=== PATIENT | female | born 1940 | race Hispanic/Latino ===

== ENCOUNTER 2017-10-25 12:46 | Inpatient (IN) | payer OTHER ==
--- NOTE | 2017-10-25 13:47 | RAD REPORT ---
EXAM DESCRIPTION: RAD - Chest Single View - 10/25/2017 1:39 pm CLINICAL HISTORY: Fall, chest pain. COMPARISON: 01/19/2015 FINDINGS: Portable technique limits examination quality. The lungs are grossly clear. The heart is normal in size. No displaced fractures. IMPRESSION: No acute intrathoracic process suspected.
--- NOTE | 2017-10-25 13:52 | RAD REPORT ---
EXAM DESCRIPTION: CT - Head Brain Wo Cont - 10/25/2017 1:42 pm CLINICAL HISTORY: Fall, head injury. COMPARISON: 01/19/2015 TECHNIQUE: All CT scans are performed using dose optimization technique as appropriate and may inclu de automated exposure control or mA/KV adjustment according to patient size. FINDINGS: No intracranial hemorrhage, hydrocephalus or extra-axial fluid collection.Moderate general ized brain atrophy is present with moderate periventricular and deep white matter chronic microvascul ar ischemic changes.No areas of brain edema or evidence of midline shift. The paranasal sinuses and mastoids are clear. The calvarium is intact. IMPRESSION: No acute intracranial abnormality.
[2017-10-25 13:55] LABS: Absolute Lymphocytes (CBC) 0.7 K/uL (0.7-4.9); Absolute Monocytes 0.7 K/uL (0.1-1.3); Absolute Neutrophil 4.5 K/uL (1.8-8.0); Basophils % 0.5 % (0-1.3); Eosinophils % 2.4 % (0-4.4); Hematocrit 33.4 % (36.0-45.0); Lymphocytes % 11.7 % (15.3-44.8); MCH 30.8 pg (27.0-35.0); MCV 88.9 fL (80-100); MPV 7.4 fL (7.6-11.3); Monocytes % 11.1 % (3.3-12.3); RBC Red Blood Cell Count 3.76 M/uL (3.86-4.86)
[2017-10-25 13:58] LABS: Protime INR 1.14
[2017-10-25 14:02] LABS: Potassium 3.4 mEq/L (3.6-5.0)
[2017-10-25 14:08] LABS: Albumin 3.2 g/dL (3.2-5.5); Bilirubin Direct 0.2 mg/dL (0-0.2); Bilirubin Total 0.5 mg/dL (0.3-1.2); Magnesium 1.9 mg/dL (1.8-2.5); Protein, Total 6.1 g/dL (6.0-8.3)
[2017-10-25 14:13] LABS: CKMB Creatine Kinase MB 0.6 ng/ml (0.3-4.0)
[2017-10-25] MEDS ORDERED: NA CHLORIDE 0.9% 250 ML ONE ×2 (14:24→18:18)
[2017-10-25] MEDS ORDERED: NA CHLORIDE 0.9% 1,000 ML ONE (14:24)
[2017-10-25 16:32] LABS: Urine Bacteria <20 /HPF (<20); Urine Culture Reflex Order NOT NEEDED; Urine RBC <5 /HPF (NONE SEEN)
[2017-10-25 16:34] LABS: Urine Blood TRACE (NEG); Urine Glucose NEGATIVE (NEG); Urine Protein 1+ (NEG); Urine pH 6.5 (5.0-7.0)
[2017-10-25] MEDS ORDERED: ACETAMINOPHEN 500 MG TAB ONE (17:13)
--- NOTE | 2017-10-25 17:15 | ER ---
Nurse's Notes [facility] Name: Kat Diane Age: 77 yrs Sex: Female : 1940 Arrival Date: 10/25/2017 Time: 13:00 Bed 20 Private MD: Diagnosis: Other slipping, tripping and stumbling and falls;Weakness-General;Orthostatic hypotension Presentation: 10/25 13:13 Presenting complaint: EMS states: called out for generalized weakness, fell while em gardening around 8AM, went to shower and fell and hit head around 11AM, denies taking blood thinners or LOC, generalized weakness for 4 days, bruising noted left upper arm, left wrist, and right shoulder. Transition of care: patient was not received from another setting of care. Onset of symptoms was October 25, 2017. Risk Assessment: Do you want to hurt yourself or someone else? Patient reports no desire to harm self or others. Initial Sepsis Screen: Does the patient meet any 2 criteria? No. Patient's initial sepsis screen is negative. Does the patient have a suspected source of infection? No. Patient's initial sepsis screen is negative. Care prior to arrival: Medication(s) given: zofran 4 mg. 13:13 Method Of Arrival: EMS: [facility] em 13:13 Acuity: UMBERTO 3 iw Historical: - Allergies: 13:30 No Known Allergies; em - Home Meds: 14:00 atorvastatin 20 mg Oral tab 1 tab once daily [Active]; amlodipine 5 mg tab 1 tab once em daily [Active]; benazepril-hydrochlorothiazide 40mg daily Oral tab [Active]; Vitamin D Oral daily [Active]; carvedilol 25 mg Oral tab 1 tab 2 times per day [Active]; aspirin 81 mg Oral chew 1 tab once daily [Active]; calcium daily [Active]; folic acid 1 mg Oral tab 1 tab once daily [Active]; clopidogrel 75 mg oral tab 1 tab once daily [Active]; carbamazepine 100 mg Oral CM12 1 cap 2 times per day [Active]; gabapentin 300 mg oral cap 1 cap 3 times per day [Active]; - PMHx: 13:30 Hyperlipidemia; Hypertension; CVA; em - PSHx: 13:30 left wrist; em - Immunization history:: Adult Immunizations up to date, Flu vaccine is not up to date. - Social history:: Smoking status: Patient/guardian denies using tobacco. - Ebola Screening: : No symptoms or risks identified at this time. Screenin:00 Abuse screen: Denies threats or abuse. Nutritional screening: No deficits noted. em Tuberculosis screening: No symptoms or risk factors identified. Fall Risk Fall in past 12 months (25 points). Secondary diagnosis (15 points) generalized weakness. Gait- Weak (10 pts.). Total Byrnes Fall Scale indicates High Risk Score (45 or more points). Side Rails Up X 2 Placed Close to Nursing Station Frequent Obs/Assessments Occuring Family Present and informed to notify staff if the need to leave the bedside. Assessment: 13:31 General: Appears in no apparent distress. uncomfortable, ill, Behavior is calm, em cooperative. Pain: Denies pain. Neuro: Level of Consciousness is awake, alert, obeys commands, Oriented to person, place, time, situation, [employer] are weak bilaterally Moves all extremities. Speech is normal, Reports weakness since four days ago. 13:31 Cardiovascular: Capillary refill < 3 seconds Patient's skin is warm and dry. Rhythm is em sinus rhythm. Respiratory: Airway is patent Respiratory effort is even, unlabored, Respiratory pattern is regular, symmetrical. GI: Patient currently denies nausea, vomiting. : No signs and/or symptoms were reported regarding the genitourinary system. EENT: No signs and/or symptoms were reported regarding the EENT system. Derm: Skin is intact, Skin is dusky, Bruising that is dark purple, on left bicep and dorsal aspect of left forearm, right shoulder. 13:31 Musculoskeletal: Range of motion: intact in all extremities. em 13:50 Reassessment: Patient appears in no apparent distress at this time. I agree with above iw assessment by Primo Quintero LVN. 14:30 Reassessment: Patient appears in no apparent distress at this time. Patient and/or em family updated on plan of care and expected duration. Pain level reassessed. Patient is alert, oriented x 3, equal unlabored respirations, skin warm/dry/pink. Patient states feeling better. Patient states symptoms have improved. 15:30 Reassessment: Patient appears in no apparent distress at this time. Patient and/or em family updated on plan of care and expected duration. Pain level reassessed. Patient is alert, oriented x 3, equal unlabored respirations, skin warm/dry/pink. 16:27 Reassessment: Patient appears in no apparent distress at this time. Patient and/or em family updated on plan of care and expected duration. Pain level reassessed. Patient is alert, oriented x 3, equal unlabored respirations, skin warm/dry/pink. Patient states feeling better. 17:37 Reassessment: Patient appears in no apparent distress at this time. Patient and/or em family updated on plan of care and expected duration. Pain level reassessed. pt eating dinner, tolerated well. 17:50 Reassessment: pt sat up to eat dinner, BP was 85/50, HR 60, SPO2% 94% RA, pt em asymptomatic, A\T\Ox 3, skin pale, dry and cool, WENDY Orosco notified, new orders received. 18:15 Reassessment: pt lying in bed at 15 degrees, BP 93/47, HR 64, SPO2 98% on 2 L NC. em 18:35 Reassessment: BP 105/47, HR 62, SPO2 98% 2 L NC after 250 mL bolus, WENDY Orosco notified. em 18:50 Reassessment: Patient appears in no apparent distress at this time. BP 93/42, HR 63, em SPO2 % 98 2 L NC, WENDY Orosco notified, no new orders received, will continue to monitor. 19:15 General: Appears in no apparent distress. Behavior is calm, cooperative. Pain: Denies ea pain. Neuro: Level of Consciousness is awake, alert, obeys commands, Oriented to person, place, time, situation, Speech is normal, Reports weakness. Cardiovascular: Capillary refill < 3 seconds Patient's skin is warm and dry. Cardiovascular: Heart tones S1 S2 present. Respiratory: Airway is patent Respiratory effort is even, unlabored, Respiratory pattern is regular, symmetrical. GI: No signs and/or symptoms were reported involving the gastrointestinal system. : No signs and/or symptoms were reported regarding the genitourinary system. EENT: No signs and/or symptoms were reported regarding the EENT system. Derm: Skin is intact, Skin is dry, Skin is pale, Skin temperature is warm Bruising that is dark purple, on left arm and dorsal aspect of left forearm and left bicep. Musculoskeletal: No signs and/or symptoms reported regarding the musculoskeletal system. Circulation, motion, and sensation intact. 19:35 Reassessment: Pt noted to have manual BP 86/50, provider notified, order obtained, ea medication administered pt tolerating well. 20:09 Reassessment: Report called to Diane PUTNAM on second floor. ea 20:23 Reassessment: Patient and/or family updated on plan of care and expected duration. Pain ea level reassessed. Patient is alert, oriented x 3, equal unlabored respirations, skin warm/dry/pink. Pt bp improved, Manual BP at 102/60. Vital Signs: 13:13 BP 136 / 54; Pulse 71; Resp 18; Temp 97.8(O); Pulse Ox 96% on R/A; Pain 0/10; em 14:05 BP 132 / 54; Pulse 70; Resp 17; Pulse Ox 96% ; ag 15:00 BP 134 / 26; Pulse 71; Resp 16; Pulse Ox 98% on R/A; Pain 0/10; em 16:00 BP 112 / 51; Pulse 63; Resp 18; Pulse Ox 98% on R/A; Pain 4/10; em 17:00 BP 130 / 51; Pulse 66; Resp 16; Pulse Ox 95% on R/A; em 17:50 BP 102 / 50; Pulse 67; Resp 16; Pulse Ox 98% on R/A; em 18:15 BP 93 / 47; Pulse 64; Resp 16; Pulse Ox 99% on 2 lpm NC; Pain 0/10; em 18:34 BP 105 / 47; Pulse 63; Resp 20; Pulse Ox 98% on 2 lpm NC; em 19:26 Weight 70.76 kg; ea 19:45 BP 98 / 44; Pulse 66; Resp 18; Pulse Ox 99% on 2 lpm NC; Pain 0/10; ea 20:18 BP 102 / 60; Pulse 67; Resp 18; Pulse Ox 99% on 2 lpm NC; ea NIH Stroke Scale Scores: 13:33 NIHSS Score: 0 cp ED Course: 13:00 Patient arrived in ED. iw 13:02 Kwesi Tapia PA is PHCP. cp 13:02 Kwesi Ledesma MD is Attending Physician. cp 13:13 Primo Quintero LVN is Primary Nurse. em 13:[address] via stretcher. vm2 13:31 Maintain EMS IV. Dressing intact. Good blood return noted. Site clean \T\ dry. Gauge \T\ em site: 20 RAC. IV is patent, is intact, with fluids infusing freely, with good blood return. 13:35 Patient has correct armband on for positive identification. Placed in gown. Bed in low em position. Call light in reach. Side rails up X2. 13:35 Arm band placed on. em 13:39 XRAY Chest (1 view) In Process Unspecified. EDMS 13:40 Triage completed. iw 13:42 CT completed. Patient moved back from CT. cw1 13:43 CT Head Brain wo Cont In Process Unspecified. EDMS 13:51 Basic Metabolic Panel Sent. ag 13:51 BNP Sent. ag 13:51 CBC with Diff Sent. ag 13:51 Ckmb Sent. ag 13:52 CPK Sent. ag 13:52 LFT's Sent. ag 13:52 Magnesium Sent. ag 13:52 PT-INR Sent. ag 13:52 Troponin (emerg Dept Use Only) Sent. ag 13:52 Ptt, Activated Sent. ag 13:52 Initial lab(s) drawn, by al, sent to lab. ag 15:13 Straight cath inserted, using sterile technique, 16 Fr. Specimen obtained. ag 17:14 Yue Carvalho MD is Hospitalizing Provider. cp 18:01 No provider procedures requiring assistance completed. em 20:23 Patient admitted, IV remains in place. ea Administered Medications: 14:35 Drug: NS 0.9% 250 ml Route: IV; Rate: bolus; Site: right antecubital; em 15:50 Follow up: IV Status: Completed infusion; IV Intake: 250ml em 14:35 Drug: NS 0.9% 1000 ml Route: IV; Rate: 75 ml/hr; Site: right antecubital; em 19:00 Follow up: Response: No adverse reaction; IV Status: Completed infusion ea 17:05 Drug: Tylenol 1000 mg Route: PO; em 17:43 Follow up: Response: No adverse reaction em 18:05 Drug: NS 0.9% 250 ml Route: IV; Rate: bolus; Site: right antecubital; em 18:38 Follow up: IV Status: Completed infusion; IV Intake: 250ml em 19:28 Drug: NS 0.9% (20 ml/kg) 20 ml/kg Route: IV; Rate: 1 bolus; Site: right antecubital; ea 20:26 Follow up: Response: No adverse reaction; Marked relief of symptoms; IV Status: ea Completed infusion Intake: 15:50 IV: 250ml; Total: 250ml. em 18:38 IV: 250ml; Total: 500ml. em Output: 15:13 Urine: 600ml (Straight Cath); Total: 600ml. ag Outcome: 17:15 Decision to Hospitalize by Provider. cp 20:10 Admitted to Med/surg accompanied by tech, via stretcher, room 202, with chart, Report ea called to Diane PUTNAM 20:23 Condition: stable ea 20:27 Patient left the ED. ea NIH Stroke Scale - NIH Stroke Score Date: 10/25/2017 Time: 13:33 Total Score = 0 1a. Level of Consciousness (LOC) - 0(Alert) 1b. Level of Consciousness (LOC) (Year \T\ Age) - 0(Both) 1c. LOC Commands (Open \T\ Closes Eyes/Business Rules Analyst) - 0(Both) 2. Best Gaze (Lateral Gaze Paresis) - 0(Normal) 3. Visual Field Loss - 0(No visual loss) 4. Facial Palsy - 0(Normal) 5a. Left Arm: Motor (10-second hold) - 0(No drift) 5b. Right Arm: Motor (10-second hold) - 0(No drift) 6a. Left Leg: Motor (5-second hold - always test supine) - 0(No drift) 6b. Right Leg: Motor (5-second hold - always test supine) - 0(No drift) 7. Limb Ataxia (finger/nose \T\ heel/georges - test with eyes open) - 0(Absent) 8. Sensory Loss (pinprick arms/legs/face) - 0(Normal) 9. Best Language: Aphasia (description/naming/reading) - 0(No aphasia) 10. Dysarthria (speech clarity - read or repeat words) - 0(Normal) 11. Extinction and Inattention (visual/tactile/auditory/spatial/personal) - 0(No abnormality) Initials: cp Signatures: Dispatcher [employer] EDPrimo Franks, TANK FARM GAUGER TANK FARM GAUGER em Talisha Luna, Gladys Franklin RN, Ana ag Page, Corey, PA PA cp McGuire, Victoria vm2 Antunez, Elena, RN RN ea Corrections: (The following items were deleted from the chart) 13:31 General: Appears in no apparent distress. uncomfortable, ill, Behavior is em calm, cooperative, em 13:31 Pain: Denies pain. em em 13:31 Neuro: Level of Consciousness is awake, alert, obeys commands, Oriented em to person, place, time, situation, [employer] are weak bilaterally Moves all extremities. Speech is normal, Reports weakness since four days ago em 18:33 17:50 Reassessment: pt sat up to eat dinner, BP was 85/50, HR 60, SPO2% 94% RA, em WENDY Orosco notified, new orders received em : 18:15 Reassessment: pt lying in bed at 30 degrees, BP 93/47, HR 64, SPO2 98% on em 2 L NC em
--- NOTE | 2017-10-25 17:15 | EDPHYS ---
Physician Documentation [facility] Name: Kat Diane Age: 77 yrs Sex: Female : 1940 Arrival Date: 10/25/2017 Time: 13:00 Bed 20 Private MD: ED Physician Kwesi Ledesma HPI: 10/25 13:30 This 77 yrs old Female presents to ER via EMS with complaints of general cp weakness. 13:30 The patient's problem is reported as weakness, that is generalized. Onset: The cp symptoms/episode began/occurred 4 day(s) ago. Duration: The episode is continuous. 13:30 Context: occurred at home, occurred while the patient was working in garden and while cp taking shower. 13:30 Associated signs and symptoms: Pertinent positives: general weakness, legs giving out, cp Pertinent negatives: abdominal pain, chest pain, headache, vertigo, vomiting. Patient's baseline: Neuro: alert and fully oriented, Motor: no deficits, Ambulation: walks without assistance, Speech: normal, The patient has a previous history of CVA. Historical: - Allergies: 13:30 No Known Allergies; em - Home Meds: 14:00 atorvastatin 20 mg Oral tab 1 tab once daily [Active]; amlodipine 5 mg tab 1 tab once em daily [Active]; benazepril-hydrochlorothiazide 40mg daily Oral tab [Active]; Vitamin D Oral daily [Active]; carvedilol 25 mg Oral tab 1 tab 2 times per day [Active]; aspirin 81 mg Oral chew 1 tab once daily [Active]; calcium daily [Active]; folic acid 1 mg Oral tab 1 tab once daily [Active]; clopidogrel 75 mg oral tab 1 tab once daily [Active]; carbamazepine 100 mg Oral CM12 1 cap 2 times per day [Active]; gabapentin 300 mg oral cap 1 cap 3 times per day [Active]; - PMHx: 13:30 Hyperlipidemia; Hypertension; CVA; em - PSHx: 13:30 left wrist; em - Immunization history:: Adult Immunizations up to date, Flu vaccine is not up to date. - Social history:: Smoking status: Patient/guardian denies using tobacco. - Ebola Screening: : No symptoms or risks identified at this time. ROS: 13:33 Constitutional: Negative for body aches, chills, fever, poor PO intake. cp 13:33 Eyes: Negative for injury, pain, redness, and discharge. cp 13:33 ENT: Negative for drainage from ear(s), ear pain, sore throat, difficulty swallowing, difficulty handling secretions. 13:33 Neck: Negative for pain with movement, pain at rest, stiffness. 13:33 Cardiovascular: Negative for chest pain, edema, palpitations. 13:33 Respiratory: Negative for cough, shortness of breath, wheezing. 13:33 Abdomen/GI: Negative for abdominal pain, nausea, vomiting, and diarrhea, black/tarry stool, rectal bleeding. 13:33 MS/extremity: Negative for decreased range of motion, deformity, pain, paresthesias. 13:33 Skin: Negative for cellulitis, rash. 13:33 Neuro: Positive for general weakness, Negative for altered mental status, dizziness, headache, loss of consciousness, seizure activity, syncope, near syncope. 13:33 All other systems are negative. Exam: 13:40 Constitutional: The patient appears in no acute distress, alert, awake, cp non-diaphoretic, non-toxic, well developed, well nourished. 13:40 Head/Face: Normocephalic, atraumatic. Eyes: Pupils equal round and reactive to light, cp extra-ocular motions intact. Lids and lashes normal. Conjunctiva and sclera are non-icteric and not injected. Cornea within normal limits. Periorbital areas with no swelling, redness, or edema. ENT: Nares patent. No nasal discharge, no septal abnormalities noted. Tympanic membranes are normal and external auditory canals are clear. Oropharynx with no redness, swelling, or masses, exudates, or evidence of obstruction, uvula midline. Mucous membranes moist. Neck: Trachea midline, no thyromegaly or masses palpated, and no cervical lymphadenopathy. Supple, full range of motion without nuchal rigidity, or vertebral point tenderness. No Meningismus. Chest/axilla: Normal chest wall appearance and motion. Nontender with no deformity. No lesions are appreciated. 13:40 Cardiovascular: Rate: normal, Rhythm: regular, Heart sounds: murmur, not appreciated, Edema: is not appreciated, JVD: is not appreciated. 13:40 Respiratory: the patient does not display signs of respiratory distress, Respirations: normal, no use of accessory muscles, no retractions, no splinting, no tachypnea, labored breathing, is not present, Breath sounds: are clear throughout, no decreased breath sounds, no stridor, no wheezing. 13:40 Abdomen/GI: Inspection: abdomen appears normal, Bowel sounds: active, all quadrants, Palpation: abdomen is soft and non-tender, in all quadrants, voluntary guarding, is not appreciated, involuntary guarding, is not appreciated. 13:40 Back: pain, is absent, ROM is normal. 13:40 Skin: cellulitis, is not appreciated, no rash present. 13:40 Neuro: Orientation: to person, place \T\ time. Mentation: lucid, able to follow commands, Motor: moves all fours, general weakness w/o focal deficits, Sensation: no obvious gross deficits, Gait: not tested. 14:10 Radiologist reports: no acute findings cp 16:42 ECG was reviewed by the Attending Physician. cp Vital Signs: 13:13 BP 136 / 54; Pulse 71; Resp 18; Temp 97.8(O); Pulse Ox 96% on R/A; Pain 0/10; em 14:05 BP 132 / 54; Pulse 70; Resp 17; Pulse Ox 96% ; ag 15:00 BP 134 / 26; Pulse 71; Resp 16; Pulse Ox 98% on R/A; Pain 0/10; em 16:00 BP 112 / 51; Pulse 63; Resp 18; Pulse Ox 98% on R/A; Pain 4/10; em 17:00 BP 130 / 51; Pulse 66; Resp 16; Pulse Ox 95% on R/A; em 17:50 BP 102 / 50; Pulse 67; Resp 16; Pulse Ox 98% on R/A; em 18:15 BP 93 / 47; Pulse 64; Resp 16; Pulse Ox 99% on 2 lpm NC; Pain 0/10; em 18:34 BP 105 / 47; Pulse 63; Resp 20; Pulse Ox 98% on 2 lpm NC; em 19:26 Weight 70.76 kg; ea 19:45 BP 98 / 44; Pulse 66; Resp 18; Pulse Ox 99% on 2 lpm NC; Pain 0/10; ea 20:18 BP 102 / 60; Pulse 67; Resp 18; Pulse Ox 99% on 2 lpm NC; ea NIH Stroke Scale Scores: 13:33 NIHSS Score: 0 cp MDM: 13:04 Patient medically screened. 16:40 Data reviewed: vital signs, nurses notes, lab test result(s), EKG, radiologic studies, cp CT scan, plain films. 16:40 Differential diagnosis: CVA, drug effects, cardiac arrythmia, orthostatic hypotension. cp Counseling: I had a detailed discussion with the patient and/or guardian regarding: the historical points, exam findings, and any diagnostic results supporting the discharge/admit diagnosis, lab results, radiology results, the need for further work-up and treatment in the hospital. Response to treatment: the patient's symptoms have mildly improved after treatment. 16:51 Physician consultation: A Maia KNIGHT was called at 16:45, was contacted at 16:45, cp regarding admission, to the telemetry unit. patient's condition. 10/25 13:26 Order name: Basic Metabolic Panel; Complete Time: 14:30 10/25 14:30 Interpretation: Normal except: NA 133; K 3.4; CRE 1.12; GFR 47. 10/25 13:26 Order name: BNP; Complete Time: 14:30 10/25 14:31 Interpretation: Abnormal: BNP 614. 10/25 13:26 Order name: CBC with Diff; Complete Time: 14:06 10/25 14:06 Interpretation: Normal except: RBC 3.76; HGB 11.6; HCT 33.4; MPV 7.4; RYLEE% 74.3; LYM% cp 11.7. 10/25 13:26 Order name: Ckmb; Complete Time: 14:30 10/25 13:26 Order name: CPK; Complete Time: 14:30 10/25 13:26 Order name: LFT's; Complete Time: 14:30 10/25 14:31 Interpretation: Normal except: SGOT 64; Reviewed. 10/25 13:26 Order name: Magnesium; Complete Time: 14:30 10/25 14:31 Interpretation: Within normal limits: MG 1.9. 10/25 13:26 Order name: PT-INR; Complete Time: 14:06 10/25 14:06 Interpretation: PT 13.5; Reviewed. 10/25 13:26 Order name: Ptt, Activated; Complete Time: 14:08 10/25 13:26 Order name: Troponin (emerg Dept Use Only); Complete Time: 14:30 cp / 14:31 Interpretation: Within normal limits: TROPED 0.03. cp / 13:26 Order name: XRAY Chest (1 view); Complete Time: 14:06 cp 10/25 15:31 Order name: Urine Dipstick--Ancillary (enter results); Complete Time: 16:36 bd 10/25 19:56 Interpretation: Normal except: UBLD TRACE; UPROT 1+. cp / 15:41 Order name: Urine Microscopic Only; Complete Time: 16:36 cp 10/25 16:36 Interpretation: Within normal limits. cp / 16:51 Order name: Tegretol Level; Complete Time: 17:43 cp 10/25 13:26 Order name: EKG; Complete Time: 13:26 cp 10/25 13:26 Order name: Cardiac monitoring; Complete Time: 13:51 cp 10/25 13:26 Order name: EKG - Nurse/Tech; Complete Time: 13:51 cp 10/25 13:26 Order name: IV Saline Lock; Complete Time: 13:51 cp 10/25 13:26 Order name: Labs collected and sent; Complete Time: 13:51 cp 10/25 13:26 Order name: O2 Per Protocol; Complete Time: 13:51 cp 10/25 13:26 Order name: O2 Sat Monitoring; Complete Time: 13:51 cp 10/25 13:26 Order name: Urine Dipstick-Ancillary (obtain specimen); Complete Time: 15:13 cp 10/25 13:26 Order name: Orthostatics; Complete Time: 18:40 cp 10/25 13:26 Order name: CT Head Brain wo Cont; Complete Time: 14:06 cp 10/25 14:07 Interpretation: Report reviewed. cp 10/25 14:10 Order name: Cath; Complete Time: 15:13 cp EC:42 Rate is 67 beats/min. Rhythm is regular. OR interval is normal. QRS interval is normal. cp QT interval is normal. No ST changes noted. Interpreted by me. Reviewed by me. Administered Medications: 14:35 Drug: NS 0.9% 250 ml Route: IV; Rate: bolus; Site: right antecubital; em 15:50 Follow up: IV Status: Completed infusion; IV Intake: 250ml em 14:35 Drug: NS 0.9% 1000 ml Route: IV; Rate: 75 ml/hr; Site: right antecubital; em 19:00 Follow up: Response: No adverse reaction; IV Status: Completed infusion ea 17:05 Drug: Tylenol 1000 mg Route: PO; em 17:43 Follow up: Response: No adverse reaction em 18:05 Drug: NS 0.9% 250 ml Route: IV; Rate: bolus; Site: right antecubital; em 18:38 Follow up: IV Status: Completed infusion; IV Intake: 250ml em 19:28 Drug: NS 0.9% (20 ml/kg) 20 ml/kg Route: IV; Rate: 1 bolus; Site: right antecubital; ea 20:26 Follow up: Response: No adverse reaction; Marked relief of symptoms; IV Status: ea Completed infusion Disposition: 10/25/17 17:15 Hospitalization ordered by Yue Carvalho for Observation. Preliminary diagnosis are Other slipping, tripping and stumbling and falls, Weakness - General, Orthostatic hypotension. - Bed requested for Telemetry/MedSurg (observation). - Status is Observation. ea - Condition is Stable. - Problem is new. - Symptoms have improved. UTI on Admission? No NIH Stroke Scale - NIH Stroke Score Date: 10/25/2017 Time: 13:33 Total Score = 0 1a. Level of Consciousness (LOC) - 0(Alert) 1b. Level of Consciousness (LOC) (Year \T\ Age) - 0(Both) 1c. LOC Commands (Open \T\ Closes Eyes/Starch Crab) - 0(Both) 2. Best Gaze (Lateral Gaze Paresis) - 0(Normal) 3. Visual Field Loss - 0(No visual loss) 4. Facial Palsy - 0(Normal) 5a. Left Arm: Motor (10-second hold) - 0(No drift) 5b. Right Arm: Motor (10-second hold) - 0(No drift) 6a. Left Leg: Motor (5-second hold - always test supine) - 0(No drift) 6b. Right Leg: Motor (5-second hold - always test supine) - 0(No drift) 7. Limb Ataxia (finger/nose \T\ heel/georges - test with eyes open) - 0(Absent) 8. Sensory Loss (pinprick arms/legs/face) - 0(Normal) 9. Best Language: Aphasia (description/naming/reading) - 0(No aphasia) 10. Dysarthria (speech clarity - read or repeat words) - 0(Normal) 11. Extinction and Inattention (visual/tactile/auditory/spatial/personal) - 0(No abnormality) Initials: cp Addendum: 10/27/2017 09:04 Co-signature as Attending Physician, Kwesi Ledesma MD I agree with the [facility] assessment and plan of care. Signatures: Dispatcher [employer] EDMS Anaya Vick rg2 Linda Kothari RN RN Kwesi Nick MD MD cha Munoz, Edgar, MANUFACTURERS REPRESENTATIVE MANUFACTURERS REPRESENTATIVE em Kwesi Tapia, PA PA Juliet Wylie RN RN melecio Corrections: (The following items were deleted from the chart) 10/25 18:18 17:15 Hospitalization Ordered by A Maia KNIGHT for Observation. Preliminary cp diagnosis is Other slipping, tripping and stumbling and falls; Weakness - General. Bed requested for Telemetry/MedSurg (observation). Status is Observation. Condition is Stable. Problem is new. Symptoms have improved. UTI on Admission? No. cp 18:50 18:18 10/25/2017 17:15 Hospitalization Ordered by A Maia KNIGHT for Observation. pako Preliminary diagnosis is Other slipping, tripping and stumbling and falls; Weakness - General; Orthostatic hypotension. Bed requested for Telemetry/MedSurg (observation). Status is Observation. Condition is Stable. Problem is new. Symptoms have improved. UTI on Admission? No. cp 19:42 18:50 10/25/2017 17:15 Hospitalization Ordered by A Maia KNIGHT for Observation. rg2 Preliminary diagnosis is Other slipping, tripping and stumbling and falls; Weakness - General; Orthostatic hypotension. Bed requested for Telemetry/MedSurg (observation). Status is Observation. Condition is Stable. Problem is new. Symptoms have improved. UTI on Admission? No. dw 20:27 19:42 10/25/2017 17:15 Hospitalization Ordered by A Maia KNIGHT for Observation. melecio Preliminary diagnosis is Other slipping, tripping and stumbling and falls; Weakness - General; Orthostatic hypotension. Bed requested for Telemetry/MedSurg (observation). Status is Observation. Condition is Stable. Problem is new. Symptoms have improved. UTI on Admission? No. rg2 10/26 15:33 NIHSS Score: 0 cp cp 10/27 19:10/25 16:10 Radiologist reports: no acute findings cp cp
[2017-10-25] MEDS ORDERED: ONDANSETRON 4 MG/2 ML VIAL IV PRN (17:59)
[2017-10-25] MEDS ORDERED: NA CHLORIDE 0.9% 1,000 ML IV SCH (18:00)
[2017-10-25] MEDS ORDERED: ENOXAPARIN 40 MG/0.4 ML SQ ONE (18:58)
[2017-10-25] MEDS ORDERED: NA CHLORIDE 0.9% 2,000 ML ONE (19:31)
[2017-10-25 20:55] VITALS: BMI 31.4
[2017-10-25] MEDS: GABAPENTIN 300 MG CAP PO SCH (21:00)
[2017-10-25] MEDS: CARBAMAZEPINE 200 MG TAB PO SCH (21:00)
[2017-10-25] MEDS: ATORVASTATIN 20 MG TAB PO SCH (21:00)
[2017-10-25] MEDS: CARVEDILOL 25 MG TAB PO SCH (21:00)
[2017-10-26] MEDS: ACETAMINOPHEN 500 MG TAB PO PRN ×2 (00:34→08:42)
[2017-10-26 05:31] LABS: Absolute Lymphocytes (CBC) 0.5 K/uL (0.7-4.9); Absolute Monocytes 0.6 K/uL (0.1-1.3); Absolute Neutrophil 4.8 K/uL (1.8-8.0); Basophils % 0.7 % (0-1.3); Eosinophils % 2.2 % (0-4.4); Hematocrit 29.3 % (36.0-45.0); MCV 89.1 fL (80-100); MPV 7.8 fL (7.6-11.3); Monocytes % 9.1 % (3.3-12.3); RBC Red Blood Cell Count 3.29 M/uL (3.86-4.86)
[2017-10-26 06:18] LABS: Blood Morphology Comment NOT SEEN (NOT SEEN); Platelet Estimate ADEQ
[2017-10-26] MEDS: GABAPENTIN 300 MG CAP PO SCH ×3 (07:15→21:43)
[2017-10-26] MEDS: KCL 20 MEQ/100 mL IVPB 20 MEQ/100 ML BAG IV SCH ×2 (08:00→10:00)
[2017-10-26] MEDS ORDERED: PNEUMOCOCCAL VACCINE 0.5 ML IMVAC ONE (08:00)
[2017-10-26] MEDS ORDERED: NA CHLORIDE 0.9% 1,000 ML IV SCH (08:00)
[2017-10-26] MEDS: BENAZEPRIL 20 MG TAB PO SCH (08:29)
[2017-10-26] MEDS: ASPIRIN EC 81 MG TAB PO SCH (08:29)
[2017-10-26] MEDS: CARVEDILOL 25 MG TAB PO SCH ×2 (08:29→21:43)
[2017-10-26] MEDS: CLOPIDOGREL 75 MG TABLET PO SCH (08:30)
[2017-10-26] MEDS: AMLODIPINE 5 MG TAB PO SCH (08:30)
[2017-10-26] MEDS ORDERED: CEFTRIAXONE 1 GM/NS 50 ML 1 GM/50 ML BAG IV SCH (09:00)
[2017-10-26] MEDS: CEFTRIAXONE/SWI 1gm 1 GM/10 ML SYR IV SCH ×2 (09:00→21:42)
[2017-10-26] MEDS ORDERED: CARBAMAZEPINE 200 MG TAB PO SCH (09:00)
--- NOTE | 2017-10-26 09:10 | EKG ---
Test Date: 2017-10-25 Test Time: 16:35:55 Ditch Tender: SLOANE MEASUREMENT RESULTS: Intervals: Rate: 67 OH: 184 QRSD: 76 QT: 428 QTc: 452 [place]: P: 48 OH: 184 QRS: 12 T: 39 INTERPRETIVE STATEMENTS: Normal sinus rhythm Normal ECG Compared to ECG 01/19/2015 12:32:39 Sinus bradycardia no longer present Electronically Signed On 10-26-17 09:08:35 CDT by Jc Marks
[2017-10-26 09:55] LABS: Urine Appearance CLOUDY; Urine Bilirubin NEGATIVE (NEG); Urine Blood TRACE (NEG); Urine Color YELLOW; Urine Glucose NEGATIVE (NEG); Urine Protein 1+ (NEG)
[2017-10-26 10:59] LABS: Urine Amorphous Sediment 1+ /HPF (NONE SEEN); Urine Bacteria <20 /HPF (<20); Urine Culture Reflex Order NOT NEEDED; Urine Mucus LIGHT /HPF (NONE SEEN); Urine RBC <5 /HPF (NONE SEEN)
--- NOTE | 2017-10-26 13:03 | RAD REPORT ---
EXAM DESCRIPTION: CT - Abdomen Pelvis W Contrast - 10/26/2017 12:51 pm CLINICAL HISTORY: Abdominal pain. Lower abdominal pain COMPARISON: February 2017 TECHNIQUE: Computed axial tomography of the abdomen and pelvis was obtained. 100 cc Isovue-300 is ad ministered intravenously. Oral contrast was given. All CT scans are performed using dose optimization technique as appropriate and may include automated exposure control or mA/KV adjustment according to patient size. FINDINGS: Small bilateral pleural effusions are present with bibasilar atelectasis Several hepatic cysts are present. The largest measures 23 millimeters. Spleen, pancreas, adrenals and adrenal appear unremarkable. . A couple of renal cysts are present. Th e largest measures 16 millimeters. The appendix is not clearly seen. There is no evidence of diverticulitis A trace amount of free fluid is present IMPRESSION: Small bilateral pleural effusions Trace amount of free fluid
[2017-10-26] MEDS ORDERED: FUROSEMIDE 20 MG/ 2ML VIAL IV ONE (15:25)
--- NOTE | 2017-10-26 16:36 | RAD REPORT ---
EXAM DESCRIPTION: Joshuat Single View10/26/2017 4:15 pm CLINICAL HISTORY: sob COMPARISON: 06/27/2017 FINDINGS: Mild bilateral pulmonary opacities are present. Small pleural effusions are seen. The heart is borderline enlarged IMPRESSION: Small bilateral pleural effusions Mild bilateral interstitial opacities may represent interstitial pulmonary edema or pneumonitis
[2017-10-26] MEDS: ALBUTEROL 2.5 MG/3 ML NEB SOL NEB SCH ×2 (16:50→19:45)
--- NOTE | 2017-10-26 16:55 | HP ---
Date of Admission: 10/26/2017 Chief Complaint: Feeling weak and tingling sensation on head. History Of Present Illness: A 77-year-old female patient, who has significant pain in her facial area because of postherpetic neuralgia and she was on gabapentin that we have increased the dose slowly over a period of time and currently she is on 900 mg 3 times a day and that has not helped, so we added Tegretol recently and that seems to be helping, and we are slowly going up on the dose. She was started on 100 mg twice a day and as of last week, dose was increased to 200 mg in the morning and 100 mg in the evening. The patient says that combination of gabapentin and Tegretol has helped to control her pain very well. She still has pain, but the combination is working well for her. She could not tolerate amitriptyline, which was tried before we tried Tegretol. Yesterday, she came into the emergency room as she was feeling weak in last 2-3 days. She has been having increasing weakness and she has fallen down because of this weakness problem and she is also having some tingling sensation in her head. After she was evaluated in the ER, she was admitted to the hospital. The patient had significant orthostatic blood pressure changes in the emergency room. Her supine blood pressure was normal, but standing blood pressure was around 86. Supine blood pressure was in 130 range. She denies any fever, chills, nausea, vomiting. No abdominal pain. No urinary complaints. No cough , cold, congestion. No bleeding. Allergies: NO KNOWN ALLERGIES. Medications: Alendronate 70 mg once a week, amlodipine 5 mg daily, aspirin 81 mg daily, atorvastatin 20 mg daily, benazepril 40 mg daily, Caltrate plus D 1 tablet 2 times a day, carbamazepine 100 mg she takes 2 capsules in morning and 1 capsule in the evening, carvedilol 25 mg 2 times a day, Plavix 75 mg daily, folic acid 1 mg daily, gabapentin 300 mg she takes 3 capsules 3 times a day, Tylenol with Codeine No. 3 one tablet every 6 hours as needed for pain, vitamin D 1000 p.o. 2 times a day. Review of Systems: Constitutional: As mentioned above. METAL ROOM DENTAL TECHNICIAN: As mentioned above. All other systems reviewed and negative. Past Medical History: Significant for hypertension, mixed hyperlipidemia, osteoporosis, postherpetic neuralgia, chronic kidney disease stage 3, vitamin D deficiency, osteoporosis, prior history of stroke. Past Surgical History: Tubal ligation, hernia repair, left wrist fracture, and surgery for varicose veins. Family History: Significant for stroke, hypertension, osteoporosis, gastric cancer. Social History: Negative for smoking and alcohol use. Physical Examination: Vital Signs: This morning, temperature 98.2, pulse 81, respiratory rate 18, blood pressure 122/58, oxygen saturation 96%. Height 5 feet, weight 161 pounds. Her orthostatic vital signs; supine blood pressure 121/58, sitting blood pressure 110/60, standing blood pressure 86/49 this morning. General: Awake, alert, oriented, not in distress. HEENT: Head atraumatic, normocephalic. Conjunctivae nonerythematous. Sclerae white. Mouth, no thrush or edema noted. Ears/Nose, no mass, lesion, discharge noted. Neck: Supple. No JVD, lymph nodes, bruit, thyromegaly noted. Lungs: Bilateral good equal air entry. Clear to auscultation. No rhonchi. No rales. Heart: Normal heart sounds, no murmur or gallop. Abdomen: Soft, bowel sounds normal. No guarding, rigidity, tenderness, mass, hepatosplenomegaly, distention, or bruit noted. Extremities: No leg edema. No calf tenderness. Skin: No rash, ulcer, cellulitis. Lymphatics: No lymph node enlargement in neck, supraclavicular, infraclavicular region. Neuro: No focal neurological deficit. Chest: Unremarkable. External Genitalia: Deferred. Rectal: Deferred. Laboratory Data: Chest x-ray, no acute cardiopulmonary changes. CAT scan of the head, no acute intracranial changes. EKG, no acute ST-T changes noted. Normal sinus rhythm. After I saw the patient, we did CAT scan of abdomen and pelvis with contrast and CAT scan showed small bilateral pleural effusions, trace amount of free fluid. White count yesterday 6, hemoglobin 11.6, platelets 163. This morning; white count 6.1, hemoglobin 10.2, platelets 143, and 21% bands. Yesterday; sodium 133, potassium 3.4, chloride 103, bicarb 25, BUN 17, creatinine 1.12, glucose 107. Liver function tests unremarkable, except SGOT 64. Troponin 0.03. BNP 614. This morning; sodium 138, potassium 3 , chloride 112, bicarb 23, BUN 15, creatinine 0.94, glucose 99. Urinalysis; 1+ esterase, 10-20 WBC, trace blood, Tegretol level 6.8. Impression: 1. Orthostatic hypotension. 2. Recurrent falls as a result of above. 3. Postherpetic neuralgia. 4. Fever. 5. Hypertension. 6. Mixed hyperlipidemia. 7. Osteoporosis. Plan: Admit the patient to hospital for further evaluation and management of this problem. The patient is appropriate for inpatient and is expected to spend 2 midnights in hospital. We will repeat urinalysis and now we will start her on IV antibiotics, follow up on urine culture and blood culture. We will go ahead and apply support stockings to both lower extremities. IV fluid will be given. IV antibiotics will be continued. DVT prophylaxis will be given. We will follow up on culture results. Home medications will be continued per order and we will evaluate her medications for this orthostatic hypotension problem as very likely. I will have to worry about this is due to certain medications. She takes most of her medications are long-standing medications. Only thing new or different is higher dose of gabapentin lately that she is taking and Tegretol, which is fairly new medication. Fall precaution was ordered. We will consult Physical Therapy to help ambulate her. SUGAR/PERLA Voice ID: [id number] MTDD
[2017-10-26] MEDS: ENOXAPARIN 40 MG/0.4 ML SQ SCH (18:05)
[2017-10-26] MEDS: ATORVASTATIN 20 MG TAB PO SCH (21:43)
[2017-10-26] MEDS ORDERED: POTASSIUM 25 MEQ EFFERV TAB PO ONE (23:00)
[2017-10-27] MEDS: ALBUTEROL 2.5 MG/3 ML NEB SOL NEB SCH ×4 (01:31→19:40)
[2017-10-27 05:36] LABS: Potassium 3.8 mEq/L (3.6-5.0)
[2017-10-27] MEDS ORDERED: POTASSIUM 25 MEQ EFFERV TAB PO ONE (06:30)
[2017-10-27 07:39] LABS: Absolute Lymphocytes (CBC) 0.8 K/uL (0.7-4.9); Absolute Monocytes 0.7 K/uL (0.1-1.3); Absolute Neutrophil 5.8 K/uL (1.8-8.0); Basophils % 0.7 % (0-1.3); Eosinophils % 0.9 % (0-4.4); Hematocrit 30.6 % (36.0-45.0); MCH 30.5 pg (27.0-35.0); MCV 89.6 fL (80-100); MPV 8.3 fL (7.6-11.3); Monocytes % 9.8 % (3.3-12.3); RBC Red Blood Cell Count 3.41 M/uL (3.86-4.86)
[2017-10-27] MEDS ORDERED: FUROSEMIDE 20 MG/ 2ML VIAL IV ONE (09:48)
[2017-10-27] MEDS ORDERED: POTASSIUM CL SA 10 MEQ TAB PO ONE (09:48)
[2017-10-27] MEDS: AMLODIPINE 5 MG TAB PO SCH (10:07)
[2017-10-27] MEDS: BENAZEPRIL 20 MG TAB PO SCH (10:07)
[2017-10-27] MEDS: GABAPENTIN 300 MG CAP PO SCH ×3 (10:07→21:58)
[2017-10-27] MEDS: CEFTRIAXONE/SWI 1gm 1 GM/10 ML SYR IV SCH ×2 (10:08→21:59)
[2017-10-27] MEDS: CARVEDILOL 25 MG TAB PO SCH ×2 (10:08→21:58)
[2017-10-27] MEDS: CLOPIDOGREL 75 MG TABLET PO SCH (10:08)
[2017-10-27] MEDS: ASPIRIN EC 81 MG TAB PO SCH (10:08)
[2017-10-27] MEDS: ACETAMINOPHEN 500 MG TAB PO PRN ×2 (10:11→17:12)
--- NOTE | 2017-10-27 12:30 | RAD REPORT ---
EXAM DESCRIPTION: MRI - Stroke Protocol - 10/27/2017 12:01 pm CLINICAL HISTORY: Suspected CVA, weakness, tinnitus COMPARISON: CT head October 25, MR brain January 2015 TECHNIQUE: Sagittal T1- weighted images were obtained along with PD/heavily T2- weighted and T2-FLAI R images. Axial DWI and ADC mapping sequences were also obtained. Coronal heavily T2- weighted images were obtained. MRA head imaging performed with source images and 3D reconstruction images reviewed. MRA neck imaging was performed with source and 3D reconstruction imaging reviewed. Post contrast T1 i maging was performed. A 15 ml GD dosage was utilized. FINDINGS: No intracranial hemorrhage, mass or acute infarction. There is no edema or shift of midlin e structures. No extra-axial fluid collections. Agosto-matter/white matter junction is preserved. Signa l voids are seen as a normal finding in the major intracranial vessels. Atrophy changes are mild. Vinay tricles are normal in size. Cerebral white matter chronic ischemic changes are present not substantia lly different from the overall pattern in 2015. Encephalomalacia changes are present in the left late ral frontal lobe. This was the area of infarction detailed in 2015. Mastoid air cells and paranasal sinuses are clear. No globe or orbit abnormality. MRA Head imaging shows no aneurysm or vascular malformation. Scattered intracranial atherosclerotic c hanges are present but relatively mild for patient age. No focal flow restricting lesion identifiable . Aortic arch is bovine configuration. No origin stenosis in the seen. Left vertebral artery is dominan t. Right vertebral artery origin was not well visualized. There is tortuosity of the common carotid a nd internal carotid artery's. Again, no significant stenosis. No dissection.Vertebrobasilar vasculatu re is quite tortuous but without stenosis. IMPRESSION: No acute infarction changes. No hemorrhage, mass or acute intracranial hemorrhage. Atrophy and chronic ischemic changes are present not substantially different from 2015. There is mild left frontal encephalomalacia present as a sequela from the 2015 CVA. MR angiography imaging shows relatively mild intracranial atherosclerotic disease with no significant major vessel stenosis. There is no dissection.
[2017-10-27] MEDS: ENOXAPARIN 40 MG/0.4 ML SQ SCH (17:11)
--- NOTE | 2017-10-27 18:31 | ECHO ---
HEIGHT: 5 ft 0 in WEIGHT: 161 lb 3.2 oz DATE OF STUDY: 10/27/[address]: Lito Carvalho MD 2-DIMENSIONAL: YES M.MODE: YES DOPPLER: YES COLOR FLOW: YES TDS: PORTABLE: DEFINITY: BUBBLE STUDY: DIAGNOSIS: EVALUATE LEFT VENTRICULAR EJECTION FRACTION CARDIAC HISTORY: CATHERIZATION: NO SURGERY: NO PROSTHETIC VALVE: NO PACEMAKER: NO MEASUREMENTS (cm) DIASTOLIC (NORMALS) SYSTOLIC (NORMALS) IVSd 1.1 (0.6-1.2) LA Diam 4.3 (1.9-4.0) LVEF 67% LVIDd 4.3 (3.5-5.7) LVIDs 2.7 (2.0-3.5) %FS 37% LVPWd 1.1 (0.6-1.2) Ao Diam 3.1 (2.0-3.7) 2 DIMENSIONAL ASSESSMENT: RIGHT ATRIUM: NORMAL LEFT ATRIUM: DILATED RIGHT VENTRICLE: NORMAL LEFT VENTRICLE: NORMAL TRICUSPID VALVE: NORMAL MITRAL VALVE: NORMAL PULMONIC VALVE: NORMAL AORTIC VALVE: NORMAL PERICARDIAL EFFUSION: NONE AORTIC ROOT: NORMAL LEFT VENTRICULAR WALL MOTION: DOPPLER/COLOR FLOW: MILD MITRAL REGURGITATION AND TRICUSPID REGURGITATION. NORMAL RIGHT VENTRICULAR SYSTOLIC PRESSURE. COMMENTS: NORMAL LEFT VENTRICULAR EJECTION FRACTION. DILATED LEFT ATRIUM. MILD MITRAL REGURGITATION AND TRICUSPID REGURGITATION. TECHNOLOGIST: ONUR VILLALTA
[2017-10-27] MEDS: CARBAMAZEPINE 200 MG TAB PO SCH (21:58)
[2017-10-27] MEDS: ATORVASTATIN 20 MG TAB PO SCH (21:58)
--- NOTE | 2017-10-28 00:05 | PN ---
Date of Progress Note: 10/27/2017 Subjective: The patient was seen this morning for followup. She was on oxygen. Her daughter was pr esent with her. Overall, she was feeling much better than last night. She started to have some whee zing and shortness of breath last night. Nurse contacted me, and at that time, IV fluid was disconti nued. Chest x-ray was done, which has shown some volume overload type of changes and the patient was given 20 mg Lasix IV last night. Overall with diuresis, her condition has improved. She is feeling much better this morning. Objective: Vital Signs: Reviewed. HEENT: Unremarkable. Lungs: Bilateral good equal air entry. Not in any respiratory distress. Has bilateral basal rales present. Heart: Sounds normal. Abdomen: Soft. Bowel sounds normal. No guarding, rigidity, tenderness, or distention. Extremities: No leg edema. Labs: CBC and chemistry results reviewed. Sodium 139, potassium 3.8, chloride 110, bicarb 22, BUN 1 3, creatinine 0.92, and glucose 91. Impression: 1.Urinary tract infection. 2.Postherpetic neuralgia. 3.Orthostatic hypotension. 4.Volume overload. 5.Rule out stroke. Plan: The patient has prior history of stroke. It was in [address] scan of the brain was reported negative. We will go ahead and do MRI of the brain per stroke protocol today for further evaluation . We will get an echo with Doppler to evaluate left ventricular ejection fraction, give 20 mg Lasix IV x1 dose, and hopefully she will not need any further IV Lasix. Ambulation was encouraged. We erik l start Tegretol 100 mg at bedtime starting tonight and morning dose of Tegretol, which was 200 mg ev carlo morning, was discontinued. I strongly believe that orthostatic hypotension that the patient has presented with which has resulted in multiple falls prior to this admission is due to likely side eff ect from Tegretol and I did discuss with the patient and her daughter, and we will discontinue Tegret ol over a period of time. I have asked her that she should take 100 mg at bedtime for 1 week and the n to discontinue it completely. Her urine culture has grown mixed gisell. We will continue ceftriaxo ne as she is currently taking, and I will see her tomorrow for followup. Possible discharge to [place] tomorrow. SUGAR/MODL Voice ID: [id number] Report ID: [id number]
[2017-10-28] MEDS: ALBUTEROL 2.5 MG/3 ML NEB SOL NEB SCH ×4 (01:21→19:46)
[2017-10-28 06:37] LABS: Potassium 3.8 mEq/L (3.6-5.0)
[2017-10-28] MEDS: ACETAMINOPHEN 500 MG TAB PO PRN ×3 (08:40→20:20)
[2017-10-28] MEDS: CARVEDILOL 25 MG TAB PO SCH ×2 (08:40→20:19)
[2017-10-28] MEDS: CLOPIDOGREL 75 MG TABLET PO SCH (08:40)
[2017-10-28] MEDS: BENAZEPRIL 20 MG TAB PO SCH (08:40)
[2017-10-28] MEDS: AMLODIPINE 5 MG TAB PO SCH (08:41)
[2017-10-28] MEDS: ASPIRIN EC 81 MG TAB PO SCH (08:41)
[2017-10-28] MEDS: GABAPENTIN 300 MG CAP PO SCH ×3 (08:41→20:18)
[2017-10-28] MEDS: CEFTRIAXONE/SWI 1gm 1 GM/10 ML SYR IV SCH ×2 (08:41→20:22)
[2017-10-28] MEDS ORDERED: POTASSIUM 25 MEQ EFFERV TAB PO ONE (09:00)
[2017-10-28] MEDS ORDERED: Levofloxacin500mg IV 500 MG/100 ML BAG IV SCH (09:00)
--- NOTE | 2017-10-28 10:50 | RAD REPORT ---
EXAM DESCRIPTION: RADParthat Pa And Lat (2 Views)10/28/2017 9:38 am CLINICAL HISTORY: Cough COMPARISON: October 26, 2017 FINDINGS: Bilateral pulmonary opacities have mostly resolved. Small pleural effusions persist. The heart is borderline enlarged IMPRESSION: The bilateral pulmonary opacities appear mostly resolved
[2017-10-28] MEDS: ENOXAPARIN 40 MG/0.4 ML SQ SCH (17:45)
[2017-10-28] MEDS: ATORVASTATIN 20 MG TAB PO SCH (20:21)
[2017-10-28] MEDS: CARBAMAZEPINE 200 MG TAB PO SCH (20:21)
[2017-10-29] MEDS: ALBUTEROL 2.5 MG/3 ML NEB SOL NEB SCH ×4 (00:50→19:30)
--- NOTE | 2017-10-29 01:46 | PN ---
Date of Progress Note: 10/28/2017 Subjective: The patient was seen this morning for followup, lying in bed, not in any distress. Daughter was present with her at bedside. Objective: Vital Signs: Reviewed. HEENT: Unremarkable. Lungs: Good equal air entry. Presence of rales noted in the lower 1/3 to 1/2 of both lung hickman and this is worse today compared to yesterday. Heart: Sounds normal. Abdomen: Soft, bowel sounds normal. No guarding, rigidity, tenderness, distention. Extremities: No leg edema. Laboratory Data: Sodium 140, potassium 3.8, chloride 108, bicarb 24, BUN 14, creatinine 0.82, glucose 80. Impression: 1. Pneumonia. 2. Urinary tract infection. 3. Post herpetic neuralgia. 4. Hypertension. Plan: We will continue current medications. Continue Tegretol 100 mg at bedtime and I have instructed the patient's daughter and patient. After 1 week we should discontinue Tegretol because of orthostatic hypotension problem. Her lung findings are concerning today. Her lung findings are worse today than yesterday. I do not believe that we have to worry about any fluid overload problem like. We had that concern two days ago after two days of IV Lasix. That problem should be resolved but lung findings are worse today compared to yesterday, therefore no concern about pneumonia. We will repeat chest x-ray today. Continue ceftriaxone. Add IV Levaquin as per order, also see her tomorrow for followup. SUGAR/MODL Voice ID: [id number] Report ID: [id number] ARABELLA
[2017-10-29] MEDS: CODEINE 30MG/APAP 300MG TAB PO PRN (07:54)
[2017-10-29] MEDS ORDERED: DIGOXIN 0.25 MG/ML AMP IV SCH (08:00)
[2017-10-29 08:05] LABS: Magnesium 1.8 mg/dL (1.8-2.5)
[2017-10-29 08:32] LABS: Absolute Lymphocytes (CBC) 0.6 K/uL (0.7-4.9); Absolute Monocytes 0.5 K/uL (0.1-1.3); Absolute Neutrophil 4.7 K/uL (1.8-8.0); Basophils % 0.8 % (0-1.3); Eosinophils % 2.1 % (0-4.4); Hematocrit 29.8 % (36.0-45.0); Lymphocytes % 10.9 % (15.3-44.8); MCH 30.9 pg (27.0-35.0); MCV 89.5 fL (80-100); MPV 8.5 fL (7.6-11.3); Monocytes % 8.1 % (3.3-12.3); RBC Red Blood Cell Count 3.32 M/uL (3.86-4.86)
[2017-10-29 08:44] LABS: Thyroid Stimulating Hormone 2.46 uIU/mL (0.34-5.60)
[2017-10-29] MEDS: ASPIRIN EC 81 MG TAB PO SCH (09:00)
[2017-10-29] MEDS: CARVEDILOL 25 MG TAB PO SCH (09:00)
[2017-10-29] MEDS: AMLODIPINE 5 MG TAB PO SCH (09:00)
--- NOTE | 2017-10-29 09:11 | EKG ---
Test Date: 2017-10-29 Test Time: 07:43:16 Vessel Scrapper Helper: ARAMIS MEASUREMENT RESULTS: Intervals: Rate: 140 [place]: QRSD: 72 QT: 304 QTc: 464 [place]: P: [place]: QRS: 29 T: -70 INTERPRETIVE STATEMENTS: Atrial fibrillation with rapid ventricular response Nonspecific ST and T wave abnormality, probably digitalis effect Abnormal ECG Compared to ECG 10/25/2017 16:35:55 ST (T wave) deviation now present Sinus rhythm no longer present Electronically Signed On 10-29-17 09:10:33 CDT by Eduar Humphreys
[2017-10-29] MEDS: GABAPENTIN 300 MG CAP PO SCH ×3 (10:29→23:14)
[2017-10-29] MEDS: BENAZEPRIL 20 MG TAB PO SCH (10:29)
[2017-10-29] MEDS: ENOXAPARIN 80 MG/0.8 ML SQ SCH ×2 (10:30→23:16)
[2017-10-29] MEDS: CEFTRIAXONE/SWI 1gm 1 GM/10 ML SYR IV SCH (10:30)
--- NOTE | 2017-10-29 11:18 | CON ---
History Of Present Illness: Benedicto is a 77-year-old. She is in the hospital because of a near sync opal spell. She had been on very high doses of gabapentin and Tegretol and seemed to be having ortho static hypotension. Outpatient medications when she came in were carvedilol, atorvastatin, benazepri l, amlodipine, multivitamin, cholecalciferol, calcium carbonate, aspirin, folic acid, Tegretol 100 t. i.d., gabapentin 300 t.i.d., and Plavix. She has no history of atrial fibrillation or heart disease. 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 Was placed on several medications that seem to have caused her to be dizzy and near sync opal. She went into AFib this morning. She was not really aware of it. Her heart rate was in the 1 30s briefly. Presently, it is about 90. Some digoxin has been given. Dr. Kc is giving an oral lo ading dose. Presently, her blood pressure is fairly low. She is not on any beta-prachi and he did not want to add a beta-prachi. She is getting amlodipine, aspirin, atorvastatin, benazepril, carbam azepine. She still is on carvedilol, ceftriaxone, codeine, and now digoxin 0.25 IV for 2 doses, Love nox, gabapentin 900 t.i.d., normal saline, Zofran, pneumococcal vaccine, and potassium chloride. Physical Examination: General: The patient is alert, oriented, pleasant. Vital Signs: Her heart rate is about 90. Lungs: Clear. Heart: Unremarkable. Abdomen: Soft. Extremities: Revealed palpable pulses. She uses no tobacco. No illegal drugs. No history of atrial fibrillation in the past. Her temperature right now is 100.2, so she has some process causing temperature elevation. She is in a lot of pain. Most likely, her atrial fib is not the result of an acute pulmonary embolus or an ac aleyda [place]. It is probably something much more benign. I think rather than adding digoxin, I would pref er to control her heart rate using a different beta-prachi. Using digoxin and beta-prachi in peopl e near 80, often results in problems, intolerable side effects; so I am going to argue against using carvedilol, argue against using digoxin. It maybe tomorrow or this evening we could try Betapace. S he will stay on Lovenox and when she goes home, she should consider being on Eliquis or Xarelto inste ad. Thank you very much for your kind referral of Mrs. Diane. I will follow her with you. ANKIT Voice ID: [id number] Report ID: [id number]
[2017-10-29] MEDS: SOTALOL HCL 80 MG TAB PO SCH (18:18)
[2017-10-29] MEDS ORDERED: MAGNESIUM SULFATE 1 gm IVPB 1 GM/100 ML BAG IV ONE (21:00)
[2017-10-29] MEDS ORDERED: AMPICILLIN/SULBACTAM 3GM/VIAL ONE (22:39)
[2017-10-29] MEDS: ATORVASTATIN 20 MG TAB PO SCH (23:14)
[2017-10-29] MEDS: CARBAMAZEPINE 200 MG TAB PO SCH (23:14)
[2017-10-29] MEDS: AMPICILLIN/SULBACT 3 GM in NA CHLORIDE 0.9% 100 ML IVPB SCH (23:16)
[2017-10-30] MEDS ORDERED: NA CHLORIDE 0.9% 250 ML ONE ×2 (00:32→01:38)
--- NOTE | 2017-10-30 00:34 | PN ---
Date of Progress Note: 10/29/2017 Subjective: The patient was seen this morning for followup. No new complaints or problems reported. Her daughter was present with her at bedside. As of last night, she started to have paroxysmal atr ial fibrillation. This morning when I saw her, she was in atrial fibrillation with rapid ventricular rate with heart rate anywhere from 120 to 140. Objective: Vital Signs: Reviewed. HEENT: Unremarkable. Lungs: Clear to auscultation except rales noted in both lower lung hickman, overall better today than yesterday. Not in any respiratory distress. Heart: Sounds normal. Abdomen: Soft. Bowel sounds are normal. No guarding, rigidity, tenderness, or distention. Extremities: No leg edema. Laboratory Data: Sodium 142, potassium 4, chloride 109, bicarb 25, BUN 17, creatinine 0.77, and gluc ose 91. Diagnostic Studies: EKG showing atrial fibrillation with rapid ventricular rate. Impression: 1.Paroxysmal atrial fibrillation. 2.Pneumonia. 3.Hypertension. 4.Postherpetic neuralgia. 5.Urinary tract infection. Plan: Chest x-ray results reviewed. We will go ahead and discontinue ceftriaxone and start the sandee ent on Unasyn. The patient had low-grade fever this morning of 100.3 degrees Fahrenheit. Cardiology consultation was obtained. Echocardiogram from day before yesterday showed normal ejection fraction . School Year Nanny has started her on sotalol and during the course of day today, she did convert to sin us rhythm. We will go ahead and continue Lovenox 1 mg/kg subcu injection every 12 hours, which was s tarted this morning and up until today, the patient was getting prophylactic dose of Lovenox. Contin ue gabapentin for her postherpetic neuralgia. I did explain it to the patient's daughter and the pat ient that on outpatient basis we should consider referral to see a neurologist for her postherpetic n euralgia since she is having ongoing pain, gabapentin she is almost on near maximum dose and not able to tolerate carbamazepine due to orthostatic hypotension type of problem, amitriptyline did not work for her. If neurologist cannot help her, she will have to start seeing Pain Management physician ary chaudhary. All these details were discussed with her. I will see her tomorrow for followup. SUGAR/MODL Voice ID: [id number] Report ID: [id number]
[2017-10-30] MEDS: AMPICILLIN/SULBACT 3 GM in NA CHLORIDE 0.9% 100 ML IVPB SCH ×3 (00:54→18:29)
[2017-10-30] MEDS: ALBUTEROL 2.5 MG/3 ML NEB SOL NEB SCH ×4 (01:10→19:07)
[2017-10-30 06:02] LABS: Magnesium 2.3 mg/dL (1.8-2.5); Potassium 4.3 mEq/L (3.6-5.0)
[2017-10-30] MEDS: SOTALOL HCL 80 MG TAB PO SCH ×2 (06:33→18:26)
[2017-10-30] MEDS: CODEINE 30MG/APAP 300MG TAB PO PRN (06:34)
[2017-10-30] MEDS: BENAZEPRIL 20 MG TAB PO SCH (08:42)
[2017-10-30] MEDS: GABAPENTIN 300 MG CAP PO SCH ×3 (08:42→20:18)
[2017-10-30] MEDS: APIXABAN 5 MG TABLET PO SCH ×2 (08:46→20:18)
--- NOTE | 2017-10-30 11:20 | RAD REPORT ---
EXAM DESCRIPTION: CT - Thorax Wo Con - 10/30/2017 9:06 am CLINICAL HISTORY: sob COMPARISON: October 28, 2017 TECHNIQUE: Computed axial tomography of the chest was obtained. Contrast was not requested. All CT scans are performed using dose optimization technique as appropriate and may include automated exposure control or mA/KV adjustment according to patient size. FINDINGS: The evaluation of mediastinum, angelica and vessels is limited secondary to lack of IV contras t administration. Minimal ground-glass opacities are present within the lungs bilaterally. Mild mediastinal and hilar lymphadenopathy is seen. . Small to moderate right and small left pleural effusions are present. Bibasilar lung opacities probab ly represent atelectasis. Coronary arterial calcifications are noted. IMPRESSION: Small to moderate right and small left pleural effusions with bibasilar lung atelectasis Minimal ground-glass opacities indicative of a minimal alveolitis Mild mediastinal and hilar lymphadenopathy most likely is reactive in nature. Follow up CT chest in 3 months would be helpful to assess stability/resolution
--- NOTE | 2017-10-30 15:08 | PN ---
Seen by Dr. Humphreys for atrial fibrillation. Admitted by Dr. Carvalho on 10/26/2017. Began on Betapace. Normal rhythm today. Dr. Humphreys is suggesting Xarelto or Eliquis as an outpatient. We will sign of f the case. ALLIE/PERLA Voice ID: [id number] Report ID: [id number]
[2017-10-30] MEDS: ATORVASTATIN 20 MG TAB PO SCH (20:18)
[2017-10-30] MEDS: CARBAMAZEPINE 200 MG TAB PO SCH (21:51)
--- NOTE | 2017-10-30 23:17 | PN ---
Date of Progress Note: 10/30/2017 Subjective: The patient was seen this morning for followup. No new complaints or problems reported by her. Her daughter was present with her at bedside. Objective: Vital Signs: Reviewed. HEENT: Examination unremarkable. Lungs: Bilateral good equal entry. Presence of rales noted in both lower lung hickman, unchanged from yesterday. Heart: Sounds normal. Abdomen: Soft. Bowel sounds normal. No guarding, rigidity, tenderness, or distention. Extremities: No leg edema. Laboratory Data: Sodium 138, potassium 4.3, chloride 104, bicarb 26, BUN 18, creatinine 0.83, glucose 94, magnesium 2.3. CAT scan of the chest shows bilateral ground-glass opacity, consistent with alveolitis and pleural effusion. Impression: 1. Pneumonia. 2. Paroxysmal atrial fibrillation. 3. Urinary tract infection. 4. Pleural effusion. 5. Hypertension. 6. Postherpetic neuralgia. 7. Congestive heart failure, acute, diastolic. Plan: We will continue current gabapentin, continue sotalol, continue current antibiotics. Ambulation was encouraged. The patient has not ambulated outside her room, and she was encouraged to ambulate today outside the room. Nursing staff to see if we can wean off oxygen that she is currently on 2 L/min and if she needs home oxygen and if she qualifies, then to arrange for home oxygen. Lovenox was discontinued, and we started her on Eliquis 5 mg 2 times a day. Possible discharge to go home tomorrow depending on her condition. We will continue Unasyn. Upon discharge, we will discharge her on Augmentin. SUGAR/MODL Voice ID: [id number] Report ID: [id number] ARABELLA
[2017-10-31] MEDS: AMPICILLIN/SULBACT 3 GM in NA CHLORIDE 0.9% 100 ML IVPB SCH ×3 (00:44→17:47)
[2017-10-31] MEDS: ALBUTEROL 2.5 MG/3 ML NEB SOL NEB SCH ×4 (01:30→20:40)
[2017-10-31] MEDS: CODEINE 30MG/APAP 300MG TAB PO PRN ×2 (06:12→13:23)
[2017-10-31] MEDS: SOTALOL HCL 80 MG TAB PO SCH ×2 (06:13→17:48)
[2017-10-31] MEDS: BENAZEPRIL 20 MG TAB PO SCH (08:54)
[2017-10-31] MEDS: GABAPENTIN 300 MG CAP PO SCH ×3 (08:55→20:15)
[2017-10-31] MEDS: APIXABAN 5 MG TABLET PO SCH ×2 (08:55→20:15)
[2017-10-31] MEDS: FUROSEMIDE 20 MG/ 2ML VIAL IV SCH (17:48)
--- NOTE | 2017-10-31 19:57 | PN ---
Date of Progress Note: 10/31/2017 Subjective: The patient was seen this morning for followup. She remains on oxygen 2 L/minute per na ya cannula. Her room air oxygen saturation is 88%. She did ambulate yesterday well. No new compla ints problems reported. Denies any pain from her postherpetic neuralgia. Objective: Vital Signs: Reviewed. HEENT: Examination unremarkable. Lungs: Clear to auscultation. No rhonchi or rales, except some bilateral basal rales present, not i n any respiratory distress. Heart: Sounds normal. Abdomen: Soft. Bowel sounds normal. No guarding, rigidity, tenderness, or distention. Extremities: No leg edema. Impression: 1.Pneumonia. 2.Congestive heart failure, acute, diastolic. 3.Urinary tract infection. 4.Postherpetic neuralgia. 5.Paroxysmal atrial fibrillation. 6.Anemia. 7.Hypertension. Plan: We will continue current antibiotics. Continue gabapentin, sotalol, and Eliquis. Our plan wa s originally to discharge her to go home today if we can make arrangements for home oxygen. She does qualify for home oxygen, but as I understand she does not have qualifying diagnosis for home oxygen. So with that in mind, we will keep her in the hospital until we get successfully weaned off from ox ygen use and hopefully that will happen over the weekend and possible discharge by Friday. I will se e her tomorrow for followup. We will start her on some IV Lasix. If she did not have this atrial fi brillation problem, I would probably consider using some steroid also but I will discourage use of steroid medication in view of her paroxysmal atrial fibrillation pr suleimanem. SUGAR/MODL Voice ID: [id number] Report ID: [id number]
[2017-10-31] MEDS: CARBAMAZEPINE 200 MG TAB PO SCH (20:15)
[2017-10-31] MEDS: ATORVASTATIN 20 MG TAB PO SCH (20:15)
[2017-11-01] MEDS: AMPICILLIN/SULBACT 3 GM in NA CHLORIDE 0.9% 100 ML IVPB SCH ×3 (00:07→17:39)
[2017-11-01] MEDS: ALBUTEROL 2.5 MG/3 ML NEB SOL NEB SCH ×4 (01:58→19:30)
[2017-11-01] MEDS: SOTALOL HCL 80 MG TAB PO SCH ×2 (05:13→18:44)
[2017-11-01] MEDS: CODEINE 30MG/APAP 300MG TAB PO PRN (08:28)
[2017-11-01] MEDS: FUROSEMIDE 20 MG/ 2ML VIAL IV SCH ×2 (08:29→17:35)
[2017-11-01] MEDS: GABAPENTIN 300 MG CAP PO SCH ×3 (08:29→20:11)
[2017-11-01] MEDS: APIXABAN 5 MG TABLET PO SCH ×2 (08:29→20:12)
[2017-11-01] MEDS: BENAZEPRIL 20 MG TAB PO SCH (08:29)
[2017-11-01 10:20] LABS: Absolute Lymphocytes (CBC) 0.8 K/uL (0.7-4.9); Absolute Monocytes 0.7 K/uL (0.1-1.3); Absolute Neutrophil 3.7 K/uL (1.8-8.0); Basophils % 0.8 % (0-1.3); Eosinophils % 5.5 % (0-4.4); Hematocrit 29.7 % (36.0-45.0); Lymphocytes % 14.3 % (15.3-44.8); MCV 89.2 fL (80-100); MPV 7.4 fL (7.6-11.3); Monocytes % 12.9 % (3.3-12.3); RBC Red Blood Cell Count 3.33 M/uL (3.86-4.86)
[2017-11-01 10:31] LABS: Potassium 3.5 mEq/L (3.6-5.0)
--- NOTE | 2017-11-01 14:01 | PN ---
Subjective: She still has quite a bit of AFib in spite of being on Betapace. I though we could incr ease the dose. I think her blood pressure would allow it, heart rates would allow it. Her heart rat e is in 100 and 120 and AFib and 64 in the sinus, so we will try at the higher heart rate and we will reduce the dose of benazepril if needed. ROBERTO CARLOS/PERLA Voice ID: [id number] Report ID: [id number]
--- NOTE | 2017-11-01 14:27 | PN ---
Date of Progress Note: 11/01/2017 Subjective: The patient was seen this morning for followup. No new complaints or problems reported by patient. Lying in bed, not in distress. Objective: Vital Signs: Reviewed. HEENT: Unremarkable. Lungs: Bilateral good equal air entry. Very minimum basal rales present, not in respiratory distres s. Heart: Sounds normal. Abdomen: Soft, bowel sounds normal. No guarding, rigidity, tenderness, or distention. Extremities: No leg edema. Laboratory Data: White count 5.5, hemoglobin 10.3, platelets 344. Sodium 138, potassium 3.5, chlori de 101, bicarb 29, BUN 14, creatinine 0.95, glucose 97, magnesium 2. Impression: 1.Paroxysmal atrial fibrillation. 2.Hypokalemia. 3.Hypertension. 4.Pneumonia. 5.Urinary tract infection. 6.Bilateral pleural effusion. 7.Congestive heart failure, acute, diastolic. 8.Post herpetic neuralgia. Plan: We will go ahead and replace electrolytes per protocol. Continue IV Lasix. The patient had g one into atrial fibrillation again during nighttime. Park Maintenance Technician has evaluated her and by the time when I saw her, she was back in sinus rhythm. We will continue her anticoagulant medication, Eliquis . Continue other current medications per order. I will see her tomorrow for followup. I will repeat blood test tomorrow morning, and the chest x-ray tomorrow morning. SUGAR/MODL Voice ID: [id number] Report ID: [id number]
[2017-11-01] MEDS: ACETAMINOPHEN 500 MG TAB PO PRN (20:12)
[2017-11-01] MEDS: CARBAMAZEPINE 200 MG TAB PO SCH (20:12)
[2017-11-01] MEDS: ATORVASTATIN 20 MG TAB PO SCH (20:12)
[2017-11-01] MEDS ORDERED: POTASSIUM 25 MEQ EFFERV TAB PO ONE (21:00)
[2017-11-02] MEDS: AMPICILLIN/SULBACT 3 GM in NA CHLORIDE 0.9% 100 ML IVPB SCH ×3 (00:08→17:00)
[2017-11-02] MEDS: ALBUTEROL 2.5 MG/3 ML NEB SOL NEB SCH ×4 (01:17→21:43)
[2017-11-02 04:47] LABS: Magnesium 1.9 mg/dL (1.8-2.5)
[2017-11-02] MEDS: SOTALOL HCL 80 MG TAB PO SCH ×2 (05:32→18:10)
[2017-11-02] MEDS: CODEINE 30MG/APAP 300MG TAB PO PRN (08:57)
[2017-11-02] MEDS: GABAPENTIN 300 MG CAP PO SCH ×3 (08:57→20:20)
[2017-11-02] MEDS: APIXABAN 5 MG TABLET PO SCH ×2 (08:57→20:20)
[2017-11-02] MEDS: FUROSEMIDE 20 MG/ 2ML VIAL IV SCH ×2 (08:58→17:01)
[2017-11-02] MEDS: BENAZEPRIL 20 MG TAB PO SCH (08:58)
--- NOTE | 2017-11-02 11:14 | RAD REPORT ---
EXAM DESCRIPTION: RAD - Chest Pa And Lat (2 Views) - 11/02/2017 8:37 am CLINICAL HISTORY: CHF Chest pain. COMPARISON: Chest Pa And Lat (2 Views) dated 10/28/2017; Chest Single View dated 10/26/2017; Chest Sin gle View dated 10/25/2017; CHEST SINGLE VIEW dated 01/19/2015; Thorax Wo Con dated 10/30/2017 FINDINGS: Bilateral interstitial lung markings are again noted, slightly progressive. Bilateral pleu ral effusions appear slightly larger, particularly on the left. The heart is moderately enlarged in s ize. No displaced fractures. IMPRESSION: Mild to moderate CHF/volume overload pattern, mildly progressive since comparative study .
--- NOTE | 2017-11-02 11:38 | PN ---
Date of Progress Note: 11/02/2017 Subjective: The patient was seen this morning for followup. No new complaints or problems reported. Lying in bed, not in distress. Objective: Vital Signs: Reviewed. HEENT: Unremarkable. Lungs: Bilateral basal rales. Not in respiratory distress. Heart: Heart sounds normal. Abdomen: Soft. Bowel sounds normal. No guarding, rigidity, tenderness, or distention. Extremities: No leg edema. Laboratory Data: Sodium 140, potassium 4, chloride 101, bicarb 31, BUN 14, creatinine 0.93, glucose 98, magnesium 1.9. Impression: 1.Paroxysmal atrial fibrillation. 2.Postherpetic neuralgia. 3.Anemia. 4.Hypertension. 5.Pneumonia. 6.Urinary tract infection. Plan: We will continue current medications. Chest x-ray was pending this morning. We will follow u p on it, continue to follow with payroll and benefits analyst. When I saw her, she was in sinus rhythm, but after th at, nurse told me that the patient went into atrial fibrillation. Dr. Humphreys from Cardiology has inc reased dose of sotalol to 120 mg 2 times a day. The patient remains on Eliquis. We will continue cu rrent antibiotics, ambulate the patient as she tolerates, and I will see her tomorrow for followup. Her room air oxygen saturation today was 89%. SUGAR/MODL Voice ID: [id number] Report ID: [id number]
--- NOTE | 2017-11-02 11:56 | PN ---
Ms. Diane spent almost all day yesterday in sinus rhythm. She has been in AFib for the last half h our or so. So, I think we want to continue with 120 b.i.d. of Betapace, continue the present anticoa gulation, and tomorrow decide if we want to increase the dose of Betapace, continue it or discard it as a treatment failure, but I think it is likely to be helpful to her. She is asymptomatic with AFib at present even though her heart rate is about 110. ROBERTO CARLOS/PERLA Voice ID: [id number] Report ID: [id number]
[2017-11-02] MEDS: ACETAMINOPHEN 500 MG TAB PO PRN (20:20)
[2017-11-02] MEDS: CARBAMAZEPINE 200 MG TAB PO SCH (20:20)
[2017-11-02] MEDS: ATORVASTATIN 20 MG TAB PO SCH (20:20)
[2017-11-03] MEDS: AMPICILLIN/SULBACT 3 GM in NA CHLORIDE 0.9% 100 ML IVPB SCH ×3 (00:01→17:48)
[2017-11-03] MEDS: ALBUTEROL 2.5 MG/3 ML NEB SOL NEB SCH ×4 (01:27→19:54)
[2017-11-03] MEDS: SOTALOL HCL 80 MG TAB PO SCH ×2 (05:18→17:48)
[2017-11-03 07:43] LABS: Potassium 3.8 mEq/L (3.6-5.0)
[2017-11-03 07:44] LABS: Magnesium 1.8 mg/dL (1.8-2.5)
[2017-11-03 07:50] LABS: Absolute Lymphocytes (CBC) 0.8 K/uL (0.7-4.9); Absolute Monocytes 0.7 K/uL (0.1-1.3); Eosinophils % 4.2 % (0-4.4); Hematocrit 28.5 % (36.0-45.0); Lymphocytes % 13.8 % (15.3-44.8); MCH 31.1 pg (27.0-35.0); MPV 7.3 fL (7.6-11.3); Monocytes % 12.2 % (3.3-12.3); RBC Red Blood Cell Count 3.16 M/uL (3.86-4.86)
[2017-11-03] MEDS: BENAZEPRIL 20 MG TAB PO SCH (09:18)
[2017-11-03] MEDS: APIXABAN 5 MG TABLET PO SCH ×2 (09:19→20:52)
[2017-11-03] MEDS: GABAPENTIN 300 MG CAP PO SCH ×3 (09:19→20:51)
[2017-11-03] MEDS: FUROSEMIDE 20 MG/ 2ML VIAL IV SCH ×2 (09:19→17:48)
[2017-11-03] MEDS: CODEINE 30MG/APAP 300MG TAB PO PRN (09:26)
--- NOTE | 2017-11-03 11:30 | PN ---
Mrs. Diane is in sinus rhythm. She seems to be tolerating Betapace 120 b.i.d. I think she should be discharged taking the same medicine and anticoagulation. Hopefully, Xarelto or Eliquis could be u sed as an outpatient. ANKIT Voice ID: [id number] Report ID: [id number]
[2017-11-03] MEDS: ACETAMINOPHEN 500 MG TAB PO PRN (20:51)
[2017-11-03] MEDS: CARBAMAZEPINE 200 MG TAB PO SCH (20:51)
[2017-11-03] MEDS: ATORVASTATIN 20 MG TAB PO SCH (20:52)
--- NOTE | 2017-11-03 23:08 | PN ---
Date of Progress Note: 11/03/2017 Subjective: The patient was seen this morning for followup. Lying in bed, not in distress. Objective: Vital Signs: Reviewed. HEENT: Examination unremarkable. Lungs: Bilateral good air entry. Presence of rales noted in both lung bases, unchanged from yesterd ay. Heart: Heart sounds normal. Abdomen: Soft. Bowel sounds normal. No guarding, rigidity, tenderness, or distention. Extremities: No leg edema. Laboratory Data: White count 5.8, hemoglobin 9.8, platelets 367. Sodium 141, potassium 3.8, chlorid e 99, bicarb 33, BUN 12, creatinine 0.80, glucose 84, magnesium 1.8. Impression: 1.Pneumonia. 2.Congestive heart failure, acute, diastolic. 3.Paroxysmal atrial fibrillation. 4.Anemia. 5.Postherpetic neuralgia. Plan: The patient continues to have intermittent atrial fibrillation. She is on higher dose of sota lol. We will continue to follow with auto mechanics instructor. Continue IV Lasix and current IV antibiotics. W e will discontinue nebulizer treatment. Ambulation was encouraged. I will see her tomorrow for danny de la cruz. Details and plan of treatment discussed with her. SUGAR/MODL Voice ID: [id number] Report ID: [id number]
[2017-11-04] MEDS: AMPICILLIN/SULBACT 3 GM in NA CHLORIDE 0.9% 100 ML IVPB SCH ×3 (00:23→17:26)
[2017-11-04] MEDS: ALBUTEROL 2.5 MG/3 ML NEB SOL NEB SCH (01:40)
[2017-11-04] MEDS: SOTALOL HCL 80 MG TAB PO SCH ×2 (05:16→17:27)
--- NOTE | 2017-11-04 08:11 | RAD REPORT ---
EXAM DESCRIPTION: RAD - Chest Pa And Lat (2 Views) - 11/04/2017 7:57 am CLINICAL HISTORY: Hypoxia COMPARISON: Chest exam November 02, 2017, CT chest October 30, 2017 TECHNIQUE: PA and lateral views of the chest were obtained. FINDINGS: The lungs are fibrotic as a baseline. Interstitial and alveolar opacification has not sargent ged. Bilateral pleural effusions with lung base atelectasis are noted. Lung base opacification is fav ored to be atelectasis over infiltrate. Heart size is normal range. Trachea is midline. Upper lobe v asculature is prominent but not different from recent imaging. No pneumothorax. No acute bony finding noted. No aortic abnormality. IMPRESSION: CHF/volume overload pattern is present similar to November 02 imaging. No progressive cardi opulmonary finding seen.
[2017-11-04] MEDS: FUROSEMIDE 20 MG/ 2ML VIAL IV SCH ×2 (08:26→17:27)
[2017-11-04] MEDS: BENAZEPRIL 20 MG TAB PO SCH (08:28)
[2017-11-04] MEDS: APIXABAN 5 MG TABLET PO SCH ×2 (08:28→21:48)
[2017-11-04] MEDS: GABAPENTIN 300 MG CAP PO SCH ×3 (08:28→21:48)
--- NOTE | 2017-11-04 08:35 | P.CNS ---
Date of Consult: 11/04/17 Reason for Consult: Abnormal chest x-ray Chief Complaint: Weakening and fall History of Present Illness: Patient is 77 years of age lives at home apparently she fell Friday has been having some shortness of breath low blood pressure no prior history of obstructive airways disease patient has never smoked poor historian no cough phlegm fever chills history of hypertension chest x-ray shows some prominent interstitial changes Allergies No Known Drug Allergies Allergy (Verified 10/25/17 20:42) Unknown Home Medications: Amlodipine Besylate 1 tab PO DAILY 01/19/15 Aspirin [Bee Chewable Aspirin] 1 tab PO DAILY 01/19/15 Atorvastatin Calcium [Lipitor*] 1 tab PO BEDTIME 01/19/15 Benazepril HCl 40 mg PO DAILY 01/19/15 Calcium Carbonate/Vitamin D3 [Calcium 600-Vit D3 200 Tablet] 1 tab PO BID Carvedilol 1 tab PO BID 01/19/15 Cholecalciferol (Vitamin D3) [Vitamin D3] 1 cap PO BID 01/19/15 Multivit-Min/Iron/Folic/Lutein [Centrum Silver Women Tablet] 1 tab PO DAILY 07/31 Folic Acid 1 mg PO DAILY #30 tablet 01/20/15 Clopidogrel Bisulfate [Plavix*] 1 tab PO DAILY 10/25/17 Gabapentin [Neurontin*] 1 tab PO TID 10/25/17 Cefuroxime [Ceftin*] 250 mg PO BID #10 tab 10/28/17 Apixaban [Eliquis] 5 mg PO BID #60 tablet 10/30/17 - Past Medical/Surgical History Diabetic: No -: HTN -: hyperlipidemia -: shingles right side of face -: left wrist sx -: varicose vein surgery bilateral legs -: hernia repair - Family History Mother Medical History: Cancer, Other (see notes) Notes: colon cancer Father Medical History: Stroke - Social History Alcohol use: No CD- Drugs: No Caffeine use: Yes Place of Residence: Home Review of Systems 10-point ROS is otherwise unremarkable General: Weakness Respiratory: Shortness of Breath Physical Examination Temp Pulse Resp BP Pulse Ox 98.8 F 64 20 172/73 H 93 11/04/17 08:00 11/04/17 08:28 11/04/17 08:00 11/04/17 08:28 11/04/17 08:00 General: Alert, Oriented x3 HEENT: Atraumatic Neck: Supple Respiratory: Crackles/rales (Minimal inspiratory crackles) Cardiovascular: No edema, Regular rate/rhythm Gastrointestinal: Normal bowel sounds, Soft and benign Musculoskeletal: No clubbing, No swelling Integumentary: No rashes, No breakdown - Problems (1) Abnormal chest x-ray Current Visit: Yes Status: Acute Plan: Patient is 77 years of age admitted with a fall weakness interstitial changes on the x-ray BNP is elevated most likely she has diastolic dysfunction CT scan done recently shows bilateral pleural effusion minimal adenopathy agree with Lasix echocardiogram shows normal left ventricular function patient's blood pressure is elevated no clinical evidence of sepsis agree with Lasix daily room air pulse ox
[2017-11-04] MEDS: ACETAMINOPHEN 500 MG TAB PO PRN ×3 (08:41→21:47)
--- NOTE | 2017-11-04 09:28 | EKG ---
Test Date: 2017-11-04 Test Time: 08:58:36 Field Human Resources Manager: HOLDEN MEASUREMENT RESULTS: Intervals: Rate: 122 NH: QRSD: 78 QT: 346 QTc: 493 [place]: P: NH: QRS: 10 T: 248 INTERPRETIVE STATEMENTS: Atrial fibrillation with rapid ventricular response with premature ventricular or aberrantly conducted complexes Marked ST abnormality, possible inferior subendocardial injury Abnormal ECG Compared to ECG 10/29/2017 07:43:16 Ventricular premature complex(es) now present ST (T wave) deviation still present Electronically Signed On 11-04-17 09:27:30 CDT by Jc Marks
[2017-11-04] MEDS: ATORVASTATIN 20 MG TAB PO SCH (21:48)
--- NOTE | 2017-11-04 23:51 | PN ---
DICTATION ENDS HERE SUGAR/MODL Voice ID: [id number] Report ID: [id number]
[2017-11-05 00:03] VITALS: O2SAT 96
--- NOTE | 2017-11-05 00:07 | PN ---
Date of Progress Note: 11/04/2017 Subjective: The patient was seen this morning for followup. Lying in bed, not in any distress. Her daughter was with her at bedside. The patient remains on oxygen between 1 to 2 L/minute. Objective: Vital Signs: Reviewed. HEENT: Examination unremarkable. Lungs: Bilateral rales present in lower half of both lung hickman. This is worse today than last 2 t o 3 days. Heart: Heart sounds normal. Abdomen: Soft. Bowel sounds normal. No guarding, rigidity, tenderness, or distention. Extremities: No leg edema. Impression: 1.Post herpetic neuralgia. 2.Paroxysmal atrial fibrillation. 3.Congestive heart failure, acute, diastolic. 4.Hypertension. 5.Pneumonia. 6.Urinary tract infection. Plan: The patient was in normal sinus rhythm when I saw her this morning. She was on Eliquis and so talol but later on she went back into atrial fibrillation. Nurse has notified book sorter and we wi ll follow up with book sorter regarding his recommendation to see whether he would recommend change in anti-arrhythmic medication or not. The patient continues to require oxygen. Has had chest x-ray and CAT scan of the chest done during this hospitalization. We will request Pulmonary consultation f rom Dr. Montenegro to see or other suggestion he might have for her hypoxia problem. Continue IV Lasix . We will repeat blood work tomorrow morning. I will see her tomorrow for followup. SUGAR/MODL Voice ID: [id number] Report ID: [id number]
[2017-11-05] MEDS: AMPICILLIN/SULBACT 3 GM in NA CHLORIDE 0.9% 100 ML IVPB SCH ×3 (00:58→22:47)
[2017-11-05 04:17] LABS: Absolute Lymphocytes (CBC) 1.2 K/uL (0.7-4.9); Absolute Monocytes 0.7 K/uL (0.1-1.3); Absolute Neutrophil 2.9 K/uL (1.8-8.0); Basophils % 1.2 % (0-1.3); Eosinophils % 2.8 % (0-4.4); Hematocrit 29.3 % (36.0-45.0); Lymphocytes % 23.6 % (15.3-44.8); MCH 30.6 pg (27.0-35.0); MCV 89.9 fL (80-100); Monocytes % 14.1 % (3.3-12.3); RBC Red Blood Cell Count 3.25 M/uL (3.86-4.86)
[2017-11-05 04:44] LABS: Bilirubin Total 0.3 mg/dL (0.2-1.0); Magnesium 1.9 mg/dL (1.8-2.4); Protein, Total 5.8 g/dL (6.4-8.2)
[2017-11-05 04:45] LABS: Potassium 2.9 mmol/L (3.5-5.1)
[2017-11-05] MEDS: SOTALOL HCL 80 MG TAB PO SCH ×2 (05:47→22:44)
[2017-11-05] MEDS: ACETAMINOPHEN 500 MG TAB PO PRN ×2 (05:47→13:28)
[2017-11-05] MEDS: KCL 20 MEQ/100 mL IVPB 20 MEQ/100 ML BAG IV SCH ×3 (05:48→10:00)
--- NOTE | 2017-11-05 06:25 | EKG ---
Test Date: 2017-11-05 Test Time: 05:05:35 Radio Mechanic Apprentice: RT MEASUREMENT RESULTS: Intervals: Rate: 59 HI: 172 QRSD: 82 QT: 514 QTc: 508 [place]: P: 44 HI: 172 QRS: 8 T: -13 INTERPRETIVE STATEMENTS: Sinus bradycardia T wave abnormality, consider anterior ischemia Prolonged QT Abnormal ECG Compared to ECG 11/04/2017 08:58:36 T-wave abnormality now present Possible ischemia now present Prolonged QT interval now present Atrial fibrillation no longer present Ventricular premature complex(es) no longer present ST (T wave) deviation no longer present Electronically Signed On 11-05-17 06:20:17 CDT by Eduar Humphreys
[2017-11-05] MEDS ORDERED: NA CHLORIDE 0.9% 250 ML ONE (07:23)
[2017-11-05] MEDS: GABAPENTIN 300 MG CAP PO SCH ×3 (08:23→20:27)
[2017-11-05] MEDS: APIXABAN 5 MG TABLET PO SCH ×2 (08:23→20:26)
[2017-11-05] MEDS: FUROSEMIDE 20 MG/ 2ML VIAL IV SCH ×2 (08:24→22:44)
[2017-11-05] MEDS: BENAZEPRIL 20 MG TAB PO SCH (09:39)
--- NOTE | 2017-11-05 20:23 | DS ---
Date of Discharge: 11/05/2017 Disposition: Discharged to go to long-term acute care facility. Physical Examination: HEENT: Unremarkable. Lungs: Bilateral good equal air entry, not in respiratory distress. Rales noted in both lung hickman , unchanged from yesterday. Heart: Sounds normal. Abdomen: Soft, bowel sounds normal. No guarding, rigidity, tenderness, or distention. Extremities: No leg edema. Laboratory Data: CBC from today; white count 4.9, hemoglobin 10, platelets 389. Sodium 141, potassi um 2.9, chloride 100, bicarb 37, BUN 9, creatinine 0.70, glucose 89. Liver function tests unremarkab le. TSH done on 10/29/2017 was 2.46. Magnesium level today 1.8. Hospital Course: This is a 77-year-old female patient, who presented to emergency room with multiple falls. After the patient was evaluated in the emergency room, she was admitted to the hospital. We were concerned about orthostatic hypotension that the patient presented with resulting in these mult iple falls and the patient was given IV fluid hydration and her home medications were continued, exce pt we decided that her orthostatic hypotension could have been likely due to side effect from carbama zepine. Her carbamazepine level was within normal range. The patient has significant pain from post herpetic neuralgia and she has been on gabapentin; for that, takes 900 mg 3 times a day and that was still not enough to control her pain; so recently on outpatient basis, we added carbamazepine 100 mg twice a day and then we went up to 200 mg in the morning and 100 mg in the evening dose. After she c joey into the hospital, we started reducing her carbamazepine dose considering this orthostatic hypote nsion and as of yesterday, we discontinued that. Her postherpetic neuralgia pain has remained under fairly good control with current gabapentin and Tylenol type of medication. We were concerned about the possibility of pneumonia, so she was given appropriate antibiotics for that. Her urinalysis was abnormal and she was given antibiotics to cover both possible pneumonia as well as urinary tract infe ction. Blood culture and urine culture remained negative. The patient had problem with paroxysmal a trial fibrillation and she had multiple episodes of this intermittent atrial fibrillation with rapid ventricular rate. Cardiology consultation was obtained from Dr. Humphreys/Dr. Marsk. The patient was started on sotalol and in spite of taking sotalol, she continued to have intermittent atrial fibrill ation, so cash control specialist kept on increasing the dose of sotalol during this hospitalization. Initially , the patient was on Lovenox for DVT prophylaxis, but when she went into atrial fibrillation, we sargent ged the Lovenox to therapeutic dose and subsequently we stopped Lovenox and started her on oral antic oagulant medication, Eliquis 5 mg 2 times a day which she has tolerated very well. Echocardiogram sh owed normal ejection fraction. We did multiple chest x-rays and it has shown some evidence of bilate ral pleural effusion, and with that and clinical findings of rales in her lower lung field, she was d iagnosed as having diastolic acute congestive heart failure and she was given IV Lasix. She required oxygen anywhere from 1-2 L per minute, and Pulmonary consultation was obtained from Dr. Montenegro yes and he did not have any other thing to add on. CAT scan of the chest without contrast had alexys wn no evidence of any consolidation. Physical Therapy was consulted. The patient is ambulating well with therapy. Social Service was consulted and Social Service recommended that patient would qualif y for [facility] facility. So with that, arrangements were made and today she was transfer red to facility via ground ambulance in stable condition. I have informed the patient and her daught er that she should come see me for followup visit within [facility] Potassium was low today and potassium replacement was provided per protocol. Final Diagnoses: 1.Paroxysmal atrial fibrillation. 2.Congestive heart failure, acute, diastolic. 3.Pneumonia. 4.Bilateral pleural effusion. 5.Urinary tract infection. 6.Orthostatic hypotension. 7.Postherpetic neuralgia. 8.Hypertension. 9.Osteoporosis. 10.Anemia. 11.Hypokalemia. SUGAR/MODL Voice ID: [id number] Report ID: [id number]
[2017-11-05] MEDS: ATORVASTATIN 20 MG TAB PO SCH (20:26)
[2017-11-05 21:03] VITALS: TEMP 98
[2017-11-05 22:48] VITALS: BP 168/64
--- NOTE | 2017-11-06 01:40 | PN ---
Date of Progress Note: 11/04/2017 Subjective: Mrs. Diane is under Dr. Carvalho's service, has had intermittent atrial fibrillation, has been in sinus rhythm, on 120 b.i.d. of sotalol. Today, she goes back into atrial fibrillation, rate of 130. I recommend we go up on the sotalol dose to 160 b.i.d. We will see how that works out befor e making any further decision. If that dose of sotalol does not work, we should consider cardioversi on or maybe an EP referral down the road. ALLIE/PERLA Voice ID: [id number] Report ID: [id number]
== END 2017-11-05 23:05 | DRG 193 ==
LOC: ER 12:46 → INTOOBSV 17:56 → OBSVTOIN 17:56 → ERHOLD 17:56 → 2ND 19:33 → OBSVTOIN 10-26 14:27 → 4TH 11-04 16:40
PROVIDERS: ADMIT Internal Medicine; ATTEND Internal Medicine
DX: J18.9 Pneumonia, unspecified organism (principal); I50.31 Acute diastolic (congestive) heart failure; B02.29 Other postherpetic nervous system involvement; N39.0 Urinary tract infection, site not specified; I95.1 Orthostatic hypotension; E78.2 Mixed hyperlipidemia; M81.0 Age-related osteoporosis without current pathological fracture; I12.9 Hypertensive chronic kidney disease with stage 1 through stage 4 chronic kidney disease, or unspecified chronic kidney disease; N18.3 Chronic kidney disease, stage 3 (moderate); I48.0 Paroxysmal atrial fibrillation; D64.9 Anemia, unspecified
CPT/HCPCS: 36415; 51702; 70450; 70544; 70549; 70553; 71045; 71046; 71250; 74177; 80048; 80053; 80076; 80156; 81001; 81003; 81015; 82550; 82553; 82962; 83735; 83880; 84132; 84443; 84484; 85025; 85610; 85730; 87040; 87086; 87088; 93005; 93306; 94640; 96361; 96365; 97163; 99285; A9577; G0378; J0295; J0696; J1160; J1650; J1940; J3475; J7030; Q9967

== ENCOUNTER 2020-06-12 10:54 | Inpatient (IN) | payer OTHER ==
[2020-06-12] MEDS ORDERED: ONDANSETRON 4 MG/2 ML VIAL ONE (11:18)
[2020-06-12] MEDS ORDERED: NA CHLORIDE 0.9% 500 ML ONE (11:18)
--- NOTE | 2020-06-12 11:21 | RAD REPORT ---
EXAM DESCRIPTION: CT - Ct Stroke Brain Wo Cont - 06/12/2020 11:15 am CLINICAL HISTORY: r/o stroke Headache, drowsiness, CVA symptomology COMPARISON: Head Brain Wo Cont dated 10/25/2017; HEAD BRAIN W O CONTRAST dated 01/19/2015 TECHNIQUE: All CT scans are performed using dose optimization technique as appropriate and may inclu de automated exposure control or mA/KV adjustment according to patient size. FINDINGS: No intracranial hemorrhage, hydrocephalus or extra-axial fluid collection.Moderate brain a trophy with moderate periventricular and deep white matter chronic microvascular ischemic changes. Gl iosis is seen in the left superior frontal lobe likely from prior infarction. The paranasal sinuses and mastoids are clear. The calvarium is intact. IMPRESSION: No acute intracranial abnormality. The findings were discussed with Amy in the ER On 06/12/2020 at 11:17 a.m. by telephone.
[2020-06-12 11:22] LABS: Absolute Lymphocytes (CBC) 1.4 K/uL (0.7-4.9); Basophils % 0.8 % (0-1.3); Hematocrit 42.3 % (36.0-45.0); Lymphocytes % 27.3 % (15.3-44.8); MPV 8.2 fL (7.6-11.3); RBC Red Blood Cell Count 4.63 M/uL (3.86-4.86)
[2020-06-12 11:39] LABS: BUN Blood Urea Nitrogen 16 mg/dL (7-18); Bicarbonate 30 mmol/L (21-32); Creatine Phosphokinase 102 U/L (26-192); Glucose Level 114 mg/dL (74-106); Potassium 4.1 mmol/L (3.5-5.1); Sodium Level 142 mmol/L (136-145); Troponin (Emerg Dept Use Only) < 0.02 ng/mL (0.0-0.045)
[2020-06-12 11:42] LABS: Protime INR 1.01
--- NOTE | 2020-06-12 12:16 | RAD REPORT ---
EXAM DESCRIPTION: RAD - Chest Single View - 06/12/2020 11:50 am CLINICAL HISTORY: r/o pneumonia Chest pain. COMPARISON: Chest Pa And Lat (2 Views) dated 11/04/2017; Chest Pa And Lat (2 Views) dated 11/02/2017; Chest Pa And Lat (2 Views) dated 10/28/2017; Chest Single View dated 10/26/2017 FINDINGS: Portable technique limits examination quality. The lungs are grossly clear. The heart is upper limit of normal in size. No displaced fractures.Mildl y tortuous thoracic aorta. IMPRESSION: No acute intrathoracic process suspected.
[2020-06-12] MEDS ORDERED: ASPIRIN 81 MG CHEWABLE TABLET ONE (13:24)
[2020-06-12] MEDS ORDERED: APIXABAN 5 MG TABLET ONE (13:25)
--- NOTE | 2020-06-12 13:25 | ER ---
Nurse's Notes [facility] Name: Kat Diane Age: 80 yrs Sex: Female : 1940 Arrival Date: 06/12/2020 Time: 10:55 Bed 2 Private MD: Diagnosis: Ischemic stroke;Weakness;Slurred speech Presentation: 06/12 10:55 Chief complaint: EMS states: Slurred speech and left arm drift, unknown onset, last jl7 known normal 1200 yesterday. Grandson called 911 at 1015 this morning when he noticed symptoms. 10:55 Coronavirus screen: Client denies travel out of the [place] in the last 14 days. At this jl7 time, the client does not indicate any symptoms associated with coronavirus-19. Ebola Screen: No symptoms or risks identified at this time. Initial Sepsis Screen: Does the patient meet any 2 criteria? No. Patient's initial sepsis screen is negative. Does the patient have a suspected source of infection? No. Patient's initial sepsis screen is negative. Risk Assessment: Do you want to hurt yourself or someone else? Patient reports no desire to harm self or others. Onset of symptoms is unknown. Care prior to arrival: IV initiated. 18 GA, in the right antecubital area. Transition of care: patient was not received from another setting of care. 10:55 Method Of Arrival: EMS: [facility] jl7 10:55 Acuity: UMBERTO 2 jl7 Triage Assessment: 10:55 General: Appears in no apparent distress. uncomfortable, well groomed, well developed, jl7 well nourished, Behavior is calm, cooperative, drowsy. Pain: Denies pain. Neuro: Level of Consciousness is awake, obeys commands, Drowsy. Oriented to person, place, time, situation, Paint Formulator are weak on left Speech is slurred, Facial symmetry appears normal. Cardiovascular: Patient's skin is warm and dry. Respiratory: Airway is patent Respiratory effort is even, unlabored, Respiratory pattern is regular, symmetrical. GI: Pt is actively vomiting bile. Derm: Skin is pink, warm \T\ dry. Historical: - Allergies: 11:21 No Known Allergies; jl7 - Home Meds: 14:17 carvedilol 6.25 mg oral tab 2 times per day [Active]; atorvastatin 20 mg Oral tab 1 tab jl7 once daily [Active]; folic acid 1 mg Oral tab 1 tab once daily [Active]; diltiazem HCl 120 mg Oral cpER 1 cap once daily [Active]; Eliquis 5 mg oral tab 1 tab 2 times per day [Active]; benazepril 40 mg oral tab 1 tab once daily [Active]; duloxetine 30 mg oral cpDR 1 cap once daily [Active]; - PMHx: 11:21 CVA; Hyperlipidemia; Hypertension; jl7 - PSHx: 11:21 left wrist; jl7 - Immunization history:: Adult Immunizations unknown. - Social history:: Smoking status: unknown. - Family history:: not pertinent. - Hospitalizations: : No recent hospitalization is reported. Screenin:00 Abuse screen: Denies threats or abuse. Denies injuries from another. Nutritional jl7 screening: No deficits noted. Tuberculosis screening: No symptoms or risk factors identified. Fall Risk Secondary diagnosis (15 points) CVA, IV access (20 points). Ambulatory Aid- None/Bed Rest/Nurse Assist (0 pts). Gait- Weak (10 pts.). Mental Status- Oriented to own ability (0 pts). Total Byrnes Fall Scale indicates High Risk Score (45 or more points). Fall prevention measures have been instituted. Side Rails Up X 2 Placed Close to Nursing Station Frequent Obs/Assessments Occuring As available patient and family educated on Fall Prevention Program and Strategies. 11:35 The patient has not been NPO before screening. The patient is currently on the jl7 following diet: home The patient is alert, able to follow commands. The patient exhibits slurred or garbled speech. Provider notified of indication for Speech Therapy consult. The patient is not exhibiting difficulty speaking. The patient does not exhibit difficulty understanding words. The patient is able to swallow own secretions with no drooling or need for suction. The patient did not tolerate one teaspoon of water. Drooling, immediate coughing, gurgling, or clearing of the throat was noted. Bedside swallow screening discontinued. Patient kept NPO until cleared by Speech Therapy or Physician. eval stopped The patient failed the bedside swallow screening. The patient will be kept NPO until cleared by Speech Therapy or Physician. Provider notified of bedside swallow screening results: Konrad Cabrera MD. Assessment: 11:00 General: See triage assessment. jl7 11:15 Reassessment: Pt reports symptoms started yesterday at about 1200 with a pulsating type jl7 feeling in head, denies pain with sensation, denies pain now. 13:00 Reassessment: Pt failed swallow screen, unable to take PO meds at this time, ERD gave jl7 VO for Aspirin 300 mg NH and cancel PO meds. 14:00 Reassessment: Patient appears in no apparent distress at this time. No changes from jl7 previously documented assessment. Patient and/or family updated on plan of care and expected duration. Pain level reassessed. Patient is alert, oriented x 3, equal unlabored respirations, skin warm/dry/pink. 15:00 Reassessment: Patient appears in no apparent distress at this time. No changes from jl7 previously documented assessment. Patient and/or family updated on plan of care and expected duration. Pain level reassessed. Patient is alert, oriented x 3, equal unlabored respirations, skin warm/dry/pink. 16:00 Reassessment: Patient appears in no apparent distress at this time. No changes from jl7 previously documented assessment. Patient and/or family updated on plan of care and expected duration. Pain level reassessed. Patient is alert, oriented x 3, equal unlabored respirations, skin warm/dry/pink. 17:00 Reassessment: Patient appears in no apparent distress at this time. No changes from jl7 previously documented assessment. Patient and/or family updated on plan of care and expected duration. Pain level reassessed. Patient is alert, oriented x 3, equal unlabored respirations, skin warm/dry/pink. 19:38 Reassessment: Patient appears in no apparent distress at this time. Patient and/or mg2 family updated on plan of care and expected duration. Pain level reassessed. Patient is alert, oriented x 3, equal unlabored respirations, skin warm/dry/pink. Vital Signs: 10:55 BP 180 / 105; Pulse 130; Resp 17; Pulse Ox 95% ; Pain 0/10; jl7 11:39 BP 172 / 97; Pulse 102; Resp 18; Pulse Ox 99% on R/A; mh5 12:00 BP 158 / 112; Pulse 89; Resp 14; Pulse Ox 100% ; sv 13:00 BP 174 / 89; Pulse 101; Resp 14; Pulse Ox 100% ; sv 14:17 BP 174 / 95; Pulse 87; Resp 17; Temp 98.2(O); Pulse Ox 100% ; jl7 15:05 BP 134 / 95; Pulse 86; Resp 12; Pulse Ox 95% ; sv 19:38 BP 174 / 96; Pulse 90; Resp 18; Pulse Ox 98% on R/A; mg2 NIH Stroke Scale Scores: 11:03 NIHSS Score: 3 rn postpartum Course: 10:55 Patient arrived in ED. ds1 10:57 Konrad Cabrera MD is Attending Physician. rn 11:16 Ana Laura Grajeda, INDY is Primary Nurse. jl7 11:20 Triage completed. jl7 11:21 Arm band placed on right wrist. jl7 11:29 COVID swab sent to lab. Maintain EMS IV. Dressing intact. Site clean \T\ dry. mh5 11:30 Patient has correct armband on for positive identification. Placed in gown. Bed in low mh5 position. Call light in reach. Side rails up X2. Warm blanket given. clinical research monitor on. Pulse ox on. NIBP on. 11:30 EKG done, by ED staff, reviewed by Konrad Cabrera MD. 5 13:20 Straight cath inserted, using sterile technique, 16 Fr. Specimen obtained. Returned jl7 clear yellow urine. Patient tolerated well. 13:23 Zay Cabrera MD is Hospitalizing Provider. rn 17:33 Urine Dipstick--Ancillary (enter results) Sent. sv 17:33 Stroke CXR 1 View Sent. sv 17:33 CT Stroke Brain w/o Contrast Sent. sv 18:40 No provider procedures requiring assistance completed. Patient admitted, IV remains in jl7 place. intact, No redness/swelling at site. 19:15 Primary Nurse role handed off by Ana Laura Grajeda, RN mw2 Administered Medications: 11:00 Drug: NS 0.9% 500 ml Route: IV; Rate: bolus; Site: right antecubital; 7 11:30 Follow up: Response: No adverse reaction; IV Status: Completed infusion; IV Intake: jl7 500ml 11:00 Drug: Zofran (Ondansetron) 4 mg Route: IVP; Site: right antecubital; jl7 11:30 Follow up: Response: No adverse reaction; Nausea is decreased jl7 13:00 Drug: foLIC Acid 1 mg Route: IVPB; Site: right antecubital; 7 13:01 Follow up: Response: No adverse reaction; IV Status: Completed infusion 7 13:30 Drug: Aspirin Suppository 300 mg Route: NH; 7 14:04 Follow up: Response: No adverse reaction jl7 14:03 Not Given (Physician Discretion; NPO): Aspirin 81 mg PO once jl7 14:03 Not Given (Physician Discretion; NPO): Eliquis 5 mg PO once 7 Intake: 11:30 IV: 500ml; Total: 500ml. Outcome: 13:24 Decision to Hospitalize by Provider. rn 18:40 Admitted to ER Hold. Please see [facility] for further documentation. jl7 18:40 Condition: stable 18:40 Discharge instructions given to patient, Instructed on the need for admit, Demonstrated understanding of instructions. 19:53 Patient left the ED. rv NIH Stroke Scale - NIH Stroke Score Date: 06/12/2020 Time: 11:03 Total Score = 3 1a. Level of Consciousness (LOC) - 0(Alert) 1b. Level of Consciousness (LOC) (Year \T\ Age) - 0(Both) 1c. LOC Commands (Open \T\ Closes Eyes/Executive Business Coach) - 0(Both) 2. Best Gaze (Lateral Gaze Paresis) - 0(Normal) 3. Visual Field Loss - 0(No visual loss) 4. Facial Palsy - 0(Normal) 5a. Left Arm: Motor (10-second hold) - 1(Drift) 5b. Right Arm: Motor (10-second hold) - 0(No drift) 6a. Left Leg: Motor (5-second hold - always test supine) - 1(Drift) 6b. Right Leg: Motor (5-second hold - always test supine) - 0(No drift) 7. Limb Ataxia (finger/nose \T\ heel/georges - test with eyes open) - 0(Absent) 8. Sensory Loss (pinprick arms/legs/face) - 0(Normal) 9. Best Language: Aphasia (description/naming/reading) - 0(No aphasia) 10. Dysarthria (speech clarity - read or repeat words) - 1(Mild to Moderate) 11. Extinction and Inattention (visual/tactile/auditory/spatial/personal) - 0(No abnormality) Initials: rn Signatures: Bibiana Lindo RN RN sv Sanford, Demi ds1 Konrad Cabrera MD MD rn Ankit, Berna 5 Ana Laura Grajeda RN RN 7 Torsten Martínez 2 Yonas Oden RN RN mg2 Dustin Bauman, RN RN rv
--- NOTE | 2020-06-12 13:25 | EDPHYS ---
Physician Documentation [facility] Name: Kat Diane Age: 80 yrs Sex: Female : 1940 Arrival Date: 06/12/2020 Time: 10:55 Bed 2 Private MD: ED Physician Konrad Cabrera HPI: 06/12 13:13 This 80 yrs old Female presents to ER via EMS with complaints of S/S of rn Possible Stroke. 11:03 EMS reports last known normal yesterday at noon, comes in with slurred speech and left rn sided weakness. Reported previous CVA but no residual deficits. Denies chest pain/sob/abd pain. + mild nausea. No headache. Takes aspirin and eliquis per EMS. . 13:13 The patient's problem is reported as dysphasia, weakness. Onset: The symptoms/episode rn began/occurred yesterday. Duration: The episode is continuous. The symptoms are alleviated by nothing. The symptoms are aggravated by nothing. Severity of symptoms: At their worst the symptoms were moderate in the emergency department the symptoms are unchanged. The patient has experienced a previous episode. Historical: - Allergies: 11:21 No Known Allergies; jl7 - Home Meds: 14:17 carvedilol 6.25 mg oral tab 2 times per day [Active]; atorvastatin 20 mg Oral tab 1 tab jl7 once daily [Active]; folic acid 1 mg Oral tab 1 tab once daily [Active]; diltiazem HCl 120 mg Oral cpER 1 cap once daily [Active]; Eliquis 5 mg oral tab 1 tab 2 times per day [Active]; benazepril 40 mg oral tab 1 tab once daily [Active]; duloxetine 30 mg oral cpDR 1 cap once daily [Active]; - PMHx: 11:21 CVA; Hyperlipidemia; Hypertension; jl7 - PSHx: 11:21 left wrist; jl7 - Immunization history:: Adult Immunizations unknown. - Social history:: Smoking status: unknown. - Family history:: not pertinent. - Hospitalizations: : No recent hospitalization is reported. ROS: 13:13 Constitutional: Negative for fever, chills, and weight loss, Eyes: Negative for injury, rn pain, redness, and discharge, Cardiovascular: Negative for chest pain, palpitations, and edema, Respiratory: Negative for shortness of breath, cough, wheezing, and pleuritic chest pain, Abdomen/GI: Negative for abdominal pain, nausea, vomiting, diarrhea, and constipation, Back: Negative for injury and pain, MS/Extremity: Negative for injury and deformity, Skin: Negative for injury, rash, and discoloration, Neuro: + weakness of left side of body, + slurred speech Exam: 13:13 Radiologist reports: No acute findings rn 13:13 Constitutional: This is a well developed, well nourished patient who is awake, alert, and in no acute distress. Head/Face: Normocephalic, atraumatic. Eyes: Periorbital areas with no swelling, redness, or edema. ENT: dry MM Cardiovascular: Irregular rhythm, tachycardic Respiratory: No increased work of breathing, no retractions or nasal flaring. Abdomen/GI: Soft, non-tender MS/ Extremity: Pulses equal, no cyanosis. Neuro: Awake and alert, GCS 15, oriented to person, place, and situation. + mild to moderate slurred speech, no facial droop. + left sided weakness with drift. Normal strength on right side. Sensation intact. 13:13 ECG was reviewed by the Attending Physician. Vital Signs: 10:55 BP 180 / 105; Pulse 130; Resp 17; Pulse Ox 95% ; Pain 0/10; jl7 11:39 BP 172 / 97; Pulse 102; Resp 18; Pulse Ox 99% on R/A; mh5 12:00 BP 158 / 112; Pulse 89; Resp 14; Pulse Ox 100% ; sv 13:00 BP 174 / 89; Pulse 101; Resp 14; Pulse Ox 100% ; sv 14:17 BP 174 / 95; Pulse 87; Resp 17; Temp 98.2(O); Pulse Ox 100% ; jl7 15:05 BP 134 / 95; Pulse 86; Resp 12; Pulse Ox 95% ; sv 19:38 BP 174 / 96; Pulse 90; Resp 18; Pulse Ox 98% on R/A; mg2 NIH Stroke Scale Scores: 11:03 NIHSS Score: 3 rn MDM: 10:57 Patient medically screened. rn 11:05 ED course: Not TPA candidate due to last known normal yesterday at noon, outside of rn window.. 13:13 Differential diagnosis: CVA, TIA, metabolic disorder. Data reviewed: vital signs, rn nurses notes, lab test result(s), EKG, radiologic studies, CT scan, and as a result, I will admit patient. Counseling: I had a detailed discussion with the patient and/or guardian regarding: the historical points, exam findings, and any diagnostic results supporting the discharge/admit diagnosis, lab results, radiology results, the need for further work-up and treatment in the hospital. Response to treatment: There is no appreciated change of the patient's symptoms at this time, and as a result, I will admit patient. Admission orders: after a detailed discussion of the patient's condition and case, the admit orders are written by me. ED course: Failed swallow screen, given aspirin rectally, and folic acid, will admit to Dr. Cabrera with neuro consult.. 06/12 10:58 Order name: Urine Microscopic Only rn 06/12 11:14 Order name: Glucose, Ancillary Testing; Complete Time: 11:20 [facility] 06/12 11:28 Order name: CBC with Automated Diff; Complete Time: 12:45 [facility] 06/12 11:39 Order name: Basic Metabolic Panel; Complete Time: 12:45 [facility] 06/12 11:39 Order name: Creatine Phosphokinase; Complete Time: 12:45 [facility] 06/12 11:39 Order name: Troponin (Emerg Dept Use Only); Complete Time: 12:45 [facility] 06/12 11:53 Order name: Protime (+INR); Complete Time: 12:45 [facility] 06/12 10:58 Order name: CT Stroke Brain w/o Contrast rn 06/12 10:58 Order name: Stroke CXR 1 View rn 06/12 11:23 Order name: CT; Complete Time: 12:45 [facility] 06/12 11:53 Order name: PTT, Activated Partial Thromb; Complete Time: 12:45 [facility] 06/12 12:16 Order name: RAD; Complete Time: 12:45 [facility] 06/12 12:42 Order name: SARS-COV-2 RT PCR; Complete Time: 12:45 [facility] 06/12 13:56 Order name: Urine Dipstick--Ancillary (enter results) 06/12 13:57 Order name: Urine Dipstick-Ancillary [facility] 06/12 17:21 Order name: MRI [facility] 06/12 18:22 Order name: US [facility] 06/12 18:24 Order name: MRI [facility] 06/12 18:33 Order name: MRI [facility] 06/12 10:58 Order name: Accucheck; Complete Time: : rn 06/12 10:58 Order name: Cardiac monitoring; Complete Time: rn 06/12 10:58 Order name: EKG - Nurse/Tech; Complete Time: : rn 06/12 10:58 Order name: IV Saline Lock; Complete Time: 06/12 10:58 Order name: Labs collected and sent; Complete Time: 06/12 10:58 Order name: NPO; Complete Time: :06/12 10:58 Order name: O2 Per Protocol; Complete Time: rn 06/12 10:58 Order name: O2 Sat Monitoring; Complete Time: 06/12 10:58 Order name: Stroke Swallow Screen; Complete Time: 17: rn 06/12 10:58 Order name: Urine Dipstick-Ancillary (obtain specimen); Complete Time: 06/12 13:15 Order name: EKG Electrocardiogram; Complete Time: : EDME 06/12 14:05 Order name: CONS Physician Consult; Complete Time: 17: EDMS EC:13 Rate is 108 beats/min. Rhythm is irregularly irregular. QRS Clio is Normal. QRS rn interval is normal. QT interval is normal. No Q waves. T waves are Normal. No ST changes noted. Clinical impression: Atrial Fibrillation. Interpreted by me. Reviewed by me. Administered Medications: 11:00 Drug: NS 0.9% 500 ml Route: IV; Rate: bolus; Site: right antecubital; jl7 11:30 Follow up: Response: No adverse reaction; IV Status: Completed infusion; IV Intake: jl7 500ml 11:00 Drug: Zofran (Ondansetron) 4 mg Route: IVP; Site: right antecubital; jl7 11:30 Follow up: Response: No adverse reaction; Nausea is decreased jl7 13:00 Drug: foLIC Acid 1 mg Route: IVPB; Site: right antecubital; jl7 13:01 Follow up: Response: No adverse reaction; IV Status: Completed infusion jl7 13:30 Drug: Aspirin Suppository 300 mg Route: MT; jl7 14:04 Follow up: Response: No adverse reaction jl 14:03 Not Given (Physician Discretion; NPO): Aspirin 81 mg PO once jl7 14:03 Not Given (Physician Discretion; NPO): Eliquis 5 mg PO once Disposition: 06/12/20 13:24 Hospitalization ordered by Zay Cabrera for Inpatient Admission. Preliminary diagnosis are Ischemic stroke, Weakness, Slurred speech. - Bed requested for Telemetry/MedSurg (Inpatient). - Status is Inpatient Admission. rv - Condition is Stable. - Problem is new. - Symptoms are unchanged. NIH Stroke Scale - NIH Stroke Score Date: 06/12/2020 Time: 11:03 Total Score = 3 1a. Level of Consciousness (LOC) - 0(Alert) 1b. Level of Consciousness (LOC) (Year \T\ Age) - 0(Both) 1c. LOC Commands (Open \T\ Closes Eyes/Parquetry Floor Layer) - 0(Both) 2. Best Gaze (Lateral Gaze Paresis) - 0(Normal) 3. Visual Field Loss - 0(No visual loss) 4. Facial Palsy - 0(Normal) 5a. Left Arm: Motor (10-second hold) - 1(Drift) 5b. Right Arm: Motor (10-second hold) - 0(No drift) 6a. Left Leg: Motor (5-second hold - always test supine) - 1(Drift) 6b. Right Leg: Motor (5-second hold - always test supine) - 0(No drift) 7. Limb Ataxia (finger/nose \T\ heel/georges - test with eyes open) - 0(Absent) 8. Sensory Loss (pinprick arms/legs/face) - 0(Normal) 9. Best Language: Aphasia (description/naming/reading) - 0(No aphasia) 10. Dysarthria (speech clarity - read or repeat words) - 1(Mild to Moderate) 11. Extinction and Inattention (visual/tactile/auditory/spatial/personal) - 0(No abnormality) Initials: rn Signatures: Dispatcher [employer] EDMS Maria Antonia Howe Roman, MD MD rn Leal, Jahala, RN RN jl7 Dustin Bauman RN RN rv Corrections: (The following items were deleted from the chart) 13:49 12:08 CBC+H.LAB.BRZ ordered. EDMS EDMS 13:49 12:08 PROTIME (+INR)+COAG.LAB.BRZ ordered. EDME EDMS 13:49 12:08 PTT, ACTIVATED+COAG.LAB.BRZ ordered. EDME EDME 13:50 12:08 CREATINE PHOSPHOKINASE+C.LAB.BRZ ordered. EDME EDMS 13:50 12:08 TROPONIN (EMERG DEPT USE ONLY)+C.LAB.BRZ ordered. EDME EDME 13:50 12:08 BASIC METABOLIC PANEL+C.LAB.BRZ ordered. EDME EDME 13:50 12:08 CORONAVIRUS+MR.LAB.BRZ ordered. EDME EDME 15:54 13:24 Hospitalization Ordered by Zay Cabrera MD for Inpatient Admission. bd Preliminary diagnosis is Ischemic stroke; Weakness; Slurred speech. Bed requested for Telemetry/MedSurg (Inpatient). Status is Inpatient Admission. Condition is Stable. Problem is new. Symptoms are unchanged. rn 19:08 15:54 06/12/2020 13:24 Hospitalization Ordered by Zay Cabrera MD for bd Inpatient Admission. Preliminary diagnosis is Ischemic stroke; Weakness; Slurred speech. Bed requested for [facility] ER HOLD. Status is Inpatient Admission. Condition is Stable. Problem is new. Symptoms are unchanged. bd 19:53 19:08 06/12/2020 13:24 Hospitalization Ordered by Zay Cabrera MD for Inpatient Admission. Preliminary diagnosis is Ischemic stroke; Weakness; Slurred speech. Bed requested for Telemetry/MedSurg (Inpatient). Status is Inpatient Admission. Condition is Stable. Problem is new. Symptoms are unchanged. bd
[2020-06-12] MEDS ORDERED: FOLIC ACID 5 MG/ML VIAL ONE (13:26)
[2020-06-12] MEDS ORDERED: ASPIRIN 600 MG/SUPP PR ONE (13:29)
--- NOTE | 2020-06-12 14:20 | P.HP ---
Certification for Inpatient Patient admitted to: Inpatient With expected LOS: >2 Midnights Practitioner: I am a practitioner with admitting privileges, knowledge of patient current condition, hospital course, and medical plan of care. Services: Services provided to patient in accordance with Admission requirements found in Title 42 Section 412.3 of the Code of Federal Regulations Patient History Date of Service: 06/12/20 Reason for admission: CVA History of Present Illness: 80-year-old female, PMH: AFib, HTN, mixed hyperlipidemia, osteoporosis, CKD 3, vitamin-D deficiency, prior CVA who was sent to the ED due to left-sided arm and leg weakness and slurring of speech. Patient was reportedly last known well at noon yesterday. Patient recalls feeling something "Funny" in her head yesterday and did not want to bother her daughter with that. She does so the rest and sleep it off, thinking that would improve today. Unfortunately it persisted and so she told her grandson, who called 911. She denies any recent illness, no recent fevers, cough, abdominal pain, rash, urinary/bowel incontinence, dysuria. States this is between PCPs right known and ran out of her Eliquis 1 week ago, was only taking a baby aspirin. In the ED, patient is noted to be in AFib, HR: 90, BP: 158/110, RR: 14, SpO2: 100% on room air. NIH stroke scale was 3 on presentation, with left-sided drift. CT brain without any acute intracranial abnormality. Moderate brain atrophy, moderate periventricular and deep white matter chronic microvascular ischemic changes. Gliosis is seen in the left superior frontal lobe likely from prior infarction. At the time of my exam, patient felt that her weakness had improved, though still felt very tired. She was still not speaking like she normally does, and complaining of some right arm tingling, feeling as though her arm "Fell asleep" from shoulder to hand. Allergies No Known Drug Allergies Allergy (Verified 10/25/17 20:42) Unknown Home Medications: Amlodipine Besylate 1 tab PO DAILY 01/19/15 Aspirin [Bee Chewable Aspirin] 1 tab PO DAILY 01/19/15 Atorvastatin Calcium [Lipitor*] 1 tab PO BEDTIME 01/19/15 Benazepril HCl 40 mg PO DAILY 01/19/15 Calcium Carbonate/Vitamin D3 [Calcium 600-Vit D3 200 Tablet] 1 tab PO BID 01/19/15 Carvedilol 1 tab PO BID 01/19/15 Cholecalciferol (Vitamin D3) [Vitamin D3] 1 cap PO BID 01/19/15 Multivit-Min/Iron/Folic/Lutein [Centrum Silver Women Tablet] 1 tab PO DAILY 01/19/15 Folic Acid 1 mg PO DAILY #30 tablet 01/20/15 Clopidogrel Bisulfate [Plavix*] 1 tab PO DAILY 10/25/17 Gabapentin [Neurontin*] 1 tab PO TID 10/25/17 Cefuroxime [Ceftin*] 250 mg PO BID #10 tab 10/28/17 Apixaban [Eliquis] 5 mg PO BID #60 tablet 10/30/17 - Past Medical/Surgical History Diabetic: No -: HTN -: hyperlipidemia -: h/o shingles right side of face -: CKD 3 -: Osteoporosis -: left wrist sx -: varicose vein surgery bilateral legs -: hernia repair - Family History Mother -: Cancer, Other (see notes) Notes: colon cancer Father -: Stroke - Social History Smoking Status: Never smoker Alcohol use: No CD- Drugs: No Caffeine use: Yes Place of Residence: Home Review of Systems 10-point ROS is otherwise unremarkable Physical Examination - Physical Exam General: Oriented x3, Other (Responsive, but sleepy) HEENT: PERRLA, EOMI, Sclerae nonicteric Neck: Supple, JVD not distended Respiratory: Clear to auscultation bilaterally, Normal air movement Cardiovascular: No edema, Irregular heart rate/rhythm (HR: 90s) Gastrointestinal: Soft and benign, Non-distended, No tenderness Musculoskeletal: No tenderness Integumentary: No rashes Neurological: Normal strength at 5/5 x4 extr, Sensation intact (Bilaterally face, arms, legs), Cranial nerves 3-12 intact (exept: Slight asymmetry when smiling with lower R facial weakness), Abnormal speech (Slightly slurred speech) - Studies Laboratory Data (last 24 hrs) 06/12/20 11:00: PT 11.9, INR 1.01, APTT 29.3 06/12/20 11:00: WBC 5.20, Hgb 14.1, Hct 42.3, Plt Count 236 06/12/20 11:00: Sodium 142, Potassium 4.1, BUN 16, Creatinine 1.20, Glucose 114 H 06/12/20 10:58: PT Cancelled, INR Cancelled, APTT Cancelled 06/12/20 10:58: WBC Cancelled, Hgb Cancelled, Hct Cancelled, Plt Count Cancelled 06/12/20 10:58: Sodium Cancelled, Potassium Cancelled, BUN Cancelled, Creatinine Cancelled, Glucose Cancelled Assessment and Plan - Advance Directives Does patient have a Living Will: No Does patient have a Durable POA for Healthcare: No Physician Review Additional Text: Right lower facial weakness, left-sided extremity weakness - concerning for CVA AFib, off anticoagulation for 1 week HTN Mixed hyperlipidemia Osteoporosis CKD 3 -patient seems to have recovered some of her left-sided strength from initial presentation to the timing of my exam. -CT brain negative for acute intracranial process -Will admit patient, MRI/MRA stroke protocol, carotid ultrasound, echocardiogram -was off anticoagulation for 1 week, increasing risk for a cardiac thromboembolism event. -neurology consulted -patient felt bedside swallow screen, will consult speech therapy, will anticoagulate with full-dose Lovenox for now. Restart Eliquis when able to take p.o. -PT/OT -continue statin when taking PO -patient unaware of the medications she takes, will need to obtain confirm home medications, restart as appropriate VTE: Full Lovenox Code: DNR Dispo: anticipate dc in 24-48hrs pending workup, PT/ST eval Time Spent Managing Pts Care (In Minutes): 60
[2020-06-12 15:10] LABS: Urine Blood TRACE (NEG); Urine Glucose NEGATIVE (NEG); Urine Protein NEGATIVE (NEG); Urine Specific Gravity 1.025 (1.005-1.030)
[2020-06-12] MEDS ORDERED: ONDANSETRON 4 MG/2 ML VIAL IV PRN (16:43)
[2020-06-12] MEDS ORDERED: ACETAMINOPHEN 500 MG TAB PO PRN (16:43)
--- NOTE | 2020-06-12 17:19 | RAD REPORT ---
EXAM DESCRIPTION: MRI - MRA Head Wo Cont - 06/12/2020 4:00 pm CLINICAL HISTORY: Stroke-like symptoms, slurred speech, left-sided deficits COMPARISON: CT head same date, MRI head same date TECHNIQUE: Axial and coronal 3D [id number] image acquisition was performed. 3D rotational images were generated with source and reconstruction images reviewed. Horizontal and vertical axis rotation al views generated using MIP protocol. FINDINGS: No aneurysm or vascular malformation. Vertebrobasilar tortuosity is present. Patient has a large right posterior communicating artery supplying the right [employer] distribution. Small left posterio r communicating artery is present. No named branch occlusion, vasculitis or significant stenosis of the central vasculature identifiable . Atherosclerotic changes and luminal narrowing seen in the far peripheral branches of the bilateral middle cerebral artery distributions. Anterior communicating artery is present. IMPRESSION: Moderate atherosclerotic changes in the far peripheral branches of the bilateral middle cerebral artery distributions. No significant atherosclerotic change or luminal narrowing in the central portions of the vasculature . No aneurysm or vascular malformation.
--- NOTE | 2020-06-12 18:21 | RAD REPORT ---
EXAM DESCRIPTION: US - CP - 06/12/2020 6:09 pm CLINICAL HISTORY: ?stroke COMPARISON: MRA Neck W/Wo Cont dated 06/12/2020 TECHNIQUE: Real-time sonographic evaluation of bilateral carotid and vertebral systems was performed . Agosto scale and Doppler interrogation were performed with waveform tracing bilaterally. FINDINGS: Normal high resistance waveforms are noted in both external carotid arteries. The common c arotid arteries and internal carotid arteries show normal low resistance waveforms. Mild calcified plaquing changes are present near the right carotid bulb. No significant degree of lum inal narrowing identified. Left calcified plaquing changes are seen in the common carotid artery and bulb. No significant degree of luminal narrowing identifiable. Peak systolic and end diastolic veloci ty values and the ICA/CCA ratios are in the non-hemodynamically significant range. Antegrade flow seen in both vertebral arteries. Velocity values and ratios were recorded and are retained in the patient's imaging records. IMPRESSION: Bilateral calcified plaquing changes are present. No evidence of a hemodynamically significant stenosis.
--- NOTE | 2020-06-12 18:23 | RAD REPORT ---
EXAM DESCRIPTION: MRI - MRA Neck W/Wo Cont - 06/12/2020 5:34 pm CLINICAL HISTORY: Stroke protocol study, weakness COMPARISON: Carotid ultrasound same date TECHNIQUE: MR angiography of the cervical vasculature performed. Coronal imaging plane acquisition u tilized. A 15 MultiHance contrast volume was utilized. Coronal reformatted images were generated and reviewed. Vertical axis 3D rotational projections obtained using maximum intensity projection protoco l. FINDINGS: Bovine arch configuration is noted with no origins stenoses. Left vertebral artery is the dominant vessel and shows no origin stenosis. Origin of the much smaller right vertebral artery is di fficult to visualize. Proximal common carotid arteries are both quite tortuous. There is no dissectio n or significant narrowing of either common carotid artery. There is mild narrowing at the distal bul b all of the left carotid circulation. No significant luminal narrowing and no dissection changes of either internal carotid artery. IMPRESSION: MRA neck examination shows no significant stenosis and no dissection.
--- NOTE | 2020-06-12 18:32 | RAD REPORT ---
EXAM DESCRIPTION: MRI - Brain W/Wo Cont - 06/12/2020 5:34 pm CLINICAL HISTORY: concern for stroke, leg weakness COMPARISON: <Comparisons> TECHNIQUE: Sagittal and axial T1-weighted images were obtained. Axial PD/heavily T2-weighted and T2- FLAIR images were obtained along with axial DWI/ADC mapping sequences. Coronal heavily T2 weighted s equence obtained. Axial and coronal post-contrast T1-weighted images were also obtained. A 15 ml Mul tihance contrast following utilized. FINDINGS: Diffusion-weighted imaging shows abnormal signal intensity in the left posterior mid brain and olivia extending into the vermis and medial superior left cerebellum. There is corresponding dimin ished signal on ADC mapping. There is corresponding hyperintense T2/IR signal. Subtle hypointense T1 signal is present. Post-contrast view show no associated enhancement abnormality. Intracranial hemorr florencia is not identified. No other areas of acute infarction seen. In the posterior medulla there is focal hypointense T1 signal and hyperintense T2 signal. This shows prominent enhancement on postcontrast imaging. There is no edema or shift of midline structures. No extra-axial fluid collections. Agosto-matter/white matter junction is preserved. Signal voids are seen as a normal finding in the major intracranial v essels. Patient has advanced chronic ischemic change throughout the cerebral white matter basal gangl ia, thalamus and brainstem. Ventricles are in proportion to the atrophy changes. Mastoid air cells and paranasal sinuses are clear. IMPRESSION: Acute nonhemorrhagic infarction involving the superior left cerebellum and left posterio r brainstem. No significant mass effect or edema. Poorly demarcated 10 mm area of enhancement in the posterior medulla. This does not show acute stroke characteristics on diffusion-weighted imaging. A concurrent mass of the brainstem is suspected. Moderate severity atrophy and advanced chronic ischemic change of the cerebral hemispheres.
[2020-06-12] MEDS ORDERED: PNEUMOCOCCAL VACCINE 0.5 ML IMVAC ONE (19:00)
[2020-06-12] MEDS ORDERED: INFLUENZA VACCINE (for 3y+) 0.5 ML DOSE IMVAC ONE (19:00)
[2020-06-12 20:26] VITALS: BMI 30.9
[2020-06-12] MEDS: ATORVASTATIN 20 MG TAB PO SCH (20:53)
[2020-06-12] MEDS: NA CHLORIDE 0.9% 1,000 ML IV SCH (20:54)
[2020-06-12] MEDS ORDERED: ENOXAPARIN 80 MG/0.8 ML SQ SCH (21:00)
[2020-06-12] MEDS ORDERED: NA CHLORIDE 0.9% 250 ML ONE (21:57)
[2020-06-12] MEDS: ENOXAPARIN 80 MG/0.8 ML SQ SCH (22:31)
[2020-06-13 04:16] LABS: Absolute Lymphocytes (CBC) 2.3 K/uL (0.7-4.9); Basophils % 0.6 % (0-1.3); Hematocrit 40.4 % (36.0-45.0); MPV 8.1 fL (7.6-11.3); RBC Red Blood Cell Count 4.38 M/uL (3.86-4.86)
[2020-06-13 05:01] LABS: Albumin 3.1 g/dL (3.4-5.0); Bilirubin Total 0.6 mg/dL (0.2-1.0); Magnesium 2.3 mg/dL (1.8-2.4); Phosphorus 3.4 mg/dL (2.5-4.9); Potassium 4.2 mmol/L (3.5-5.1); Protein, Total 6.5 g/dL (6.4-8.2); T4,Total 9.5 ug/dL (4.8-13.9); Thyroid Stimulating Hormone 0.544 uIU/mL (0.360-3.740)
[2020-06-13] MEDS: NA CHLORIDE 0.9% 1,000 ML IV SCH ×3 (05:17→19:23)
[2020-06-13] MEDS: FOLIC ACID 1 MG TABLET PO SCH (07:56)
[2020-06-13] MEDS: ENOXAPARIN 80 MG/0.8 ML SQ SCH ×2 (08:54→21:09)
--- NOTE | 2020-06-13 14:25 | P.PN ---
Subjective Date of Service: 06/13/20 Chief Complaint: CVA Patient complaining of diplopia. Seen by PT and noted to have unsteady gait. Physical Examination - Vital Signs Temperature: 99.3 F Blood Pressure: 186/86 Pulse: 74 Respirations: 17 Pulse Ox (%): 97 - Physical Exam General: Alert, In no apparent distress, Oriented x3 HEENT: Mucous membr. moist/pink Neck: 2+ carotid pulse no bruit, JVD not distended Respiratory: Clear to auscultation bilaterally, Normal air movement Cardiovascular: No edema, Normal S1 S2, Irregular heart rate/rhythm Gastrointestinal: Normal bowel sounds, Soft and benign, No tenderness Musculoskeletal: No swelling, No tenderness Integumentary: No rashes Neurological: Normal strength at 5/5 x4 extr, Cranial nerves 3-12 intact Assessment And Plan Physician Review Additional Text: Right lower facial weakness, left-sided extremity weakness - concerning for CVA AFib, off anticoagulation for 1 week HTN Mixed hyperlipidemia Osteoporosis CKD 3 -patient with significant diplopia and unsteady gait. 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 -was off anticoagulation for 1 week, increasing risk for a cardiac thromboembolism event. -case discussed with Dr. Matos. -on full-dose Lovenox - Restart Eliquis when able to take p.o. -PT/OT -consult to rehab. She may benefit from inpatient rehab. -continue statin when taking PO VTE: Full Lovenox Code: DNR
--- NOTE | 2020-06-13 16:14 | RAD REPORT ---
EXAM DESCRIPTION: RAD - Barium Swallow Modified - 06/13/2020 3:10 pm CLINICAL HISTORY: CVA AND COUGH FINDINGS: Oropharyngeal phase of swallowing is unremarkable No supraglottic penetration/aspiration seen. No pooling within the valleculae/piriform sinus
[2020-06-13] MEDS: ATORVASTATIN 20 MG TAB PO SCH (21:09)
[2020-06-14] MEDS: NA CHLORIDE 0.9% 1,000 ML IV SCH ×3 (01:24→22:03)
[2020-06-14 04:42] LABS: Magnesium 2.1 mg/dL (1.8-2.4); Phosphorus 2.2 mg/dL (2.5-4.9); Potassium 3.2 mmol/L (3.5-5.1)
[2020-06-14] MEDS ORDERED: POTASSIUM CL SA 10 MEQ TAB PO ONE (09:00)
[2020-06-14] MEDS: ENOXAPARIN 80 MG/0.8 ML SQ SCH (09:04)
[2020-06-14] MEDS: FOLIC ACID 1 MG TABLET PO SCH (09:05)
[2020-06-14] MEDS: HYDRALAZINE HCL 20 MG/ML VIAL IV PRN (09:05)
[2020-06-14] MEDS: POTASS/SODIUM PHOSPHATE 1 PKT POWD.PACK PO SCH (09:05)
--- NOTE | 2020-06-14 09:40 | ECHO ---
HEIGHT: 4 ft 11 in WEIGHT: 153 lb 0 oz DATE OF STUDY: 06/13/[address]: Zay Cabrera MD 2-DIMENSIONAL: YES M.MODE: YES DOPPLER: YES COLOR FLOW: YES TDS: PORTABLE: DEFINITY: BUBBLE STUDY: DIAGNOSIS: STROKE CARDIAC HISTORY: CATHERIZATION: NO SURGERY: NO PROSTHETIC VALVE: NO PACEMAKER: NO MEASUREMENTS (cm) DIASTOLIC (NORMALS) SYSTOLIC (NORMALS) IVSd 0.9 (0.6-1.2) LA Diam 3.7 (1.9-4.0) LVEF 68% LVIDd 3.7 (3.5-5.7) LVIDs 2.3 (2.0-3.5) %FS 37% LVPWd 1.0 (0.6-1.2) Ao Diam 2.7 (2.0-3.7) 2 DIMENSIONAL ASSESSMENT: RIGHT ATRIUM: NORMAL LEFT ATRIUM: NORMAL RIGHT VENTRICLE: NORMAL LEFT VENTRICLE: NORMAL TRICUSPID VALVE: NORMAL MITRAL VALVE: NORMAL PULMONIC VALVE: NORMAL AORTIC VALVE: SCLEROSIS PERICARDIAL EFFUSION: NONE AORTIC ROOT: NORMAL LEFT VENTRICULAR WALL MOTION: NORMAL DOPPLER/COLOR FLOW: NORMAL COMMENTS: AORTIC SCLEROSIS - NO STENOSIS. NORMAL LEFT VENTRICULAR SIZE AND FUNCTION. NO WALL MOTION ABNORMALITY. NO THROMBUS. TECHNOLOGIST: ONUR VILLALTA
[2020-06-14] MEDS: carvediloL 6.25 MG TAB PO SCH (11:47)
--- NOTE | 2020-06-14 12:40 | EKG ---
Test Date: 2020-06-14 Test Time: 08:27:51 Deputy Sheriff K9 Handler: ARAMIS MEASUREMENT RESULTS: Intervals: Rate: 137 [place]: QRSD: 84 QT: 360 QTc: 543 [place]: P: [place]: QRS: 34 T: 227 INTERPRETIVE STATEMENTS: Atrial fibrillation with rapid ventricular response ST & T wave abnormality, consider inferolateral ischemia or digitalis effect Abnormal ECG Compared to ECG 06/12/2020 11:06:13 Myocardial infarct finding no longer present ST (T wave) deviation still present Possible ischemia still present Electronically Signed On 06-14-20 12:39:43 PLASTER FORM MAKER by Jc Marks
--- NOTE | 2020-06-14 14:35 | P.PN ---
Subjective Date of Service: 06/14/20 Chief Complaint: CVA Patient patient states her diplopia is improving. She is tolerating physical therapy Physical Examination - Vital Signs Temperature: 99.2 F Blood Pressure: 197/90 Pulse: 72 Respirations: 20 Pulse Ox (%): 94 - Physical Exam General: Alert, In no apparent distress, Oriented x3 HEENT: PERRLA, Mucous membr. moist/pink, EOMI Neck: Supple Respiratory: Clear to auscultation bilaterally, Normal air movement Cardiovascular: No edema, Normal S1 S2, Irregular heart rate/rhythm Gastrointestinal: Soft and benign, Non-distended Musculoskeletal: No swelling, No tenderness Integumentary: No rashes, No erythema Neurological: Normal speech, Normal strength at 5/5 x4 extr, Other (Unsteady gait) Assessment And Plan Physician Review Additional Text: Right lower facial weakness, left-sided extremity weakness - concerning for CVA AFib with RVR HTN Mixed hyperlipidemia Osteoporosis CKD 3 -patient with significant diplopia and unsteady gait. 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 -was off anticoagulation for 1 week, increasing risk for a cardiac thromboembolism event. -case discussed with Dr. Matos. -patient past dysphagia screen -Eliquis resumed. -resumed Coreg and diltiazem for AFib with RVR. -continue PT/OT -feeding as tolerated. -awaiting placement in inpatient rehab. -continue Lipitor. VTE: Eliquis Code: DNR
[2020-06-14] MEDS: ATORVASTATIN 20 MG TAB PO SCH (20:57)
[2020-06-14] MEDS: APIXABAN 5 MG TABLET PO SCH (20:58)
--- NOTE | 2020-06-14 22:02 | CON ---
Reason For Consultation: Consultation called because of stroke. History Of Present Illness: Ms. Diane is a 80-year-old right-handed patient with multiple medical problems including atrial fibrillation, hypertension, dyslipidemia, osteoporosis, chronic ki dney disease, and low vitamin D, who came to [facility] on the 12 of June with sudden o nset left-sided face, arm, and leg weakness with slurred speech. The patient ran out of Eliquis 5 da ys prior to onset of the episode and was just taking aspirin. The brain imaging, which is a brain MR I identified an acute nonhemorrhagic infarct in the superior left cerebellum and left posterior brain stem. There was a poorly demarcated 10 mm area of enhancement in the posterior medulla, but did not show characteristics of an acute stroke. A concurrent mass in the brainstem was suspected. There wa s also moderate to advanced chronic small vessel ischemic disease in both hemispheres. The patient h ad minimal improvement since hospitalization in the right-sided weakness and incoordination. Medicat ion regimen was adjusted to include the Eliquis. Magnetic resonance angiogram of the brain identifie d moderate arthrosclerotic changes in the bilateral middle cerebral artery distributions. No signifi cant luminal narrowing in the central portions and no aneurysms or vascular malformations identified. Magnetic resonance angiogram of the neck showed no significant stenosis. Carotid artery ultrasound of the neck showed bilateral calcified plaque without evidence of hemodynamically significant stenos is. Cardiogram identified normal left ventricular size and function. No wall motion abnormalities. No thrombus. There was aortic sclerosis but no stenosis. Barium swallow study showed oropharyngeal phase of swallowing was unremarkable. There was no aspiration or penetration in supraglottic area. No pooling in the vallecula or pyriform sinus. The electrocardiogram showed atrial fibrillation wit h rapid ventricular response. Past Medical History: As indicated. Allergies: NO KNOWN DRUG ALLERGIES. Medications: Amlodipine, aspirin, Eliquis 5 mg twice daily, atorvastatin, , calcium carbon ate vitamin D combination, carvedilol, cholecalciferol, multivitamin, folic acid 1 mg daily, gabapent in. Past Surgical History: Left wrist surgery, varicose veins in legs were removed and hernia repair. Family History: Cancer in mother, is colon cancer, stroke in father. Social History: No alcohol, tobacco, or IV drug use. The patient uses caffeinated beverages. Review of Systems: Aside from mentioned above, otherwise negative. Physical Examination: Vital Signs: Blood pressure 132/72, pulse ranged from 70 to 116, temperature 98.3, oxygen saturation 94%. Respiratory rate 16 to 20. Weight 150 pounds. Height 4 feet 11 inches, BMI 30.9. General: Ms. Diane is resting in bed. She is in no acute distress. HEENT: She is normocephalic, atraumatic. Sclerae anicteric. Oropharynx is pink and moist. Neck: Supple. Chest: Clear. Heart: Irregularly irregular. Extremities: No significant clubbing, cyanosis, or edema. Neurological: She is alert and oriented to situation, place, and person. She has a symmetric face w ith good smiling and has in terms of cranial nerves, no obvious focal deficits and she is improving. Her right upper extremity shows there are equal strength with some incoordination noted. There is n o sensory loss in the right versus left upper extremity, lower extremity, also no significant weaknes s or numbness in the right versus left. Some mild incoordination noted in right lower versus upper e xtremity. Reflexes are symmetric and depressed in the upper and lower extremities. She was ambulate d with physical therapy and was able to march in place with minimum assistance and covered 5 feet twi ce with minimal assistance using a rolling walker. She had some mild balance instability. Laboratory Studies: Complete blood count with differential is completely normal both on 25 and . Coagulation panel shows INR 1.01. Chemistries show potassium was low at 3.3, now corrected to 4, cre atinine 1.3, glucose ranged from 78 to 114. Liver function studies were normal. LDL cholesterol is 76, HDL cholesterol 53, TSH is normal. T4 normal. Urinalysis is unremarkable. COVID-19 test is neg ative. Assessment: Ms. Diane is a 80-year-old patient with a brainstem and cerebellar stroke producing so me right-sided weakness and incoordination, which she is recovering well. Her stroke occurred after she ran out of Eliquis 5 mg twice daily. She has comorbid atrial fibrillation which is likely the so urce of her stroke. She has other comorbid conditions including hypertension and dyslipidemia. Plan: 1.Restart Eliquis 5 mg daily. 2.Lipitor 40 mg at bedtime. 3.Continue Coreg, diltiazem. 4.Continue duloxetine for depression. 5.Also continue Apresoline for hypertension. She may benefit from acute inpatient rehabilitation to improve her gait, coordination, strength, range of motion, balance, and give her time to recover fro m her acute stroke. VITOR/PERLA Voice ID: [id number] Report ID: [id number]
[2020-06-15 04:53] LABS: Phosphorus 3.2 mg/dL (2.5-4.9); Potassium 4.6 mmol/L (3.5-5.1)
[2020-06-15] MEDS ORDERED: FOLIC ACID 1 MG TABLET PO SCH (09:00)
[2020-06-15] MEDS ORDERED: HOME MED 1 EA UNK (Calcium Carbonate/Vitamin D3 [Caltrate 600 Plus D3 Tablet] Tablet) PO SCH (09:00)
[2020-06-15] MEDS ORDERED: ENOXAPARIN 80 MG/0.8 ML SQ SCH (09:00)
[2020-06-15] MEDS: DILTIAZEM HCL 120 MG SR CAP PO SCH (09:07)
[2020-06-15] MEDS: FOLIC ACID 1 MG TABLET PO SCH (09:07)
[2020-06-15] MEDS: CALCIUM CARB 500MG/VIT D 200 IU TAB PO SCH (09:08)
[2020-06-15] MEDS: FAMOTIDINE 20 MG TAB PO SCH (09:08)
[2020-06-15] MEDS: APIXABAN 5 MG TABLET PO SCH ×2 (09:08→21:17)
[2020-06-15] MEDS: carvediloL 6.25 MG TAB PO SCH (09:08)
[2020-06-15] MEDS: DULOXETINE 30 MG CAP PO SCH (09:08)
[2020-06-15] MEDS: NA CHLORIDE 0.9% 1,000 ML IV SCH (11:23)
[2020-06-15] MEDS: HYDRALAZINE HCL 20 MG/ML VIAL IV PRN (12:24)
--- NOTE | 2020-06-15 13:07 | P.PN ---
Subjective Date of Service: 06/15/20 Chief Complaint: CVA Patient states she feels much better today. She is able to keep her eyes open. She stated diplopia has resolved She is tolerating physical therapy. Physical Examination - Vital Signs Temperature: 99.4 F Blood Pressure: 185/99 Pulse: 108 Respirations: 20 Pulse Ox (%): 97 - Physical Exam General: Alert, In no apparent distress Neck: Supple, 2+ carotid pulse no bruit Respiratory: Clear to auscultation bilaterally, Normal air movement Cardiovascular: Normal S1 S2, Irregular heart rate/rhythm Gastrointestinal: Soft and benign, Non-distended Musculoskeletal: No swelling Integumentary: No rashes Neurological: Normal strength at 5/5 x4 extr, Cranial nerves 3-12 intact Assessment And Plan Physician Review Additional Text: Right lower facial weakness, left-sided extremity weakness - concerning for CVA AFib with RVR HTN Mixed hyperlipidemia Osteoporosis CKD 3 -diplopia has improved. -she is working easier with physical therapy -CT brain negative for acute intracranial process -MRI of the brain confirms acute CVA in the left cerebellum and left posterior brainstem. -was off anticoagulation for 1 week, increasing risk for a cardiac thromboembolism event. -neurology input appreciated -patient passed dysphagia screen and tolerating diet. -Eliquis resumed. -resumed Coreg and diltiazem for AFib with RVR. -continue PT/OT -feeding as tolerated. -awaiting placement in inpatient rehab. -continue Lipitor. VTE: Eliquis Code: DNR
[2020-06-15] MEDS: ATORVASTATIN 20 MG TAB PO SCH (21:17)
[2020-06-16] MEDS: NA CHLORIDE 0.9% 1,000 ML IV SCH (00:43)
[2020-06-16] MEDS: DILTIAZEM HCL 120 MG SR CAP PO SCH (08:37)
[2020-06-16] MEDS: carvediloL 6.25 MG TAB PO SCH (08:38)
[2020-06-16] MEDS: APIXABAN 5 MG TABLET PO SCH ×2 (08:38→20:36)
[2020-06-16] MEDS: DULOXETINE 30 MG CAP PO SCH (08:38)
[2020-06-16] MEDS: FOLIC ACID 1 MG TABLET PO SCH (08:39)
[2020-06-16] MEDS: CALCIUM CARB 500MG/VIT D 200 IU TAB PO SCH (08:39)
[2020-06-16] MEDS: FAMOTIDINE 20 MG TAB PO SCH (08:39)
[2020-06-16] MEDS: HYDRALAZINE HCL 20 MG/ML VIAL IV PRN (08:40)
--- NOTE | 2020-06-16 17:11 | P.PN ---
Subjective Date of Service: 06/16/20 Chief Complaint: CVA Patient states she feels better today. She denies any diplopia today. She is tolerating and working well with physical therapy. She still has unsteady gait. Physical Examination - Vital Signs Temperature: 97.4 F Blood Pressure: 154/65 Pulse: 76 Respirations: 16 Pulse Ox (%): 97 - Physical Exam General: Alert, In no apparent distress Respiratory: Clear to auscultation bilaterally, Normal air movement Cardiovascular: No edema, Normal S1 S2, Irregular heart rate/rhythm Gastrointestinal: Soft and benign, Non-distended, No tenderness Musculoskeletal: No swelling, No erythema Integumentary: No rashes, No breakdown Neurological: Normal strength at 5/5 x4 extr, Cranial nerves 3-12 intact Assessment And Plan Physician Review Additional Text: Right lower facial weakness, left-sided extremity weakness - concerning for CVA AFib with RVR HTN Mixed hyperlipidemia Osteoporosis CKD 3 -diplopia has improved. -she is working easier with physical therapy -CT brain negative for acute intracranial process -MRI of the brain confirms acute CVA in the left cerebellum and left posterior brainstem. -was off anticoagulation for 1 week. -neurology input appreciated -patient passed dysphagia screen and tolerating diet. -Eliquis resumed. -continue Coreg and diltiazem for AFib with RVR. -continue PT/OT -feeding as tolerated. -awaiting insurance authorization for placement in inpatient rehab. -continue Lipitor. VTE: Eliquis Code: DNR
[2020-06-16] MEDS: ATORVASTATIN 20 MG TAB PO SCH (20:36)
[2020-06-16 23:20] VITALS: O2SAT 95
[2020-06-17 05:44] LABS: Absolute Lymphocytes (CBC) 1.4 K/uL (0.7-4.9); Basophils % 0.8 % (0-1.3); Hematocrit 40.1 % (36.0-45.0); Lymphocytes % 27.5 % (15.3-44.8); MPV 8.6 fL (7.6-11.3); RBC Red Blood Cell Count 4.33 M/uL (3.86-4.86)
[2020-06-17 05:54] LABS: Potassium 4.1 mmol/L (3.5-5.1)
[2020-06-17] MEDS: carvediloL 6.25 MG TAB PO SCH (09:28)
[2020-06-17] MEDS: APIXABAN 5 MG TABLET PO SCH (09:28)
[2020-06-17] MEDS: FOLIC ACID 1 MG TABLET PO SCH (09:28)
[2020-06-17] MEDS: DULOXETINE 30 MG CAP PO SCH (09:29)
[2020-06-17] MEDS: FAMOTIDINE 20 MG TAB PO SCH (09:29)
[2020-06-17] MEDS: DILTIAZEM HCL 120 MG SR CAP PO SCH (09:29)
[2020-06-17] MEDS: CALCIUM CARB 500MG/VIT D 200 IU TAB PO SCH (09:30)
[2020-06-17] MEDS ORDERED: POLYETHYL GLY 3350 17 GM/DOSE PO PRN (11:51)
--- NOTE | 2020-06-17 11:51 | P.PN ---
Subjective Date of Service: 06/17/20 Chief Complaint: CVA Patient states she feels better today. She denies any diplopia. She still reports significant difficulty grasping items with her hands and incoordination. She is complaining of constipation. Physical Examination - Vital Signs Temperature: 98 F Blood Pressure: 148/84 Pulse: 91 Respirations: 18 Pulse Ox (%): 96 - Physical Exam General: Alert, In no apparent distress, Oriented x3 HEENT: PERRLA Respiratory: Clear to auscultation bilaterally, Normal air movement Cardiovascular: No edema, Normal S1 S2, Irregular heart rate/rhythm Gastrointestinal: Soft and benign, Non-distended, No tenderness Musculoskeletal: No swelling Integumentary: No rashes Neurological: Other Assessment And Plan Physician Review Additional Text: Right lower facial weakness, left-sided extremity weakness - concerning for CVA AFib with RVR HTN Mixed hyperlipidemia Osteoporosis CKD 3 -diplopia has improved. -she is working easier with physical therapy -CT brain negative for acute intracranial process -MRI of the brain confirms acute CVA in the left cerebellum and left posterior brainstem. -was off anticoagulation for 1 week. -neurology input appreciated -patient passed dysphagia screen and tolerating diet. -continue Eliquis -continue Coreg and diltiazem for AFib with RVR. -continue PT/OT -feeding as tolerated. -Mag citrate for constipation. Constipation prophylaxis with senna and MiraLax. -awaiting insurance authorization for placement in inpatient rehab. -continue Lipitor. VTE: Eliquis Code: DNR
[2020-06-17 11:54] VITALS: BP 137/84; TEMP 98.5
[2020-06-17] MEDS ORDERED: MAGNESIUM CITRATE 300 ML BOT PO SCH (12:00)
--- NOTE | 2020-06-17 12:18 | P.DS ---
Admission Date: 06/12/20 Discharge Date: 06/17/20 Disposition: TRANSFER TO INPATIENT REHAB Discharge Condition: FAIR Reason for Admission: CVA Consultations: Neurology-Dr. Matos. - Problems (1) Acute CVA (cerebrovascular accident) Current Visit: Yes Status: Acute (2) Chronic anticoagulation Current Visit: Yes Status: Acute (3) Atrial fibrillation with RVR Current Visit: Yes Status: Acute (4) Hyperlipidemia Current Visit: Yes Status: Acute Brief History of Present Illness: 80-year-old woman with a history of chronic atrial fibrillation on Eliquis anticoagulation presented to the emergency department due to sudden left-sided weakness, right facial weakness, difficulty with speech and numbness in the right upper extremity. Patient reporting running out of his Eliquis for 1 week. She was out of the window for t-PA when she presented to the ED per report. CT head showed no acute infarct or hemorrhage. Patient was admitted for further management of acute CVA. Hospital Course: Patient admitted to the medical floor and placed on aspirin, full-dose Lovenox and Lipitor. MRI of the brain done confirmed acute CVA in the superior left cerebellum and left posterior brainstem. MRA of the head and neck was unremarkable. Carotid artery duplex and echocardiogram were all unremarkable. Her speech improved. She passed dysphagia test. She was evaluated by speech therapy and noted to swallow just fine. She was also seen by physical therapy. Patient noted to have incoordination in both hands and unsteady gait. She will benefit from inpatient rehab. Patient was on Eliquis which was resumed. Her atrial fibrillation rate control medications were also resumed. Her heart rate was under control on her usual home medications. She has been accepted to inpatient rehab. Patient deemed clinically stable for discharge. Vital Signs/Physical Exam: Temp Pulse Resp BP Pulse Ox 98.5 F 95 H 16 137/84 96 06/17/20 11:52 06/17/20 11:52 06/17/20 11:52 06/17/20 11:52 06/17/20 11:52 General: Alert, In no apparent distress, Oriented x3 Respiratory: Clear to auscultation bilaterally, Normal air movement Cardiovascular: Normal S1 S2, Irregular heart rate/rhythm Gastrointestinal: Soft and benign, Non-distended, No tenderness Musculoskeletal: No swelling, No tenderness Integumentary: No rashes Neurological: Normal strength at 5/5 x4 extr, Other (Incoordination in both hands.) Laboratory Data at Discharge: WBC 5.00 K/uL (4.3-10.9) D 06/17/20 05:07 Hgb 13.2 g/dL (12.0-15.0) 06/17/20 05:07 Hct 40.1 % (36.0-45.0) 06/17/20 05:07 Plt Count 210 K/uL (152-406) 06/17/20 05:07 PT 11.9 SECONDS (9.5-12.5) 06/12/20 11:00 INR 1.01 06/12/20 11:00 APTT 29.3 SECONDS (24.3-36.9) 06/12/20 11:00 Sodium 143 mmol/L (136-145) 06/17/20 05:07 Potassium 4.1 mmol/L (3.5-5.1) 06/17/20 05:07 BUN 16 mg/dL (7-18) 06/17/20 05:07 Creatinine 1.06 mg/dL (0.55-1.3) 06/17/20 05:07 Glucose 93 mg/dL (74-106) 06/17/20 05:07 Phosphorus 3.2 mg/dL (2.5-4.9) 06/15/20 04:18 Magnesium 2.1 mg/dL (1.8-2.4) 06/14/20 04:15 Total Bilirubin 0.6 mg/dL (0.2-1.0) 06/13/20 03:55 AST 19 U/L (15-37) 06/13/20 03:55 ALT 18 U/L (12-78) 06/13/20 03:55 Alkaline Phosphatase 71 U/L (45-117) 06/13/20 03:55 Triglycerides 89 mg/dL (<150) 06/13/20 03:55 Cholesterol 147 mg/dL (<200) 06/13/20 03:55 HDL Cholesterol 53 mg/dL (40-60) 06/13/20 03:55 Cholesterol/HDL Ratio 2.77 06/13/20 03:55 Home Medications: Carvedilol 6.25 tab PO DAILY 01/19/15 Folic Acid 1 mg PO DAILY #30 tablet 01/20/15 Apixaban [Eliquis] 5 mg PO BID #60 tablet 10/30/17 Diltiazem HCl [Cartia Xt] 120 mg PO DAILY 06/12/20 Duloxetine HCl 30 mg PO DAILY 06/12/20 Famotidine [Pepcid*] 1 tab PO DAILY 06/12/20 Multivit,Ther Iron,Ca,FA & Min [Centrum Tablet*] 1 tab PO DAILY 06/12/20 Atorvastatin Calcium [Lipitor*] 40 mg PO BEDTIME tab 06/17/20 Calcium Carbonate/Vitamin D3 [Oscal 500 + Vit D 200 Iu Tab*] 1 tab PO DAILY tab 06/17/20 Polyethyl Gly 3350 [Glycolax*] 17 gm PO DAILY PRN udbot 06/17/20 Senosides [Senokot*] 17.2 mg PO BID tab 06/17/20 Diet: AHA Activity: Fall precautions Followup: Chaim Livingston MD [Primary Care Provider] - Time spent managing pt's care (in minutes): 40
[2020-06-17] MEDS ORDERED: SENOSIDES 8.6 MG TAB PO SCH (13:00)
== END 2020-06-17 14:04 | DRG 65 ==
LOC: ER 10:54 → ERHOLD 14:10 → 2ND 19:47
PROVIDERS: ADMIT Hospitalist; ATTEND Internal Medicine
DX: I63.9 Cerebral infarction, unspecified (principal); G81.94 Hemiplegia, unspecified affecting left nondominant side; R47.81 Slurred speech; R29.703 NIHSS score 3; I12.9 Hypertensive chronic kidney disease with stage 1 through stage 4 chronic kidney disease, or unspecified chronic kidney disease; N18.30 Chronic kidney disease, stage 3 unspecified; I48.91 Unspecified atrial fibrillation; G31.9 Degenerative disease of nervous system, unspecified; E78.2 Mixed hyperlipidemia; M81.0 Age-related osteoporosis without current pathological fracture; K59.00 Constipation, unspecified; Z66 Do not resuscitate; Z79.01 Long term (current) use of anticoagulants; Z79.899 Other long term (current) drug therapy; Z79.82 Long term (current) use of aspirin; Z79.02 Long term (current) use of antithrombotics/antiplatelets; Z86.73 Personal history of transient ischemic attack (TIA), and cerebral infarction without residual deficits; Z20.822 Contact with and (suspected) exposure to COVID-19
CPT/HCPCS: 36415; 51702; 70450; 70544; 70549; 70553; 71045; 74230; 80048; 80053; 80061; 81003; 82550; 82947; 83735; 84100; 84132; 84436; 84443; 84484; 85025; 85610; 85730; 92610; 92611; 93005; 93306; 93880; 94760; 96374; 96375; 97112; 97116; 97161; 97530; 99285; A9577; J0360; J2405; J7030; J7040; J7050; U0003

== ENCOUNTER 2020-06-16 10:50 | Inpatient (IN) | payer OTHER ==
--- NOTE | 2020-06-16 14:43 | R.PREADM ---
PRE-ADMISSION SCREENING FORM SCREENING DATE AND TIME 06/15/2020 08:38 (SUPERINTENDENT REFUSE DISPOSAL) ANTICIPATED REHAB ADMISSION DATE 06/17/2020 REFERRING FACILITY [facility] REFERRAL DATE AND TIME 06/15/2020 08:38 (SUPERINTENDENT REFUSE DISPOSAL) REFERRAL ROOM# 209 ACUTE ADMIT DATE 06/16/2020 Previous Rehabilitation(s): No. ACUTE MASH FILTER PRESS OPERATOR/DC AUTOMATIC CIGAR WRAPPER TENDER Cate ATTENDING PHYSICIAN REFERRING PHYSICIAN Sravan Wilson REHAB FACILITY [facility] CLINICAL LIAISON Winston Rebollar PHYSICIAN REVIEWER Dr. Rajiv Matos M.D. MR# [id number] NAME SEVERO DIANE ADDRESS [address] [place] [address] PHONE [facility] [id number] DATE OF 1940 AGE 80 SSN# [id number] GENDER female MARITAL STATUS RACE unknown race ADMIT FROM 02 - [facility] PRE-HOSPITAL LIVING SETTING 01 - Home (private home/apt. board/care, assisted living, long-term, transitional living) HOME TYPE AND DETAILS Type of home: single family house # of levels in the residence: 1 # of steps within the residence: 0 # of steps to enter the residence: 0 PRE-HOSPITAL LIVING WITH Family/Relatives FAMILY SUPPORT Yes PRIMARY FAMILY CONTACT NAME MARIBELL CASANOVA PRIMARY FAMILY CONTACT PHONE PRIMARY FAMILY CONTACT RELATIONSHIP DAUGHTER PHONE PRIMARY FAMILY CONTACT ON ADM.? no IS PRIMARY FAMILY CONTACT AUTH. REP.? no 1ST EMERGENCY CONTACT MARIBELL CASANOVA 1ST CONTACT PHONE 1ST CONTACT RELATIONSHIP DAUGHTER PHONE 1ST CONTACT ON ADM. no IS 1ST CONTACT AUTH. REP.? no PHONE 2ND CONTACT ON ADM.? no PATIENT EMPLOYMENT STATUS Retired (for age) PATIENT EMPLOYER No Employer PAYOR INFORMATION: 1ST PAYOR NAME [email or web address] 1ST PAYOR PHONE 1ST PAYOR INJURY/ILLNESS DUE TO ACCIDENT? No ANOTHER GREEN PARTY RESPONSIBLE? No PRIMARY REHAB/ACUTE DIAGNOSIS: CVA ONSET DATE 06/12/2020 REHAB IMPAIRMENT CATEGORY (LAILA): 01 Stroke (STR) MEETS 60% rule AFFECTED EXTREMITIES: LLE, and LUE PRIMARY DIAGNOSIS-RELATED SURGERIES: N/A SUMMARY OF ACUTE HOSPITALIZATION: Pt. is a 80 yo Right-handed female of unknown race. On 06/12/2020 Pt. presented to [facility] with sudden onset of left-side weakness. On 06/12/2020 she was admitted to [facility] with diagnosis CVA. Her impairment category is Stroke 01 - Left Body (Right Brain) (01.1). Pre-morbidly, Pt. was independent/mod-I in Balance, Communication, Social Cognition, and Sphincter Co ntrol; and she had good Self-Care and Safety Awareness. Currently, she has deficits of Locomotion, Transfers Control, Self-Care, Endurance, Social Cognition, and Balance. Pt. is now referred to [facility] for acute in-patient rehabilitation in order to maximize patient's functional independence in activities of daily living, strength, ROM, and mobi lity. Patient has realistic goal of being discharged at assistance level 7-Ind to reside at [facility] with Family/Relatives. Severo Diane is a 80 -year- old female that lives at home with family independently. She lives in a single story home with family help when needed. She has a history of HTN, A Fib, mixed hyperlipidem ia, Osteoporosis, CKD stage 3, Vit D def, and CVA. She was addmitted for right arm weakness, double vision weakness. Doyle MRI shows acute non hemorrhagic infract sup. Left cerebellum and left post. Braininstem. No signif. Mass effect or edema poorly demaracated 10mm. She is amulating better now with rolling walker at [facility]. The patient would most definitely benefit from acute inpatient rehab and has become severely debilitated and unable to live at her prior level of activity at home getting her stronger to be back living at home independently is our goal. It is reasonable and necessary for the patient to come to acute inpatient rehab for approximately 7-10 days in order to return to her prior level of care. She is now being transferred to [facility] Inpatient rehabilitation and is medically stable with relatively stable labs. She is now medically stable but in need of 24 hour nursing, doctor supervision and The patient is reasonably expected to participate in 3 hours of therapy a day/15 hours per week and receive care with intensive interdisciplinary approach. COVID-19 screening performed; spoke with patient via phone. Patient denies new onset of fever, cough, difficulty breathing, sore throat, body aches and non-allergy nasal congestion in the past 24 hours. Patient denies travel outside of [place] in the past 14 days. Patient denies any contact with someone who has a confirmed diagnosis of or is under investigation for COVID-19 in the past 14 days. Patient has been tested negative for COVID- 19. PAST MEDICAL HISTORY HTN HYPERLIPIDEMIA H/O SHINGLES RIGHT SIDE OF FACE CKD 3 OSTEOPOROSIS PAST SURGICAL HISTORY: LEFT WRIST SX VARICOSE VEIN SURGERY BILATERAL LEGS HERNIA REPAIR MEDICATION ALLERGIES: No Known Drug Allergies (NKDA) ENVIRONMENTAL ALLERGIES: - Substance Allergies None Known - Other Allergies None Known CODE STATUS: Full code WEIGHT/HEIGHT/BMI: WEIGHT 153 lbs HEIGHT 4' 11" BMI 30.9 DIET: - Diet Type Regular - Diet - Solid Texture Regular - Diet - Liquid Texture Regular - Tube Feed N/A REVIEW OF SYSTEMS: - Gen Alert and awake Lying in bed No apparent distress Oriented to: person, time, and place - Vital Signs Temperature: 97.9 F SBP/DBP: 137/82 Pulse: 94 Resp: 18 Vital signs stable, afebrile - CVS RRR VITAL SIGNS Temperature: 97.9 F SBP/DBP: 137/82 Pulse: 94 Resp: 18 Vital signs stable, afebrile MEDICATIONS/TREATMENT: Other- See attached MAR (Medication Administration Record). CURRENT SPHINCTER CONTROL: Pre-hospital bladder status: unspecified # of bladder accidents in the last 7 days prior to screenin Pre-hospital bowel status: unspecified # of bowel accidents in the last 7 days prior to screenin Last Bowel Movement Date: 06/15/2020 CURRENT LOCOMOTION STATUS: distance walked 100' with rolling walker DETAILED CURRENT FUNCTIONAL STATUS: - Bladder accident frequency: Ind - No accidents in the past 7 days - Bowel accident frequency: Ind - No accidents in the past 7 days - Walking score based on distance walked: 0(N/A) - Wheelchair score based on distance traveled: 0(N/A) QI SCORES: - Self-Care A. Eating 03-Partial/moderate assistance B. Oral hygiene 02-Substantial/maximal assistance C. Toileting hygiene 03-Partial/moderate assistance E. Shower/bathe self 03-Partial/moderate assistance F. Upper body dressing 03-Partial/moderate assistance G. Lower body dressing 02-Substantial/maximal assistance H. Putting on/taking off footwear 88-Not attempted due to medical condition or safety concerns - Mobility A. Roll left and right 03-Partial/moderate assistance B. Sit to lying 03-Partial/moderate assistance C. Lying to sitting on side of bed 03-Partial/moderate assistance D. Sit to stand 03-Partial/moderate assistance E. Chair/ygn-kw-[id number] transfer 03-Partial/moderate assistance F. Toilet transfer 03-Partial/moderate assistance G. Car transfer 88-Not attempted due to medical condition or safety concerns I. Walk 10 feet 03-Partial/moderate assistance J. Walk 50 feet with two turns 03-Partial/moderate assistance K. Walk 150 feet 88-Not attempted due to medical condition or safety concerns L. Walking 10 feet on uneven surfaces 88-Not attempted due to medical condition or safety concerns M. 1 step (curb) 88-Not attempted due to medical condition or safety concerns N. 4 steps 88-Not attempted due to medical condition or safety concerns O. 12 steps 88-Not attempted due to medical condition or safety concerns P. Picking up object 88-Not attempted due to medical condition or safety concerns R. Wheel 50 feet with two turns 88-Not attempted due to medical condition or safety concerns S. Wheel 150 feet 88-Not attempted due to medical condition or safety concerns - Bladder and Bowel Bladder continence Bowel continence - Endurance Good - Balance Poor - Safety Awareness Good CURRENT / PREVIOUS ASSISTIVE DEVICES: Rolling Walker Shower Chair HISTORY OF FALLS. HAS THE PATIENT HAD TWO OR MORE FALLS IN THE PAST YEAR OR ANY FALL WITH INJURY IN T HE PAST YEAR?: No PRIOR SURGERY. DID THE PATIENT HAVE MAJOR SURGERY DURING THE 100 DAYS PRIOR TO ADMISSION?: No THERAPY NOTES FROM ACUTE CARE: Attached. SPECIAL NEEDS: - Safety Concerns Skin breakdown precautions needed due to skin breakdown risk PATIENT NEEDS ACTIVE AND ONGOING THERAPEUTIC INTERVENTION OF MULTIPLE THERAPY DISCIPLINES, INCLUDING: - Occupational Therapy Cognitive Retraining. Visual Perceptual Training. - Dietary and Nutrition Adequate Nutrition. Nutritional Education. Nutritional Supplements. - Speech Therapy Cognitive Training. Expressive Language Skills. Memory Strategies. Receptive Language Skills. Speech Intelligibility Training. PATIENT NEEDS CLOSE MEDICAL SUPERVISION BY A REHABILITATION PHYSICIAN FOR: Coordination of Treatment Team PATIENT REQUIRES 24X7 REHAB NURSING FOR MEDICAL AND FUNCTIONAL MGT. OF THE FOLLOWING DEFICITS: Disease Management Medication Management Patient/Family Education Providing Safe Environment PATIENT REQUIRES INTENSIVE, COORDINATED INTERDISCIPLINARY APPROACH TO REHAB: Arranging Home Equipment/Services Discharge Planning Family Intervention/Training Basketball Referee/Case Management PATIENT REHAB POTENTIAL: Yves DIANE is able and expected to receive 3 hours of individualized therapy daily on at least 5 of e very 7 days Yves DIANE's prognosis for significant practical improvement within a reasonable period of time appea rs Good Expected level of measurable improvement will be of a practical value to Yves DIANE's functional capa city or adaptations to impairments Has a viable Discharge Plan Medically appropriate; condition is sufficiently stable to participate in intensive rehab program DISCHARGE PLAN: - Estimated Length of Stay (days) 17. - Consensus on plan Discharge plan has been discussed with primary caregiver. Patient/Family is in agreement with the edwin n. Primary caregiver is in agreement with the plan. - Patient/Family Goals Return home independently. - Planned Living Setting Upon Discharge Home, to live with Family/Relatives. Transitional Living. RECOMMENDED CARE LEVEL: IRF RECOMMENDATION DETAILS: Recommended Admission to Comprehensive Rehabilitation Program to Increase Functional [place] SCREENER'S COMPLETENESS CONFIRMATION: - Screening Confirmation The patient data collection on this preadmission screening form is finished PHYSICIANS REVIEW AND ADMISSION DETERMINATION Admit - Based on my review of the Pre-Admission Screening results, in my medical judgment and experie nce, I concur with the findings and recommend admission to [facility], as this patient requires an IRF level of care. SIGNATURE PANEL: Fast Food Restaurant Manager - [electronically] signed by Winston Rebollar on 06/16/2020 at 13:42 (SUPERINTENDENT REFUSE DISPOSAL) Fast Food Restaurant Manager - [electronically] signed by Irineo Holt PT on 06/16/2020 at 14:35 (SUPERINTENDENT REFUSE DISPOSAL) Physician Reviewer - [electronically] signed by Dr. Rajiv Matos M.D. on 06/16/2020 at 14:42 (SUPERINTENDENT REFUSE DISPOSAL )
[2020-06-17] MEDS ORDERED: ACETAMINOPHEN 500 MG TAB PO PRN (14:26)
[2020-06-17] MEDS ORDERED: ONDANSETRON 4 MG (ODT) TAB PO PRN (14:26)
[2020-06-17] MEDS ORDERED: BISACODYL 10 MG RECTAL SUPP PR PRN (14:27)
[2020-06-17] MEDS ORDERED: ENOXAPARIN 40 MG/0.4 ML SQ SCH (15:00)
[2020-06-17] MEDS ORDERED: PNEUMOCOCCAL VACCINE 0.5 ML IMVAC ONE (16:00)
[2020-06-17] MEDS ORDERED: INFLUENZA VACCINE (for 3y+) 0.5 ML DOSE IMVAC ONE (16:00)
--- NOTE | 2020-06-17 18:36 | R.HP ---
HISTORY AND PHYSICAL FACILITY: [facility] ENCOUNTER DATE AND TIME: 06/17/2020 18:31 (WELFARE MANAGER) MR#: [id number] NAME SEVERO BENITES ADDRESS: [address] [place] [address]: [place] [id number] PHONE: DATE OF : 1940 AGE: 80 SSN# [id number] GENDER: Female DEXTERITY Right-handed MARITAL STATUS RACE Unknown race PRE-HOSPITAL LIVING SETTING 01 - Home (private home/apt. board/care, assisted living, intermediate, transitional living) PRE-HOSPITAL LIVING WITH Family/Relatives ENCOUNTER PHYSICIAN: Dr. Rajiv Matos M.D. REFERRING DOCTOR: Sravan Wilson DATE OF ADMISSION: 06/17/2020 14:12 (WELFARE MANAGER) REFERRING FACILITY [facility] HOME TYPE AND DETAILS: Type of home: single family house # of levels in the residence: 1 # of steps within the residence: 0 # of steps to enter the residence: 0 ONSET DATE: 06/12/2020 PRIMARY DIAGNOSIS-RELATED SURGERIES: N/A HISTORY OF PRESENT ILLNESS (HPI): Pt. is a 80 yo Right-handed female of unknown race. On 06/12/2020 Pt. presented to [facility] with sudden onset of left-side weakness. On 06/12/2020 she was admitted to [facility] with diagnosis CVA. Her impairment category is Stroke 01 - Left Body (Right Brain) (01.1). Pre-morbidly, Pt. was independent/mod-I in Balance, Communication, Social Cognition, and Sphincter Co ntrol; and she had good Self-Care and Safety Awareness. Currently, she has deficits of Locomotion, Transfers Control, Self-Care, Endurance, Social Cognition, and Balance. Pt. is now referred to [facility] for acute in-patient rehabilitation in order to maximize patient's functional independence in activities of daily living, strength, ROM, and mobi lity. Patient has realistic goal of being discharged at assistance level 7-Ind to reside at [facility] with Family/Relatives. Severo Benites is a 80 -year- old female that lives at home with family independently. She lives in a single story home with family help when needed. She has a history of HTN, A Fib, mixed hyperlipidem ia, Osteoporosis, CKD stage 3, Vit D def, and CVA. She was addmitted for right arm weakness, double vision weakness. Doyle MRI shows acute non hemorrhagic infract sup. Left cerebellum and left post. Braininstem. No signif. Mass effect or edema poorly demaracated 10mm. She is amulating better now with rolling walker at [facility]. The patient would most definitely benefit from acute inpatient rehab and has become severely debilitated and unable to live at her prior level of activity at home getting her stronger to be back living at home independently is our goal. It is reasonable and necessary for the patient to come to acute inpatient rehab for approximately 7-10 days in order to return to her prior level of care. She is now being transferred to [facility] rehabilitation and is medically stable with relatively stable labs. She is now medically stable but in need of 24 hour nursing, doctor supervision and The patient is reasonably expected to participate in 3 hours of therapy a day/15 hours per week and receive care with intensive interdisciplinary approach. COVID-19 screening performed; spoke with patient via phone. Patient denies new onset of fever, cough, difficulty breathing, sore throat, body aches and non-allergy nasal congestion in the past 24 hours. Patient denies travel outside of [place] in the past 14 days. Patient denies any contact with someone who has a confirmed diagnosis of or is under investigation for COVID-19 in the past 14 days. Patient has been tested negative for COVID- 19. MEDICATION ALLERGIES: No Known Drug Allergies (NKDA) ENVIRONMENTAL ALLERGIES: - Substance Allergies None Known - Other Allergies None Known PAST MEDICAL HISTORY: HTN HYPERLIPIDEMIA H/O SHINGLES RIGHT SIDE OF FACE CKD 3 OSTEOPOROSIS PAST SURGICAL HISTORY: LEFT WRIST SX VARICOSE VEIN SURGERY BILATERAL LEGS HERNIA REPAIR SOCIAL HISTORY: - Home Living Family/Relatives REVIEW OF SYSTEMS: - Gen No Chills No Fatigue No Fever - Eyes No Double Vision No itchiness - ENMT No Difficulty Swallowing - CVS No Chest Discomfort No Chest Pain Fatigue No Weight Gain - Resp No Cough No Shortness of Breath - GI Continent No Abdominal Pain Constipation No Diarrhea - Continent No Kidney Pain No Painful Urination No Urinary Urgency - MSK No Joint Pain No Muscle Cramps Stiffness - Skin No Itching No Rash No Suspicious Lesions - Neuro Coordination Difficulty No Difficulty with Concentration No Memory Loss No Seizures Weakness - Psych No Anxiety No Depression No HIV Exposure No Persistent Infections No Seasonal Allergies - Endo No Cold/Heat Intolerance No Excessive Hunger No Excessive Thirst No Excessive Urination PHYSICAL EXAM - Gen Alert and awake Lying in bed No apparent distress Oriented to: person, time, and place - Skin No skin breakdown. Normacephalic - Eyes No abnormalities - ENMT No abnormalities - Neck No abnormalities - CVS RRR - Chest No abnormalities - Resp Clear to auscultation - Abd Soft - GI nondistended Deferred - No abnormalities - Ext No significant edema - MSK 4+/5 weakness in left upper and lower extremity - Neuro Incoordination, left sided weakness and dysmetria, unsteady gait - Psych No abnormalities VITAL SIGNS Temperature: 98.5 F SBP/DBP: 137/84 Pulse: 95 Resp: 15 NURSING: - Shower allowing shower - Bladder care per protocol - Skin care per protocol PRECAUTIONS: - Weight Bearing Precaution WBAT left LE ACTIVITIES OOB only with supervision QI SCORES: - Self-Care A. Eating 03-Partial/moderate assistance B. Oral hygiene 02-Substantial/maximal assistance C. Toileting hygiene 03-Partial/moderate assistance E. Shower/bathe self 03-Partial/moderate assistance F. Upper body dressing 03-Partial/moderate assistance G. Lower body dressing 02-Substantial/maximal assistance H. Putting on/taking off footwear 88-Not attempted due to medical condition or safety concerns - Mobility A. Roll left and right 03-Partial/moderate assistance B. Sit to lying 03-Partial/moderate assistance C. Lying to sitting on side of bed 03-Partial/moderate assistance D. Sit to stand 03-Partial/moderate assistance E. Chair/whg-by-kjdgg transfer 03-Partial/moderate assistance F. Toilet transfer 03-Partial/moderate assistance G. Car transfer 88-Not attempted due to medical condition or safety concerns I. Walk 10 feet 03-Partial/moderate assistance J. Walk 50 feet with two turns 03-Partial/moderate assistance K. Walk 150 feet 88-Not attempted due to medical condition or safety concerns L. Walking 10 feet on uneven surfaces 88-Not attempted due to medical condition or safety concerns M. 1 step (curb) 88-Not attempted due to medical condition or safety concerns N. 4 steps 88-Not attempted due to medical condition or safety concerns O. 12 steps 88-Not attempted due to medical condition or safety concerns P. Picking up object 88-Not attempted due to medical condition or safety concerns R. Wheel 50 feet with two turns 88-Not attempted due to medical condition or safety concerns S. Wheel 150 feet 88-Not attempted due to medical condition or safety concerns - Bladder and Bowel Bladder continence Bowel continence - Endurance Good - Balance Poor - Safety Awareness Good MEDICATIONS: - Other See attached MAR (Medication Administration Record) ASSESSMENT: Pt. is a 80 yo Right-handed female of unknown race.On 06/12/2020 Pt. presented to [facility] with sudden onset of left-side weakness.On 06/12/2020 she was admitted to [facility] with diagnosis CVA.Her impairment category is Stroke 01 - Left Body (Right Brain) (01.1).Pre-morbi dly, Pt. was independent/mod-I in Balance, Communication, Social Cognition, and Sphincter Control; an d she had good Self-Care and Safety Awareness.Currently, she has deficits of Locomotion, Transfers Co ntrol, Self-Care, Endurance, Social Cognition, and Balance.Pt. is now referred to [facility] for acute in-patient rehabilitation in order to maximize patient's functional independ ence in activities of daily living, strength, ROM, and mobility.- Rehab Goal Patient has realistic goal of being discharged at assistance level 7-Ind to reside at [facility] with Family/Relatives. Severo Benites is a 80 -year- old female that lives at home with family independently. She lives in a single story home with family help when needed. She has a history of HTN, A Fib, mixed hyperlipidem ia, Osteoporosis, CKD stage 3, Vit D def, and CVA. She was addmitted for right arm weakness, double vision weakness. Doyle MRI shows acute non hemorrhagic infract sup. Left cerebellum and left post. Braininstem. No signif. Mass effect or edema poorly demaracated 10mm. She is amulating better now with rolling walker at [facility]. The patient would most definitely benefit from acute inpatient rehab and has become severely debilitated and unable to live at her prior level of activity at home getting her stronger to be back living at home independently is our goal. It is reasonable and necessary for the patient to come to acute inpatient rehab for approximately 7-10 days in order to return to her prior level of care. She is now being transferred to [facility] rehabilitation and is medically stable with relatively stable labs. She is now medically stable but in need of 24 hour nursing, doctor supervision and The patient is reasonably expected to participate in 3 hours of therapy a day/15 hours per week and receive care with intensive interdisciplinary approach. COVID-19 screening performed; spoke with patient via phone. Patient denies new onset of fever, cough, difficulty breathing, sore throat, body aches and non-allergy nasal congestion in the past 24 hours. Patient denies travel outside of [place] in the past 14 days. Patient denies any contact with someone who has a confirmed diagnosis of or is under investigation for COVID-19 in the past 14 days. Patient has been tested negative for COVID- 19.REHAB PLAN: for Dementia, TBI, Stroke, or others - Physical Therapy Inability to transfer - to improve, our physical therapists will perform initial evaluation of pt's s tatus upon admission and devise an individualized program for Bed mobility Need for home safety evaluation - to improve, our physical therapists will perform initial evaluation of pt's status upon admission and devise an individualized program for Home Evaluation New precaution - to improve, our physical therapists will perform initial evaluation of pt's status u celestino admission and devise an individualized program for Patient precaution education Edema - to improve, our physical therapists will perform initial evaluation of pt's status upon admi ssion and devise an individualized program for Elevation Training, and Lymphedema Therapy Poor balance - to improve, our physical therapists will perform initial evaluation of pt's status upo n admission and devise an individualized program for Balance Training Poor endurance - to improve, our physical therapists will perform initial evaluation of pt's status u celestino admission and devise an individualized program for Endurance Training Achieving independence - to improve, our physical therapists will perform initial evaluation of pt's status upon admission and devise an individualized program for Community Reintegration Activities - Occupational Therapy ADL deficits - to improve, our occupation therapists will perform initial evaluation of pt's status u celestino admission and devise an individualized program for Bathing, Bed mobility, Community Reintegration , Cooking, Dressing, Eating, Fine Motor Skills, Grooming, Homemaking, Kitchen Mobility, Laundry, Tara ent Education, Safety Awareness, Splinting - Positioning, Transfers(Toilet, Tub, Shower), and Wheel C hair Management Cognitive deficits - to improve, our occupation therapists will perform initial evaluation of pt's st atus upon admission and devise an individualized program for Cognition - orientation MEDICAL PLAN: - Diet Type Regular - Diet - Liquid Texture Regular - Tube Feed N/A - Bladder care per protocol - Weight Bearing Precaution WBAT LE - Skin care per protocol - Other See attached MAR (Medication Administration Record) - Diet - Solid Texture Regular - Shower shower DISCHARGE PLAN: - Estimated Length of Stay (days) 17. - Consensus on plan Discharge plan has been discussed with primary caregiver. Patient/Family is in agreement with the edwin n. Primary caregiver is in agreement with the plan. - Patient/Family Goals Return home independently. - Planned Living Setting Upon Discharge Home, to live with Family/Relatives. Transitional Living. SIGNATURE PANEL: (WELFARE MANAGER)
--- NOTE | 2020-06-17 18:37 | PAPE ---
POST ADMISSION PHYSICIAN EVALUATION PATIENT: [facility] MR# [id number] REFERRING DOCTOR Sravan Wilson EVALUATION DATE AND TIME 06/17/2020 18:36 (AUDIT MACHINE OPERATOR) NAME SEVERO BENITES DATE OF 1940 AGE 80 PHONE SSN# [id number] GENDER female EVALUATING PHYSICIAN Dr. Rajiv Matos M.D. ADMISSION DIAGNOSIS: CVA ONSET DATE 06/12/2020 POST-ADMISSION FUNCTIONAL/MEDICAL STATUS: - Bladder Same accident frequency: Ind - No accidents in the past 7 days - Bowel Same accident frequency: Ind - No accidents in the past 7 days - Walking Same score based on distance walked: 0(N/A) - Wheelchair Same score based on distance traveled: 0(N/A) STATUS CHANGE EVALUATION: No change in Functional or Medical Status is identified compared with Pre-Admission screening. PATIENT NEEDS CLOSE MEDICAL SUPERVISION BY A REHABILITATION PHYSICIAN FOR: Coordination of Treatment Team PATIENT REQUIRES 24X7 REHAB NURSING FOR MEDICAL AND FUNCTIONAL MGT. OF THE FOLLOWING DEFICITS: Disease Management Medication Management Patient/Family Education Providing Safe Environment PATIENT REQUIRES INTENSIVE, COORDINATED INTERDISCIPLINARY APPROACH TO REHAB: Arranging Home Equipment/Services Discharge Planning Family Intervention/Training Drill Runner Helper/Case Management LIST OF IDENTIFIED AND POTENTIAL PROBLEMS: Alteration in leisure activities Bladder, Incontinence Bowel, Incontinence Infection, Actual or Potential Mobility Impaired Pain, Alteration in Comfort Self Care Deficit Skin Integrity, Actual or Potential Urinary Tract Infection (UTI), Actual or Potential PATIENT COULD BE AT RISK FOR COMPLICATIONS FROM ADVERSE MEDICAL CONDITIONS DUE TO HIS/HER COMORBIDITI ES AND THE RIGORS OF THE INTENSIVE REHABILLITATION PROGRAM. METHODS OR INTERVENTIONS TO AVOID COMPLIC ATIONS INCLUDE: - Bleeding Stroke patients assessed for lethargy or change in status. - Infection Clinical staff to assess and manage the signs and symptoms of infection including fever, redness, war mth, etc. - Urinary Tract Infection - Aspiration Clinical staff will assess and manage coughing, drooling, congestion. - Falls Patient will be evaluated for Fall Precautions and will be placed on Fall Precautions as indicated pe r protocol. - Skin Breakdown Nursing will assess skin daily using assessment tool and will place on Skin Breakdown Precautions as indicated per protocol. - Pain Clinical staff may employ non-medication methods such as massage, distraction, decrease stimulus, etc . as needed. Clinical staff will assess patient's pain level every shift per protocol to assess and e nsure pain management effectiveness. Medications will be given and the pain level re-assessed. PRELIMINARY PLAN OF CARE: - Physical Therapy Patient needs Physical Therapy for a daily minimum of 1.5 hours at least 5 out of 7 days, to improve: Mobility, Strengthening, Transfers, Stretching, ROM, Endurance, Ability to manage stairs, Gait, and Balance. - Speech Therapy Patient needs Speech Therapy for a daily minimum of 0.5 hours at least 5 out of 7 days, to improve: S wallowing, Cognition, Language Skills, and Compensatory Strategies. - Rehabilitation Nursing Patient requires 24x7 Rehabilitation Nursing for: Pain Issues, Identifying and preventing risk factor s, Monitoring and reporting current medical conditions, Assisting with ambulation and transfer, Sofya ting with all ADL-s, Teaching patients about disease process and medications, Family teaching, Provid ing safe environment, Bowel and Bladder Issues, Skin Integrity, and Medication Management. Patient needs Drill Runner Helper and/or Case Management for: Discharge Planning, Arranging Home Equipmen t or Services, and Family Interventions. - Dietary and Nutrition Services Patient needs Dietary and Nutrition Services for: Adequate Nutrition, Nutritional Supplements, and Nu tritional Education. - Occupational Therapy Patient needs Occupational Therapy for a daily minimum of 1.5 hours at least 5 out of 7 days, to impr ove Activities of Daily Living, including: Eating, Grooming, Bathing, Dressing, Toileting, Toilet Tra nsfers, Community Reintegration, Higher functional activities, Adaptive Equipment, Splinting, Househo ld Tasks, and Other activities as determined. QI SCORES: - Self-Care A. Eating 03-Partial/moderate assistance B. Oral hygiene 02-Substantial/maximal assistance C. Toileting hygiene 03-Partial/moderate assistance E. Shower/bathe self 03-Partial/moderate assistance F. Upper body dressing 03-Partial/moderate assistance G. Lower body dressing 02-Substantial/maximal assistance H. Putting on/taking off footwear 88-Not attempted due to medical condition or safety concerns - Mobility A. Roll left and right 03-Partial/moderate assistance B. Sit to lying 03-Partial/moderate assistance C. Lying to sitting on side of bed 03-Partial/moderate assistance D. Sit to stand 03-Partial/moderate assistance E. Chair/pue-ea-sojpf transfer 03-Partial/moderate assistance F. Toilet transfer 03-Partial/moderate assistance G. Car transfer 88-Not attempted due to medical condition or safety concerns I. Walk 10 feet 03-Partial/moderate assistance J. Walk 50 feet with two turns 03-Partial/moderate assistance K. Walk 150 feet 88-Not attempted due to medical condition or safety concerns L. Walking 10 feet on uneven surfaces 88-Not attempted due to medical condition or safety concerns M. 1 step (curb) 88-Not attempted due to medical condition or safety concerns N. 4 steps 88-Not attempted due to medical condition or safety concerns O. 12 steps 88-Not attempted due to medical condition or safety concerns P. Picking up object 88-Not attempted due to medical condition or safety concerns R. Wheel 50 feet with two turns 88-Not attempted due to medical condition or safety concerns S. Wheel 150 feet 88-Not attempted due to medical condition or safety concerns - Bladder and Bowel Bladder continence Bowel continence - Endurance Good - Balance Poor - Safety Awareness Good POTENTIAL FUNCTIONAL GOALS FOR PATIENT TO ACHIEVE BY DISCHARGE: - Safety Precaution Patient will remain free from falls or injury at time of discharge. - Bed Mobility Patient will perform bed mobility at 4-Jose level of assistance. - Transfers Patient will complete transfers from bed to chair at 4-Jose level of assistance. - Mobility Patient will ambulate 150 ft with 4-Jose level of assistance with RW. PATIENT REHAB POTENTIAL Yves BENITES is able and expected to receive 3 hours of individualized therapy daily on at least 5 of e very 7 days Yves BENITES's prognosis for significant practical improvement within a reasonable period of time appea rs Good Expected level of measurable improvement will be of a practical value to Yves BENITES's functional [facility] [place] or adaptations to impairments Has a viable Discharge Plan Medically appropriate; condition is sufficiently stable to participate in intensive rehab program DISCHARGE PLAN: - Estimated Length of Stay (days) 17. - Consensus on plan Discharge plan has been discussed with primary caregiver. Patient/Family is in agreement with the edwin n. Primary caregiver is in agreement with the plan. - Patient/Family Goals Return home independently. - Planned Living Setting Upon Discharge Home, to live with Family/Relatives. Transitional Living. CONCLUSION ON REHABILITATION NECESSITY: I have evaluated patient's pre-admission functional status and, comparing it to the patient's post-ad mission functional status now, I conclude that the pre-admission assessment was accurate. Patient's c ondition on admission supports the medical necessity of admission to IRF. It is safe to proceed with patient's therapy program. SIGNATURE PANEL: (AUDIT MACHINE OPERATOR)
[2020-06-17] MEDS ORDERED: POLYETHYL GLY 3350 17 GM/DOSE PO PRN (18:49)
[2020-06-17] MEDS ORDERED: APIXABAN 5 MG TABLET PO SCH (20:00)
[2020-06-17] MEDS ORDERED: ATORVASTATIN 20 MG TAB PO SCH (21:00)
[2020-06-17] MEDS: ATORVASTATIN 40 MG TAB PO SCH (21:10)
[2020-06-17] MEDS: APIXABAN 5 MG TABLET PO SCH (21:11)
[2020-06-17] MEDS: SENOSIDES 8.6 MG TAB PO SCH (21:12)
[2020-06-18] MEDS ORDERED: carvediloL 6.25 MG TAB PO SCH (06:00)
[2020-06-18 06:11] LABS: Absolute Lymphocytes (CBC) 1.7 K/uL (0.7-4.9); Basophils % 1.1 % (0-1.3); Hematocrit 39.3 % (36.0-45.0); Lymphocytes % 33.7 % (15.3-44.8); RBC Red Blood Cell Count 4.24 M/uL (3.86-4.86)
[2020-06-18 06:37] LABS: Albumin 3.2 g/dL (3.4-5.0); Magnesium 2.7 mg/dL (1.8-2.4); Potassium 3.9 mmol/L (3.5-5.1); Prealbumin 18.5 mg/dL (20-40)
[2020-06-18] MEDS ORDERED: DILTIAZEM HCL 120 MG SR CAP PO SCH (08:00)
[2020-06-18] MEDS ORDERED: ASPIRIN EC 81 MG TAB PO SCH (08:00)
[2020-06-18] MEDS: SENOSIDES 8.6 MG TAB PO SCH (08:00)
[2020-06-18] MEDS ORDERED: FOLIC ACID 1 MG TABLET PO SCH (08:00)
[2020-06-18] MEDS ORDERED: carvediloL 25 MG TAB PO SCH (08:00)
[2020-06-18] MEDS ORDERED: FAMOTIDINE 20 MG TAB PO SCH (08:00)
[2020-06-18] MEDS ORDERED: DULOXETINE 30 MG CAP PO SCH (08:00)
[2020-06-18] MEDS ORDERED: MULTIVITAMIN TAB PO SCH (08:00)
[2020-06-18] MEDS ORDERED: CALCIUM CARB 500MG/VIT D 200 IU TAB PO SCH ×3 (08:00→14:00)
[2020-06-18 08:50] LABS: Urine Appearance CLEAR; Urine Bilirubin NEGATIVE (NEG); Urine Blood NEGATIVE (NEG); Urine Color YELLOW; Urine Glucose NEGATIVE (NEG); Urine Protein NEGATIVE (NEG); Urine Urobilinogen 0.2 mg/dL (0.2-1.0)
[2020-06-18] MEDS: MULTIVITAMIN TAB PO SCH (08:56)
[2020-06-18] MEDS: FAMOTIDINE 20 MG TAB PO SCH (08:56)
[2020-06-18] MEDS: APIXABAN 5 MG TABLET PO SCH ×2 (08:56→20:36)
[2020-06-18] MEDS: FOLIC ACID 1 MG TABLET PO SCH (08:56)
[2020-06-18] MEDS: DILTIAZEM HCL 120 MG SR CAP PO SCH (08:57)
[2020-06-18] MEDS: DULOXETINE 30 MG CAP PO SCH (08:57)
[2020-06-18 08:59] LABS: Urine Bacteria <20 /HPF (<20); Urine RBC <5 /HPF (NONE SEEN)
[2020-06-18] MEDS: ATORVASTATIN 40 MG TAB PO SCH (20:36)
[2020-06-19] MEDS: carvediloL 3.125 MG TAB PO SCH (05:40)
[2020-06-19] MEDS ORDERED: carvediloL 6.25 MG TAB PO SCH (06:00)
[2020-06-19] MEDS: FAMOTIDINE 20 MG TAB PO SCH (08:34)
[2020-06-19] MEDS: APIXABAN 5 MG TABLET PO SCH ×2 (08:34→18:53)
[2020-06-19] MEDS: FOLIC ACID 1 MG TABLET PO SCH (08:34)
[2020-06-19] MEDS: DILTIAZEM HCL 120 MG SR CAP PO SCH (08:35)
[2020-06-19] MEDS: DULOXETINE 30 MG CAP PO SCH (08:35)
[2020-06-19] MEDS: CALCIUM CARB 500MG/VIT D 200 IU TAB PO SCH (08:36)
[2020-06-19] MEDS: MULTIVITAMIN TAB PO SCH (08:36)
--- NOTE | 2020-06-19 17:31 | R.PN ---
PROGRESS NOTES ENCOUNTER DATE AND TIME: 06/19/2020 17:22 (JAMMER HOOKER) NAME SEVERO BENITES DATE OF : 1940 DATE OF ADMISSION: 06/17/2020 14:12 (JAMMER HOOKER) CVACHIEF COMPLAINT: Stroke with residual left sided weakness and incoordination. SUBJECTIVE: Pt denied any Shortness of Breath. Pt denied any depression. CBC with differential is normal. Prealbumin 18.5. UA 1+ esterase, WBC 5-10. Ambulated 950' with contact guard assistance using a rolling walker. VITAL SIGNS Temperature: 97.5 F SBP/DBP: 134-166/68-92 Pulse: 71 Resp: 16 MEDICATION ALLERGIES: No Known Drug Allergies (NKDA) ENVIRONMENTAL ALLERGIES: - Substance Allergies None Known - Other Allergies None Known NURSING: - Shower allowing shower - Bladder care per protocol - Skin care per protocol PRECAUTIONS: - Weight Bearing Precaution WBAT left LE ACTIVITIES OOB only with supervision THERAPIES: - Occupational Therapy Cognitive Retraining. Visual Perceptual Training. - Dietary and Nutrition Adequate Nutrition. Nutritional Education. Nutritional Supplements. - Speech Therapy Cognitive Training. Expressive Language Skills. Memory Strategies. Receptive Language Skills. Speech Intelligibility Training. PHYSICAL EXAM - Gen Alert and awake Lying in bed No apparent distress Oriented to: person, time, and place - Skin No skin breakdown. Normacephalic - Eyes No abnormalities - ENMT No abnormalities - Neck No abnormalities - CVS RRR - Chest No abnormalities - Resp Clear to auscultation - Abd Soft - GI nondistended Deferred - No abnormalities - Ext No significant edema - MSK 4+/5 weakness in left upper and lower extremity - Neuro Incoordination, left sided weakness and dysmetria, unsteady gait - Psych No abnormalities ASSESSMENT: Pt. is a 80 yo Right-handed female of unknown race.On 06/12/2020 Pt. presented to [facility] with sudden onset of left-side weakness.On 06/12/2020 she was admitted to [facility] with diagnosis CVA.Her impairment category is Stroke 01 - Left Body (Right Brain) (01.1).Pre-morbi dly, Pt. was independent/mod-I in Balance, Communication, Social Cognition, and Sphincter Control; an d she had good Self-Care and Safety Awareness.Currently, she has deficits of Locomotion, Transfers Co ntrol, Self-Care, Endurance, Social Cognition, and Balance.Pt. is now referred to [facility] for acute in-patient rehabilitation in order to maximize patient's functional independ ence in activities of daily living, strength, ROM, and mobility.- Rehab Goal Patient has realistic goal of being discharged at assistance level 7-Ind to reside at [facility] with Family/Relatives. MDM/PLAN: - Physical Therapy Inability to transfer - to improve, our physical therapists will perform initial evaluation of pt's status upon admission and devise an individualized program for Bed mobility Need for home safety evaluation - to improve, our physical therapists will perform initial evaluatio n of pt's status upon admission and devise an individualized program for Home Evaluation New precaution - to improve, our physical therapists will perform initial evaluation of pt's status upon admission and devise an individualized program for Patient precaution education Edema - to improve, our physical therapists will perform initial evaluation of pt's status upon admis sandra and devise an individualized program for Elevation Training, and Lymphedema Therapy Poor balance - to improve, our physical therapists will perform initial evaluation of pt's status up on admission and devise an individualized program for Balance Training Poor endurance - to improve, our physical therapists will perform initial evaluation of pt's status upon admission and devise an individualized program for Endurance Training Achieving independence - to improve, our physical therapists will perform initial evaluation of pt's status upon admission and devise an individualized program for Community Reintegration Activities - Occupational Therapy ADL deficits - to improve, our occupation therapists will perform initial evaluation of pt's status upon admission and devise an individualized program for Bathing, Bed mobility, Community Reintegratio n, Cooking, Dressing, Eating, Fine Motor Skills, Grooming, Homemaking, Kitchen Mobility, Laundry, Pat ient Education, Safety Awareness, Splinting - Positioning, Transfers(Toilet, Tub, Shower), and Wheel Chair Management Cognitive deficits - to improve, our occupation therapists will perform initial evaluation of pt's s tatus upon admission and devise an individualized program for Cognition - orientation - Other See attached MAR (Medication Administration Record) - Diet Type Continue Regular - Diet - Liquid Texture Continue Regular - Tube Feed Continue N/A - Bladder care per protocol - Weight Bearing Precaution WBAT left LE - Skin care per protocol - Diet - Solid Texture Continue Regular - Shower allowing shower for Dementia, TBI, Stroke, or others FUNCTIONAL STATUS: UPDATED AT WEEKLY TEAM CONFERENCE - Bladder Same accident frequency: 7-Ind - No accidents in the past 7 days - Bowel Same accident frequency: 7-Ind - No accidents in the past 7 days - Walking Same score based on distance walked: 0(N/A) - Wheelchair Same score based on distance traveled: 0(N/A) FUNCTIONAL STATUS: - Self-Care A. Eating Ind B. Grooming Andrews C. Bathing sup D. Dressing - Upper sup E. Dressing - Lower Ind F. Toileting sup - Sphincter Control G. Bladder control Andrews H. Bowel control Andrews - Transfers Control I. Bed/Chair/Wheelchair sup J. Toilet sup K. Tub/Shower Jose - Locomotion L. Walk/Wheelchair (B) Jose M. Stairs modA - Communication N. Comprehension (B) Andrews O. Expression (B) Andrews - Social Cognition P. Social Interaction Andrews Q. Problem Solving Andrews R. Memory Andrews - Endurance Good - Balance Fair - Safety Awareness Good QI SCORES: - Self-Care A. Eating 03-Partial/moderate assistance B. Oral hygiene 02-Substantial/maximal assistance C. Toileting hygiene 03-Partial/moderate assistance E. Shower/bathe self 03-Partial/moderate assistance F. Upper body dressing 03-Partial/moderate assistance G. Lower body dressing 02-Substantial/maximal assistance H. Putting on/taking off footwear 88-Not attempted due to medical condition or safety concerns - Mobility A. Roll left and right 03-Partial/moderate assistance B. Sit to lying 03-Partial/moderate assistance C. Lying to sitting on side of bed 03-Partial/moderate assistance D. Sit to stand 03-Partial/moderate assistance E. Chair/cqv-xt-cvklo transfer 03-Partial/moderate assistance F. Toilet transfer 03-Partial/moderate assistance G. Car transfer 88-Not attempted due to medical condition or safety concerns I. Walk 10 feet 03-Partial/moderate assistance J. Walk 50 feet with two turns 03-Partial/moderate assistance K. Walk 150 feet 88-Not attempted due to medical condition or safety concerns L. Walking 10 feet on uneven surfaces 88-Not attempted due to medical condition or safety concerns M. 1 step (curb) 88-Not attempted due to medical condition or safety concerns N. 4 steps 88-Not attempted due to medical condition or safety concerns O. 12 steps 88-Not attempted due to medical condition or safety concerns P. Picking up object 88-Not attempted due to medical condition or safety concerns R. Wheel 50 feet with two turns 88-Not attempted due to medical condition or safety concerns S. Wheel 150 feet 88-Not attempted due to medical condition or safety concerns - Bladder and Bowel Bladder continence Bowel continence - Endurance Good - Balance Poor - Safety Awareness Good SIGNATURE PANEL: (JAMMER HOOKER)
[2020-06-19] MEDS: CRANBERRY FRUIT EXTRACT 200 MG CAP PO SCH (18:53)
[2020-06-19] MEDS: ATORVASTATIN 40 MG TAB PO SCH (18:53)
[2020-06-20] MEDS: carvediloL 3.125 MG TAB PO SCH (05:00)
[2020-06-20] MEDS: CRANBERRY FRUIT EXTRACT 200 MG CAP PO SCH ×2 (08:11→18:55)
[2020-06-20] MEDS: FOLIC ACID 1 MG TABLET PO SCH (08:11)
[2020-06-20] MEDS: DILTIAZEM HCL 120 MG SR CAP PO SCH (08:12)
[2020-06-20] MEDS: FAMOTIDINE 20 MG TAB PO SCH (08:12)
[2020-06-20] MEDS: APIXABAN 5 MG TABLET PO SCH ×2 (08:12→18:55)
[2020-06-20] MEDS: CALCIUM CARB 500MG/VIT D 200 IU TAB PO SCH (08:12)
[2020-06-20] MEDS: DULOXETINE 30 MG CAP PO SCH (08:12)
[2020-06-20] MEDS: MULTIVITAMIN TAB PO SCH (08:13)
--- NOTE | 2020-06-20 18:01 | R.PN ---
PROGRESS NOTES ENCOUNTER DATE AND TIME: 06/20/2020 17:57 (RN SHIFT MGR) NAME SEVERO BENITES DATE OF : 1940 DATE OF ADMISSION: 06/17/2020 14:12 (RN SHIFT MGR) CVACHIEF COMPLAINT: Stroke with residual left sided weakness and incoordination. SUBJECTIVE: Pt denied any Shortness of Breath. Pt denied any depression. CBC with differential is normal. Prealbumin 18.5. UA 1+ esterase, WBC 5-10. Ambulated 1010' with contact guard assistance using a rolling walker. VITAL SIGNS Temperature: 98.1 F SBP/DBP: 163/98 Pulse: 98 Resp: 16 MEDICATION ALLERGIES: No Known Drug Allergies (NKDA) ENVIRONMENTAL ALLERGIES: - Substance Allergies None Known - Other Allergies None Known NURSING: - Shower allowing shower - Bladder care per protocol - Skin care per protocol PRECAUTIONS: - Weight Bearing Precaution WBAT left LE ACTIVITIES OOB only with supervision THERAPIES: - Occupational Therapy Cognitive Retraining. Visual Perceptual Training. - Dietary and Nutrition Adequate Nutrition. Nutritional Education. Nutritional Supplements. - Speech Therapy Cognitive Training. Expressive Language Skills. Memory Strategies. Receptive Language Skills. Speech Intelligibility Training. PHYSICAL EXAM - Gen Alert and awake Lying in bed No apparent distress Oriented to: person, time, and place - Skin No skin breakdown. Normacephalic - Eyes No abnormalities - ENMT No abnormalities - Neck No abnormalities - CVS RRR - Chest No abnormalities - Resp Clear to auscultation - Abd Soft - GI nondistended Deferred - No abnormalities - Ext No significant edema - MSK 4+/5 weakness in left upper and lower extremity - Neuro Incoordination, left sided weakness and dysmetria, unsteady gait - Psych No abnormalities ASSESSMENT: Pt. is a 80 yo Right-handed female of unknown race.On 06/12/2020 Pt. presented to [facility] with sudden onset of left-side weakness.On 06/12/2020 she was admitted to [facility] with diagnosis CVA.Her impairment category is Stroke 01 - Left Body (Right Brain) (01.1).Pre-morbi dly, Pt. was independent/mod-I in Balance, Communication, Social Cognition, and Sphincter Control; an d she had good Self-Care and Safety Awareness.Currently, she has deficits of Locomotion, Transfers Co ntrol, Self-Care, Endurance, Social Cognition, and Balance.Pt. is now referred to [facility] for acute in-patient rehabilitation in order to maximize patient's functional independ ence in activities of daily living, strength, ROM, and mobility.- Rehab Goal Patient has realistic goal of being discharged at assistance level 7-Ind to reside at [facility] with Family/Relatives. MDM/PLAN: - Physical Therapy Inability to transfer - to improve, our physical therapists will perform initial evaluation of pt's status upon admission and devise an individualized program for Bed mobility Need for home safety evaluation - to improve, our physical therapists will perform initial evaluatio n of pt's status upon admission and devise an individualized program for Home Evaluation New precaution - to improve, our physical therapists will perform initial evaluation of pt's status upon admission and devise an individualized program for Patient precaution education Edema - to improve, our physical therapists will perform initial evaluation of pt's status upon admi ssion and devise an individualized program for Elevation Training, and Lymphedema Therapy Poor balance - to improve, our physical therapists will perform initial evaluation of pt's status up on admission and devise an individualized program for Balance Training Poor endurance - to improve, our physical therapists will perform initial evaluation of pt's status upon admission and devise an individualized program for Endurance Training Achieving independence - to improve, our physical therapists will perform initial evaluation of pt's status upon admission and devise an individualized program for Community Reintegration Activities - Occupational Therapy ADL deficits - to improve, our occupation therapists will perform initial evaluation of pt's status upon admission and devise an individualized program for Bathing, Bed mobility, Community Reintegratio n, Cooking, Dressing, Eating, Fine Motor Skills, Grooming, Homemaking, Kitchen Mobility, Laundry, Pat ient Education, Safety Awareness, Splinting - Positioning, Transfers(Toilet, Tub, Shower), and Wheel Chair Management Cognitive deficits - to improve, our occupation therapists will perform initial evaluation of pt's s tatus upon admission and devise an individualized program for Cognition - orientation - Other See attached MAR (Medication Administration Record) - Diet Type Continue Regular - Diet - Liquid Texture Continue Regular - Tube Feed Continue N/A - Bladder care per protocol - Weight Bearing Precaution WBAT left LE - Skin care per protocol - Diet - Solid Texture Continue Regular - Shower allowing shower for Dementia, TBI, Stroke, or others FUNCTIONAL STATUS: UPDATED AT WEEKLY TEAM CONFERENCE - Bladder Same accident frequency: 7-Ind - No accidents in the past 7 days - Bowel Same accident frequency: 7-Ind - No accidents in the past 7 days - Walking Same score based on distance walked: 0(N/A) - Wheelchair Same score based on distance traveled: 0(N/A) FUNCTIONAL STATUS: - Self-Care A. Eating Ind B. Grooming Andrews C. Bathing sup D. Dressing - Upper sup E. Dressing - Lower Ind F. Toileting sup - Sphincter Control G. Bladder control Andrews H. Bowel control Andrews - Transfers Control I. Bed/Chair/Wheelchair sup J. Toilet sup K. Tub/Shower Jose - Locomotion L. Walk/Wheelchair (B) Jose M. Stairs modA - Communication N. Comprehension (B) Andrews O. Expression (B) Andrews - Social Cognition P. Social Interaction Andrews Q. Problem Solving Andrews R. Memory Andrews - Endurance Good - Balance Fair - Safety Awareness Good QI SCORES: - Self-Care A. Eating 03-Partial/moderate assistance B. Oral hygiene 02-Substantial/maximal assistance C. Toileting hygiene 03-Partial/moderate assistance E. Shower/bathe self 03-Partial/moderate assistance F. Upper body dressing 03-Partial/moderate assistance G. Lower body dressing 02-Substantial/maximal assistance H. Putting on/taking off footwear 88-Not attempted due to medical condition or safety concerns - Mobility A. Roll left and right 03-Partial/moderate assistance B. Sit to lying 03-Partial/moderate assistance C. Lying to sitting on side of bed 03-Partial/moderate assistance D. Sit to stand 03-Partial/moderate assistance E. Chair/hyv-jh-vucpi transfer 03-Partial/moderate assistance F. Toilet transfer 03-Partial/moderate assistance G. Car transfer 88-Not attempted due to medical condition or safety concerns I. Walk 10 feet 03-Partial/moderate assistance J. Walk 50 feet with two turns 03-Partial/moderate assistance K. Walk 150 feet 88-Not attempted due to medical condition or safety concerns L. Walking 10 feet on uneven surfaces 88-Not attempted due to medical condition or safety concerns M. 1 step (curb) 88-Not attempted due to medical condition or safety concerns N. 4 steps 88-Not attempted due to medical condition or safety concerns O. 12 steps 88-Not attempted due to medical condition or safety concerns P. Picking up object 88-Not attempted due to medical condition or safety concerns R. Wheel 50 feet with two turns 88-Not attempted due to medical condition or safety concerns S. Wheel 150 feet 88-Not attempted due to medical condition or safety concerns - Bladder and Bowel Bladder continence Bowel continence - Endurance Good - Balance Poor - Safety Awareness Good SIGNATURE PANEL: (RN SHIFT MGR)
[2020-06-20] MEDS: ATORVASTATIN 40 MG TAB PO SCH (18:55)
[2020-06-20] MEDS: MELATONIN 3 MG TABLET PO PRN (18:55)
[2020-06-21] MEDS: carvediloL 3.125 MG TAB PO SCH (05:36)
[2020-06-21] MEDS: DILTIAZEM HCL 120 MG SR CAP PO SCH (08:00)
[2020-06-21] MEDS: CRANBERRY FRUIT EXTRACT 200 MG CAP PO SCH ×2 (08:14→19:32)
[2020-06-21] MEDS: FAMOTIDINE 20 MG TAB PO SCH (08:14)
[2020-06-21] MEDS: MULTIVITAMIN TAB PO SCH (08:15)
[2020-06-21] MEDS: APIXABAN 5 MG TABLET PO SCH ×2 (08:15→19:32)
[2020-06-21] MEDS: DULOXETINE 30 MG CAP PO SCH (08:15)
[2020-06-21] MEDS: FOLIC ACID 1 MG TABLET PO SCH (08:15)
[2020-06-21] MEDS: CALCIUM CARB 500MG/VIT D 200 IU TAB PO SCH (11:27)
--- NOTE | 2020-06-21 15:15 | FAST ---
QUALITY INDICATORS FORM SHIFT START DATE/TIME: 06/21/2020 07:00 (LOOM CLEANER) SHIFT END DATE/TIME: 06/21/2020 19:00 (LOOM CLEANER) NAME SEVERO BENITES DATE OF : 1940 DATE OF ADMISSION: 06/17/2020 14:12 (LOOM CLEANER) PHONE: AGE: 80 N# [id number] GENDER: Female ENCOUNTER PHYSICIAN: Dr. Rajiv Matos M.D. ADMISSION DIAGNOSIS: - Stroke 01 - Left Body (Right Brain) (.1) CVA. EATING: EATING - STEP 1: Does the patient complete the activity by him/herself with no assistance (physical, verbal/nonverbal cueing, setup/clean-up)? No. EATING - STEP 2: Does the patient need only setup/clean-up assistance from one helper? Yes. 1. [id number] ADMISSION PERFORMANCE: Setup or clean-up assistance CODE: 05 ORAL HYGIENE: ORAL HYGIENE - STEP 1: Does the patient complete the activity by him/herself with no assistance (physical, verbal/nonverbal cueing, setup/clean-up)? No. ORAL HYGIENE - STEP 2: Does the patient need only setup/clean-up assistance from one helper? Yes. 1. [id number] ADMISSION PERFORMANCE: Setup or clean-up assistance CODE: 05 TOILETING HYGIENE: TOILETING HYGIENE - STEP 1: Does the patient complete the activity by him/herself with no assistance (physical, verbal/nonverbal cueing, setup/clean-up)? No. TOILETING HYGIENE - STEP 2: Does the patient need only setup/clean-up assistance from one helper? Yes. 1. [id number] ADMISSION PERFORMANCE: Setup or clean-up assistance CODE: 05 BATHING: Not assessed/no information CODE: - DRESSING - UPPER BODY: DRESSING - UPPER BODY - STEP 1: Does the patient complete the activity by him/herself with no assistance (physical, verbal/nonverbal cueing, setup/clean-up)? No. DRESSING - UPPER BODY - STEP 2: Does the patient need only setup/clean-up assistance from one helper? Yes. 1. [id number] ADMISSION PERFORMANCE: Setup or clean-up assistance CODE: 05 DRESSING - LOWER BODY: DRESSING - LOWER BODY - STEP 1: Does the patient complete the activity by him/herself with no assistance (physical, verbal/nonverbal cueing, setup/clean-up)? No. DRESSING - LOWER BODY - STEP 2: Does the patient need only setup/clean-up assistance from one helper? No. DRESSING - LOWER BODY - STEP 3: Does the patient need only verbal/nonverbal cueing or touching/steadying/contact guard assistance fro m one helper? Yes. 1. [id number] ADMISSION PERFORMANCE: Supervision or touching assistance CODE: 04 PUTTING ON/TAKING OFF FOOTWEAR: FOOTWEAR - STEP 1: Does the patient complete the activity by him/herself with no assistance (physical, verbal/nonverbal cueing, setup/clean-up)? No. FOOTWEAR - STEP 2: Does the patient need only setup/clean-up assistance from one helper? Yes. 1. [id number] ADMISSION PERFORMANCE: Setup or clean-up assistance CODE: 05 ROLL LEFT AND RIGHT: ROLL LEFT AND RIGHT - STEP 1: Does the patient complete the activity by him/herself with no assistance (physical, verbal/nonverbal cueing, setup/clean-up)? No. ROLL LEFT AND RIGHT - STEP 2: Does the patient need only setup/clean-up assistance from one helper? Yes. 1. [id number] ADMISSION PERFORMANCE: Setup or clean-up assistance CODE: 05 SIT TO LYING: SIT TO LYING - STEP 1: Does the patient complete the activity by him/herself with no assistance (physical, verbal/nonverbal cueing, setup/clean-up)? No. SIT TO LYING - STEP 2: Does the patient need only setup/clean-up assistance from one helper? Yes. 1. [id number] ADMISSION PERFORMANCE: Setup or clean-up assistance CODE: 05 LYING TO SITTING: LYING TO SITTING ON SIDE OF BED - STEP 1: Does the patient complete the activity by him/herself with no assistance (physical, verbal/nonverbal cueing, setup/clean-up)? No. LYING TO SITTING ON SIDE OF BED - STEP 2: Does the patient need only setup/clean-up assistance from one helper? Yes. 1. [id number] ADMISSION PERFORMANCE: Setup or clean-up assistance CODE: 05 SIT TO STAND: SIT TO STAND - STEP 1: Does the patient complete the activity by him/herself with no assistance (physical, verbal/nonverbal cueing, setup/clean-up)? No. SIT TO STAND - STEP 2: Does the patient need only setup/clean-up assistance from one helper? Yes. 1. [id number] ADMISSION PERFORMANCE: Setup or clean-up assistance CODE: 05 TRANSFERS: BED, CHAIR: CHAIR/[id number] TRANSFER - STEP 1: Does the patient complete the activity by him/herself with no assistance (physical, verbal/nonverbal cueing, setup/clean-up)? No. CHAIR/[id number] TRANSFER - STEP 2: Does the patient need only setup/clean-up assistance from one helper? Yes. 1. [id number] ADMISSION PERFORMANCE: Setup or clean-up assistance CODE: 05 TRANSFER TOILET: TOILET TRANSFER - STEP 1: Does the patient complete the activity by him/herself with no assistance (physical, verbal/nonverbal cueing, setup/clean-up)? No. TOILET TRANSFER - STEP 2: Does the patient need only setup/clean-up assistance from one helper? Yes. 1. [id number] ADMISSION PERFORMANCE: Setup or clean-up assistance CODE: 05 TRANSFERS: CAR: Not assessed/no information CODE: - WALK 10 FEET: Not assessed/no information CODE: - 1 STEP (CURB): Not assessed/no information CODE: - PICKING UP OBJECT: Not assessed/no information CODE: - DOES THE PATIENT USE A WHEELCHAIR/SCOOTER? Q1. DOES THE PATIENT USE A WHEELCHAIR/SCOOTER?: Yes CODE: 1 WHEEL 50 FEET WITH TWO TURNS: WHEEL 50 FEET WITH TWO TURNS - STEP 1: Does the patient complete the activity by him/herself with no assistance (physical, verbal/nonverbal cueing, setup/clean-up)? No. WHEEL 50 FEET WITH TWO TURNS - STEP 2: Does the patient need only setup/clean-up assistance from one helper? Yes. 1. [id number] ADMISSION PERFORMANCE: Setup or clean-up assistance CODE: 05 INDICATE THE TYPE OF WHEELCHAIR/SCOOTER USED: CODE: EXPR WHEEL 150 FEET: Not assessed/no information CODE: - INDICATE THE TYPE OF WHEELCHAIR/SCOOTER USED: SS1. INDICATE THE TYPE OF WHEELCHAIR/SCOOTER USED.: Manual CODE: 1 BLADDER AND BOWEL: H350. BLADDER CONTINENCE (3-DAY ASSESSMENT PERIOD): Always continent (no documented incontinence) CODE: 0 H400. BOWEL CONTINENCE (3-DAY ASSESSMENT PERIOD): Always continent CODE: 0 SIGNATURE PANEL: The following modified sections: 1. [id number] Admission Performance, 1. AA6584G Admission Performance, 1. RI3108V Admission Performance, 1. AI4408w Admission Performance, 1. SN1107d Admission Performance, 1. IZ2029m Admission Performance, 1. HB0556H Admission Performance, 1. TT7984G Admission Performance , 1. ND1271B Admission Performance, 1. [id number] Admission Performance, 1. SS9129A Admission Performanc e, 1. [id number] Admission Performance, Q1. Does the patient use a wheelchair/scooter?, 1. [id number] Admis sandra Performance, Code, SS1. Indicate the type of wheelchair/scooter used., H350. Bladder Continence (3-day assessment period), H400. Bowel Continence (3-day assessment period) were [electronically] sig nancy by Nyla Melendez, C.N.A. on FriJun 21 2020 15:15:13 GMT-0600 (Central Standard Time)
--- NOTE | 2020-06-21 16:25 | R.PN ---
PROGRESS NOTES ENCOUNTER DATE AND TIME: 06/21/2020 16:20 (DIRECTOR SKILLS) NAME SEVERO BENITES DATE OF : 1940 DATE OF ADMISSION: 06/17/2020 14:12 (DIRECTOR SKILLS) CVACHIEF COMPLAINT: Stroke with residual left sided weakness and incoordination. SUBJECTIVE: Pt denied any Shortness of Breath. Pt denied any depression. CBC with differential is normal. Prealbumin 18.5. UA 1+ esterase, WBC 5-10. Therapeutic exercises done with supervision. VITAL SIGNS Temperature: 97.8 F SBP/DBP: 134/81 Pulse: 65 Resp: 16 MEDICATION ALLERGIES: No Known Drug Allergies (NKDA) ENVIRONMENTAL ALLERGIES: - Substance Allergies None Known - Other Allergies None Known NURSING: - Shower allowing shower - Bladder care per protocol - Skin care per protocol PRECAUTIONS: - Weight Bearing Precaution WBAT left LE ACTIVITIES OOB only with supervision THERAPIES: - Occupational Therapy Cognitive Retraining. Visual Perceptual Training. - Dietary and Nutrition Adequate Nutrition. Nutritional Education. Nutritional Supplements. - Speech Therapy Cognitive Training. Expressive Language Skills. Memory Strategies. Receptive Language Skills. Speech Intelligibility Training. PHYSICAL EXAM - Gen Alert and awake Lying in bed No apparent distress Oriented to: person, time, and place - Skin No skin breakdown. Normacephalic - Eyes No abnormalities - ENMT No abnormalities - Neck No abnormalities - CVS RRR - Chest No abnormalities - Resp Clear to auscultation - Abd Soft - GI nondistended Deferred - No abnormalities - Ext No significant edema - MSK 4+/5 weakness in left upper and lower extremity - Neuro Incoordination, left sided weakness and dysmetria, unsteady gait - Psych No abnormalities ASSESSMENT: Pt. is a 80 yo Right-handed female of unknown race.On 06/12/2020 Pt. presented to [facility] with sudden onset of left-side weakness.On 06/12/2020 she was admitted to [facility] with diagnosis CVA.Her impairment category is Stroke 01 - Left Body (Right Brain) (01.1).Pre-morbi dly, Pt. was independent/mod-I in Balance, Communication, Social Cognition, and Sphincter Control; an d she had good Self-Care and Safety Awareness.Currently, she has deficits of Locomotion, Transfers Co ntrol, Self-Care, Endurance, Social Cognition, and Balance.Pt. is now referred to [facility] for acute in-patient rehabilitation in order to maximize patient's functional independ ence in activities of daily living, strength, ROM, and mobility.- Rehab Goal Patient has realistic goal of being discharged at assistance level 7-Ind to reside at [facility] with Family/Relatives. MDM/PLAN: - Physical Therapy Inability to transfer - to improve, our physical therapists will perform initial evaluation of pt's status upon admission and devise an individualized program for Bed mobility Need for home safety evaluation - to improve, our physical therapists will perform initial evaluatio n of pt's status upon admission and devise an individualized program for Home Evaluation New precaution - to improve, our physical therapists will perform initial evaluation of pt's status upon admission and devise an individualized program for Patient precaution education Edema - to improve, our physical therapists will perform initial evaluation of pt's status upon admi ssion and devise an individualized program for Elevation Training, and Lymphedema Therapy Poor balance - to improve, our physical therapists will perform initial evaluation of pt's status up on admission and devise an individualized program for Balance Training Poor endurance - to improve, our physical therapists will perform initial evaluation of pt's status upon admission and devise an individualized program for Endurance Training Achieving independence - to improve, our physical therapists will perform initial evaluation of pt's status upon admission and devise an individualized program for Community Reintegration Activities - Occupational Therapy ADL deficits - to improve, our occupation therapists will perform initial evaluation of pt's status upon admission and devise an individualized program for Bathing, Bed mobility, Community Reintegratio n, Cooking, Dressing, Eating, Fine Motor Skills, Grooming, Homemaking, Kitchen Mobility, Laundry, Pat ient Education, Safety Awareness, Splinting - Positioning, Transfers(Toilet, Tub, Shower), and Wheel Chair Management Cognitive deficits - to improve, our occupation therapists will perform initial evaluation of pt's s tatus upon admission and devise an individualized program for Cognition - orientation - Other See attached MAR (Medication Administration Record) - Diet Type Continue Regular - Diet - Liquid Texture Continue Regular - Tube Feed Continue N/A - Bladder care per protocol - Weight Bearing Precaution WBAT left LE - Skin care per protocol - Diet - Solid Texture Continue Regular - Shower allowing shower for Dementia, TBI, Stroke, or others FUNCTIONAL STATUS: UPDATED AT WEEKLY TEAM CONFERENCE - Bladder Same accident frequency: 7-Ind - No accidents in the past 7 days - Bowel Same accident frequency: 7-Ind - No accidents in the past 7 days - Walking Same score based on distance walked: 0(N/A) - Wheelchair Same score based on distance traveled: 0(N/A) FUNCTIONAL STATUS: - Self-Care A. Eating Ind B. Grooming Andrwes C. Bathing sup D. Dressing - Upper sup E. Dressing - Lower Ind F. Toileting sup - Sphincter Control G. Bladder control Andrews H. Bowel control Andrews - Transfers Control I. Bed/Chair/Wheelchair sup J. Toilet sup K. Tub/Shower Jose - Locomotion L. Walk/Wheelchair (B) Jose M. Stairs modA - Communication N. Comprehension (B) Andrews O. Expression (B) Andrews - Social Cognition P. Social Interaction Andrews Q. Problem Solving Andrews R. Memory Andrews - Endurance Good - Balance Fair - Safety Awareness Good QI SCORES: - Self-Care A. Eating 03-Partial/moderate assistance B. Oral hygiene 02-Substantial/maximal assistance C. Toileting hygiene 03-Partial/moderate assistance E. Shower/bathe self 03-Partial/moderate assistance F. Upper body dressing 03-Partial/moderate assistance G. Lower body dressing 02-Substantial/maximal assistance H. Putting on/taking off footwear 88-Not attempted due to medical condition or safety concerns - Mobility A. Roll left and right 03-Partial/moderate assistance B. Sit to lying 03-Partial/moderate assistance C. Lying to sitting on side of bed 03-Partial/moderate assistance D. Sit to stand 03-Partial/moderate assistance E. Chair/[id number] transfer 03-Partial/moderate assistance F. Toilet transfer 03-Partial/moderate assistance G. Car transfer 88-Not attempted due to medical condition or safety concerns I. Walk 10 feet 03-Partial/moderate assistance J. Walk 50 feet with two turns 03-Partial/moderate assistance K. Walk 150 feet 88-Not attempted due to medical condition or safety concerns L. Walking 10 feet on uneven surfaces 88-Not attempted due to medical condition or safety concerns M. 1 step (curb) 88-Not attempted due to medical condition or safety concerns N. 4 steps 88-Not attempted due to medical condition or safety concerns O. 12 steps 88-Not attempted due to medical condition or safety concerns P. Picking up object 88-Not attempted due to medical condition or safety concerns R. Wheel 50 feet with two turns 88-Not attempted due to medical condition or safety concerns S. Wheel 150 feet 88-Not attempted due to medical condition or safety concerns - Bladder and Bowel Bladder continence Bowel continence - Endurance Good - Balance Poor - Safety Awareness Good SIGNATURE PANEL: (DIRECTOR SKILLS)
[2020-06-21] MEDS: ATORVASTATIN 40 MG TAB PO SCH (19:32)
[2020-06-22] MEDS: carvediloL 3.125 MG TAB PO SCH (05:15)
[2020-06-22 06:31] LABS: Absolute Lymphocytes (CBC) 1.7 K/uL (0.7-4.9); Hematocrit 37.6 % (36.0-45.0); Lymphocytes % 35.8 % (15.3-44.8); MPV 7.7 fL (7.6-11.3); RBC Red Blood Cell Count 4.11 M/uL (3.86-4.86)
[2020-06-22 06:47] LABS: Albumin 3.2 g/dL (3.4-5.0); Magnesium 2.4 mg/dL (1.8-2.4); Prealbumin 17.3 mg/dL (20-40)
[2020-06-22] MEDS: DILTIAZEM HCL 120 MG SR CAP PO SCH ×2 (08:00→12:47)
[2020-06-22] MEDS: FAMOTIDINE 20 MG TAB PO SCH (08:28)
[2020-06-22] MEDS: DULOXETINE 30 MG CAP PO SCH (08:29)
[2020-06-22] MEDS: FOLIC ACID 1 MG TABLET PO SCH (08:29)
[2020-06-22] MEDS: APIXABAN 5 MG TABLET PO SCH ×2 (08:29→19:36)
[2020-06-22] MEDS: CRANBERRY FRUIT EXTRACT 200 MG CAP PO SCH ×2 (08:29→19:36)
[2020-06-22] MEDS: MULTIVITAMIN TAB PO SCH (08:30)
[2020-06-22] MEDS: CALCIUM CARB 500MG/VIT D 200 IU TAB PO SCH (12:46)
--- NOTE | 2020-06-22 17:23 | R.PN ---
PROGRESS NOTES ENCOUNTER DATE AND TIME: 06/22/2020 17:19 (GLOBAL CEO) NAME SEVERO BENITES DATE OF : 1940 DATE OF ADMISSION: 06/17/2020 14:12 (GLOBAL CEO) CVACHIEF COMPLAINT: Stroke with residual left sided weakness and incoordination. SUBJECTIVE: Pt denied any Shortness of Breath. Pt denied any depression. CBC with differential is normal. Prealbumin 17.3. UA 1+ esterase, WBC 5-10. Therapeutic exercises done with supervision. Ambulated 500' with contact guard assistance using a rolling walker. Self-propelled a wheelchair 500' with standby assistance. VITAL SIGNS Temperature: 98.8 F SBP/DBP: 139/75 Pulse: 87 Resp: 16 MEDICATION ALLERGIES: No Known Drug Allergies (NKDA) ENVIRONMENTAL ALLERGIES: - Substance Allergies None Known - Other Allergies None Known NURSING: - Shower allowing shower - Bladder care per protocol - Skin care per protocol PRECAUTIONS: - Weight Bearing Precaution WBAT left LE ACTIVITIES OOB only with supervision THERAPIES: - Occupational Therapy Cognitive Retraining. Visual Perceptual Training. - Dietary and Nutrition Adequate Nutrition. Nutritional Education. Nutritional Supplements. - Speech Therapy Cognitive Training. Expressive Language Skills. Memory Strategies. Receptive Language Skills. Speech Intelligibility Training. PHYSICAL EXAM - Gen Alert and awake Lying in bed No apparent distress Oriented to: person, time, and place - Skin No skin breakdown. Normacephalic - Eyes No abnormalities - ENMT No abnormalities - Neck No abnormalities - CVS RRR - Chest No abnormalities - Resp Clear to auscultation - Abd Soft - GI nondistended Deferred - No abnormalities - Ext No significant edema - MSK 4+/5 weakness in left upper and lower extremity - Neuro Incoordination, left sided weakness and dysmetria, unsteady gait - Psych No abnormalities ASSESSMENT: Pt. is a 80 yo Right-handed female of unknown race.On 06/12/2020 Pt. presented to [facility] with sudden onset of left-side weakness.On 06/12/2020 she was admitted to [facility] with diagnosis CVA.Her impairment category is Stroke 01 - Left Body (Right Brain) (01.1).Pre-morbi dly, Pt. was independent/mod-I in Balance, Communication, Social Cognition, and Sphincter Control; an d she had good Self-Care and Safety Awareness.Currently, she has deficits of Locomotion, Transfers Co ntrol, Self-Care, Endurance, Social Cognition, and Balance.Pt. is now referred to [facility] for acute in-patient rehabilitation in order to maximize patient's functional independ ence in activities of daily living, strength, ROM, and mobility.- Rehab Goal Patient has realistic goal of being discharged at assistance level 7-Ind to reside at [facility] with Family/Relatives. MDM/PLAN: - Physical Therapy Inability to transfer - to improve, our physical therapists will perform initial evaluation of pt's status upon admission and devise an individualized program for Bed mobility Need for home safety evaluation - to improve, our physical therapists will perform initial evaluatio n of pt's status upon admission and devise an individualized program for Home Evaluation New precaution - to improve, our physical therapists will perform initial evaluation of pt's status upon admission and devise an individualized program for Patient precaution education Edema - to improve, our physical therapists will perform initial evaluation of pt's status upon admi ssion and devise an individualized program for Elevation Training, and Lymphedema Therapy Poor balance - to improve, our physical therapists will perform initial evaluation of pt's status up on admission and devise an individualized program for Balance Training Poor endurance - to improve, our physical therapists will perform initial evaluation of pt's status upon admission and devise an individualized program for Endurance Training Achieving independence - to improve, our physical therapists will perform initial evaluation of pt's status upon admission and devise an individualized program for Community Reintegration Activities - Occupational Therapy ADL deficits - to improve, our occupation therapists will perform initial evaluation of pt's status upon admission and devise an individualized program for Bathing, Bed mobility, Community Reintegratio n, Cooking, Dressing, Eating, Fine Motor Skills, Grooming, Homemaking, Kitchen Mobility, Laundry, Pat ient Education, Safety Awareness, Splinting - Positioning, Transfers(Toilet, Tub, Shower), and Wheel Chair Management Cognitive deficits - to improve, our occupation therapists will perform initial evaluation of pt's s tatus upon admission and devise an individualized program for Cognition - orientation - Other See attached MAR (Medication Administration Record) - Diet Type Continue Regular - Diet - Liquid Texture Continue Regular - Tube Feed Continue N/A - Bladder care per protocol - Weight Bearing Precaution WBAT left LE - Skin care per protocol - Diet - Solid Texture Continue Regular - Shower allowing shower for Dementia, TBI, Stroke, or others FUNCTIONAL STATUS: UPDATED AT WEEKLY TEAM CONFERENCE - Bladder Same accident frequency: 7-Ind - No accidents in the past 7 days - Bowel Same accident frequency: 7-Ind - No accidents in the past 7 days - Walking Same score based on distance walked: 0(N/A) - Wheelchair Same score based on distance traveled: 0(N/A) FUNCTIONAL STATUS: - Self-Care A. Eating Ind B. Grooming Andrews C. Bathing sup D. Dressing - Upper sup E. Dressing - Lower Ind F. Toileting sup - Sphincter Control G. Bladder control Andrews H. Bowel control Andrews - Transfers Control I. Bed/Chair/Wheelchair sup J. Toilet sup K. Tub/Shower Jose - Locomotion L. Walk/Wheelchair (B) Jose M. Stairs modA - Communication N. Comprehension (B) Andrews O. Expression (B) Andrews - Social Cognition P. Social Interaction Andrews Q. Problem Solving Andrews R. Memory Andrews - Endurance Good - Balance Fair - Safety Awareness Good QI SCORES: - Self-Care A. Eating 03-Partial/moderate assistance B. Oral hygiene 02-Substantial/maximal assistance C. Toileting hygiene 03-Partial/moderate assistance E. Shower/bathe self 03-Partial/moderate assistance F. Upper body dressing 03-Partial/moderate assistance G. Lower body dressing 02-Substantial/maximal assistance H. Putting on/taking off footwear 88-Not attempted due to medical condition or safety concerns - Mobility A. Roll left and right 03-Partial/moderate assistance B. Sit to lying 03-Partial/moderate assistance C. Lying to sitting on side of bed 03-Partial/moderate assistance D. Sit to stand 03-Partial/moderate assistance E. Chair/asz-du-kwecg transfer 03-Partial/moderate assistance F. Toilet transfer 03-Partial/moderate assistance G. Car transfer 88-Not attempted due to medical condition or safety concerns I. Walk 10 feet 03-Partial/moderate assistance J. Walk 50 feet with two turns 03-Partial/moderate assistance K. Walk 150 feet 88-Not attempted due to medical condition or safety concerns L. Walking 10 feet on uneven surfaces 88-Not attempted due to medical condition or safety concerns M. 1 step (curb) 88-Not attempted due to medical condition or safety concerns N. 4 steps 88-Not attempted due to medical condition or safety concerns O. 12 steps 88-Not attempted due to medical condition or safety concerns P. Picking up object 88-Not attempted due to medical condition or safety concerns R. Wheel 50 feet with two turns 88-Not attempted due to medical condition or safety concerns S. Wheel 150 feet 88-Not attempted due to medical condition or safety concerns - Bladder and Bowel Bladder continence Bowel continence - Endurance Good - Balance Poor - Safety Awareness Good SIGNATURE PANEL: (GLOBAL CEO)
[2020-06-22] MEDS: ATORVASTATIN 40 MG TAB PO SCH (19:36)
[2020-06-22] MEDS: DOCUSATE NA/SENNA CONC 1 TAB PO PRN (19:36)
[2020-06-23] MEDS: carvediloL 3.125 MG TAB PO SCH (05:37)
[2020-06-23] MEDS: FAMOTIDINE 20 MG TAB PO SCH (08:49)
[2020-06-23] MEDS: FOLIC ACID 1 MG TABLET PO SCH (08:49)
[2020-06-23] MEDS: DILTIAZEM HCL 120 MG SR CAP PO SCH (08:50)
[2020-06-23] MEDS: CRANBERRY FRUIT EXTRACT 200 MG CAP PO SCH ×2 (08:50→19:51)
[2020-06-23] MEDS: DULOXETINE 30 MG CAP PO SCH (08:50)
[2020-06-23] MEDS: MULTIVITAMIN TAB PO SCH (08:51)
[2020-06-23] MEDS: APIXABAN 5 MG TABLET PO SCH ×2 (08:51→19:52)
[2020-06-23] MEDS: CALCIUM CARB 500MG/VIT D 200 IU TAB PO SCH (08:51)
--- NOTE | 2020-06-23 09:48 | P.RH.PN ---
Estimated Length of Stay: 12 Expected Discharge Date: 06/30/20 Discharge Disposition Plan: Home Family Support: Yes Senior Care Goal: Mobility, Transfers, Self Care Vital Signs: Last Vital Signs Temp 98.3 F 06/23/20 07:18 Pulse 76 06/23/20 08:50 Resp 18 06/23/20 07:18 BP 137/81 06/23/20 08:50 Pulse Ox 95 06/23/20 07:18 Laboratory: Laboratory Last Values WBC 4.80 K/uL (4.3-10.9) 06/22/20 06:17 RBC 4.11 M/uL (3.86-4.86) 06/22/20 06:17 Hgb 12.8 g/dL (12.0-15.0) 06/22/20 06:17 Hct 37.6 % (36.0-45.0) 06/22/20 06:17 MCV 91.4 fL (80-100) 06/22/20 06:17 MCH 31.1 pg (27.0-35.0) 06/22/20 06:17 MCHC 34.0 g/dL (32.0-36.0) 06/22/20 06:17 RDW 13.1 % (12.1-15.2) 06/22/20 06:17 Plt Count 223 K/uL (152-406) 06/22/20 06:17 MPV 7.7 fL (7.6-11.3) 06/22/20 06:17 Neutrophils % 49.1 % (41.7-73.7) 06/22/20 06:17 Lymphocytes % 35.8 % (15.3-44.8) 06/22/20 06:17 Monocytes % 10.8 % (3.3-12.3) 06/22/20 06:17 Eosinophils % 3.3 % (0-4.4) 06/22/20 06:17 Basophils % 1.0 % (0-1.3) 06/22/20 06:17 Absolute Neutrophils 2.4 K/uL (1.8-8.0) 06/22/20 06:17 Absolute Lymphocytes 1.7 K/uL (0.7-4.9) 06/22/20 06:17 Absolute Monocytes 0.5 K/uL (0.1-1.3) 06/22/20 06:17 Absolute Eosinophils 0.2 K/uL (0-0.5) 06/22/20 06:17 Absolute Basophils 0.0 K/uL (0-0.5) 06/22/20 06:17 Sodium 146 mmol/L (136-145) H 06/22/20 06:17 Potassium 4.0 mmol/L (3.5-5.1) 06/22/20 06:17 Chloride 112 mmol/L (98-107) H 06/22/20 06:17 Carbon Dioxide 30 mmol/L (21-32) 06/22/20 06:17 BUN 23 mg/dL (7-18) H 06/22/20 06:17 Creatinine 1.29 mg/dL (0.55-1.3) 06/22/20 06:17 Estimated GFR 40 mL/min (=/>90) L 06/22/20 06:17 Glucose 90 mg/dL (74-106) 06/22/20 06:17 Calcium 9.4 mg/dL (8.5-10.1) 06/22/20 06:17 Magnesium 2.4 mg/dL (1.8-2.4) 06/22/20 06:17 Albumin 3.2 g/dL (3.4-5.0) L 06/22/20 06:17 Prealbumin 17.3 mg/dL (20-40) L 06/22/20 06:17 Urine Color Yellow 06/18/20 08:00 Urine Appearance Clear 06/18/20 08:00 Urine pH 6.0 (5.0-7.0) 06/18/20 08:00 Ur Specific Phenix 1.010 (1.005-1.030) 06/18/20 08:00 Glucose (UA)(Auto) Negative (NEG) 06/18/20 08:00 Urine Ketones Negative (NEG) 06/18/20 08:00 Urine Blood Negative (NEG) 06/18/20 08:00 Urine Nitrite Negative (NEG) 06/18/20 08:00 Urine Bilirubin Negative (NEG) 06/18/20 08:00 Urine Urobilinogen 0.2 mg/dL (0.2-1.0) 06/18/20 08:00 Ur Leukocyte Esterase 1+ (NEG) H 06/18/20 08:00 Urine RBC <5 /HPF (NONE SEEN) 06/18/20 08:00 Urine WBC 5-10 /HPF (<5) H 06/18/20 08:00 Ur Squamous Epith Cells <5 /HPF (NONE SEEN) 06/18/20 08:00 Urine Bacteria <20 /HPF (<20) 06/18/20 08:00 Hyaline Casts 0-5 /LPF (NONE SEEN) 06/18/20 08:00 Urine Culture Reflexed Not needed 06/18/20 08:00 Urine Total Protein Negative (NEG) 06/18/20 08:00 Weight: 155 lb Wound Present: No Closed Surgical Incision Present: No Negative Pressure Wound Therapy Present: No Physician Update: Her labs are reviewed and are stable. She is making good progress with all therapy. Walking 250' with stanby assistance, up and down 10 stairs. She has supervision with ADLs. Summary: Patient's care plan and buttermaker helper goals have been reviewed and revised as necessary. Please see the Rehabilitation Signature page for all necessary signatures.
[2020-06-23] MEDS: ATORVASTATIN 40 MG TAB PO SCH (19:52)
[2020-06-24] MEDS: carvediloL 3.125 MG TAB PO SCH (05:03)
[2020-06-24 05:42] VITALS: BMI 31.4
[2020-06-24] MEDS: CALCIUM CARB 500MG/VIT D 200 IU TAB PO SCH (08:01)
[2020-06-24] MEDS: DILTIAZEM HCL 120 MG SR CAP PO SCH (08:01)
[2020-06-24] MEDS: CRANBERRY FRUIT EXTRACT 200 MG CAP PO SCH ×2 (08:01→19:45)
[2020-06-24] MEDS: APIXABAN 5 MG TABLET PO SCH ×2 (08:01→19:46)
[2020-06-24] MEDS: FOLIC ACID 1 MG TABLET PO SCH (08:01)
[2020-06-24] MEDS: FAMOTIDINE 20 MG TAB PO SCH (08:02)
[2020-06-24] MEDS: MULTIVITAMIN TAB PO SCH (08:02)
[2020-06-24] MEDS: DULOXETINE 30 MG CAP PO SCH (08:02)
[2020-06-24] MEDS: ATORVASTATIN 40 MG TAB PO SCH (19:45)
[2020-06-24] MEDS: MELATONIN 3 MG TABLET PO PRN (19:46)
[2020-06-25] MEDS: carvediloL 3.125 MG TAB PO SCH (05:21)
[2020-06-25] MEDS: FOLIC ACID 1 MG TABLET PO SCH (08:13)
[2020-06-25] MEDS: MULTIVITAMIN TAB PO SCH (08:14)
[2020-06-25] MEDS: DULOXETINE 30 MG CAP PO SCH (08:14)
[2020-06-25] MEDS: FAMOTIDINE 20 MG TAB PO SCH (08:14)
[2020-06-25] MEDS: APIXABAN 5 MG TABLET PO SCH ×2 (08:14→19:21)
[2020-06-25] MEDS: CRANBERRY FRUIT EXTRACT 200 MG CAP PO SCH ×2 (08:14→19:21)
[2020-06-25] MEDS: CALCIUM CARB 500MG/VIT D 200 IU TAB PO SCH (08:15)
[2020-06-25] MEDS: DILTIAZEM HCL 120 MG SR CAP PO SCH (10:04)
[2020-06-25] MEDS: ATORVASTATIN 40 MG TAB PO SCH (19:21)
[2020-06-25] MEDS: DOCUSATE NA/SENNA CONC 1 TAB PO PRN (19:22)
[2020-06-25] MEDS: MELATONIN 3 MG TABLET PO PRN (19:22)
[2020-06-26] MEDS: carvediloL 3.125 MG TAB PO SCH (05:04)
[2020-06-26] MEDS: DILTIAZEM HCL 120 MG SR CAP PO SCH (07:38)
[2020-06-26] MEDS: FOLIC ACID 1 MG TABLET PO SCH (07:38)
[2020-06-26] MEDS: CRANBERRY FRUIT EXTRACT 200 MG CAP PO SCH ×2 (07:38→20:10)
[2020-06-26] MEDS: CALCIUM CARB 500MG/VIT D 200 IU TAB PO SCH (07:38)
[2020-06-26] MEDS: FAMOTIDINE 20 MG TAB PO SCH (07:38)
[2020-06-26] MEDS: MULTIVITAMIN TAB PO SCH (07:39)
[2020-06-26] MEDS: APIXABAN 5 MG TABLET PO SCH ×2 (07:39→20:10)
[2020-06-26] MEDS: DULOXETINE 30 MG CAP PO SCH (07:39)
--- NOTE | 2020-06-26 14:10 | R.PN ---
PROGRESS NOTES ENCOUNTER DATE AND TIME: 06/26/2020 14:06 (ASSISTANT CENTER DIRECTOR) NAME SEVERO BENITES DATE OF : 1940 DATE OF ADMISSION: 06/17/2020 14:12 (ASSISTANT CENTER DIRECTOR) CVACHIEF COMPLAINT: Stroke with residual left sided weakness and incoordination. SUBJECTIVE: Pt denied any Shortness of Breath. Pt denied any depression. CBC with differential is normal. Prealbumin 17.3. UA 1+ esterase, WBC 5-10. Therapeutic exercises done with supervision. Ambulated 750' with standby assistance using a rolling walker. Self-propelled a wheelchair 250' with standby assistance. VITAL SIGNS Temperature: 97.3 F SBP/DBP: 174/82 Pulse: 82 Resp: 16 MEDICATION ALLERGIES: No Known Drug Allergies (NKDA) ENVIRONMENTAL ALLERGIES: - Substance Allergies None Known - Other Allergies None Known NURSING: - Shower allowing shower - Bladder care per protocol - Skin care per protocol PRECAUTIONS: - Weight Bearing Precaution WBAT left LE ACTIVITIES OOB only with supervision THERAPIES: - Occupational Therapy Cognitive Retraining. Visual Perceptual Training. - Dietary and Nutrition Adequate Nutrition. Nutritional Education. Nutritional Supplements. - Speech Therapy Cognitive Training. Expressive Language Skills. Memory Strategies. Receptive Language Skills. Speech Intelligibility Training. PHYSICAL EXAM - Gen Alert and awake Lying in bed No apparent distress Oriented to: person, time, and place - Skin No skin breakdown. Normacephalic - Eyes No abnormalities - ENMT No abnormalities - Neck No abnormalities - CVS RRR - Chest No abnormalities - Resp Clear to auscultation - Abd Soft - GI nondistended Deferred - No abnormalities - Ext No significant edema - MSK 4+/5 weakness in left upper and lower extremity - Neuro Incoordination, left sided weakness and dysmetria, unsteady gait - Psych No abnormalities ASSESSMENT: Pt. is a 80 yo Right-handed female of unknown race.On 06/12/2020 Pt. presented to [facility] with sudden onset of left-side weakness.On 06/12/2020 she was admitted to [facility] with diagnosis CVA.Her impairment category is Stroke 01 - Left Body (Right Brain) (01.1).Pre-morbi dly, Pt. was independent/mod-I in Balance, Communication, Social Cognition, and Sphincter Control; an d she had good Self-Care and Safety Awareness.Currently, she has deficits of Locomotion, Transfers Co ntrol, Self-Care, Endurance, Social Cognition, and Balance.Pt. is now referred to [facility] for acute in-patient rehabilitation in order to maximize patient's functional independ ence in activities of daily living, strength, ROM, and mobility.- Rehab Goal Patient has realistic goal of being discharged at assistance level 7-Ind to reside at [facility] with Family/Relatives. MDM/PLAN: - Physical Therapy Inability to transfer - to improve, our physical therapists will perform initial evaluation of pt's status upon admission and devise an individualized program for Bed mobility Need for home safety evaluation - to improve, our physical therapists will perform initial evaluatio n of pt's status upon admission and devise an individualized program for Home Evaluation New precaution - to improve, our physical therapists will perform initial evaluation of pt's status upon admission and devise an individualized program for Patient precaution education Edema - to improve, our physical therapists will perform initial evaluation of pt's status upon admi ssion and devise an individualized program for Elevation Training, and Lymphedema Therapy Poor balance - to improve, our physical therapists will perform initial evaluation of pt's status up on admission and devise an individualized program for Balance Training Poor endurance - to improve, our physical therapists will perform initial evaluation of pt's status upon admission and devise an individualized program for Endurance Training Achieving independence - to improve, our physical therapists will perform initial evaluation of pt's status upon admission and devise an individualized program for Community Reintegration Activities - Occupational Therapy ADL deficits - to improve, our occupation therapists will perform initial evaluation of pt's status upon admission and devise an individualized program for Bathing, Bed mobility, Community Reintegratio n, Cooking, Dressing, Eating, Fine Motor Skills, Grooming, Homemaking, Kitchen Mobility, Laundry, Pat ient Education, Safety Awareness, Splinting - Positioning, Transfers(Toilet, Tub, Shower), and Wheel Chair Management Cognitive deficits - to improve, our occupation therapists will perform initial evaluation of pt's s tatus upon admission and devise an individualized program for Cognition - orientation - Other See attached MAR (Medication Administration Record) - Diet Type Continue Regular - Diet - Liquid Texture Continue Regular - Tube Feed Continue N/A - Bladder care per protocol - Weight Bearing Precaution WBAT left LE - Skin care per protocol - Diet - Solid Texture Continue Regular - Shower allowing shower for Dementia, TBI, Stroke, or others FUNCTIONAL STATUS: UPDATED AT WEEKLY TEAM CONFERENCE - Bladder Same accident frequency: 7-Ind - No accidents in the past 7 days - Bowel Same accident frequency: 7-Ind - No accidents in the past 7 days - Walking Same score based on distance walked: 0(N/A) - Wheelchair Same score based on distance traveled: 0(N/A) FUNCTIONAL STATUS: - Self-Care A. Eating Ind B. Grooming Andrews C. Bathing sup D. Dressing - Upper sup E. Dressing - Lower Ind F. Toileting sup - Sphincter Control G. Bladder control Andrews H. Bowel control Andrews - Transfers Control I. Bed/Chair/Wheelchair sup J. Toilet sup K. Tub/Shower Jose - Locomotion L. Walk/Wheelchair (B) Jose M. Stairs modA - Communication N. Comprehension (B) Andrews O. Expression (B) Andrews - Social Cognition P. Social Interaction Andrews Q. Problem Solving Andrews R. Memory Andrews - Endurance Good - Balance Fair - Safety Awareness Good QI SCORES: - Self-Care A. Eating 03-Partial/moderate assistance B. Oral hygiene 02-Substantial/maximal assistance C. Toileting hygiene 03-Partial/moderate assistance E. Shower/bathe self 03-Partial/moderate assistance F. Upper body dressing 03-Partial/moderate assistance G. Lower body dressing 02-Substantial/maximal assistance H. Putting on/taking off footwear 88-Not attempted due to medical condition or safety concerns - Mobility A. Roll left and right 03-Partial/moderate assistance B. Sit to lying 03-Partial/moderate assistance C. Lying to sitting on side of bed 03-Partial/moderate assistance D. Sit to stand 03-Partial/moderate assistance E. Chair/[id number] transfer 03-Partial/moderate assistance F. Toilet transfer 03-Partial/moderate assistance G. Car transfer 88-Not attempted due to medical condition or safety concerns I. Walk 10 feet 03-Partial/moderate assistance J. Walk 50 feet with two turns 03-Partial/moderate assistance K. Walk 150 feet 88-Not attempted due to medical condition or safety concerns L. Walking 10 feet on uneven surfaces 88-Not attempted due to medical condition or safety concerns M. 1 step (curb) 88-Not attempted due to medical condition or safety concerns N. 4 steps 88-Not attempted due to medical condition or safety concerns O. 12 steps 88-Not attempted due to medical condition or safety concerns P. Picking up object 88-Not attempted due to medical condition or safety concerns R. Wheel 50 feet with two turns 88-Not attempted due to medical condition or safety concerns S. Wheel 150 feet 88-Not attempted due to medical condition or safety concerns - Bladder and Bowel Bladder continence Bowel continence - Endurance Good - Balance Poor - Safety Awareness Good SIGNATURE PANEL: (ASSISTANT CENTER DIRECTOR)
[2020-06-26] MEDS: POLYETHYL GLY 3350 17 GM/DOSE PO PRN (14:33)
[2020-06-26] MEDS: DOCUSATE NA/SENNA CONC 1 TAB PO PRN (20:10)
[2020-06-26] MEDS: ATORVASTATIN 40 MG TAB PO SCH (20:10)
[2020-06-26] MEDS: MELATONIN 3 MG TABLET PO PRN (20:11)
[2020-06-27] MEDS: carvediloL 3.125 MG TAB PO SCH (05:04)
[2020-06-27] MEDS: POLYETHYL GLY 3350 17 GM/DOSE PO PRN (07:44)
[2020-06-27] MEDS: APIXABAN 5 MG TABLET PO SCH ×2 (07:48→19:00)
[2020-06-27] MEDS: CRANBERRY FRUIT EXTRACT 200 MG CAP PO SCH ×2 (07:48→18:59)
[2020-06-27] MEDS: CALCIUM CARB 500MG/VIT D 200 IU TAB PO SCH (07:49)
[2020-06-27] MEDS: FAMOTIDINE 20 MG TAB PO SCH (07:49)
[2020-06-27] MEDS: DULOXETINE 30 MG CAP PO SCH (07:50)
[2020-06-27] MEDS: DILTIAZEM HCL 120 MG SR CAP PO SCH (07:50)
[2020-06-27] MEDS: FOLIC ACID 1 MG TABLET PO SCH (07:50)
[2020-06-27] MEDS: MULTIVITAMIN TAB PO SCH (07:50)
--- NOTE | 2020-06-27 17:19 | R.PN ---
PROGRESS NOTES ENCOUNTER DATE AND TIME: 06/27/2020 17:15 (GLASSWARE FINISHER) NAME SEVERO BENITES DATE OF : 1940 DATE OF ADMISSION: 06/17/2020 14:12 (GLASSWARE FINISHER) CVACHIEF COMPLAINT: Stroke with residual left sided weakness and incoordination. SUBJECTIVE: Pt denied any Shortness of Breath. Pt denied any depression. CBC with differential is normal. Prealbumin 17.3. UA 1+ esterase, WBC 5-10. Therapeutic exercises done with supervision. Ambulated 1000' with standby assistance using a rolling walker. Self-propelled a wheelchair 250' with standby assistance. Up and down 15 steps with standby assistance. VITAL SIGNS Temperature: 97.8 F SBP/DBP: 145/66 Pulse: 73 Resp: 16 MEDICATION ALLERGIES: No Known Drug Allergies (NKDA) ENVIRONMENTAL ALLERGIES: - Substance Allergies None Known - Other Allergies None Known NURSING: - Shower allowing shower - Bladder care per protocol - Skin care per protocol PRECAUTIONS: - Weight Bearing Precaution WBAT left LE ACTIVITIES OOB only with supervision THERAPIES: - Occupational Therapy Cognitive Retraining. Visual Perceptual Training. - Dietary and Nutrition Adequate Nutrition. Nutritional Education. Nutritional Supplements. - Speech Therapy Cognitive Training. Expressive Language Skills. Memory Strategies. Receptive Language Skills. Speech Intelligibility Training. PHYSICAL EXAM - Gen Alert and awake Lying in bed No apparent distress Oriented to: person, time, and place - Skin No skin breakdown. Normacephalic - Eyes No abnormalities - ENMT No abnormalities - Neck No abnormalities - CVS RRR - Chest No abnormalities - Resp Clear to auscultation - Abd Soft - GI nondistended Deferred - No abnormalities - Ext No significant edema - MSK 4+/5 weakness in left upper and lower extremity - Neuro Incoordination, left sided weakness and dysmetria, unsteady gait - Psych No abnormalities ASSESSMENT: Pt. is a 80 yo Right-handed female of unknown race.On 06/12/2020 Pt. presented to [facility] with sudden onset of left-side weakness.On 06/12/2020 she was admitted to [facility] with diagnosis CVA.Her impairment category is Stroke 01 - Left Body (Right Brain) (01.1).Pre-morbi dly, Pt. was independent/mod-I in Balance, Communication, Social Cognition, and Sphincter Control; an d she had good Self-Care and Safety Awareness.Currently, she has deficits of Locomotion, Transfers Co ntrol, Self-Care, Endurance, Social Cognition, and Balance.Pt. is now referred to [facility] for acute in-patient rehabilitation in order to maximize patient's functional independ ence in activities of daily living, strength, ROM, and mobility.- Rehab Goal Patient has realistic goal of being discharged at assistance level 7-Ind to reside at [facility] with Family/Relatives. MDM/PLAN: - Physical Therapy Inability to transfer - to improve, our physical therapists will perform initial evaluation of pt's status upon admission and devise an individualized program for Bed mobility Need for home safety evaluation - to improve, our physical therapists will perform initial evaluatio n of pt's status upon admission and devise an individualized program for Home Evaluation New precaution - to improve, our physical therapists will perform initial evaluation of pt's status upon admission and devise an individualized program for Patient precaution education Edema - to improve, our physical therapists will perform initial evaluation of pt's status upon admi ssion and devise an individualized program for Elevation Training, and Lymphedema Therapy Poor balance - to improve, our physical therapists will perform initial evaluation of pt's status up on admission and devise an individualized program for Balance Training Poor endurance - to improve, our physical therapists will perform initial evaluation of pt's status upon admission and devise an individualized program for Endurance Training Achieving independence - to improve, our physical therapists will perform initial evaluation of pt's status upon admission and devise an individualized program for Community Reintegration Activities - Occupational Therapy ADL deficits - to improve, our occupation therapists will perform initial evaluation of pt's status upon admission and devise an individualized program for Bathing, Bed mobility, Community Reintegratio n, Cooking, Dressing, Eating, Fine Motor Skills, Grooming, Homemaking, Kitchen Mobility, Laundry, Pat ient Education, Safety Awareness, Splinting - Positioning, Transfers(Toilet, Tub, Shower), and Wheel Chair Management Cognitive deficits - to improve, our occupation therapists will perform initial evaluation of pt's s tatus upon admission and devise an individualized program for Cognition - orientation - Other See attached MAR (Medication Administration Record) - Diet Type Continue Regular - Diet - Liquid Texture Continue Regular - Tube Feed Continue N/A - Bladder care per protocol - Weight Bearing Precaution WBAT left LE - Skin care per protocol - Diet - Solid Texture Continue Regular - Shower allowing shower for Dementia, TBI, Stroke, or others FUNCTIONAL STATUS: UPDATED AT WEEKLY TEAM CONFERENCE - Bladder Same accident frequency: 7-Ind - No accidents in the past 7 days - Bowel Same accident frequency: 7-Ind - No accidents in the past 7 days - Walking Same score based on distance walked: 0(N/A) - Wheelchair Same score based on distance traveled: 0(N/A) FUNCTIONAL STATUS: - Self-Care A. Eating Ind B. Grooming Andrews C. Bathing sup D. Dressing - Upper sup E. Dressing - Lower Ind F. Toileting sup - Sphincter Control G. Bladder control Andrews H. Bowel control Andrews - Transfers Control I. Bed/Chair/Wheelchair sup J. Toilet sup K. Tub/Shower Jose - Locomotion L. Walk/Wheelchair (B) Jose M. Stairs modA - Communication N. Comprehension (B) Andrews O. Expression (B) Andrews - Social Cognition P. Social Interaction Andrews Q. Problem Solving Andrews R. Memory Andrews - Endurance Good - Balance Fair - Safety Awareness Good QI SCORES: - Self-Care A. Eating 03-Partial/moderate assistance B. Oral hygiene 02-Substantial/maximal assistance C. Toileting hygiene 03-Partial/moderate assistance E. Shower/bathe self 03-Partial/moderate assistance F. Upper body dressing 03-Partial/moderate assistance G. Lower body dressing 02-Substantial/maximal assistance H. Putting on/taking off footwear 88-Not attempted due to medical condition or safety concerns - Mobility A. Roll left and right 03-Partial/moderate assistance B. Sit to lying 03-Partial/moderate assistance C. Lying to sitting on side of bed 03-Partial/moderate assistance D. Sit to stand 03-Partial/moderate assistance E. Chair/[id number]-[id number] transfer 03-Partial/moderate assistance F. Toilet transfer 03-Partial/moderate assistance G. Car transfer 88-Not attempted due to medical condition or safety concerns I. Walk 10 feet 03-Partial/moderate assistance J. Walk 50 feet with two turns 03-Partial/moderate assistance K. Walk 150 feet 88-Not attempted due to medical condition or safety concerns L. Walking 10 feet on uneven surfaces 88-Not attempted due to medical condition or safety concerns M. 1 step (curb) 88-Not attempted due to medical condition or safety concerns N. 4 steps 88-Not attempted due to medical condition or safety concerns O. 12 steps 88-Not attempted due to medical condition or safety concerns P. Picking up object 88-Not attempted due to medical condition or safety concerns R. Wheel 50 feet with two turns 88-Not attempted due to medical condition or safety concerns S. Wheel 150 feet 88-Not attempted due to medical condition or safety concerns - Bladder and Bowel Bladder continence Bowel continence - Endurance Good - Balance Poor - Safety Awareness Good SIGNATURE PANEL: (GLASSWARE FINISHER)
[2020-06-27] MEDS: ATORVASTATIN 40 MG TAB PO SCH (19:00)
[2020-06-27] MEDS: MELATONIN 3 MG TABLET PO PRN (19:04)
[2020-06-28] MEDS: carvediloL 3.125 MG TAB PO SCH (05:18)
[2020-06-28] MEDS: CALCIUM CARB 500MG/VIT D 200 IU TAB PO SCH (08:00)
[2020-06-28] MEDS: CRANBERRY FRUIT EXTRACT 200 MG CAP PO SCH ×2 (08:09→19:04)
[2020-06-28] MEDS: FAMOTIDINE 20 MG TAB PO SCH (08:10)
[2020-06-28] MEDS: APIXABAN 5 MG TABLET PO SCH ×2 (08:11→19:05)
[2020-06-28] MEDS: FOLIC ACID 1 MG TABLET PO SCH (08:11)
[2020-06-28] MEDS: DULOXETINE 30 MG CAP PO SCH (08:11)
[2020-06-28] MEDS: MULTIVITAMIN TAB PO SCH (08:12)
[2020-06-28] MEDS: DILTIAZEM HCL 120 MG SR CAP PO SCH (10:57)
[2020-06-28 12:42] LABS: Absolute Lymphocytes (CBC) 1.3 K/uL (0.7-4.9); Hematocrit 40.2 % (36.0-45.0); Lymphocytes % 19.5 % (15.3-44.8); MPV 7.9 fL (7.6-11.3); RBC Red Blood Cell Count 4.34 M/uL (3.86-4.86)
[2020-06-28 13:00] LABS: Potassium 4.2 mmol/L (3.5-5.1)
[2020-06-28 13:23] LABS: Urine Bacteria 20-50 /HPF (<20); Urine RBC LOADED /HPF (NONE SEEN)
[2020-06-28] MEDS ORDERED: NA CHLORIDE 0.9% 1,000 ML IV SCH (14:00)
--- NOTE | 2020-06-28 14:01 | R.PN ---
PROGRESS NOTES ENCOUNTER DATE AND TIME: 06/28/2020 13:47 (DIRECTOR M[employer]IM[employer]) NAME SEVERO BENITES DATE OF : 1940 DATE OF ADMISSION: 06/17/2020 14:12 (DIRECTOR [employer]IM[employer]) CVACHIEF COMPLAINT: Stroke with residual left sided weakness and incoordination. SUBJECTIVE: Pt denied any Shortness of Breath. Pt denied any depression. CBC with differential is normal. Prealbumin 17.3. UA 1+ esterase, WBC 5-10. Therapeutic exercises done with supervision. She has blood in her urine while on Eliquis 5 mg twice daily. Her EKG still shows afib. The Eliquis w as held and heparin 5000 units bid was started. Sine her Fire Safety Manager increased to 1.5 from normal, She will r eceive 1 LOf NS. Her discharge will be held today. VITAL SIGNS Temperature: 98.3 F SBP/DBP: 133/76 Pulse: 87 Resp: 16 MEDICATION ALLERGIES: No Known Drug Allergies (NKDA) ENVIRONMENTAL ALLERGIES: - Substance Allergies None Known - Other Allergies None Known NURSING: - Shower allowing shower - Bladder care per protocol - Skin care per protocol PRECAUTIONS: - Weight Bearing Precaution WBAT left LE ACTIVITIES OOB only with supervision THERAPIES: - Occupational Therapy Cognitive Retraining. Visual Perceptual Training. - Dietary and Nutrition Adequate Nutrition. Nutritional Education. Nutritional Supplements. - Speech Therapy Cognitive Training. Expressive Language Skills. Memory Strategies. Receptive Language Skills. Speech Intelligibility Training. PHYSICAL EXAM - Gen Alert and awake Lying in bed No apparent distress Oriented to: person, time, and place - Skin No skin breakdown. Normacephalic - Eyes No abnormalities - ENMT No abnormalities - Neck No abnormalities - CVS RRR - Chest No abnormalities - Resp Clear to auscultation - Abd Soft - GI nondistended Deferred - No abnormalities - Ext No significant edema - MSK 4+/5 weakness in left upper and lower extremity - Neuro Incoordination, left sided weakness and dysmetria, unsteady gait - Psych No abnormalities ASSESSMENT: Pt. is a 80 yo Right-handed female of unknown race.On 06/12/[address] [facility] with sudden onset of left-side weakness.On 06/12/2020 she [address] to [facility] with diagnosis CVA.Her impairment category is Stroke 01 - Left Body (Right Brain) (01.1).Pre-morbi dly, Pt. was independent/mod-I in Balance, Communication, Social Cognition, and Sphincter Control; an d she had good Self-Care and Safety Awareness.Currently, she has deficits of Locomotion, Transfers Co ntrol, Self-Care, Endurance, Social Cognition, and Balance.Pt. is now referred to [facility] for acute in-patient rehabilitation in order to maximize patient's functional independ ence in activities of daily living, strength, ROM, and mobility.- Rehab Goal Patient has realistic goal of being discharged at assistance level 7-Ind to reside at [facility] with Family/Relatives. MDM/PLAN: - Physical Therapy Inability to transfer - to improve, our physical therapists will perform initial evaluation of pt's status upon admission and devise an individualized program for Bed mobility Need for home safety evaluation - to improve, our physical therapists will perform initial evaluatio n of pt's status upon admission and devise an individualized program for Home Evaluation New precaution - to improve, our physical therapists will perform initial evaluation of pt's status upon admission and devise an individualized program for Patient precaution education Edema - to improve, our physical therapists will perform initial evaluation of pt's status upon admi ssion and devise an individualized program for Elevation Training, and Lymphedema Therapy Poor balance - to improve, our physical therapists will perform initial evaluation of pt's status up on admission and devise an individualized program for Balance Training Poor endurance - to improve, our physical therapists will perform initial evaluation of pt's status upon admission and devise an individualized program for Endurance Training Achieving independence - to improve, our physical therapists will perform initial evaluation of pt's status upon admission and devise an individualized program for Community Reintegration Activities - Occupational Therapy ADL deficits - to improve, our occupation therapists will perform initial evaluation of pt's status upon admission and devise an individualized program for Bathing, Bed mobility, Community Reintegratio n, Cooking, Dressing, Eating, Fine Motor Skills, Grooming, Homemaking, Kitchen Mobility, Laundry, Pat ient Education, Safety Awareness, Splinting - Positioning, Transfers(Toilet, Tub, Shower), and Wheel Chair Management Cognitive deficits - to improve, our occupation therapists will perform initial evaluation of pt's s tatus upon admission and devise an individualized program for Cognition - orientation - Other See attached MAR (Medication Administration Record) - Diet Type Continue Regular - Diet - Liquid Texture Continue Regular - Tube Feed Continue N/A - Bladder care per protocol - Weight Bearing Precaution WBAT left LE - Skin care per protocol - Diet - Solid Texture Continue Regular - Shower allowing shower for Dementia, TBI, Stroke, or others FUNCTIONAL STATUS: UPDATED AT WEEKLY TEAM CONFERENCE - Bladder Same accident frequency: 7-Ind - No accidents in the past 7 days - Bowel Same accident frequency: 7-Ind - No accidents in the past 7 days - Walking Same score based on distance walked: 0(N/A) - Wheelchair Same score based on distance traveled: 0(N/A) FUNCTIONAL STATUS: - Self-Care A. Eating Ind B. Grooming Andrews C. Bathing sup D. Dressing - Upper sup E. Dressing - Lower Ind F. Toileting sup - Sphincter Control G. Bladder control Andrews H. Bowel control Andrews - Transfers Control I. Bed/Chair/Wheelchair sup J. Toilet sup K. Tub/Shower Jose - Locomotion L. Walk/Wheelchair (B) Jose M. Stairs modA - Communication N. Comprehension (B) Andrews O. Expression (B) Andrews - Social Cognition P. Social Interaction Andrews Q. Problem Solving Andrews R. Memory Andrews - Endurance Good - Balance Fair - Safety Awareness Good QI SCORES: - Self-Care A. Eating 03-Partial/moderate assistance B. Oral hygiene 02-Substantial/maximal assistance C. Toileting hygiene 03-Partial/moderate assistance E. Shower/bathe self 03-Partial/moderate assistance F. Upper body dressing 03-Partial/moderate assistance G. Lower body dressing 02-Substantial/maximal assistance H. Putting on/taking off footwear 88-Not attempted due to medical condition or safety concerns - Mobility A. Roll left and right 03-Partial/moderate assistance B. Sit to lying 03-Partial/moderate assistance C. Lying to sitting on side of bed 03-Partial/moderate assistance D. Sit to stand 03-Partial/moderate assistance E. Chair/ulq-kg-drinc transfer 03-Partial/moderate assistance F. Toilet transfer 03-Partial/moderate assistance G. Car transfer 88-Not attempted due to medical condition or safety concerns I. Walk 10 feet 03-Partial/moderate assistance J. Walk 50 feet with two turns 03-Partial/moderate assistance K. Walk 150 feet 88-Not attempted due to medical condition or safety concerns L. Walking 10 feet on uneven surfaces 88-Not attempted due to medical condition or safety concerns M. 1 step (curb) 88-Not attempted due to medical condition or safety concerns N. 4 steps 88-Not attempted due to medical condition or safety concerns O. 12 steps 88-Not attempted due to medical condition or safety concerns P. Picking up object 88-Not attempted due to medical condition or safety concerns R. Wheel 50 feet with two turns 88-Not attempted due to medical condition or safety concerns S. Wheel 150 feet 88-Not attempted due to medical condition or safety concerns - Bladder and Bowel Bladder continence Bowel continence - Endurance Good - Balance Poor - Safety Awareness Good SIGNATURE PANEL: (DIRECTOR [employer])
[2020-06-28] MEDS: ATORVASTATIN 40 MG TAB PO SCH (19:04)
[2020-06-28] MEDS: CIPROFLOXACIN HCL 500 MG TAB PO SCH (19:05)
[2020-06-28] MEDS: MELATONIN 3 MG TABLET PO PRN (19:05)
[2020-06-28] MEDS: DOCUSATE NA/SENNA CONC 1 TAB PO PRN (19:05)
[2020-06-28] MEDS ORDERED: HEPARIN 5000 UNIT/ML 1 ML VIAL SQ SCH (20:00)
[2020-06-29] MEDS: carvediloL 3.125 MG TAB PO SCH (05:16)
[2020-06-29 06:14] LABS: Potassium 4.3 mmol/L (3.5-5.1)
[2020-06-29 07:08] VITALS: BP 159/70; TEMP 97.8
[2020-06-29] MEDS: CALCIUM CARB 500MG/VIT D 200 IU TAB PO SCH (08:00)
[2020-06-29] MEDS: DULOXETINE 30 MG CAP PO SCH (08:08)
[2020-06-29] MEDS: DILTIAZEM HCL 120 MG SR CAP PO SCH (08:08)
[2020-06-29] MEDS: FAMOTIDINE 20 MG TAB PO SCH (08:09)
[2020-06-29] MEDS: FOLIC ACID 1 MG TABLET PO SCH (08:09)
[2020-06-29] MEDS: CIPROFLOXACIN HCL 500 MG TAB PO SCH (08:09)
[2020-06-29] MEDS: CRANBERRY FRUIT EXTRACT 200 MG CAP PO SCH (08:09)
[2020-06-29] MEDS: APIXABAN 5 MG TABLET PO SCH (08:10)
[2020-06-29] MEDS: MULTIVITAMIN TAB PO SCH (08:10)
--- NOTE | 2020-06-29 19:26 | R.PN ---
PROGRESS NOTES ENCOUNTER DATE AND TIME: 06/29/2020 19:18 (MANAGER BUSINESS MANAGEMENT) NAME SEVERO BENITES DATE OF : 1940 DATE OF ADMISSION: 06/17/2020 14:12 (MANAGER BUSINESS MANAGEMENT) CVACHIEF COMPLAINT: Stroke with residual left sided weakness and incoordination. SUBJECTIVE: Pt denied any Shortness of Breath. Pt denied any depression. CBC with differential is normal. Head Packager is now normal at 1.12. Prealbumin 17.3. UA 1+ esterase, WBC 5-10 . She was treated with Cipro 500 mg bid for 5 days from 06/28/20. Ambulated 750' with modified independence using a rolling walker. Her urine cleared today after she received 1 L of NS and Eliquis 5 mg twice daily was held. Her EKG shows afib. Her discharge was reinstated for today. VITAL SIGNS Temperature: 97.8 F SBP/DBP: 159/70 Pulse: 73 Resp: 16 MEDICATION ALLERGIES: No Known Drug Allergies (NKDA) ENVIRONMENTAL ALLERGIES: - Substance Allergies None Known - Other Allergies None Known NURSING: - Shower allowing shower - Bladder care per protocol - Skin care per protocol PRECAUTIONS: - Weight Bearing Precaution WBAT left LE ACTIVITIES OOB only with supervision THERAPIES: - Occupational Therapy Cognitive Retraining. Visual Perceptual Training. - Dietary and Nutrition Adequate Nutrition. Nutritional Education. Nutritional Supplements. - Speech Therapy Cognitive Training. Expressive Language Skills. Memory Strategies. Receptive Language Skills. Speech Intelligibility Training. PHYSICAL EXAM - Gen Alert and awake Lying in bed No apparent distress Oriented to: person, time, and place - Skin No skin breakdown. Normacephalic - Eyes No abnormalities - ENMT No abnormalities - Neck No abnormalities - CVS RRR - Chest No abnormalities - Resp Clear to auscultation - Abd Soft - GI nondistended Deferred - No abnormalities - Ext No significant edema - MSK 4+/5 weakness in left upper and lower extremity - Neuro Incoordination, left sided weakness and dysmetria, unsteady gait - Psych No abnormalities ASSESSMENT: Pt. is a 80 yo Right-handed female of unknown race.On 06/12/2020 Pt. presented to [facility] with sudden onset of left-side weakness.On 06/12/2020 she was admitted to [facility] with diagnosis CVA.Her impairment category is Stroke 01 - Left Body (Right Brain) (01.1).Pre-morbi dly, Pt. was independent/mod-I in Balance, Communication, Social Cognition, and Sphincter Control; an d she had good Self-Care and Safety Awareness.Currently, she has deficits of Locomotion, Transfers Co ntrol, Self-Care, Endurance, Social Cognition, and Balance.Pt. is now referred to [facility] for acute in-patient rehabilitation in order to maximize patient's functional independ ence in activities of daily living, strength, ROM, and mobility.- Rehab Goal Patient has realistic goal of being discharged at assistance level 7-Ind to reside at [facility] with Family/Relatives. MDM/PLAN: - Physical Therapy Inability to transfer - to improve, our physical therapists will perform initial evaluation of pt's status upon admission and devise an individualized program for Bed mobility Need for home safety evaluation - to improve, our physical therapists will perform initial evaluatio n of pt's status upon admission and devise an individualized program for Home Evaluation New precaution - to improve, our physical therapists will perform initial evaluation of pt's status upon admission and devise an individualized program for Patient precaution education Edema - to improve, our physical therapists will perform initial evaluation of pt's status upon admi ssion and devise an individualized program for Elevation Training, and Lymphedema Therapy Poor balance - to improve, our physical therapists will perform initial evaluation of pt's status up on admission and devise an individualized program for Balance Training Poor endurance - to improve, our physical therapists will perform initial evaluation of pt's status upon admission and devise an individualized program for Endurance Training Achieving independence - to improve, our physical therapists will perform initial evaluation of pt's status upon admission and devise an individualized program for Community Reintegration Activities - Occupational Therapy ADL deficits - to improve, our occupation therapists will perform initial evaluation of pt's status upon admission and devise an individualized program for Bathing, Bed mobility, Community Reintegratio n, Cooking, Dressing, Eating, Fine Motor Skills, Grooming, Homemaking, Kitchen Mobility, Laundry, Pat ient Education, Safety Awareness, Splinting - Positioning, Transfers(Toilet, Tub, Shower), and Wheel Chair Management Cognitive deficits - to improve, our occupation therapists will perform initial evaluation of pt's s tatus upon admission and devise an individualized program for Cognition - orientation - Other See attached MAR (Medication Administration Record) - Diet Type Continue Regular - Diet - Liquid Texture Continue Regular - Tube Feed Continue N/A - Bladder care per protocol - Weight Bearing Precaution WBAT left LE - Skin care per protocol - Diet - Solid Texture Continue Regular - Shower allowing shower for Dementia, TBI, Stroke, or others FUNCTIONAL STATUS: UPDATED AT WEEKLY TEAM CONFERENCE - Bladder Same accident frequency: 7-Ind - No accidents in the past 7 days - Bowel Same accident frequency: 7-Ind - No accidents in the past 7 days - Walking Same score based on distance walked: 0(N/A) - Wheelchair Same score based on distance traveled: 0(N/A) FUNCTIONAL STATUS: - Self-Care A. Eating Ind B. Grooming Andrews C. Bathing sup D. Dressing - Upper sup E. Dressing - Lower Ind F. Toileting sup - Sphincter Control G. Bladder control Andrews H. Bowel control Andrews - Transfers Control I. Bed/Chair/Wheelchair sup J. Toilet sup K. Tub/Shower Jose - Locomotion L. Walk/Wheelchair (B) Jose M. Stairs modA - Communication N. Comprehension (B) Andrews O. Expression (B) Andrews - Social Cognition P. Social Interaction Andrews Q. Problem Solving Andrews R. Memory Andrews - Endurance Good - Balance Fair - Safety Awareness Good QI SCORES: - Self-Care A. Eating 03-Partial/moderate assistance B. Oral hygiene 02-Substantial/maximal assistance C. Toileting hygiene 03-Partial/moderate assistance E. Shower/bathe self 03-Partial/moderate assistance F. Upper body dressing 03-Partial/moderate assistance G. Lower body dressing 02-Substantial/maximal assistance H. Putting on/taking off footwear 88-Not attempted due to medical condition or safety concerns - Mobility A. Roll left and right 03-Partial/moderate assistance B. Sit to lying 03-Partial/moderate assistance C. Lying to sitting on side of bed 03-Partial/moderate assistance D. Sit to stand 03-Partial/moderate assistance E. Chair/ata-nb-yfkrl transfer 03-Partial/moderate assistance F. Toilet transfer 03-Partial/moderate assistance G. Car transfer 88-Not attempted due to medical condition or safety concerns I. Walk 10 feet 03-Partial/moderate assistance J. Walk 50 feet with two turns 03-Partial/moderate assistance K. Walk 150 feet 88-Not attempted due to medical condition or safety concerns L. Walking 10 feet on uneven surfaces 88-Not attempted due to medical condition or safety concerns M. 1 step (curb) 88-Not attempted due to medical condition or safety concerns N. 4 steps 88-Not attempted due to medical condition or safety concerns O. 12 steps 88-Not attempted due to medical condition or safety concerns P. Picking up object 88-Not attempted due to medical condition or safety concerns R. Wheel 50 feet with two turns 88-Not attempted due to medical condition or safety concerns S. Wheel 150 feet 88-Not attempted due to medical condition or safety concerns - Bladder and Bowel Bladder continence Bowel continence - Endurance Good - Balance Poor - Safety Awareness Good SIGNATURE PANEL: (MANAGER BUSINESS MANAGEMENT)
--- NOTE | 2020-07-02 08:01 | EKG ---
Test Date: 2020-06-28 Test Time: 12:44:23 Academic Advising Director: ARAMIS MEASUREMENT RESULTS: Intervals: Rate: 88 OK: QRSD: 76 QT: 434 QTc: 525 [place]: P: OK: QRS: 23 T: -33 INTERPRETIVE STATEMENTS: Atrial fibrillation Septal infarct, age undetermined Prolonged QT Abnormal ECG Compared to ECG 06/14/2020 08:27:51 Myocardial infarct finding now present Prolonged QT interval now present ST (T wave) deviation no longer present Possible ischemia no longer present Electronically Signed On 07-02-20 07:54:16 PULMONOLOGIST by Jc Marks
--- NOTE | 2020-07-21 18:17 | R.DS ---
DISCHARGE SUMMARY FACILITY [facility] MR# [id number] NAME SEVERO BENITES ADDRESS [address] [facility] [facility] [place] [address] PHONE DATE OF 1940 AGE 80 SSN# [id number] GENDER Female DEXTERITY Right-handed MARITAL STATUS RACE Unknown race ENCOUNTER PHYSICIAN Dr. Rajiv Matos M.D. REFERRING DOCTOR Sravan Wilson REFERRING FACILITY [facility] DISCHARGE DIAGNOSIS: - Stroke 01 - Left Body (Right Brain) (01.1) CVA. 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 NURSING: - Shower allowing shower - Bladder care per protocol - Skin care per protocol PRECAUTIONS: - Weight Bearing Precaution WBAT left LE ACTIVITIES OOB only with supervision THERAPIES: - Occupational Therapy Cognitive Retraining Visual Perceptual Training - Dietary and Nutrition Adequate Nutrition Nutritional Education Nutritional Supplements - Speech Therapy Cognitive Training Expressive Language Skills Memory Strategies Receptive Language Skills Speech Intelligibility Training HISTORY OF PRESENT ILLNESS: Pt. is a 80 yo Right-handed female of unknown race.On 06/12/2020 Pt. presented to [facility] with sudden onset of left-side weakness.On 06/12/2020 she was admitted to [facility] with diagnosis CVA.Her impairment category is Stroke 01 - Left Body (Right Brain) (.1).Pre-morbi dly, Pt. was independent/mod-I in Balance, Communication, Social Cognition, and Sphincter Control; an d she had good Self-Care and Safety Awareness.Currently, she has deficits of Locomotion, Transfers Co ntrol, Self-Care, Endurance, Social Cognition, and Balance.Pt. is now referred to [facility] for acute in-patient rehabilitation in order to maximize patient's functional independ ence in activities of daily living, strength, ROM, and mobility.- Rehab Goal Patient has realistic goal of being discharged at assistance level 7-Ind to reside at Home with Fami ly/Relatives. Severo Benites is a 80 -year- old female that lives at home with family independently. She lives in a single story home with family help when needed. She has a history of HTN, A Fib, mixed hyperlipidem ia, Osteoporosis, CKD stage 3, Vit D def, and CVA. She was addmitted for right arm weakness, double vision weakness. Doyle MRI shows acute non hemorrhagic infract sup. Left cerebellum and left post. Braininstem. No signif. Mass effect or edema poorly demaracated 10mm. She is amulating better now with rolling walker at [facility]. The patient would most definitely benefit from acute inpatient rehab and has become severely debilitated and unable to live at her prior level of activity at home getting her stronger to be back living at home independently is our goal. It is reasonable and necessary for the patient to come to acute inpatient rehab for approximately 7-10 days in order to return to her prior level of care. She is now being transferred to [facility] Inpatient rehabilitation and is medically stable with relatively stable labs. She is now medically stable but in need of 24 hour nursing, doctor supervision and The patient is reasonably expected to participate in 3 hours of therapy a day/15 hours per week and receive care with intensive interdisciplinary approach. COVID-19 screening performed; spoke with patient via phone. Patient denies new onset of fever, cough, difficulty breathing, sore throat, body aches and non-allergy nasal congestion in the past 24 hours. Patient denies travel outside of [place] in the past 14 days. Patient denies any contact with someone who has a confirmed diagnosis of or is under investigation for COVID-19 in the past 14 days. Patient has been tested negative for COVID- 19.HOSPITAL COURSE: DIET - LIQUID TEXTURE: On 06/15/2020 Pt was upgraded to Regular Diet - Liquid Texture. DIET - SOLID TEXTURE: On 06/15/2020 Pt was upgraded to Regular Diet - Solid Texture. DIET TYPE: On 06/15/2020 Pt was upgraded to Regular Diet Type. TUBE FEED: On 06/15/2020 Pt was changed to N/A Tube Feed. WEIGHT BEARING PRECAUTION: On 06/17/2020 the following precautions were added for the patient: Weight Bearing Precaution - WBAT left LE. On 06/19/2020 the following precautions were added for the patient: Weight Bearing Precaution - WBAT left LE. DISCHARGE PHYSICAL EXAM - Gen Alert and awake Lying in bed No apparent distress Oriented to: person, time, and place - Skin No skin breakdown. Normacephalic - Eyes No abnormalities - ENMT No abnormalities - Neck No abnormalities - CVS RRR - Chest No abnormalities - Resp Clear to auscultation - Abd Soft - GI nondistended Deferred - No abnormalities - Ext No significant edema - MSK 4+/5 weakness in left upper and lower extremity - Neuro Incoordination, left sided weakness and dysmetria, unsteady gait - Psych No abnormalities FUNCTIONAL STATUS: - Self-Care A. Eating 7-Ind B. Grooming 6-Andrews C. Bathing 6-Andrews D. Dressing - Upper 7-Ind E. Dressing - Lower 7-Ind F. Toileting 6-Andrews - Sphincter Control G. Bladder control 6-Andrews H. Bowel control 6-Andrews - Transfers Control I. Bed/Chair/Wheelchair 6-Andrews J. Toilet 6-Andrews K. Tub/Shower 6-Andrews - Locomotion L. Walk/Wheelchair (B) 6-Andrews M. Stairs 6-Andrews - Communication N. Comprehension (B) 6-Andrews O. Expression (B) 6-Andrews - Social Cognition P. Social Interaction 6-Andrews Q. Problem Solving 6-Andrews R. Memory 6-Andrews - Endurance Good - Balance Good - Safety Awareness Good QI SCORES: - Self-Care A. Eating 03-Partial/moderate assistance B. Oral hygiene 02-Substantial/maximal assistance C. Toileting hygiene 03-Partial/moderate assistance E. Shower/bathe self 03-Partial/moderate assistance F. Upper body dressing 03-Partial/moderate assistance G. Lower body dressing 02-Substantial/maximal assistance H. Putting on/taking off footwear 88-Not attempted due to medical condition or safety concerns - Mobility A. Roll left and right 03-Partial/moderate assistance B. Sit to lying 03-Partial/moderate assistance C. Lying to sitting on side of bed 03-Partial/moderate assistance D. Sit to stand 03-Partial/moderate assistance E. Chair/vjk-hb-ohymc transfer 03-Partial/moderate assistance F. Toilet transfer 03-Partial/moderate assistance G. Car transfer 88-Not attempted due to medical condition or safety concerns I. Walk 10 feet 03-Partial/moderate assistance J. Walk 50 feet with two turns 03-Partial/moderate assistance K. Walk 150 feet 88-Not attempted due to medical condition or safety concerns L. Walking 10 feet on uneven surfaces 88-Not attempted due to medical condition or safety concerns M. 1 step (curb) 88-Not attempted due to medical condition or safety concerns N. 4 steps 88-Not attempted due to medical condition or safety concerns O. 12 steps 88-Not attempted due to medical condition or safety concerns P. Picking up object 88-Not attempted due to medical condition or safety concerns R. Wheel 50 feet with two turns 88-Not attempted due to medical condition or safety concerns S. Wheel 150 feet 88-Not attempted due to medical condition or safety concerns - Bladder and Bowel Bladder continence Bowel continence - Endurance Good - Balance Poor - Safety Awareness Good DISCHARGE INSTRUCTIONS: - N/A Eliquis 5 mg bid. DISCHARGE PLAN, FOLLOW UP CARE PROVISIONS: - Estimated Length of Stay (days) 17. - Consensus on plan Discharge plan has been discussed with primary caregiver. Patient/Family is in agreement with the edwin n. Primary caregiver is in agreement with the plan. - Patient/Family Goals Return home independently. - Planned Living Setting Upon Discharge Home, to live with Family/Relatives. Transitional Living. 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
== END 2020-06-29 14:45 | disposition home health service (06) | DRG 57 ==
LOC: 5TH 06-17 14:11
PROVIDERS: ADMIT Psychiatry & Neurology Neurology with Special Qualifications in Child Neurology; ATTEND Psychiatry & Neurology Neurology with Special Qualifications in Child Neurology
DX: I69.354 Hemiplegia and hemiparesis following cerebral infarction affecting left non-dominant side (principal); I12.9 Hypertensive chronic kidney disease with stage 1 through stage 4 chronic kidney disease, or unspecified chronic kidney disease; N18.30 Chronic kidney disease, stage 3 unspecified; E78.5 Hyperlipidemia, unspecified; Z20.822 Contact with and (suspected) exposure to COVID-19
CPT/HCPCS: 36415; 80048; 81001; 81015; 82040; 83735; 84134; 85025; 87077; 87086; 87088; 87186; 92523; 93005; 97110; 97112; 97116; 97161; 97165; 97530; J7030; U0002

== ENCOUNTER 2020-10-04 12:40 | Emergency (ER) | payer OTHER ==
[2020-10-04 13:06] LABS: Absolute Lymphocytes (CBC) 1.7 K/uL (0.7-4.9); Basophils % 0.9 % (0-1.3); Hematocrit 35.7 % (36.0-45.0); Lymphocytes % 30.1 % (15.3-44.8); MPV 8.5 fL (7.6-11.3); RBC Red Blood Cell Count 3.89 M/uL (3.86-4.86)
[2020-10-04 13:19] LABS: BUN Blood Urea Nitrogen 26 mg/dL (7-18); Bicarbonate 26 mmol/L (21-32); Glucose Level 103 mg/dL (74-106); Potassium 3.7 mmol/L (3.5-5.1); Sodium Level 143 mmol/L (136-145); Troponin (Emerg Dept Use Only) < 0.02 ng/mL (0.0-0.045)
--- NOTE | 2020-10-04 13:27 | RAD REPORT ---
EXAM DESCRIPTION: RAD - Pelvis - 10/04/2020 1:20 pm CLINICAL HISTORY: fall, pain COMPARISON: None FINDINGS: AP pelvis and sacrum/coccyx - multiple projections submitted Mild degenerate changes are present in both hips. Symmetric sacroiliac joints are noted. No acute fra cture identified.
--- NOTE | 2020-10-04 13:33 | RAD REPORT ---
EXAM DESCRIPTION: CT - Head Brain Wo Cont - 10/04/2020 1:27 pm CLINICAL HISTORY: fall, on eliquis Fall, head trauma COMPARISON: Ct Stroke Brain Wo Cont dated 06/12/2020; Head Brain Wo Cont dated 10/25/2017; Pelvis dated 10/04/2020; Sacrum And Coccyx dated 10/04/2020 TECHNIQUE: All CT scans are performed using dose optimization technique as appropriate and may inclu de automated exposure control or mA/KV adjustment according to patient size. FINDINGS: No intracranial hemorrhage, hydrocephalus or extra-axial fluid collection.Moderate general ized brain atrophy is present with moderate periventricular and deep white matter chronic microvascul ar ischemic changes.No areas of brain edema or evidence of midline shift. Gliosis is seen the frontal lobe and left cerebellum unchanged. The paranasal sinuses and mastoids are clear. The calvarium is intact. IMPRESSION: No acute intracranial abnormality.
[2020-10-04 16:29] LABS: Urine Blood Trace-intact (Negative); Urine Glucose Negative (Negative); Urine Protein Trace (Negative); Urine Specific Gravity 1.015 (1.005-1.030); Urine pH 6.5 (5.0-7.0)
--- NOTE | 2020-10-04 16:35 | EDPHYS ---
Physician Documentation [facility] Name: Kat Diane Age: 80 yrs Sex: Female : 1940 Arrival Date: 10/04/2020 Time: 12:45 Bed 3 Private MD: ED Physician Konrad Cabrera HPI: 10/04 12:56 This 80 yrs old Female presents to ER via EMS with complaints of fall, rn dizziness. 12:56 Details of fall: The patient fell from an upright position. Onset: The symptoms/episode rn began/occurred just prior to arrival. Associated injuries: The patient sustained sacrum/coccyx. 12:57 Severity of symptoms: At their worst the symptoms were mild, in the emergency rn department the symptoms are unchanged. The patient has not experienced similar symptoms in the past. The patient has not recently seen a physician. Pt reports dizziness and trouble walking since her last stroke, has been using walker and wheelchair, had just finished using bathroom, got up, was holding onto wall, and fell backward. No head injury or LOC. Remembers all events. Reports only pain to tailbone. . Historical: - Allergies: 12:57 No Known Allergies; jd3 - Home Meds: 12:57 aspirin 81 mg Oral chew 1 tab once daily [Active]; atorvastatin 20 mg Oral tab 1 tab jd3 once daily [Active]; benazepril 40 mg Oral tab 1 tab once daily [Active]; carvedilol 6.25 mg Oral tab 2 times per day [Active]; Eliquis 5 mg Oral tab 1 tab 2 times per day [Active]; folic acid 1 mg Oral tab 1 tab once daily [Active]; diltiazem HCl 120 mg Oral cpER 1 cap once daily [Active]; - PMHx: 12:57 CVA; Hypertension; Hyperlipidemia; jd3 - PSHx: 12:57 left wrist; jd3 - Immunization history:: Adult Immunizations up to date. - Social history:: Smoking status: Patient denies any tobacco usage or history of. - Family history:: not pertinent. - Hospitalizations: : No recent hospitalization is reported. ROS: 13:02 Constitutional: Negative for fever, chills, and weight loss, Eyes: Negative for injury, rn pain, redness, and discharge, Neck: Negative for injury, pain, and swelling, Cardiovascular: Negative for chest pain, and edema, Respiratory: Negative for shortness of breath, cough, wheezing, and pleuritic chest pain, Abdomen/GI: Negative for abdominal pain, nausea, vomiting, diarrhea, and constipation, Back: + tailbone pain : Negative for injury, bleeding, discharge, and swelling, MS/Extremity: Negative for injury and deformity, Skin: Negative for injury, rash, and discoloration, Neuro: Negative for headache, weakness, numbness, tingling, and seizure. Exam: 13:02 Constitutional: This is a well developed, well nourished patient who is awake, alert, rn and in no acute distress. Head/Face: Normocephalic, atraumatic. Eyes: Periorbital areas with no swelling, redness, or edema. Neck: No cervical tenderness Cardiovascular: Bradycardic, irregular Respiratory: No increased work of breathing, no retractions or nasal flaring. Abdomen/GI: soft, non-tender Skin: Warm, dry MS/ Extremity: Pulses equal, no cyanosis. Neuro: Awake and alert, GCS 15, oriented to person, place, time, and situation. Cranial nerves II-XII grossly intact. Motor strength 4/5 in all extremities. Sensory grossly intact. Vital Signs: 12:57 BP 113 / 65; Pulse 44; Resp 19 S; Temp 97.9(TE); Pulse Ox 98% on R/A; Weight 67.13 kg jd3 (R); Height 4 ft. 11 in. (149.86 cm) (R); Pain 5/10; 13:46 BP 117 / 54; Pulse 56; Resp 21; Pulse Ox 97% on R/A; tw2 14:32 BP 129 / 62; Pulse 57; Resp 18 S; Pulse Ox 97% on R/A; jd3 15:33 BP 144 / 93; Pulse 53; Resp 17; Pulse Ox 98% on R/A; tw2 17:07 BP 156 / 78; Pulse 78; Resp 16 S; Pulse Ox 99% on R/A; jd3 12:57 Body Mass Index 29.89 (67.13 kg, 149.86 cm) jd3 MDM: 12:47 Patient medically screened. rn 14:46 ED course: HR now in 60s, afib, likely earlier slower rate 2/2 her 2 rate-control rn medications of metoprolol and diltiazem for her afib. Have not done anything or given anything to correct bradycardia and now wnl.. 16:31 Differential diagnosis: closed head injury, fracture, sprain, strain. Data reviewed: rn vital signs, nurses notes, lab test result(s), radiologic studies, CT scan, plain films, and as a result, I will discharge patient. Counseling: I had a detailed discussion with the patient and/or guardian regarding: the historical points, exam findings, and any diagnostic results supporting the discharge/admit diagnosis, lab results, radiology results, the need for outpatient follow up, to return to the emergency department if symptoms worsen or persist or if there are any questions or concerns that arise at home. Response to treatment: the patient's symptoms have markedly improved after treatment, and as a result, I will discharge patient. Special discussion: I discussed with the patient/guardian in detail that at this point there is no indication for admission to the hospital. It is understood, however, that if the symptoms persist or worsen the patient needs to return immediately for re-evaluation. ED course: Pt improved, + UTI, feels ok to go home. Will dc home. . 10/04 12:48 Order name: CBC with Diff rn 10/04 12:48 Order name: Basic Metabolic Panel rn 10/04 12:49 Order name: Troponin (emerg Dept Use Only) rn 10/04 12:49 Order name: Magnesium rn 10/04 13:08 Order name: CBC with Automated Diff; Complete Time: 14:02 EDNM 10/04 13:19 Order name: Basic Metabolic Panel; Complete Time: 14:02 EDNM 10/04 12:48 Order name: XRAY Pelvis rn 10/04 12:48 Order name: XRAY Sacrum And Coccyx rn 10/04 13:19 Order name: Troponin (Emerg Dept Use Only); Complete Time: 14:02 EDNM 10/04 13:19 Order name: Magnesium; Complete Time: 14:02 EDNM 10/04 14:34 Order name: Urine Microscopic Only rn 10/04 14:34 Order name: Urine Culture rn 10/04 16:29 Order name: Urine Dipstick-Ancillary; Complete Time: 16:31 EDNM 10/04 17:08 Order name: Urine Microscopic Only [facility] 10/04 12:48 Order name: EKG; Complete Time: 12:48 rn 10/04 12:48 Order name: EKG - Nurse/Tech; Complete Time: 13:07 rn 10/04 12:48 Order name: IV Start; Complete Time: 13:07 rn 10/04 13:01 Order name: CT Head Brain wo Cont rn 10/04 13:28 Order name: RAD; Complete Time: 14:02 EDMS 10/04 13:33 Order name: CT; Complete Time: 14:02 EDNM 10/04 14:34 Order name: Urine Dipstick-Ancillary (obtain specimen); Complete Time: 16:30 rn Administered Medications: 16:24 Drug: NS 0.9% 500 ml Route: IV; Rate: bolus; Site: left antecubital; tw2 17:32 Follow up: Response: No adverse reaction; IV Status: Completed infusion; IV Intake: tw2 500ml 17:08 Drug: Rocephin (cefTRIAXone) 1 grams Route: IV; Rate: calculated rate; Site: left jd3 antecubital; 17:31 Follow up: Response: No adverse reaction; IV Intake: 10ml tw2 Disposition: 10/04/20 16:34 Discharged to Home. Impression: Contusion of lower back and pelvis, Urinary tract infection, site not specified. - Condition is Stable. - Discharge Instructions: Contusion, Urinary Tract Infection, Adult. - Prescriptions for cefpodoxime 100 mg Oral Tablet - take 2 tablet by ORAL route every 12 hours for 10 days take with food; 40 tablet. - Medication Reconciliation Form, Thank You Letter, Antibiotic Education, Prescription Opioid Use form. - Follow up: Private Physician; When: As needed; Reason: Recheck today's complaints, Re-evaluation by your physician. - Problem is new. - Symptoms have improved. Signatures: Dispatcher [employer] EDMS Konrad Cabrera MD MD rn Wise, Tara, RN RN tw2 Roly Hunter RN RN jd3 Corrections: (The following items were deleted from the chart) 17:44 16:34 10/04/2020 16:34 Discharged to Home. Impression: Contusion of lower back and tw2 pelvis; Urinary tract infection, site not specified. Condition is Stable. Forms are Medication Reconciliation Form, Thank You Letter, Antibiotic Education, Prescription Opioid Use. Follow up: Private Physician; When: As needed; Reason: Recheck today's complaints, Re-evaluation by your physician. Problem is new. Symptoms have improved. rn
--- NOTE | 2020-10-04 16:35 | ER ---
Nurse's Notes [facility] Name: Kat Diane Age: 80 yrs Sex: Female : 1940 Arrival Date: 10/04/2020 Time: 12:45 Bed 3 Private MD: Diagnosis: Contusion of lower back and pelvis;Urinary tract infection, site not specified Presentation: 10/04 12:47 Chief complaint: EMS states: "Pt was moving from the restroom to wash her hands when jd3 she got dizzy and fell landing on her backside. pt denies LOC or hit to head. pt was orthostatic positive with blood pressures of systolics in the 80's. 18 G started to the the left AC and 850 ml NS given.". Coronavirus screen: At this time, the client does not indicate any symptoms associated with coronavirus-19. Ebola Screen: Patient negative for fever greater than or equal to 101.5 degrees Fahrenheit, and additional compatible Ebola Virus Disease symptoms. Initial Sepsis Screen: Does the patient meet any 2 criteria? No. Patient's initial sepsis screen is negative. Does the patient have a suspected source of infection? No. Patient's initial sepsis screen is negative. Risk Assessment: Do you want to hurt yourself or someone else? Patient reports no desire to harm self or others. Onset of symptoms was October 04, 2020. 12:47 Method Of Arrival: EMS: [facility] jd3 12:47 Acuity: UMBERTO 2 jd3 Historical: - Allergies: 12:57 No Known Allergies; jd3 - Home Meds: 12:57 aspirin 81 mg Oral chew 1 tab once daily [Active]; atorvastatin 20 mg Oral tab 1 tab jd3 once daily [Active]; benazepril 40 mg Oral tab 1 tab once daily [Active]; carvedilol 6.25 mg Oral tab 2 times per day [Active]; Eliquis 5 mg Oral tab 1 tab 2 times per day [Active]; folic acid 1 mg Oral tab 1 tab once daily [Active]; diltiazem HCl 120 mg Oral cpER 1 cap once daily [Active]; - PMHx: 12:57 CVA; Hypertension; Hyperlipidemia; jd3 - PSHx: 12:57 left wrist; jd3 - Immunization history:: Adult Immunizations up to date. - Social history:: Smoking status: Patient denies any tobacco usage or history of. - Family history:: not pertinent. - Hospitalizations: : No recent hospitalization is reported. Screenin:57 Abuse screen: Denies threats or abuse. Nutritional screening: No deficits noted. jd3 Tuberculosis screening: No symptoms or risk factors identified. Fall Risk Fall in past 12 months (25 points). IV access (20 points). Ambulatory Aid- None/Bed Rest/Nurse Assist (0 pts). Gait- Weak (10 pts.). Mental Status- Oriented to own ability (0 pts). Total Byrnes Fall Scale indicates High Risk Score (45 or more points). Fall prevention measures have been instituted. Side Rails Up X 2 Placed Close to Nursing Station Frequent Obs/Assessments Occuring Family Present and informed to notify staff if the need to leave the bedside. Assessment: 13:07 General: Appears in no apparent distress. comfortable, Behavior is calm, cooperative, jd3 appropriate for age. Pain: Complains of pain in coccyx Quality of pain is described as aching, tender. Neuro: Level of Consciousness is awake, alert, obeys commands, Oriented to person, place, time, situation. Cardiovascular: Denies chest pain, Capillary refill < 3 seconds Patient's skin is warm and dry. Rhythm is irregular. Respiratory: Airway is patent Respiratory effort is even, unlabored, Respiratory pattern is regular, symmetrical, Denies cough, shortness of breath at rest. GI: No signs and/or symptoms were reported involving the gastrointestinal system. : No signs and/or symptoms were reported regarding the genitourinary system. EENT: No signs and/or symptoms were reported regarding the EENT system. Derm: Skin is intact, Skin is dry, Skin is normal, Skin temperature is warm. Musculoskeletal: Circulation, motion, and sensation intact. Range of motion: intact in all extremities. 13:46 Reassessment: Patient appears in no apparent distress at this time. No changes from tw2 previously documented assessment. Patient and/or family updated on plan of care and expected duration. Pain level reassessed. Patient is alert, oriented x 3, equal unlabored respirations, skin warm/dry/pink. 14:30 Reassessment: Patient appears in no apparent distress at this time. No changes from tw2 previously documented assessment. Patient and/or family updated on plan of care and expected duration. Pain level reassessed. Patient is alert, oriented x 3, equal unlabored respirations, skin warm/dry/pink. 15:34 Reassessment: Patient appears in no apparent distress at this time. No changes from tw2 previously documented assessment. Patient and/or family updated on plan of care and expected duration. Pain level reassessed. Patient is alert, oriented x 3, equal unlabored respirations, skin warm/dry/pink. 16:30 Reassessment: Patient appears in no apparent distress at this time. No changes from tw2 previously documented assessment. Patient and/or family updated on plan of care and expected duration. Pain level reassessed. Patient is alert, oriented x 3, equal unlabored respirations, skin warm/dry/pink. 17:07 Reassessment: Patient appears in no apparent distress at this time. Patient and/or d3 family updated on plan of care and expected duration. Pain level reassessed. Patient is alert, oriented x 3, equal unlabored respirations, skin warm/dry/pink. discharge pending medication infusion Patient states feeling better. Vital Signs: 12:57 BP 113 / 65; Pulse 44; Resp 19 S; Temp 97.9(TE); Pulse Ox 98% on R/A; Weight 67.13 kg jd3 (R); Height 4 ft. 11 in. (149.86 cm) (R); Pain 5/10; 13:46 BP 117 / 54; Pulse 56; Resp 21; Pulse Ox 97% on R/A; tw2 14:32 BP 129 / 62; Pulse 57; Resp 18 S; Pulse Ox 97% on R/A; jd3 15:33 BP 144 / 93; Pulse 53; Resp 17; Pulse Ox 98% on R/A; tw2 17:07 BP 156 / 78; Pulse 78; Resp 16 S; Pulse Ox 99% on R/A; jd3 12:57 Body Mass Index 29.89 (67.13 kg, 149.86 cm) d3 ED Course: 12:45 Patient arrived in ED. rn 12:47 Konrad Cabrera MD is Attending Physician. rn 12:47 Roly Hunter RN is Primary Nurse. jd3 12:54 Triage completed. jd3 12:57 Arm band placed on. jd3 12:57 EKG completed in triage. Results shown to MD. jd3 12:58 Patient has correct armband on for positive identification. Placed in gown. Bed in low jd3 position. Call light in reach. Side rails up X2. Adult w/ patient. zone supervisor firearms on. Pulse ox on. NIBP on. 13:07 Maintain EMS IV. Dressing intact. Good blood return noted. Site clean \\T\\ dry. Gauge \\T\\ wade 3 site: 18 G left AC. 15:48 Straight cath inserted, using sterile technique, 16 Fr. Specimen obtained. Returned mt shahnaz urine. Patient tolerated well. 17:07 No provider procedures requiring assistance completed. jd3 17:43 IV discontinued, intact, bleeding controlled, No redness/swelling at site. Pressure tw2 dressing applied. 10/05 00:53 XRAY Sacrum And Coccyx In Process Unspecified. EDMS Administered Medications: 10/04 16:24 Drug: NS 0.9% 500 ml Route: IV; Rate: bolus; Site: left antecubital; tw2 17:32 Follow up: Response: No adverse reaction; IV Status: Completed infusion; IV Intake: tw2 500ml 17:08 Drug: Rocephin (cefTRIAXone) 1 grams Route: IV; Rate: calculated rate; Site: left jd3 antecubital; 17:31 Follow up: Response: No adverse reaction; IV Intake: 10ml tw2 Intake: 17:31 IV: 10ml; Total: 10ml. tw2 17:32 IV: 500ml; Total: 510ml. tw2 Outcome: 16:34 Discharge ordered by . rn 17:43 Discharged to home via wheelchair, with family. tw2 17:43 Condition: stable 17:43 Discharge instructions given to patient, family, Instructed on discharge instructions, follow up and referral plans. medication usage, Demonstrated understanding of instructions, follow-up care, medications, Prescriptions given X 1. 17:44 Patient left the ED. tw2 Addendum: 10/07/2020 08:05 Addendum: Culture Results: Positive urine culture. No further action required. Bacteria h b sensitive to prescribed antibiotic. Signatures: Dispatcher [employer] EDMS Konrad Cabrera MD MD rn Baxter, Heather, RN RN hb Wise, Tara, RN RN tw2 Caitlyn Sanchez mt, Jonathon, RN RN jd3
[2020-10-04] MEDS ORDERED: NA CHLORIDE 0.9% 500 ML ONE (16:41)
[2020-10-04 17:07] LABS: Urine Bacteria >50 /HPF (<20); Urine RBC <5 /HPF (NONE SEEN)
[2020-10-04] MEDS ORDERED: NA CHLORIDE 0.9% 100 ML ONE (17:15)
[2020-10-04] MEDS ORDERED: CEFTRIAXONE/SWI 1gm 1 GM/10 ML SYR ONE (17:16)
[2020-10-04 17:50] VITALS: TEMP 97.9
[2020-10-04 17:56] VITALS: BP 156/78; O2SAT 99
--- NOTE | 2020-10-05 10:05 | RAD REPORT ---
EXAM DESCRIPTION: RAD - Sacrum And Coccyx - 10/04/2020 1:21 pm CLINICAL HISTORY: Fall, pain COMPARISON: None FINDINGS: AP pelvis and sacrum/coccyx - multiple projections submitted Mild degenerate changes are present in both hips. Symmetric sacroiliac joints are noted. No acute fra cture identified.
== END 2020-10-04 17:44 | disposition home or self-care (01) ==
LOC: ER 12:40
DX: S30.0XXA Contusion of lower back and pelvis, initial encounter (principal); N39.0 Urinary tract infection, site not specified; I10 Essential (primary) hypertension; E78.5 Hyperlipidemia, unspecified; W18.39XA Other fall on same level, initial encounter; Y93.89 Activity, other specified; Z86.73 Personal history of transient ischemic attack (TIA), and cerebral infarction without residual deficits; Z79.01 Long term (current) use of anticoagulants; Z79.82 Long term (current) use of aspirin
CPT/HCPCS: 87088; 85025; 87086; 80048; 36415; 83735; 84484; 70450; 72220; 72170; J0696; J7040; 51702; 81003; 81015; 87077; 87186; 93005; 96361; 96374; 99284

== ENCOUNTER 2022-02-03 14:10 | Observation (INO) | payer OTHER ==
--- NOTE | 2022-02-03 15:46 | RAD REPORT ---
EXAM DESCRIPTION: CT - CTHCSPWOC - 02/03/2022 3:30 pm CLINICAL HISTORY: fall COMPARISON: Head Brain Wo Cont dated 10/04/2020 TECHNIQUE: Axial 5 mm thick images of the head were obtained. Axial 2 mm thick images of the cervic al spine were obtained with sagittal and coronal reconstruction images generated and reviewed. All CT scans are performed using dose optimization technique as appropriate and may include automated exposure control or mA/KV adjustment according to patient size. FINDINGS: No intracranial hemorrhage, mass, edema or acute intracranial finding. No suspicion for ac [place] infarction. No cortical edema or sulcal effacement. Atrophy changes are mild for age. Ventricles are in proportion to volume loss. Prominent chronic ischemic changes seen throughout the cerebral whi te matter and into each basal ganglia. Focal encephalomalacia in the left frontal lobe present from p rior CVA. The intracranial findings are stable from September 2020. Mastoid air cells and paranasal sinuses are clear. No globe or orbit abnormality seen. Cervical body height and alignment are normal. C4-5 disc space narrowing seen. Scattered endplate spu rring changes are present. There is minimal bony foraminal encroachment at C4-5 and C6-7. No fracture or acute bony abnormality. Central canal detail is inherently limited. No paraspinal mass or hematoma. IMPRESSION: Negative CT head examination for acute or significant finding. Negative CT cervical spine examination for acute or significant finding.
--- NOTE | 2022-02-03 15:48 | RAD REPORT ---
EXAM DESCRIPTION: RAD - Chest Single View - 02/03/2022 3:39 pm CLINICAL HISTORY: fall, chest pain COMPARISON: Portable 06/12/2020, two view chest 11/04/2017 TECHNIQUE: AP portable chest image was obtained 02/03/2022 3:39 pm . FINDINGS: Chronic interstitial lung disease is present with no pulmonary contusion, infiltrate or ma ss. No failure or volume overload. Heart and vasculature are normal. No measurable pleural effusion and no pneumothorax. No acute bony abnormality seen. No acute aortic findings suspected. IMPRESSION: No acute cardiopulmonary process.
--- NOTE | 2022-02-03 15:52 | RAD REPORT ---
EXAM DESCRIPTION: RAD - Hand Right 3 View - 02/03/2022 3:39 pm CLINICAL HISTORY: PAIN, fall COMPARISON: No comparisons FINDINGS: Oblique fracture is present through the dorsal side base fourth distal phalanx. Fracture e xtends to the articular surface at the DIP joint. No other fracture changes seen. There is no disloca tion or periosteal reaction noted. IP joint space narrowing seen without erosion or significant spur ring component. Mild to moderate degenerative change at the trapezium first metacarpal articulation. IMPRESSION: Oblique fracture is seen through the dorsal side base of the fourth distal phalanx. No s ignificant distraction or angulation deformity.
[2022-02-03 16:07] LABS: Absolute Lymphocytes (CBC) 1.5 K/uL (0.7-4.9); Hematocrit 47.2 % (36.0-45.0); Lymphocytes % 30.2 % (15.3-44.8); MCV 92.2 fL (80-100); MPV 7.3 fL (7.6-11.3); RBC Red Blood Cell Count 5.12 M/uL (3.86-4.86)
[2022-02-03 16:24] LABS: Troponin High Sensitivity 24.9 pg/mL (<58.9)
--- NOTE | 2022-02-03 16:38 | ER ---
Nurse's Notes [facility] Name: Kat Diane Age: 81 yrs Sex: Female : 1940 Arrival Date: 02/03/2022 Time: 14:12 Bed 6 Private MD: Diagnosis: Syncope;contusion;finger fracture Presentation: 02/03 14:03 Chief complaint: EMS states: PT became dizzy and fell face first while walking with tp1 walker at home. Daughter witnessed incident. daughter reported to EMS PT did not lose consciousness. denies pain, bruise to right cheek. BP 155/74, HR 84, O2 100%, FBS 126. HX Afib. 14:03 Ebola Screen: Patient negative for fever greater than or equal to 101.5 degrees tp1 Fahrenheit, and additional compatible Ebola Virus Disease symptoms Patient denies exposure to infectious person. Patient denies travel to an Ebola-affected area in the 21 days before illness onset. Initial Sepsis Screen: Does the patient meet any 2 criteria? No. Patient's initial sepsis screen is negative. Does the patient have a suspected source of infection? No. Patient's initial sepsis screen is negative. Risk Assessment: Do you want to hurt yourself or someone else? Patient reports no desire to harm self or others. Onset of symptoms was February 03, 2022. Care prior to arrival: Glucose check: 126. 14:03 Method Of Arrival: EMS: [facility] tp1 14:03 Acuity: UMBERTO 2 tp1 14:03 Coronavirus screen: Vaccine status: Patient reports receiving the 2nd dose of the covid tp1 vaccine. 22:36 Care prior to arrival: ll3 Triage Assessment: 14:03 General: Appears in no apparent distress. comfortable, Behavior is calm, cooperative. tp1 Pain: Complains of pain in dorsal aspect of middle phalanx of right ring finger Pain does not radiate. Pain currently is 2 out of 10 on a pain scale. Pain began 1 hour ago. EENT: Nares are clear. Neuro: Level of Consciousness is awake, alert, obeys commands, Oriented to person, place, time, situation, Reports dizziness, Denies blurred vision headache. Cardiovascular: Denies chest pain, Capillary refill < 3 seconds in bilateral fingers Patient's skin is warm and dry. Respiratory: Airway is patent Respiratory effort is even, unlabored. GI: Abdomen is round non-distended, Abd is soft and non tender X 4 quads. : No signs and/or symptoms were reported regarding the genitourinary system. Derm: Skin is pink, warm \T\ dry. Bruising that is dark purple, on dorsal aspect of middle phalanx of right ring finger, chin, and right cheek. Musculoskeletal: Circulation, motion, and sensation intact. Historical: - Allergies: 14:21 No Known Allergies; tp1 - Home Meds: 14:21 amlodipine 5 mg tab 1 tab once daily [Active]; folic acid 1 mg Oral tab 1 tab once tp1 daily [Active]; atorvastatin 20 mg Oral tab 1 tab once daily [Active]; 14:26 folic acid 1 mg Oral tab [Active]; Xarelto 20 mg oral tab [Active]; amlodipine 5 mg tab vg1 [Active]; carvedilol 12.5 mg oral tab [Active]; Centrum Silver oral [Active]; Caltrate 600 plus D oral [Active]; Vitamin D3 oral [Active]; - PMHx: 14:21 CVA; Hyperlipidemia; Hypertension; Atrial fibrillation; tp1 - Immunization history:: Client reports receiving the 2nd dose of the Covid vaccine. - Social history:: Smoking status: Patient denies any tobacco usage or history of. - Immunization history: Last tetanus immunization: unknown. Screenin:05 Abuse screen: Denies threats or abuse. Tuberculosis screening: No symptoms or risk vg1 factors identified. 14:21 Nutritional screening: No deficits noted. Fall Risk Fall in past 12 months (25 points). tp1 No secondary diagnosis (0 pts). IV access (20 points). Ambulatory Aid- Crutches/Cane/Walker (15 pts). Gait- Normal/Bed Rest/Wheelchair (0 pts) Mental Status- Oriented to own ability (0 pts). Total Byrnes Fall Scale indicates High Risk Score (45 or more points). Fall prevention measures have been instituted. Side Rails Up X 2 Placed Close to Nursing Station Family Present and informed to notify staff if the need to leave the bedside As available patient and family educated on Fall Prevention Program and Strategies. Primary Survey: 14:05 NO uncontrolled hemorrhage observed. A: The client is awake and alert. The airway is vg1 patent. The client is alert. Breathing/Chest: Spontaneous respiratory effort, equal unlabored respirations, breath sounds clear bilaterally, regular pattern, symmetrical chest rise and fall. Respiratory effort: spontaneous, Breath sounds: clear. Circulation: No external hemorrhage present. Regular and strong central pulse, skin warm/dry/normal color. Skin color: pink, Skin temperature: warm. Disability Client is alert. Exposure/Environment: All clothing and personal items were removed. Forensic evidence collection is not deemed to be indicated at this time. Items placed in patient belonging bag. There is no evidence of uncontrolled external bleeding. Pt appears to have bruising to Right side of face and an abrasion to chin. 22:35 Reassessment Breathing: Spontaneous respiratory effort, equal unlabored respirations, ll3 breath sounds clear bilaterally, regular pattern with symmetrical chest rise and fall. Secondary Survey: 14:05 HEENT: Face Other appears to have bruising to right side of face and an abrasion to vg1 chin. Gastrointestinal: Abdomen is soft, flat. : No signs and/or symptoms were reported regarding the genitourinary system. Musculoskeletal: Reports pain in right ring finger. Assessment: 14:03 General: see triage notes . tp1 15:00 Reassessment: Patient appears in no apparent distress at this time. No changes from tp1 previously documented assessment. Patient is alert, oriented x 3, equal unlabored respirations, skin warm/dry/pink. Patient denies pain at this time. 15:33 Reassessment: Xray at bedside. tp1 16:00 Reassessment: Patient appears in no apparent distress at this time. No changes from tp1 previously documented assessment. Patient is alert, oriented x 3, equal unlabored respirations, skin warm/dry/pink. resting in bed talking with daughter Patient denies pain at this time. 17:00 Reassessment: Patient appears in no apparent distress at this time. No changes from tp1 previously documented assessment. Patient is alert, oriented x 3, equal unlabored respirations, skin warm/dry/pink. Patient denies pain at this time. 18:00 Reassessment: Patient appears in no apparent distress at this time. No changes from tp1 previously documented assessment. Patient is alert, oriented x 3, equal unlabored respirations, skin warm/dry/pink. resting in bed talking with daughter Patient denies pain at this time. 20:30 Reassessment: No changes from previously documented assessment. Patient is alert, ll3 oriented x 3, equal unlabored respirations, skin warm/dry/pink. Vital Signs: 14:03 BP 157 / 79; Pulse 66; Resp 12; Temp 97.4; Pulse Ox 99% on R/A; Weight 66.68 kg; Height tp1 4 ft. 11 in. (149.86 cm); Pain 2/10; 14:30 BP 150 / 81; Pulse 66; Resp 17; Pulse Ox 98% on R/A; vg1 15:00 BP 138 / 75; Pulse 66; Resp 17; Pulse Ox 98% on R/A; vg1 15:30 BP 133 / 92; Pulse 71; Resp 12; Pulse Ox 100% on R/A; vg1 16:30 BP 135 / 90; Pulse 68; Resp 16; Pulse Ox 100% on R/A; tp1 17:30 BP 108 / 78; Pulse 82; Resp 16; Pulse Ox 98% on R/A; tp1 20:30 BP 139 / 73; Pulse 72; Resp 14; Pulse Ox 99% on R/A; ll3 14:03 Body Mass Index 29.69 (66.68 kg, 149.86 cm) tp1 Edgardo Coma Score: 14:05 Eye Response: spontaneous(4). Verbal Response: oriented(5). Motor Response: obeys vg1 commands(6). Total: 15. 14:30 Eye Response: spontaneous(4). Verbal Response: oriented(5). Motor Response: obeys vg1 commands(6). Total: 15. 15:00 Eye Response: spontaneous(4). Verbal Response: oriented(5). Motor Response: obeys vg1 commands(6). Total: 15. 15:30 Eye Response: spontaneous(4). Verbal Response: oriented(5). Motor Response: obeys vg1 commands(6). Total: 15. 16:30 Eye Response: spontaneous(4). Verbal Response: oriented(5). Motor Response: obeys tp1 commands(6). Total: 15. 17:30 Eye Response: spontaneous(4). Verbal Response: oriented(5). Motor Response: obeys tp1 commands(6). Total: 15. 20:30 Eye Response: spontaneous(4). Verbal Response: oriented(5). Motor Response: obeys ll3 commands(6). Total: 15. Trauma Score (Adult): 14:05 Eye Response: spontaneous(1); Verbal Response: oriented(1); Motor Response: obeys vg1 commands(2); Systolic BP: > 89 mm Hg(4); Respiratory Rate: 10 to 29 per min(4); Edgardo Score: 15; Trauma Score: 12 ED Course: 14:05 Patient has correct armband on for positive identification. Bed in low position. Call vg1 light in reach. Side rails up X2. 14:05 Patient maintains SpO2 saturation greater than 95% on room air. vg1 14:12 Patient arrived in ED. eb 14:13 Dianne Tavarez, INDY is Primary Nurse. tp1 14:14 Estevan Covington DO is Attending Physician. ms3 14:17 Triage completed. tp1 15:31 CT Head C Spine In Process Unspecified. EDMS 15:41 XRAY Chest (1 view) In Process Unspecified. EDMS 15:41 Hand Right 3 View XRAY In Process Unspecified. EDMS 15:49 Initial lab(s) drawn, by ri, sent to lab. Inserted saline lock: 20 gauge in right vg1 antecubital area, using aseptic technique. Blood collected. 16:36 Shant Fernández MD is Hospitalizing Provider. ms3 22:34 No provider procedures requiring assistance completed. Patient admitted, IV remains in ll3 place. 22:36 Thermoregulation: warm blanket given to patient. ll3 Administered Medications: No medications were administered Medication: 22:36 VIS not applicable for this client. ll3 Outcome: 16:38 Decision to Hospitalize by Provider. ms3 22:34 Admitted to Med/surg accompanied by nurse, via wheelchair, room 201, with chart, Report ll3 called to INDY Spence 22:34 Condition: stable 22:34 Instructed on the need for admit, Demonstrated understanding of instructions. 22:36 Patient left the ED. ll3 Signatures: Dispatcher [employer] EDMS Kesha Martinez Victoria RN RN vg1 Estevan Covington DO DO ms3 Alessandra Wellington RN RN ll3 Dianne Tavarez, INDY RN tp1 Corrections: (The following items were deleted from the chart) 14:20 14:03 General: tp1 tp1 14:25 14:03 BP 157 / 79; Pulse 66bpm; Resp 12bpm; Pulse Ox 99% RA; Temp 97.4F; Pain 2/10; tp1 tp1 14:31 14:21 Home Meds: Xarelto oral; tp1 vg1 14:31 14:26 Home Meds: Eliquis 5 mg Oral tab 1 tab 2 times per day; vg1 vg1 15:56 15:34 BP 133 / 92; Pulse 71bpm; Resp 12bpm; Pulse Ox 100% RA; tp1 vg1 16:10 15:20 Reassessment: Patient appears in no apparent distress at this time. No changes tp1 from previously documented assessment. Patient is alert, oriented x 3, equal unlabored respirations, skin warm/dry/pink. Patient denies pain at this time. tp1 18:15 16:54 Reassessment: Patient appears in no apparent distress at this time. No changes tp1 from previously documented assessment. Patient is alert, oriented x 3, equal unlabored respirations, skin warm/dry/pink. Patient denies pain at this time. tp1
--- NOTE | 2022-02-03 16:38 | EDPHYS ---
Physician Documentation [facility] Name: Kat Diane Age: 81 yrs Sex: Female : 1940 Arrival Date: 02/03/2022 Time: 14:12 Bed 6 Private MD: ED Physician Estevan Covington HPI: 02/03 14:17 This 81 yrs old Female presents to ER via Unassigned with complaints of Fall ms3 Injury. 14:17 81-year-old female presents via [facility] status post fall just prior to ms3 arrival. Patient states she was not feeling well when she woke up this morning, she made breakfast, then went back to bed. Patient states that she was walking to her living room she fell down and possibly had a brief loss of consciousness. Patient states she is currently on Xarelto. Patient denies pain at this time. Patient denies any alleviating or inciting factors.. Historical: - Allergies: 14:21 No Known Allergies; tp1 - Home Meds: 14:21 amlodipine 5 mg tab 1 tab once daily [Active]; folic acid 1 mg Oral tab 1 tab once tp1 daily [Active]; atorvastatin 20 mg Oral tab 1 tab once daily [Active]; 14:26 folic acid 1 mg Oral tab [Active]; Xarelto 20 mg oral tab [Active]; amlodipine 5 mg tab vg1 [Active]; carvedilol 12.5 mg oral tab [Active]; Centrum Silver oral [Active]; Caltrate 600 plus D oral [Active]; Vitamin D3 oral [Active]; - PMHx: 14:21 CVA; Hyperlipidemia; Hypertension; Atrial fibrillation; tp1 - Immunization history:: Client reports receiving the 2nd dose of the Covid vaccine. - Social history:: Smoking status: Patient denies any tobacco usage or history of. - Immunization history: Last tetanus immunization: unknown. ROS: 14:17 Constitutional: Negative for fever, and chills. Neck: Negative for injury, pain, and ms3 swelling, Cardiovascular: Negative for chest pain, and palpitations. Respiratory: Negative for shortness of breath, cough, wheezing, and pleuritic chest pain, Abdomen/GI: Negative for abdominal pain, nausea, vomiting, diarrhea, and constipation, MS/Extremity: Negative for injury and deformity, Skin: Negative for injury, rash, and discoloration, Neuro: Negative for headache, weakness, numbness, tingling. 14:17 All other systems are negative. Exam: 14:16 ECG was reviewed by the Attending Physician. ms3 14:17 Constitutional: This is a well developed, well nourished patient who is awake, alert, ms3 and in no acute distress. 14:17 Chest/axilla: Normal chest wall appearance and motion. Nontender with no deformity. Cardiovascular: Regular rate and rhythm with a normal S1 and S2. No gallops, murmurs, or rubs. Normal PMI, no JVD. No pulse deficits. Respiratory: Lungs have equal breath sounds bilaterally, clear to auscultation and percussion. No rales, rhonchi or wheezes noted. No increased work of breathing, no retractions or nasal flaring. Abdomen/GI: Soft, non-tender, with normal bowel sounds. No distension or tympany. No guarding or rebound. No evidence of tenderness throughout. Skin: Warm, dry with normal turgor. Normal color with no rashes, no lesions, and no evidence of cellulitis. MS/ Extremity: Pulses equal, no cyanosis. Neurovascular intact. Full, normal range of motion. Psych: Awake, alert, with orientation to person, place and time. Behavior, mood, and affect are within normal limits. 14:17 Head/face: Noted is abrasion(s), that are mild, of the right cheek and chin, ecchymosis, that is mild, of the right cheek. Vital Signs: 14:03 BP 157 / 79; Pulse 66; Resp 12; Temp 97.4; Pulse Ox 99% on R/A; Weight 66.68 kg; Height tp1 4 ft. 11 in. (149.86 cm); Pain 2/10; 14:30 BP 150 / 81; Pulse 66; Resp 17; Pulse Ox 98% on R/A; vg1 15:00 BP 138 / 75; Pulse 66; Resp 17; Pulse Ox 98% on R/A; vg1 15:30 BP 133 / 92; Pulse 71; Resp 12; Pulse Ox 100% on R/A; vg1 16:30 BP 135 / 90; Pulse 68; Resp 16; Pulse Ox 100% on R/A; tp1 17:30 BP 108 / 78; Pulse 82; Resp 16; Pulse Ox 98% on R/A; tp1 20:30 BP 139 / 73; Pulse 72; Resp 14; Pulse Ox 99% on R/A; ll3 14:03 Body Mass Index 29.69 (66.68 kg, 149.86 cm) tp1 Heppner Coma Score: 14:05 Eye Response: spontaneous(4). Verbal Response: oriented(5). Motor Response: obeys vg1 commands(6). Total: 15. 14:30 Eye Response: spontaneous(4). Verbal Response: oriented(5). Motor Response: obeys vg1 commands(6). Total: 15. 15:00 Eye Response: spontaneous(4). Verbal Response: oriented(5). Motor Response: obeys vg1 commands(6). Total: 15. 15:30 Eye Response: spontaneous(4). Verbal Response: oriented(5). Motor Response: obeys vg1 commands(6). Total: 15. 16:30 Eye Response: spontaneous(4). Verbal Response: oriented(5). Motor Response: obeys tp1 commands(6). Total: 15. 17:30 Eye Response: spontaneous(4). Verbal Response: oriented(5). Motor Response: obeys tp1 commands(6). Total: 15. 20:30 Eye Response: spontaneous(4). Verbal Response: oriented(5). Motor Response: obeys ll3 commands(6). Total: 15. Trauma Score (Adult): 14:05 Eye Response: spontaneous(1); Verbal Response: oriented(1); Motor Response: obeys vg1 commands(2); Systolic BP: > 89 mm Hg(4); Respiratory Rate: 10 to 29 per min(4); Edgardo Score: 15; Trauma Score: 12 MDM: 14:14 Patient medically screened. ms3 14:17 Differential diagnosis: abrasion, closed head injury, contusion, fracture. ms3 16:58 Data reviewed: vital signs, nurses notes, lab test result(s), EKG, radiologic studies, ms3 CT scan, plain films, and as a result, I will admit patient. Data interpreted: playground monitor: rate is 66 beats/min, rhythm is normal sinus rhythm, regular, with no ectopy, Interpretation: normal rate, normal rhythm. Counseling: I had a detailed discussion with the patient and/or guardian regarding: the historical points, exam findings, and any diagnostic results supporting the discharge/admit diagnosis, lab results, radiology results, the need for further work-up and treatment in the hospital. ED course: Discussed need for observation with patient. Patient understands agrees with plan. All questions were answered. Discussed case with Dr. Fernández and he accepts patient as observation. 02/03 14:44 Order name: Basic Metabolic Panel; Complete Time: 16:29 ms3 02/03 14:44 Order name: CBC with Diff; Complete Time: 16:29 ms3 02/03 14:44 Order name: Troponin HS; Complete Time: 16:29 ms3 02/03 18:28 Order name: SARS-COV-2 RT PCR (Document "Date of Onset" if Symptomatic) ms3 02/03 19:59 Order name: SARS-COV-2 RT PCR; Complete Time: 20:58 EDMS 02/03 22:20 Order name: Troponin High Sensitivity EDMS 02/03 14:44 Order name: CT Head C Spine; Complete Time: 16:06 ms3 02/03 14:44 Order name: XRAY Chest (1 view); Complete Time: 16:06 ms3 02/03 14:44 Order name: EKG; Complete Time: 14:46 ms3 02/03 14:44 Order name: Cardiac monitoring; Complete Time: 15:16 ms3 02/03 14:44 Order name: EKG - Nurse/Tech; Complete Time: 15:16 ms3 02/03 14:44 Order name: IV Saline Lock; Complete Time: 15:53 ms3 02/03 14:44 Order name: Hand Right 3 View XRAY; Complete Time: 16:06 ms3 02/03 20:33 Order name: CT; Complete Time: 20:58 EDMS 02/03 14:44 Order name: Labs collected and sent; Complete Time: 15:53 ms3 02/03 14:44 Order name: O2 Per Protocol; Complete Time: 15:16 ms3 02/03 14:44 Order name: O2 Sat Monitoring; Complete Time: 15:16 ms3 EC:16 Rate is 68 beats/min. Rhythm is regular. QRS [place] is Normal. [place] interval is normal. ms3 Clinical impression: Normal ECG. Interpreted by me. Reviewed by me. Administered Medications: No medications were administered Disposition Summary: 02/03/22 16:38 Hospitalization Ordered Hospitalization Status: Observation ms3 Provider: Shant Fernández ms3 Location: Telemetry/MedSurg (observation) ms3 Condition: Stable ms3 Problem: new ms3 Symptoms: are unchanged ms3 Bed/Room Type: Standard ms3 Room Assignment: 201(02/03/22 20:23) cg Diagnosis - Syncope ms3 - contusion ms3 - finger fracture ms3 Forms: - Medication Reconciliation Form ms3 - SBAR form ms3 Signatures: Dispatcher [employer] EDMS Varinder Friedman, CLIFF-[employer]UG BOAT CAPTAIN-Aries1 Archana Peoples RN RN cg Adriane Peoples RN RN vg1 Estevan Covington DO DO ms3 Alessandra Wellington RN RN ll3 Dianne Tavraez RN RN tp1 Corrections: (The following items were deleted from the chart) 14: 14:21 Home Meds: Xarelto oral; tp1 vg1 14: 14:26 Home Meds: Eliquis 5 mg Oral tab 1 tab 2 times per day; vg1 vg1 20:23 16:38 ms3 cg
--- NOTE | 2022-02-03 18:26 | P.HP ---
Certification for Inpatient Patient admitted to: Observation With expected LOS: <2 Midnights Patient will require the following post-hospital care: None Practitioner: I am a practitioner with admitting privileges, knowledge of patient current condition, hospital course, and medical plan of care. Services: Services provided to patient in accordance with Admission requirements found in Title 42 Section 412.3 of the Code of Federal Regulations Patient History Date of Service: 02/03/22 Reason for admission: Syncope History of Present Illness: Ms. Kat Diane is a pleasant 81 year old female who has a past medical history of atrial fibrillation, prior strokes without residual deficits, hypertension, and hyperlipidemia who presents to the [facility] Emergency Department for syncope. She reports that, this morning around 13:00, while walking in her living room, she had a sudden episode of syncope. Per her daughter, who was in the home when this occurred, she was conscious for several seconds. She states that the episode was preceded by dizziness and that she did not experience a postictal period. She denies any obvious inciting or alleviating factors. She states this happened several months ago, and she had a unremarkable evaluation. She has not tried take any medications for symptoms. She denies any recent changes in her medications. On review of systems, she denies any fevers, chills, headaches, weakness, chest pain, palpitations, shortness of breath, wheezing, cough, abdominal pain, nausea/vomiting, diarrhea, constipation, hematochezia, melena, dysuria, hematuria, myalgia, or any other symptoms. She presented to the Emergency Department for further evaluation. Upon presentation, her vital signs were stable. Her laboratory studies were relatively unremarkable. EKG revealed normal sinus rhythm without STEMI criteria. Chest x-ray revealed, "no acute cardiopulmonary process." Right hand x-ray revealed, "oblique fracture is seen through the dorsal side base of the fourth distal phalanx. No significant distraction or angulation deformity." CT head/cervical spine revealed, "negative CT head examination for acute or significant finding. Negative CT cervical spine examination for acute or significant finding." She was admitted to the General Internal Medicine service for further evaluation. Allergies No Known Drug Allergies Allergy (Verified 06/12/20 20:44) Unknown Home medications list reviewed: Yes Home Medications: Carvedilol 12.5 tab PO BID 01/19/15 Folic Acid 1 mg PO DAILY #30 tablet 01/20/15 Atorvastatin Calcium [Lipitor*] 40 mg PO BEDTIME tab 06/17/20 Amlodipine [Norvasc] 5 mg PO DAILY 02/03/22 - Past Medical/Surgical History Diabetic: No -: HTN -: hyperlipidemia -: h/o shingles right side of face -: Osteoporosis -: history of CVA -: left wrist sx -: varicose vein surgery bilateral legs -: hernia repair - Family History Family History: Reviewed- Non-Contributory - Family History Mother -: Cancer Notes: stomach cancer Father -: Stroke - Social History Smoking Status: Never smoker Alcohol use: No CD- Drugs: No Caffeine use: Yes Review of Systems 10-point ROS is otherwise unremarkable General: Unremarkable Eyes: Unremarkable ENT: Unremarkable Respiratory: Unremarkable Cardiovascular: Unremarkable Gastrointestinal: Unremarkable Genitourinary: Unremarkable Musculoskeletal: Unremarkable Integumentary: Unremarkable Neurological: Other (syncope, dizziness) Lymphatics: Unremarkable Physical Examination - Vital Signs Temperature: 97.4 F Blood Pressure: 133/92 Pulse: 71 Respirations: 12 Pulse Ox (%): 100 - Physical Exam General: Alert, In no apparent distress, Oriented x3 HEENT: PERRLA, Mucous membr. moist/pink, Other (Right periorbital ecchymosis noted), EOMI, Sclerae nonicteric Neck: Supple, JVD not distended Respiratory: Clear to auscultation bilaterally, Normal air movement Cardiovascular: No edema, Normal pulses, Regular rate/rhythm, No gallops, No rubs, No murmurs Gastrointestinal: Normal bowel sounds, Soft and benign, Non-distended, No tenderness, No rebound, No guarding Musculoskeletal: No clubbing Integumentary: No rashes Neurological: Normal speech, Normal strength at 5/5 x4 extr, Normal tone, Sensation intact, Cranial nerves 3-12 intact, Normal reflexes 2+, Normal affect - Studies Laboratory Data (last 24 hrs) 02/03/22 15:49: WBC 4.90, Hgb 15.9 H, Hct 47.2 H, Plt Count 197 02/03/22 15:49: Sodium 140, Potassium 4.0, BUN 27 H, Creatinine 1.28, Glucose 109 H Assessment and Plan - Plan NIH Stroke Scale 1a. Level of consciousness: 0 - Alert; keenly responsive 1b. LOC questions: 0 - Both questions right 1c. LOC commands: 0 - Performs both tasks 2. Best Gaze: 0 - Normal 3. Visual: 0 - No visual loss 4. Facial Palsy: 0 - Normal symmetry 5a. Motor left arm: 0 - No drift for 10 seconds 5b. Motor right arm: 0 - No drift for 10 seconds 6a. Motor left le - No drift for 5 seconds 6b. Motor right le - No drift for 5 seconds 7. Limb ataxia: 0 - No ataxia 8. Sensory: 0 - Normal; no sensory loss 9. Best Language: 0 - Normal; no aphasia 10. Dysarthria: 0 - Normal 11. Extinction and Inattention: 0 - No abnormality 12. Distal motor function: 0 - No abnormality Total Score: 0 # Syncope # Traumatic Ground-Level Fall with Right Fourth Distal Phalynx Oblique Fracture Differential diagnoses include, but are not limited to, vasovagal syncope, orthostatic hypotension, cardiac etiology (i.e. arrhythmia, valvulopathy), and neurogenic etiologies (i.e. cerebrovascular accident, seizure). We will initiate further evaluation as outlined below: - Orthostatic vital signs Telemetry - EKG, serial troponin - first was 24.9 - Transthoracic echocardiogram - Chest x-ray revealed, "no acute cardiopulmonary process." - CT head/cervical spine = "negative CT head examination for acute or significant finding. Negative CT cervical spine examination for acute or significant finding." - Right hand x-ray = "oblique fracture is seen through the dorsal side base of the fourth distal phalanx. No significant distraction or angulation deformity." - CT maxillofacial = pending - Optimize pain control # History of Atrial Fibrillation on Rivaroxaban - Currently in normal sinus rhythm - Hold home carvedilol given fall - Hold home rivaroxaban pending CT maxillofacial (last dose was 02/03/2022 in the morning) # History of Cerebrovascular Accident # Hypertension # Dyslipidemia - NIHSS = 0 - Continue home atorvastatin, folic acid - Hold home carvedilol, amlodipine given syncope and concern for orthostatic hypotension # Osteoporosis - Continue home calcium + vitamin D Shant Fernández M.D. - Advance Directives Does patient have a Living Will: No Does patient have a Durable POA for Healthcare: No
--- NOTE | 2022-02-03 20:33 | RAD REPORT ---
EXAM DESCRIPTION: CT - Maxillofacial Wo Con - 02/03/2022 8:19 pm CLINICAL HISTORY: Fall, facial trauma COMPARISON: None. TECHNIQUE: Axial 2 millimeter thick images of the facial bones were obtained with sagittal and coron al reconstruction imaging. All CT scans are performed using dose optimization technique as appropriate and may include automated exposure control or mA/KV adjustment according to patient size. FINDINGS: No facial bone fracture identified. Left deviation of the anterior nasal septum present wi thout fracture. Paranasal sinuses are clear. The mastoid air cells are clear. No globe or orbital con tent abnormality. Contusion and edema changes are seen in the subcutaneous fatty tissues lateral to the right-side sol ible. No air or foreign body seen. Condyles of the mandible are normally positioned. Mandible is inta ct. IMPRESSION: Contusion and edema changes in the soft tissues right-side of face. No facial bone fracture.
[2022-02-03] MEDS ORDERED: ATORVASTATIN 40 MG TAB PO SCH (21:00)
[2022-02-04 02:07] VITALS: BMI 28.6
[2022-02-04] MEDS: HYDROCODONE/APAP 5/325 MG TAB PO PRN ×2 (02:55→11:50)
[2022-02-04 03:00] LABS: Absolute Lymphocytes (CBC) 1.8 K/uL (0.7-4.9); Lymphocytes % 28.4 % (15.3-44.8); MCV 90.7 fL (80-100); MPV 7.2 fL (7.6-11.3); RBC Red Blood Cell Count 4.52 M/uL (3.86-4.86)
[2022-02-04 03:04] LABS: Magnesium 2.2 mg/dL (1.8-2.4); Phosphorus 3.3 mg/dL (2.5-4.9); Potassium 4.2 mmol/L (3.5-5.1)
[2022-02-04] MEDS ORDERED: FOLIC ACID 1 MG TABLET PO SCH (09:00)
[2022-02-04 11:44] VITALS: TEMP 97.6
--- NOTE | 2022-02-04 14:53 | ECHO ---
HEIGHT: 5 ft 0 in WEIGHT: 146 lb 13.246 oz DATE OF STUDY: 02/04/[address]: Shant Fernández MD 2-DIMENSIONAL: YES M.MODE: YES DOPPLER: YES COLOR FLOW: YES TDS: YES PORTABLE: YES DEFINITY: BUBBLE STUDY: DIAGNOSIS: SYNCOPE CARDIAC HISTORY: CATHERIZATION: NO SURGERY: NO PROSTHETIC VALVE: NO PACEMAKER: NO MEASUREMENTS (cm) DIASTOLIC (NORMALS) SYSTOLIC (NORMALS) IVSd 1.1 (0.6-1.2) LA Diam (1.9-4.0) LVEF % LVIDd 3.1 (3.5-5.7) LVIDs 2.0 (2.0-3.5) %FS 34% LVPWd 1.1 (0.6-1.2) Ao Diam 2.1 (2.0-3.7) 2 DIMENSIONAL ASSESSMENT: POOR WINDOWS RIGHT ATRIUM: LEFT ATRIUM: RIGHT VENTRICLE: LEFT VENTRICLE: TRICUSPID VALVE: MITRAL VALVE: PULMONIC VALVE: AORTIC VALVE: PERICARDIAL EFFUSION: AORTIC ROOT: LEFT VENTRICULAR WALL MOTION: DOPPLER/COLOR FLOW: COMMENTS: VERY LIMITED WINDOWS. LEFT VENTRICULAR EJECTION FRACTION APPEARS NORMAL BUT ASSESTMENT IS NOT RELIABLE DUE TO POOR WINDOWS. TECHNOLOGIST: JORDAN CARDONA
--- NOTE | 2022-02-04 15:04 | P.DS ---
Discharge Date: 02/04/22 Disposition: DC HOME/HOME HEALTH CARE Discharge Condition: GOOD Reason for Admission: Syncope Brief History of Present Illness: Ms. Kat Diane is a pleasant 81 year old female who has a past medical history of atrial fibrillation, prior strokes without residual deficits, hypertension, and hyperlipidemia who presents to the [facility] Emergency Department for syncope. She reports that, this morning around 13:00, while walking in her living room, she had a sudden episode of syncope. Per her daughter, who was in the home when this occurred, she was conscious for several seconds. She states that the epis ode was preceded by dizziness and that she did not experience a postictal period. She denies any obvious inciting or alleviating factors. She states this happened several months ago, and she had a unremarkable evaluation. She has not tried take any medications for symptoms. She denies any recent changes in her medications. On review of systems, she denies any fevers, chills, headaches, weakness, chest pain, palpitations, shortness of breath, wheezing, cough, abdominal pain, nausea/vomiting, diarrhea, constipation, hematochezia, melena, dysuria, hematuria, myalgia, or any other symptoms. She presented to the Emergency Department for further evaluation. Upon presentation, her vital signs were stable. Her laboratory studies were relatively unremarkable. EKG revealed normal sinus rhythm without STEMI criteria. Chest x-ray revealed, "no acute cardiopulmonary process." Right hand x-ray revealed, "oblique fracture is seen through the dorsal side base of the fourth distal phalanx. No significant distraction or angulation deformity." CT head/cervical spine revealed, "negative CT head examination for acute or significant finding. Negative CT cervical spine examination for acute or significant finding." She was admitted to the General Internal Medicine service for further evaluation. Allergies Hospital Course: Patient is clinically doing well. Symptoms have improved. Patient has a lot of bruising. We will hold Xarelto for 48 hours. She can take a baby aspirin for the next couple of days. She can resume Xarelto in 3 days if no more swelling or bleeding. At this time, patient is stable for discharge with outpatient follow-up. Vital Signs/Physical Exam: Temp Pulse Resp BP Pulse Ox 97.6 F 65 18 156/76 H 96 02/04/22 11:43 02/04/22 11:43 02/04/22 12:49 02/04/22 11:43 02/04/22 12:49 General: Alert, In no apparent distress, Oriented x3 Laboratory Data at Discharge: WBC 6.50 K/uL (4.3-10.9) 02/04/22 02:28 Hgb 14.3 g/dL (12.0-15.0) D 02/04/22 02:28 Hct 41.0 % (36.0-45.0) 02/04/22 02:28 Plt Count 187 K/uL (152-406) 02/04/22 02:28 Sodium 143 mmol/L (136-145) 02/04/22 02:28 Potassium 4.2 mmol/L (3.5-5.1) 02/04/22 02:28 BUN 32 mg/dL (7-18) H 02/04/22 02:28 Creatinine 1.33 mg/dL (0.55-1.3) H 02/04/22 02:28 Glucose 98 mg/dL (74-106) 02/04/22 02:28 Phosphorus 3.3 mg/dL (2.5-4.9) 02/04/22 02:28 Magnesium 2.2 mg/dL (1.8-2.4) 02/04/22 02:28 Home Medications: Carvedilol 12.5 tab PO BID 01/19/15 Folic Acid 1 mg PO DAILY #30 tablet 01/20/15 Atorvastatin Calcium [Lipitor*] 40 mg PO BEDTIME tab 06/17/20 Amlodipine [Norvasc*] 5 mg PO DAILY 02/03/22 Hydrocodone 5/APAP 325 [[place] 5/325*] 1 tab PO Q6H PRN #20 tab 02/04/22 Rivaroxaban [Xarelto*] 15 mg PO DAILY AT SUPPER 02/04/22 New Medications: Hydrocodone 5/APAP 325 [[place] 5/325*] 1 tab PO Q6H PRN #20 tab PRN Reason: Pain Scale 5-7 (Moderate) Physician Discharge Instructions: -DC IV and DC home -Follow-up with PCP in 1 to 2 weeks -Follow-up with Cardiology in 1 to 2 weeks -Please call Dr. Obrien at [phone] if any questions regarding hospital stay -Please call nursing station at [phone] if any nursing or medication questions -Return to the emergency room if symptoms worsen Diet: AHA Activity: Fall precautions Followup: Chaim Livingston MD [Primary Care Provider] - Time spent managing pt's care (in minutes): 35
[2022-02-04] MEDS ORDERED: RIVAROXABAN 15 MG TABLET PO SCH (17:00)
[2022-02-04] MEDS ORDERED: RIVAROXABAN 10 MG TABLET PO SCH ×2 (17:00)
[2022-02-05 07:48] VITALS: BP 139/73; O2SAT 99
--- NOTE | 2022-02-06 06:41 | EKG ---
Test Date: 2022-02-03 Test Time: 14:06:44 Supply Chain Buyer: [employer] MEASUREMENT RESULTS: Intervals: Rate: 68 PA: 196 QRSD: 76 QT: 418 QTc: 444 [place]: P: 42 PA: 196 QRS: 16 T: 35 INTERPRETIVE STATEMENTS: Normal sinus rhythm Normal ECG Compared to ECG 10/04/2020 12:43:17 Atrial fibrillation no longer present Myocardial infarct finding no longer present Electronically Signed On 02-06-22 06:32:37 CDT by Jc Marks
== END 2022-02-04 16:22 | disposition home health service (06) ==
LOC: ER 14:10 → ERHOLD 18:21 → 2ND 20:33
PROVIDERS: ADMIT Internal Medicine; ATTEND Hospitalist
DX: R55 Syncope and collapse (principal); I48.11 Longstanding persistent atrial fibrillation; R29.700 NIHSS score 0; E78.5 Hyperlipidemia, unspecified; M81.0 Age-related osteoporosis without current pathological fracture; S62.634A Displaced fracture of distal phalanx of right ring finger, initial encounter for closed fracture; W18.30XA Fall on same level, unspecified, initial encounter; Y93.01 Activity, walking, marching and hiking; Y92.019 Unspecified place in single-family (private) house as the place of occurrence of the external cause; Z82.3 Family history of stroke; Z79.01 Long term (current) use of anticoagulants; Z20.822 Contact with and (suspected) exposure to COVID-19; Z86.73 Personal history of transient ischemic attack (TIA), and cerebral infarction without residual deficits
CPT/HCPCS: 93005; 93306; 85025 ×2; 80048 ×2; 36415; 83735; 84100; 84484 ×3; 70450; 72125; 70486; 71045; 73130; 99285; U0003; G0378 ×2

== ENCOUNTER 2022-07-20 17:46 | Observation (INO) | payer OTHER ==
--- OUTSIDE RECORDS SUMMARY | 2022-07-20 17:49 | XMS REPORT | Continuity of Care Document ---
:1940 Author Organization [facility] t Address [address] [place] [address] Care Team Providers Name Role Phone Franck Salas Attending Clinician Unavailable Franck Salas Admitting Clinician Unavailable Payers Payer Name Policy Type Policy Number Effective Date Expiration Date S ource Problems This patient has no known problems. Allergies, Adverse Reactions, Alerts This patient has no known allergies or adverse reactions. Medications This patient has no known medications. Procedures This patient has no known procedures. Encounters Start End Encounter Admission Attending Care Care Encounter Source Date/Time Date/Time Type Type Clinicians Facility Department ID 2022-05-10 Inpatient CECILIA Capone CARD [id number] [facility] 09:30:[address] [place] [address] Results This patient has no known results.
[2022-07-20 18:50] LABS: Absolute Lymphocytes (CBC) 1.3 K/uL (0.7-4.9); MCV 92.1 fL (80-100); RBC Red Blood Cell Count 4.01 M/uL (3.86-4.86)
[2022-07-20 18:53] LABS: Protime INR 2.13
--- NOTE | 2022-07-20 19:00 | RAD REPORT ---
EXAM DESCRIPTION: CT - Head C Spine Cap W Con - 07/20/2022 6:29 pm CLINICAL HISTORY: TRAUMA COMPARISON: Maxillofacial Wo Con dated 02/03/2022; Head C Spine Mpr Wo Con dated 02/03/2022; Thorax Wo Con dated 10/30/2017 TECHNIQUE: Head and cervical spine CT images were obtained without IV contrast. Chest, abdomen, and pelvis CT images were obtained following intravenous administration of 90 mL Isovue-300. Multiplanar reformats were generated and reviewed. All CT scans are performed using dose optimization technique as appropriate and may include automated exposure control or mA/KV adjustment according to patient size. FINDINGS: CT HEAD: No intracranial hemorrhage, mass effect, or edema. No evidence of acute territorial infarct. Stable l eft frontal operculum and left superior cerebellar areas of encephalomalacia suggestive of remote isc hemia. Intracranial atherosclerotic calcifications limit evaluation for hyperdense vessel signs. No m idline shift or abnormal fluid collection. The ventricles are normal in caliber and configuration for age. Basal cisterns are patent. Mastoid aircells and paranasal sinuses are clear. No acute skull fra cture. CT CERVICAL SPINE: No acute cervical spine fracture or subluxation. Vertebral body heights are well maintained. Facet galen ints are normal in alignment. No hyperattenuating canal hematoma. Prevertebral and paraspinous soft t issues are unremarkable. CT CHEST: No pneumothorax, pulmonary contusion, or laceration. Bibasilar subsegmental atelectasis. Small bilate ral layering pleural effusions 6 millimeter anterior left apical nodule appears stable compared to th e prior CT of the chest. No mediastinal hematoma and the aorta and pulmonary arteries are unremarkabl e. No chest will mass or abnormal axillary finding. No displaced rib fracture or other significant kylah ny finding. CT ABDOMEN/ PELVIS: No evidence of traumatic injury to solid abdominal viscera. Gallbladder and biliary tree are unremark able. No bowel injury or significant finding. Colonic diverticulosis. Numerous hepatic and left renal fluid density cysts. No free air, free fluid or abnormal fat stranding. No urinary bladder abnormali ty. No significant bony finding. IMPRESSION: No acute traumatic head or cervical spine finding. No acute traumatic CT Chest finding. Bilateral small layering pleural effusions. No acute traumatic findings in the abdomen and pelvis. Incidental findings as above.
[2022-07-20 19:10] LABS: Potassium 3.8 mmol/L (3.5-5.1); Troponin High Sensitivity 17.2 pg/mL (<58.9)
--- NOTE | 2022-07-20 23:19 | EDPHYS ---
Physician Documentation [facility] Name: Kat Diane Age: 82 yrs Sex: Female : 1940 Arrival Date: 07/20/2022 Time: 17:56 Bed 8 Private MD: ED Physician Haseeb Chandler HPI: 07/20 18:17 This 82 yrs old Female presents to ER via EMS with complaints of Syncope. sp3 18:17 82-year-old female with a history of atrial fibrillation on Xarelto, prior CVA, sp3 hyperlipidemia, hypertension presents to the ED with chief complaint for syncopal episode unwitnessed in the restroom with subsequent ground-level fall with head injury. Currently patient has no complaints and states no pain. EMS, family member states that she was perseverating and asking repetitive questions. On direct questioning, patient denies headache, neck pain, chest pain, shortness of breath, abdominal pain, nausea, vomiting, diarrhea, rash, numbness or tingling, or any other aspect of ROS at this time.. Historical: - Allergies: 17:59 No Known Allergies; vg1 - Home Meds: 17:59 Xarelto 20 mg Oral tab [Active]; vg1 - PMHx: 17:59 Atrial fibrillation; CVA; Hyperlipidemia; Hypertension; vg1 - Immunization history:: Client reports receiving the 2nd dose of the Covid vaccine. - Social history:: Smoking status: Patient denies any tobacco usage or history of. ROS: 18:19 Constitutional: Negative for fever, chills, and weight loss, Eyes: Negative for injury, sp3 pain, redness, and discharge, ENT: Negative for injury, pain, and discharge, Neck: Negative for injury, pain, and swelling, Respiratory: Negative for shortness of breath, cough, wheezing, and pleuritic chest pain, Back: Negative for injury and pain, : Negative for injury, bleeding, discharge, and swelling, MS/Extremity: Negative for injury and deformity, Skin: Negative for injury, rash, and discoloration, Neuro: Negative for headache, weakness, numbness, tingling, and seizure, Psych: Negative for depression, anxiety, suicide ideation, homicidal ideation, and hallucinations, Allergy/Immunology: Negative for hives, rash, and allergies. 18:19 All other systems are negative. Exam: 18:19 Constitutional: This is a well developed, well nourished patient who is awake, alert, sp3 and in no acute distress. Head/Face: Normocephalic, atraumatic. Eyes: Pupils equal round and reactive to light, extra-ocular motions intact. Lids and lashes normal. Conjunctiva and sclera are non-icteric and not injected. Cornea within normal limits. Periorbital areas with no swelling, redness, or edema. ENT: Nares patent. No nasal discharge, no septal abnormalities noted. External auditory canals are clear. Oropharynx with no redness, swelling, or masses, exudates, or evidence of obstruction, uvula midline. Mucous membranes moist. Neck: Trachea midline, no thyromegaly or masses palpated, and no cervical lymphadenopathy. Supple, full range of motion without nuchal rigidity, or vertebral point tenderness. No Meningismus. Chest/axilla: Normal chest wall appearance and motion. Nontender with no deformity. No lesions are appreciated. Cardiovascular: Regular rate and rhythm with a normal S1 and S2. No gallops, murmurs, or rubs. Normal PMI, no JVD. No pulse deficits. Respiratory: Lungs have equal breath sounds bilaterally, clear to auscultation and percussion. No rales, rhonchi or wheezes noted. No increased work of breathing, no retractions or nasal flaring. Abdomen/GI: Soft, non-tender, with normal bowel sounds. No distension or tympany. No guarding or rebound. No evidence of tenderness throughout. Back: No spinal tenderness. No costovertebral tenderness. Full range of motion. Skin: Warm, dry with normal turgor. Normal color with no rashes, no lesions, and no evidence of cellulitis. MS/ Extremity: Pulses equal, no cyanosis. Neurovascular intact. Full, normal range of motion. Neuro: Awake and alert, GCS 15, oriented to person, place, time, and situation. Cranial nerves II-XII grossly intact. Motor strength 5/5 in all extremities. Sensory grossly intact. Cerebellar exam normal. Normal gait. Psych: Awake, alert, with orientation to person, place and time. Behavior, mood, and affect are within normal limits. 18:19 ECG was reviewed by the Attending Physician. EKG demonstrates normal sinus rhythm at 68 bpm with a first-degree AV block at 216 ms, normal QRS, normal axis, nonspecific inferior ST/T changes without evidence of acute ischemia. Vital Signs: 17:47 BP 139 / 80; Pulse 70; Resp 16; Temp 97.8(O); Pulse Ox 96% on R/A; Weight 69.4 kg; vg1 Height 4 ft. 11 in. (149.86 cm); Pain 0/10; 18:45 BP 131 / 54; Pulse 70; Resp 16; Pulse Ox 99% on R/A; vg1 19:45 BP 154 / 77; Pulse 71; Resp 17; Pulse Ox 99% ; mb9 20:45 BP 150 / 79; Pulse 72; Resp 16; Pulse Ox 99% ; mb9 21:45 BP 146 / 73; Pulse 74; Resp 17; Pulse Ox 99% ; mb9 22:45 BP 110 / 61; Pulse 73; Resp 16; Pulse Ox 97% ; mb9 17:47 Body Mass Index 30.90 (69.40 kg, 149.86 cm) vg1 Edgardo Coma Score: 17:47 Eye Response: spontaneous(4). Verbal Response: oriented(5). Motor Response: obeys vg1 commands(6). Total: 15. 18:45 Eye Response: spontaneous(4). Verbal Response: oriented(5). Motor Response: obeys vg1 commands(6). Total: 15. 20:45 Eye Response: spontaneous(4). Verbal Response: oriented(5). Motor Response: obeys mb9 commands(6). Total: 15. 21:45 Eye Response: spontaneous(4). Verbal Response: oriented(5). Motor Response: obeys mb9 commands(6). Total: 15. 22:45 Eye Response: spontaneous(4). Verbal Response: oriented(5). Motor Response: obeys mb9 commands(6). Total: 15. Trauma Score (Adult): 17:47 Eye Response: spontaneous(1); Verbal Response: oriented(1); Motor Response: obeys vg1 commands(2); Systolic BP: > 89 mm Hg(4); Respiratory Rate: 10 to 29 per min(4); Edgardo Score: 15; Trauma Score: 12 18:45 Eye Response: spontaneous(1); Verbal Response: oriented(1); Motor Response: obeys vg1 commands(2); Systolic BP: > 89 mm Hg(4); Respiratory Rate: 10 to 29 per min(4); Edgardo Score: 15; Trauma Score: 12 MDM: 18:00 Patient medically screened. sp3 18:20 Data reviewed: vital signs, nurses notes, lab test result(s), EKG, radiologic studies. sp3 ED course: 82-year-old with syncope and ground-level fall. CT traumagram of the head, C-spine, chest abdomen pelvis is pending. Laboratory values also pending. EKG is normal. Patient is already on Xarelto and therefore anticoagulated. I do not believe she had a stroke at this time. Will reassess after work-up is complete and disposition patient accordingly. States she was having a bowel movement when all of this occurred which may explain vasovagal syncope as etiology for her presentation.. 23:15 Differential Diagnosis: cardiac arrhythmia, cerebrovascular accident, emotional sp4 response, idiopathic syncope, pseudo seizure, seizure, transient ischemic attack, vasovagal episode, Acute syncope. Consideration of Admission/Observation Patient was admitted/placed on observation. Escalation of care including admission/observation considered. ED course: Patient has unremarkable CT today and unremarkable work-up overall. Patient was discussed with her primary MD and admitted for work-up of acute syncope and collapse, condition on admit is stable. 07/20 18:00 Order name: Basic Metabolic Panel 3 07/20 18:00 Order name: CBC with Diff 3 07/20 18:00 Order name: Type And Screen 3 07/20 18:00 Order name: CT Traumagram (Head C Spine CAP wo con) 3 07/20 18:00 Order name: Labs collected and sent; Complete Time: 18:43 3 07/20 18:00 Order name: Troponin High Sensitivity 3 07/20 18:00 Order name: EKG; Complete Time: 18:01 sp3 07/20 18:00 Order name: PT-INR 3 07/20 18:51 Order name: CBC with Automated Diff; Complete Time: 19:45 EDMS 07/20 18:53 Order name: Protime (+INR); Complete Time: 19:45 EDMS 07/20 19:01 Order name: CT; Complete Time: 19:45 EDMS 07/20 19:10 Order name: Basic Metabolic Panel; Complete Time: 19:45 EDMS 07/20 19:10 Order name: Troponin High Sensitivity; Complete Time: 19:45 EDMS 07/20 19:26 Order name: Type and Screen; Complete Time: 19:45 EDMS 07/21 01:30 Order name: Troponin High Sensitivity EDMS 07/21 03:03 Order name: CBC with Automated Diff EDMS 07/21 03:18 Order name: Basic Metabolic Panel EDMS 07/21 03:32 Order name: ABO/RH no charge EDMS 07/21 06:32 Order name: SARS RAPID eb 07/21 07:29 Order name: SARS-COV-2 Antigen Rapid EDMS Administered Medications: No medications were administered Point of Care Testing: Blood Glucose: 17:47 Blood Glucose: 170 mg/dL; vg1 Ranges: Critical Glucose Levels:Adult <50 mg/dl or >400 mg/dl <40 mg/dl or >180 mg/dl Disposition Summary: 07/20/22 23:18 Hospitalization Ordered Hospitalization Status: Observation sp4 Provider: Richy Canas sp4 Condition: Stable sp4 Problem: new sp4 Symptoms: have improved sp4 Bed/Room Type: Standard sp4 Location: Telemetry/MedSurg (observation)(07/21/22 12:28) eb Room Assignment: 428(07/21/22 12:28) eb Diagnosis - Syncope and collapse, acute fall, generalized weakness sp4 Forms: - Medication Reconciliation Form sp4 - SBAR form sp4 Signatures: Dispatcher [employer] Archana Carlin RN RN cg Botello, Elizabeth eb Garcia, Victoria, RN RN vg1 Michelle Brown MD MD sp3 Haseeb Chandler MD MD sp4 Corrections: (The following items were deleted from the chart) 23:20 23:18 Telemetry/MedSurg (observation) sp4 cg 23:20 23:18 sp4 cg 07/21 12:28 07/20 23:20 [facility] ER HOLD cg eb 07/21 12:28 07/20 23:20 ERHOLD- cg eb
--- NOTE | 2022-07-20 23:19 | ER ---
Nurse's Notes [facility] Name: Kat Diane Age: 82 yrs Sex: Female : 1940 Arrival Date: 07/20/2022 Time: 17:56 Bed 8 Private MD: Diagnosis: Syncope and collapse, acute fall, generalized weakness Presentation: 07/20 17:46 Mechanism of Injury: Fall from standing position. Trauma event details: Injury occurred vg1 in the [facility]. 17:47 Chief complaint: EMS states: Pt was walking to the restroom when had a sudden "black vg1 out" and was found on the floor by family. Family stated pt hit back of head and is on Xeralto. Pt denies pain or dizziness at this time. In route pt c/o nausea and was given 4 mg of Zofran IV. 17:47 Coronavirus screen: Vaccine status: Patient reports receiving the 2nd dose of the covid vg1 vaccine. Client denies travel out of the [place] in the last 14 days. Ebola Screen: Patient negative for fever greater than or equal to 101.5 degrees Fahrenheit, and additional compatible Ebola Virus Disease symptoms. Initial Sepsis Screen: Does the patient meet any 2 criteria? No. Patient's initial sepsis screen is negative. Does the patient have a suspected source of infection? No. Patient's initial sepsis screen is negative. Risk Assessment: Do you want to hurt yourself or someone else? Patient reports no desire to harm self or others. Onset of symptoms was July 20, 2022. Care prior to arrival: Medication(s) given: zofran 4 mg, IV initiated. 20 GA, in the left hand. 17:47 Method Of Arrival: EMS: [facility] vg1 17:47 Acuity: UMBERTO 2 vg1 Triage Assessment: 17:47 General: Appears in no apparent distress. comfortable, Behavior is calm, cooperative. vg1 Pain: Denies pain. EENT: No signs and/or symptoms were reported regarding the EENT system. Neuro: Level of Consciousness is awake, alert, obeys commands, Oriented to person, place, time, situation, Denies blurred vision dizziness, headache photophobia. Cardiovascular: Patient's skin is warm and dry. Respiratory: Airway is patent Respiratory effort is even, unlabored. GI: Patient currently denies vomiting. : No signs and/or symptoms were reported regarding the genitourinary system. Derm: Skin is pink, warm \\T\\ dry. Musculoskeletal: Circulation, motion, and sensation intact. Trauma Activation: Alert Physician: ED Physician; Name: ; Notified At: ; Arrived At: Physician: General Surgeon; Name: ; Notified At: ; Arrived At: Physician: Radiology; Name: ; Notified At: ; Arrived At: Physician: Respiratory; Name: ; Notified At: ; Arrived At: Physician: Lab; Name: ; Notified At: ; Arrived At: Historical: - Allergies: 17:59 No Known Allergies; vg1 - Home Meds: 17:59 Xarelto 20 mg Oral tab [Active]; vg1 - PMHx: 17:59 Atrial fibrillation; CVA; Hyperlipidemia; Hypertension; vg1 - Immunization history:: Client reports receiving the 2nd dose of the Covid vaccine. - Social history:: Smoking status: Patient denies any tobacco usage or history of. Screenin:47 [facility] ED Fall Risk Assessment (Adult) History of falling in the last 3 months, vg1 including since admission No falls in past 3 months (0 pts) Confusion or Disorientation No (0 pts) Intoxicated or Sedated No (0 pts) Impaired Gait No (0 pts) Mobility Assist Device Used No (0 pt) Altered Elimination No (0 pt) Score/Fall Risk Level 0 - 2 = Low Risk Oriented to surroundings, Maintained a safe environment, Educated pt \\T\\ family on fall prevention, incl call for assistance when getting out of bed, Assessed \\T\\ reinforced patient's understanding of fall precautions, Used ambulatory aids as needed (educated on \\T\\ assisted with). Abuse screen: Denies threats or abuse. Abuse screen: Denies injuries from another. Nutritional screening: No deficits noted. Tuberculosis screening: No symptoms or risk factors identified. Primary Survey: 17:47 NO uncontrolled hemorrhage observed. A: The client is awake and alert. The airway is vg1 patent. Breathing/Chest: Spontaneous respiratory effort, equal unlabored respirations, breath sounds clear bilaterally, regular pattern, symmetrical chest rise and fall. Circulation: No external hemorrhage present. Regular and strong central pulse, skin warm/dry/normal color. Disability Client is alert. Exposure/Environment: All clothing and personal items were removed. Forensic evidence collection is not deemed to be indicated at this time. Items placed in patient belonging bag. There is no evidence of uncontrolled external bleeding. No obvious injuries are noted at this time. A warming method has been applied: A warm blanket has been provided to the patient. 18:45 Reassessment Alertness and Airway: Awake and alert. The airway is patent. Breathing: vg1 Spontaneous respiratory effort, equal unlabored respirations, breath sounds clear bilaterally, regular pattern with symmetrical chest rise and fall. Circulation: No external hemorrhage noted. Regular and strong central pulse, skin warm/dry/normal color. Disability: Alert. Secondary Survey: 17:47 HEENT: No deficits noted. Gastrointestinal: No deficits noted. Abdomen is soft. : No vg1 deficits noted. Musculoskeletal: Circulation, motion, and sensation intact. Assessment: 17:50 Reassessment: SEE TRIAGE. vg1 17:55 Cardiovascular: Rhythm is atrial fibrillation. vg1 18:45 Reassessment: Patient appears in no apparent distress at this time. No changes from vg1 previously documented assessment. Patient and/or family updated on plan of care and expected duration. Pain level reassessed. Patient is alert, oriented x 3, equal unlabored respirations, skin warm/dry/pink. 20:45 Reassessment: No changes from previously documented assessment. Patient and/or family mb9 updated on plan of care and expected duration. Pain level reassessed. Patient is alert, oriented x 3, equal unlabored respirations, skin warm/dry/pink. 21:45 Reassessment: No changes from previously documented assessment. Patient and/or family mb9 updated on plan of care and expected duration. Pain level reassessed. Patient is alert, oriented x 3, equal unlabored respirations, skin warm/dry/pink. 22:45 Reassessment: No changes from previously documented assessment. Patient and/or family mb9 updated on plan of care and expected duration. Pain level reassessed. Patient is alert, oriented x 3, equal unlabored respirations, skin warm/dry/pink. Vital Signs: 17:47 BP 139 / 80; Pulse 70; Resp 16; Temp 97.8(O); Pulse Ox 96% on R/A; Weight 69.4 kg; vg1 Height 4 ft. 11 in. (149.86 cm); Pain 0/10; 18:45 BP 131 / 54; Pulse 70; Resp 16; Pulse Ox 99% on R/A; vg1 19:45 BP 154 / 77; Pulse 71; Resp 17; Pulse Ox 99% ; mb9 20:45 BP 150 / 79; Pulse 72; Resp 16; Pulse Ox 99% ; mb9 21:45 BP 146 / 73; Pulse 74; Resp 17; Pulse Ox 99% ; mb9 22:45 BP 110 / 61; Pulse 73; Resp 16; Pulse Ox 97% ; mb9 17:47 Body Mass Index 30.90 (69.40 kg, 149.86 cm) vg1 Edgardo Coma Score: 17:47 Eye Response: spontaneous(4). Verbal Response: oriented(5). Motor Response: obeys vg1 commands(6). Total: 15. 18:45 Eye Response: spontaneous(4). Verbal Response: oriented(5). Motor Response: obeys vg1 commands(6). Total: 15. 20:45 Eye Response: spontaneous(4). Verbal Response: oriented(5). Motor Response: obeys mb9 commands(6). Total: 15. 21:45 Eye Response: spontaneous(4). Verbal Response: oriented(5). Motor Response: obeys mb9 commands(6). Total: 15. 22:45 Eye Response: spontaneous(4). Verbal Response: oriented(5). Motor Response: obeys mb9 commands(6). Total: 15. Trauma Score (Adult): 17:47 Eye Response: spontaneous(1); Verbal Response: oriented(1); Motor Response: obeys vg1 commands(2); Systolic BP: > 89 mm Hg(4); Respiratory Rate: 10 to 29 per min(4); [place] Score: 15; Trauma Score: 12 18:45 Eye Response: spontaneous(1); Verbal Response: oriented(1); Motor Response: obeys vg1 commands(2); Systolic BP: > 89 mm Hg(4); Respiratory Rate: 10 to 29 per min(4); [place] Score: 15; Trauma Score: 12 ED Course: 17:47 Arm band placed on. vg1 17:47 Patient has correct armband on for positive identification. Placed in gown. Bed in low vg1 position. Call light in reach. Side rails up X2. Adult w/ patient. Client placed on continuous cardiac and pulse oximetry monitoring. NIBP monitoring applied. 17:47 Patient maintains SpO2 saturation greater than 95% on room air. vg1 17:47 Thermoregulation: warm blanket given to patient. vg1 17:55 Inserted saline lock: 20 gauge in left antecubital area, using aseptic technique. vg1 ,using aseptic technique. completed by Ana Laura PUTNAM. 17:56 Patient arrived in ED. vg1 17:59 Michelle Brown MD is Attending Physician. sp3 17:59 Triage completed. vg1 18:03 Adriane Peoples RN is Primary Nurse. vg1 18:43 PT-INR Sent. vg1 18:43 Troponin High Sensitivity Sent. vg1 18:43 Basic Metabolic Panel Sent. vg1 18:43 CBC with Diff Sent. vg1 18:43 Type And Screen Sent. vg1 19:34 Primary Nurse role handed off by Adriane Peoples RN 20:16 Attending Physician role handed off by Michelle Brown MD sp4 20:16 Haseeb Chandler MD is Attending Physician. sp4 23:17 Richy Canas MD is Hospitalizing Provider. sp4 03 00:46 Rosalba Post RN is Primary Nurse. kd3 Administered Medications: No medications were administered Point of Care Testing: Blood Glucose: 03 17:47 Blood Glucose: 170 mg/dL; vg1 Ranges: Outcome: 23:18 Decision to Hospitalize by Provider. sp4 07/21 14:16 Patient left the ED. hb Signatures: Ines Fitzgerald RN RN Adriane Peoples RN RN vg1 Shantell Salazar Michelle Brown MD MD sp3 Rosalba Post RN RN kd3 Marisa Archer RN RN mb9 Haseeb Chandler MD MD sp4
[2022-07-20] MEDS ORDERED: ONDANSETRON 4 MG/2 ML VIAL IV PRN (23:29)
[2022-07-20] MEDS ORDERED: HYDROCODONE/APAP 5/325 MG TAB PO PRN (23:29)
[2022-07-20] MEDS ORDERED: ACETAMINOPHEN 500 MG TAB PO PRN (23:29)
[2022-07-20 23:31] VITALS: BMI 44.1
[2022-07-21 03:00] LABS: Absolute Lymphocytes (CBC) 1.8 K/uL (0.7-4.9); Hematocrit 36.8 % (36.0-45.0); Lymphocytes % 30.5 % (15.3-44.8); MCV 92.8 fL (80-100); MPV 8.1 fL (7.6-11.3); RBC Red Blood Cell Count 3.97 M/uL (3.86-4.86)
[2022-07-21 03:17] LABS: Potassium 3.9 mmol/L (3.5-5.1)
[2022-07-21] MEDS ORDERED: carvediloL 6.25 MG TAB PO SCH (06:00)
[2022-07-21] MEDS ORDERED: carvediloL 12.5 MG TAB PO SCH (06:00)
[2022-07-21 07:28] LABS: SARS-CoV-2 Antigen Rapid Res Negative (Negative)
[2022-07-21] MEDS ORDERED: ASPIRIN EC 81 MG TAB PO ONE (08:33)
[2022-07-21] MEDS ORDERED: carvediloL 6.25 MG TAB ONE (08:33)
[2022-07-21] MEDS ORDERED: AMLODIPINE 10 MG TAB ONE (08:34)
[2022-07-21] MEDS ORDERED: ASPIRIN EC 81 MG TAB PO SCH (09:00)
[2022-07-21] MEDS ORDERED: RIVAROXABAN 10 MG TABLET PO SCH (09:00)
[2022-07-21] MEDS ORDERED: AMLODIPINE 10 MG TAB PO SCH (09:00)
[2022-07-21] MEDS ORDERED: HYDROCODONE/APAP 5/325 MG TAB PO PRN (14:41)
[2022-07-21 14:47] VITALS: O2SAT 98
--- NOTE | 2022-07-21 15:15 | P.SSS ---
Patient History Date of Service: 07/21/22 Reason for admission: PASSED OUT IN BATHROOM History of Present Illness: SEVERO IS PATIENT WITH DM AND HTN. SHE HAS PASSED OUT 4 TIMES IN PAST. SHE IS A NEW PATIENT TO OUR PRACTICE. SHE IN BATHROOM WHILE STANDING GOT DIZZY AND PASSED OUT. SHE HAS NO CHEST PAIN. NO SEIZURES, NO INCONT OF URINE OR STOOL Allergies No Known Drug Allergies Allergy (Verified 06/12/20 20:44) Unknown Home Medications: Carvedilol 12.5 tab PO BID 01/19/15 Folic Acid 1 mg PO DAILY #30 tablet 01/20/15 Atorvastatin Calcium [Lipitor*] 40 mg PO BEDTIME tab 06/17/20 Amlodipine [Norvasc*] 5 mg PO DAILY 02/03/22 Hydrocodone 5/APAP 325 [[place] 5/325*] 1 tab PO Q6H PRN #20 tab 02/04/22 Rivaroxaban [Xarelto*] 15 mg PO DAILY AT SUPPER 02/04/22 pyRIDostigmine bromide [Mestinon*] 30 mg PO TID #90 07/21/22 - Past Medical/Surgical History Has patient received pneumonia vaccine in the past: Yes Diabetic: No -: HTN -: hyperlipidemia -: h/o shingles right side of face -: Osteoporosis -: history of CVA -: AFIB -: left wrist sx -: varicose vein surgery bilateral legs -: hernia repair - Family History Mother -: Cancer Notes: stomach cancer Father -: Stroke - Social History Smoking Status: Unknown if ever smoked Alcohol use: No CD- Drugs: No Caffeine use: Yes Review of Systems 10-point ROS is otherwise unremarkable General: Weakness Physical Examination - Vital Signs Temperature: 98.7 F Blood Pressure: 128/74 Pulse: 83 Respirations: 16 Pulse Ox (%): 98 - Physical Exam General: Alert, In no apparent distress HEENT: Atraumatic, PERRLA, Mucous membr. moist/pink, EOMI, Sclerae nonicteric Neck: Supple, 2+ carotid pulse no bruit, No LAD, Without JVD or thyroid abnormality Respiratory: Clear to auscultation bilaterally, Normal air movement Cardiovascular: Regular rate/rhythm, Normal S1 S2 Gastrointestinal: Normal bowel sounds, No tenderness Musculoskeletal: No tenderness Integumentary: No rashes Neurological: Normal gait, Normal speech, Normal strength at 5/5 x4 extr, Normal tone, Normal affect Lymphatics: No axilla or inguinal lymphadenopathy - Studies Laboratory Data (last 24 hrs) 07/20/22 18:40: PT 23.4 H, INR 2.13 07/20/22 18:40: WBC 4.00 L, Hgb 12.6, Hct 37.0, Plt Count 181 07/20/22 18:40: Sodium 137, Potassium 3.8, BUN 23 H, Creatinine 1.49 H, Glucose 109 H - Diagnosis (Problem(s)) (1) Orthostatic hypotension Current Visit: Yes Status: Acute Plan: THIS IS AN OLD ISSUE POSSIBLY FOR HER BUT UNDIAGNOSED. I WILL START HER ON PYRIDOSTIGMINE SHE HAS HTN AND CAN'T GET OFF MEDS. HER BP DROPS FROM 140 SYSTOLIC TO 100 SYSTOLIC ON STANDING. NEW MED SHOULD HELP FU IN OFFICE IN ON E WEEK. (2) Chronic atrial fibrillation Current Visit: No Status: Chronic Plan: NO CHANGES IN MEDS. SHE MAY BENEFIT BY WATCHMAN PROCEDURE. DR. WILKINS KNOWS HER. - Disposition Disposition: ROUTINE DISCHARGE Condition: FAIR
[2022-07-21 16:37] VITALS: BP 148/75; TEMP 97.7
[2022-07-21] MEDS ORDERED: RIVAROXABAN 15 MG TABLET PO SCH ×2 (17:00)
[2022-07-21] MEDS ORDERED: carvediloL 25 MG TAB PO SCH (21:00)
[2022-07-21] MEDS ORDERED: ATORVASTATIN 40 MG TAB PO SCH (21:00)
[2022-07-22] MEDS ORDERED: FOLIC ACID 1 MG TABLET PO SCH (09:00)
[2022-07-22] MEDS ORDERED: AMLODIPINE 5 MG TAB PO SCH (09:00)
--- NOTE | 2022-07-22 16:44 | EKG ---
Test Date: 2022-07-20 Test Time: 17:53:55 Carbonator: ELIJAH MEASUREMENT RESULTS: Intervals: Rate: 68 AR: 216 QRSD: 80 QT: 420 QTc: 446 Opdyke: P: 46 AR: 216 QRS: 12 T: 31 INTERPRETIVE STATEMENTS: Sinus rhythm with 1st degree AV block Otherwise normal ECG Compared to ECG 02/03/2022 14:06:44 First degree AV block now present Electronically Signed On 07-22-22 16:38:36 GLAZE MAKER by Franck Salas
== END 2022-07-21 16:30 | disposition home or self-care (01) ==
LOC: ER 17:46 → ERHOLD 22:34 → 4TH 07-21 13:44
PROVIDERS: ADMIT Internal Medicine; ATTEND Internal Medicine
DX: I95.1 Orthostatic hypotension (principal); I48.11 Longstanding persistent atrial fibrillation; I10 Essential (primary) hypertension; E11.9 Type 2 diabetes mellitus without complications; E78.5 Hyperlipidemia, unspecified; M81.0 Age-related osteoporosis without current pathological fracture; Z86.73 Personal history of transient ischemic attack (TIA), and cerebral infarction without residual deficits; Z82.49 Family history of ischemic heart disease and other diseases of the circulatory system; Z20.822 Contact with and (suspected) exposure to COVID-19
CPT/HCPCS: 85025 ×2; 80048 ×2; 36415; 86900; 86850; 85610; 86901; 84484 ×2; 70450; 72125; 71260; 74177; 87811; Q9967; 93005; G0378

== ENCOUNTER 2022-10-01 19:04 | Inpatient (IN) | payer OTHER ==
--- OUTSIDE RECORDS SUMMARY | 2022-10-01 19:13 | XMS REPORT | Continuity of Care Document ---
:1940 Author Organization [facility] t Address [address] [place] [address] Care Team Providers Name Role Phone Franck Salas Attending Clinician Unavailable Richy Canas V Attending Clinician Unavailable Franck Salas Admitting Clinician Unavailable Richy Canas V Admitting Clinician Unavailable Payers Payer Name Policy [...] Type Clinicians Facility Department ID 2022-05-10 Inpatient ASHLY Capone CARD [id number] [facility] 09:30:00 Franck 62 [facility] 2022-08-15 2022-08-15 Outpatient GUILLE Pedraza [id number] [facility] 12:00:00 12:00:00 Richy 53 [facility] Results This patient has no known results.
--- NOTE | 2022-10-01 19:18 | RAD REPORT ---
EXAM DESCRIPTION: CT - Ct Stroke Brain Wo Cont - 10/01/2022 7:12 pm CLINICAL HISTORY: STROKE ALERT Headache, drowsiness, CVA symptomology COMPARISON: Maxillofacial Wo Con dated 02/03/2022; Head Brain Wo Cont dated 10/04/2020; Head C Spine Cap W Con dated 07/20/2022; Head C Spine Mpr Wo Con dated 02/03/2022 TECHNIQUE: All CT scans are performed using dose optimization technique as appropriate and may inclu de automated exposure control or mA/KV adjustment according to patient size. FINDINGS: No intracranial hemorrhage, hydrocephalus or extra-axial fluid collection.There is a moder ate sized area of gliosis is seen left frontal region most likely representing old infarct.No areas o f brain edema or evidence of midline shift. The paranasal sinuses and mastoids are clear. The calvarium is intact. IMPRESSION: No acute intracranial abnormality. If there is continued clinical concern for CVA, MR imaging of the brain would be recommended. The findings were discussed with Dr. Covington in the ER On 10/01/2022 at 6:55 p.m. by telephone.
[2022-10-01 19:27] LABS: Absolute Lymphocytes (CBC) 1.5 K/uL (0.7-4.9); Hematocrit 35.8 % (36.0-45.0); Lymphocytes % 33.5 % (15.3-44.8); MCV 92.5 fL (80-100); MPV 7.5 fL (7.6-11.3); RBC Red Blood Cell Count 3.86 M/uL (3.86-4.86)
[2022-10-01] MEDS ORDERED: LEVETIRACETAM 500 MG/5 ML VIAL IV ONE (19:30)
[2022-10-01] MEDS ORDERED: NA CHLORIDE 0.9% 250 ML ONE (19:30)
[2022-10-01] MEDS ORDERED: NA CHLORIDE 0.9% 100 ML ONE (19:30)
--- NOTE | 2022-10-01 19:32 | RAD REPORT ---
EXAM DESCRIPTION: CT - Head angio - 10/01/2022 7:21 pm CLINICAL HISTORY: AMS Headache, drowsiness, CVA symptomology COMPARISON: Ct Stroke Brain Wo Cont dated 10/01/2022; Maxillofacial Wo Con dated 02/03/2022 TECHNIQUE: CT angiography of the head was performed with MIPs. All CT scans are performed using dose optimization technique as appropriate and may include automated exposure control or mA/KV adjustment according to patient size. FINDINGS: No evidence of large vessel occlusion. No evidence of aneurysm is detected. No flow-limiti ng stenosis or vascular malformation identified. Diminished flow is seen in the left M1 and M 2 segme nts likely related to previous left-sided infarction. Antegrade flow is seen in the vertebral arteries. The right vertebral artery terminates in PICA. The visualized dural venous sinuses are patent. IMPRESSION: Diminished flow seen to the left M1 and M2 segments, likely related to previous left-meri ed infarct.
--- NOTE | 2022-10-01 19:40 | RAD REPORT ---
EXAM DESCRIPTION: CT - Neck Angio - 10/01/2022 7:21 pm CLINICAL HISTORY: AMS COMPARISON: Head C Spine Mpr Wo Con dated 02/03/2022 TECHNIQUE: CT angiography of the neck vessels was performed with MIPs. All CT scans are performed using dose optimization technique as appropriate and may include automated exposure control or mA/KV adjustment according to patient size. FINDINGS: A left aortic arch is identified with normal three vessel configuration of the great vesse ls. Mild atherosclerosis origin of the left subclavian artery. No significant flow abnormality is seen of the common carotid bilaterally. Moderate hard plaque is seen involving the left carotid bulb. This results in mild stenosis estimated at 50% or less. Mild hard plaque involves the right carotid bulb was well without significant stenos is. Left vertebral artery is dominant. IMPRESSION: Moderate hard plaque left carotid bulb resulting in mild stenosis of less than 50%. NASCET criteria used. Mild 0-49% stenosis Moderate 50-69% stenosis Severe 70-99% stenosis
[2022-10-01 19:47] LABS: Potassium 4.4 mEq/L (3.5-5.1); Protime INR 1.07; Troponin High Sensitivity 14.9 pg/mL (<58.9)
--- NOTE | 2022-10-01 20:07 | EDPHYS ---
Physician Documentation [facility] Name: Kat Diane Age: 82 yrs Sex: Female : 1940 Arrival Date: 10/01/2022 Time: 19:04 Bed 2 Private MD: ED Physician Estevan Covington HPI: 10/01 19:21 This 82 yrs old Female presents to ER via EMS with complaints of Altered ms3 Mental Status. 19:21 78-year-old female with past medical history of atrial fibrillation, CVA x3, ms3 hypertension presents via [facility] for altered mental status. EMS states a family member that awoke from sleeping states patient was seen normal approximately 1 hour prior to EMS arrival. Patient was found by another family member on the couch with minimal responsiveness. EMS notes patient's blood glucose level 128, temperature 97.2 axillary.. Historical: - Allergies: 19:47 No Known Allergies; ll3 - PMHx: 19:10 Atrial fibrillation; Hyperlipidemia; Hypertension; CVA; db - Immunization history:: unable to obtain. - Social history:: Smoking status: unknown. ROS: 19:21 Unable to obtain ROS due to altered mental status. ms3 Exam: 19:21 Radiologist reports: Old L infaract noted. Nothing acute ms3 19:21 Head/Face: Normocephalic, atraumatic. Eyes: Pupils equal round and reactive to light, extra-ocular motions intact. Lids and lashes normal. Conjunctiva and sclera are non-icteric and not injected. Periorbital areas with no swelling, redness, or edema. Neck: Trachea midline, no cervical lymphadenopathy. Supple, full range of motion without nuchal rigidity, or vertebral point tenderness. No Meningismus. Chest/axilla: Normal chest wall appearance and motion. Nontender with no deformity. Cardiovascular: Regular rate and rhythm with a normal S1 and S2. No gallops, murmurs, or rubs. Normal PMI, no JVD. No pulse deficits. Respiratory: Lungs have equal breath sounds bilaterally, clear to auscultation and percussion. No rales, rhonchi or wheezes noted. No increased work of breathing, no retractions or nasal flaring. Abdomen/GI: Soft, non-tender, with normal bowel sounds. No distension or tympany. No guarding or rebound. No evidence of tenderness throughout. Skin: Warm, dry with normal turgor. Normal color with no rashes, no lesions, and no evidence of cellulitis. 19:21 Neuro: Mentation: Opens eyes to name, Memory: Cranial nerves: Cerebellar function: Motor: Moving all 4 extremities. 20:29 ECG was reviewed by the Attending Physician. ms3 Vital Signs: 18:42 BP 136 / 68; Pulse 66; Resp 17; Temp 97.2(A); Pulse Ox 97% ; db 19:12 Weight 72.12 kg (M); db 19:45 BP 141 / 60; Pulse 70; Resp 19; Pulse Ox 96% on R/A; ll3 20:30 BP 135 / 48; Pulse 70; Resp 18; Pulse Ox 96% on R/A; ll3 21:31 BP 125 / 59; Pulse 65; Resp 14; Pulse Ox 97% on R/A; ll3 22:06 BP 134 / 59; Pulse 71; Resp 18; Temp 98(TE); Pulse Ox 98% on R/A; NIH Stroke Scale Scores: 22:04 NIHSS Score: 2 kl MDM: 19:06 Patient medically screened. ms3 19:11 ED course: Discussed case with Dr Canas. Patient with syncopal episodes in past. ms3 Patient's mental status improving at this time. Recommends starting Keppra. Will load with 1000 mg IV and then start 250 mg BID PO. 20:03 Differential diagnosis: CVA, metabolic disorder, Seizure. Data reviewed: vital signs, ms3 nurses notes, lab test result(s), EKG, radiologic studies, and as a result, I will admit patient. Consideration of Admission/Observation Patient was admitted/placed on observation. Management of patient was discussed with the following: Hospitalist: Dr Canas. I considered the following discharge prescriptions or medication management in the emergency department Medications were administered in the Emergency Department. See MAR. Independent interpretation of the following test(s) in the Emergency Department EKG: See my EKG interpretation above Rhythm Strip Interpretation Rate: 66BPM Rhythm: regular. Test considered but Not performed:. Historians other than the Patient: EMS: [facility]. Daughter/Son: Patient's daughter. Counseling: I had a detailed discussion with the patient and/or guardian regarding: the historical points, exam findings, and any diagnostic results supporting the discharge/admit diagnosis, lab results, radiology results, the need for further work-up and treatment in the hospital. ED course: Discussed CT CTA results with patient's daughter. Patient still remains alert to verbal stimulus. Discussed TNKase with patient's daughter and decision made to not give TNKase at this time. Discussed with patient's daughter possibility of permanent deficits if TNKase is not given.. 20:09 ED course: Discussed case with Dr Canas and he accepts patient as observation.. ms3 10/01 19:07 Order name: Basic Metabolic Panel; Complete Time: 19:51 ms3 10/01 19:07 Order name: CBC with Diff; Complete Time: 19:51 ms3 10/01 19:07 Order name: High Sensitivity Troponin; Complete Time: 19:51 ms3 10/01 19:07 Order name: Protime (+inr); Complete Time: 19:51 ms3 10/01 19:07 Order name: Ptt, Activated; Complete Time: 19:51 ms3 10/01 20:16 Order name: Basic Metabolic Panel EDMS 10/01 20:16 Order name: Basic Metabolic Panel EDMS 10/01 20:16 Order name: CBC with Automated Diff EDMS 10/01 20:16 Order name: CBC with Automated Diff EDMS 10/01 19:07 Order name: CT Stroke Brain w/o Contrast; Complete Time: 19:51 ms3 10/01 19:07 Order name: Stroke CXR 1 View; Complete Time: 20:29 ms3 10/01 19:08 Order name: CT Head Angio; Complete Time: 19:51 ms3 10/01 19:08 Order name: CT Neck Angio; Complete Time: 19:51 ms3 10/01 19:07 Order name: EKG; Complete Time: 19:08 ms3 10/01 20:16 Order name: NPO EDMS 10/01 19:07 Order name: Accucheck; Complete Time: 19:37 ms3 10/01 19:07 Order name: Cardiac monitoring; Complete Time: 19:12 ms3 10/01 19:07 Order name: EKG - Nurse/Tech; Complete Time: 19:37 ms3 10/01 19:07 Order name: IV Saline Lock; Complete Time: 19:12 ms3 10/01 19:07 Order name: Labs collected and sent; Complete Time: 19:20 ms3 10/01 19:07 Order name: NPO; Complete Time: 19:12 ms3 10/01 19:07 Order name: O2 Per Protocol; Complete Time: 19:12 ms3 10/01 19:07 Order name: O2 Sat Monitoring; Complete Time: 19:12 ms3 10/01 19:36 Order name: Jayce; Complete Time: 19:36 ll3 EC:29 Rate is 68 beats/min. Rhythm is regular. QRS [place] is Normal. [place] interval is normal. QRS ms3 interval is normal. Clinical impression: Normal ECG. Interpreted by me. Reviewed by me. Administered Medications: 19:33 Drug: Keppra IV 1000 mg Route: IV; Rate: calculated rate; Site: left antecubital; kl Point of Care Testing: Blood Glucose: 21:55 Blood Glucose: 128 mg/dL; kl Ranges: Critical Glucose Levels:Adult <50 mg/dl or >400 mg/dl <40 mg/dl or >180 mg/dl Disposition: :29 Chart complete. ms3 Disposition Summary: 10/01/22 20:06 Hospitalization Ordered Hospitalization Status: Observation ms3 Provider: Richy Canas ms3 Location: Telemetry/MedSurg (observation) ms3 Condition: Stable ms3 Problem: new ms3 Symptoms: are unchanged ms3 Bed/Room Type: Standard ms3 Room Assignment: 214(10/01/22 21:40) cg Diagnosis - Altered mental status, unspecified ms3 Forms: - Medication Reconciliation Form ms3 - SBAR form ms3 NIH Stroke Scale - NIH Stroke Score Date: 10/01/2022 Time: 22:04 Total Score = 2 10. Dysarthria (speech clarity - read or repeat words) - 1(Mild to Moderate) 11. Extinction and Inattention (visual/tactile/auditory/spatial/personal) - 0(No abnormality) 1a. Level of Consciousness (LOC) - 0(Alert) 1b. Level of Consciousness (LOC) (Month \T\ Age) - 1(One) 1c. LOC Commands (Open \T\ Closes Eyes/Machine Design Engineer) - 0(Both) 2. Best Gaze (Lateral Gaze Paresis) - 0(Normal) 3. Visual Field Loss - 0(No visual loss) 4. Facial Palsy - 0(Normal) 5a. Left Arm: Motor (10-second hold) - 0(No drift) 5b. Right Arm: Motor (10-second hold) - 0(No drift) 6a. Left Leg: Motor (5-second hold - always test supine) - 0(No drift) 6b. Right Leg: Motor (5-second hold - always test supine) - 0(No drift) 7. Limb Ataxia (finger/nose \T\ heel/georges - test with eyes open) - 0(Absent) 8. Sensory Loss (pinprick arms/legs/face) - 0(Normal) 9. Best Language: Aphasia (description/naming/reading) - 0(No aphasia) Initials: carrie Signatures: Dispatcher [employer] EDCarmelita Villa RN Archana Bay RN RN cg Estevan Covington DO DO ms3 Alessandra Wellington RN RN 3 Bianka Silver, INDY PUTNAM db Corrections: (The following items were deleted from the chart) 21:40 20:06 ms3 cg
--- NOTE | 2022-10-01 20:07 | ER ---
Nurse's Notes [facility] Name: Kat Diane Age: 82 yrs Sex: Female : 1940 Arrival Date: 10/01/2022 Time: 19:04 Bed 2 Private MD: Diagnosis: Altered mental status, unspecified Presentation: 10/01 18:42 Chief complaint: EMS states: patient came in by EMS for stroke like symptoms. Patient db was found on couch unresponsive, non verbal. Last normal was 1 hour ago by family patient was seen cooking dinner. patient Glucose 128 for EMS. patient taken to CT upon arrival. Coronavirus screen: unable to obtain. Ebola Screen: Unable to complete the Ebola screening because: Patient is unresponsive. An acute neurological deficit is present. The charge nurse has been notified. The patient has been moved to a treatment area. The patients blood glucose was checked before arriving to the hospital and was found to be normal. Initial Sepsis Screen: Does the patient meet any 2 criteria? Altered Mental Status. Yes Does the patient have a suspected source of infection? No. Patient's initial sepsis screen is negative. Risk Assessment: Do you want to hurt yourself or someone else? Unable to obtain. Onset of symptoms was October 01, 2022 at 17:40. Care prior to arrival: IV initiated. 18 GA, in the left antecubital area, Glucose check: 128. 18:42 Method Of Arrival: EMS db 18:42 Acuity: UMBERTO 2 db 19:[address] Covington into speak with patient family Family requesting not to consider TNK pt kl showing evidence of post tictile behavior. Triage Assessment: 19:10 The onset of the patients symptoms was October 01, 2022 at 17:40. General: Appears well db groomed, non responsive. Behavior is unresponsive. Pain: Unable to use pain scale. Patient is unresponsive. Neuro: Level of Consciousness is unresponsive, Oriented to none. Stroke Activation: Symptom onset < 3 hours Physician: Stroke Attending; Name: ; Notified At: ; Arrived At: Physician: Chief Stroke Resident; Name: ; Notified At: ; Arrived At: Physician: Stroke Resident; Name: ; Notified At: ; Arrived At: Physician: ED Attending; Name: DEBBIE; Notified At: 18:42; Arrived At: 18:42 Physician: ED Resident; Name: ; Notified At: ; Arrived At: Historical: - Allergies: 19:47 No Known Allergies; ll3 - PMHx: 19:10 Atrial fibrillation; Hyperlipidemia; Hypertension; CVA; db - Immunization history:: unable to obtain. - Social history:: Smoking status: unknown. Screenin:54 [facility] ED Fall Risk Assessment (Adult) History of falling in the last 3 months, kl including since admission No falls in past 3 months (0 pts) Confusion or Disorientation Yes (5 pts) Intoxicated or Sedated No (0 pts) Impaired Gait Yes (1 pt) Mobility Assist Device Used No (0 pt) Altered Elimination No (0 pt) Score/Fall Risk Level 3 or more points = High Risk Oriented to surroundings, Maintained a safe environment, Educated pt \T\ family on fall prevention, incl call for assistance when getting out of bed, Implemented a Fall Risk Plan of Care, Utilized family, sitter, or virtual bit setter as indicated. Abuse screen: Denies threats or abuse. Nutritional screening: No deficits noted. Tuberculosis screening: No symptoms or risk factors identified. Assessment: 18:42 Reassessment: unable to complete initial NIH stroke scale due to patient non responsive db and non verbal following no commands. 21:52 :. kl 22:03 TNKase (Tenecteplase) Screening: Contraindications: Other: family refuses. Neuro: Level kl of Consciousness is awake, alert, obeys commands, Oriented to person, place, Scout Leaser are weak bilaterally Weakness Speech is slurred, Facial symmetry appears normal, Pupils are PERRLA. 22:06 VAN Scoring: Arm Drift: Patients demonstrates NO arm weakness. Patient is VAN Negative. kl Visual Disturbance: No visual disturbance noted. Vital Signs: 18:42 BP 136 / 68; Pulse 66; Resp 17; Temp 97.2(A); Pulse Ox 97% ; db 19:12 Weight 72.12 kg (M); db 19:45 BP 141 / 60; Pulse 70; Resp 19; Pulse Ox 96% on R/A; ll3 20:30 BP 135 / 48; Pulse 70; Resp 18; Pulse Ox 96% on R/A; ll3 21:31 BP 125 / 59; Pulse 65; Resp 14; Pulse Ox 97% on R/A; ll3 22:06 BP 134 / 59; Pulse 71; Resp 18; Temp 98(TE); Pulse Ox 98% on R/A; NIH Stroke Scale Scores: 22:04 NIHSS Score: 2 ED Course: 19:00 Patient has correct armband on for positive identification. Placed in gown. Bed in low kl position. Call light in reach. Side rails up X2. Adult w/ patient. 19:06 Patient arrived in ED. iw 19:06 Estevan Covington DO is Attending Physician. ms3 19:10 Triage completed. db 19:10 Arm band placed on Patient placed. db 19:13 Maintain EMS IV. Gauge \T\ site: 18 G LAC. db 19:14 CT Stroke Brain w/o Contrast In Process Unspecified. EDMS 19:23 CT Head Angio In Process Unspecified. EDMS 19:23 CT Neck Angio In Process Unspecified. EDMS 19:36 Eduardo cath inserted, using sterile technique, 16 Fr., by me, balloon inflated, to ll3 gravity drainage, clamped. 20:06 Richy Canas MD is Hospitalizing Provider. ms3 20:20 Stroke CXR 1 View In Process Unspecified. EDMS 21:55 No provider procedures requiring assistance completed. Patient admitted, IV remains in kl place. Administered Medications: 19:33 Drug: Keppra IV 1000 mg Route: IV; Rate: calculated rate; Site: left antecubital; Point of Care Testing: Blood Glucose: 21:55 Blood Glucose: 128 mg/dL; Ranges: Outcome: 20:06 Decision to Hospitalize by Provider. ms3 21:55 Admitted to Med/surg via stretcher. 21:55 Condition: improved 21:55 Discharge instructions given to patient, family, Instructed on the need for admit, Demonstrated understanding of instructions. 22:07 Patient left the ED. NIH Stroke Scale - NIH Stroke Score Date: 10/01/2022 Time: 22:04 Total Score = 2 10. Dysarthria (speech clarity - read or repeat words) - 1(Mild to Moderate) 11. Extinction and Inattention (visual/tactile/auditory/spatial/personal) - 0(No abnormality) 1a. Level of Consciousness (LOC) - 0(Alert) 1b. Level of Consciousness (LOC) (Month \T\ Age) - 1(One) 1c. LOC Commands (Open \T\ Closes Eyes/Typewriter Mechanic) - 0(Both) 2. Best Gaze (Lateral Gaze Paresis) - 0(Normal) 3. Visual Field Loss - 0(No visual loss) 4. Facial Palsy - 0(Normal) 5a. Left Arm: Motor (10-second hold) - 0(No drift) 5b. Right Arm: Motor (10-second hold) - 0(No drift) 6a. Left Leg: Motor (5-second hold - always test supine) - 0(No drift) 6b. Right Leg: Motor (5-second hold - always test supine) - 0(No drift) 7. Limb Ataxia (finger/nose \T\ heel/georges - test with eyes open) - 0(Absent) 8. Sensory Loss (pinprick arms/legs/face) - 0(Normal) 9. Best Language: Aphasia (description/naming/reading) - 0(No aphasia) Initials: Signatures: Dispatcher [employer] EDMS Carmelita Braga RN RN kl Williams, Irene, RN RN Estevan Covington DO DO ms3 Alessandra Wellington RN RN ll3 Bianka Silver RN RN db Corrections: (The following items were deleted from the chart) 19:13 18:42 Chief complaint: EMS states: patient came in by EMS for stroke like db symptoms. Patient was found on couch unresponsive, non verbal. Last normal was 1 hour ago by family patient was seen cooking dinner. patient Glucose 128 for EMS. 22:02 21:52 General: Appears in no apparent distress. comfortable, Behavior is calm, kl cooperative, 22:02 21:52 Pain: Denies pain. [facility] 22: 21:52 Neuro: Level of Consciousness is awake, alert, obeys commands, Oriented kl to person, place, time, Speech Facial symmetry appears normal, Pupils are PERRLA, 22:02 21:52 Cardiovascular: No deficits noted. [facility] 22:02 21:52 Respiratory: No deficits noted. [facility] 22:02 21:52 GI: No deficits noted. No signs and/or symptoms were reported involving kl the gastrointestinal system. kl
[2022-10-01] MEDS ORDERED: ACETAMINOPHEN 500 MG TAB PO PRN (20:12)
[2022-10-01] MEDS ORDERED: ONDANSETRON 4 MG/2 ML VIAL IV PRN (20:12)
--- NOTE | 2022-10-01 20:25 | RAD REPORT ---
EXAM DESCRIPTION: RAD - Chest Single View - 10/01/2022 8:18 pm CLINICAL HISTORY: AMS Chest pain. COMPARISON: Chest Single View dated 02/03/2022; Chest Single View dated 06/12/2020; Chest Pa And Lat ( 2 Views) dated 11/04/2017; Chest Pa And Lat (2 Views) dated 11/02/2017 FINDINGS: Portable technique limits examination quality. Mild interstitial pulmonary edema. The heart is mildly enlarged in size. No displaced fractures. IMPRESSION: Mild CHF.
[2022-10-01] MEDS ORDERED: NA CHLORIDE 0.9% 1,000 ML IV SCH (21:00)
[2022-10-01 22:21] VITALS: BMI 30.7
[2022-10-02 04:06] LABS: Absolute Lymphocytes (CBC) 1.6 K/uL (0.7-4.9); Hematocrit 36.7 % (36.0-45.0); Lymphocytes % 30.1 % (15.3-44.8); MCV 92.4 fL (80-100); MPV 7.9 fL (7.6-11.3); RBC Red Blood Cell Count 3.97 M/uL (3.86-4.86)
[2022-10-02] MEDS: carvediloL 12.5 MG TAB PO SCH ×2 (09:00→21:42)
[2022-10-02] MEDS: AMLODIPINE 5 MG TAB PO SCH (09:00)
[2022-10-02] MEDS ORDERED: CLONIDINE 0.2 MG/PATCH TD SCH (10:00)
--- NOTE | 2022-10-02 11:46 | EKG ---
Test Date: 2022-10-01 Test Time: 19:23:30 Sponge Fisherman: MEASUREMENT RESULTS: Intervals: Rate: 68 VA: 192 QRSD: 64 QT: 424 QTc: 450 [place]: P: 76 VA: 192 QRS: 61 T: 67 INTERPRETIVE STATEMENTS: Normal sinus rhythm Septal infarct, age undetermined Abnormal ECG Compared to ECG 07/20/2022 17:53:55 Myocardial infarct finding now present First degree AV block no longer present Electronically Signed On 10-02-22 11:44:37 CDT by Jc Marks
[2022-10-02] MEDS: PYRIDOSTIGMINE 60 MG TABLET PO SCH ×2 (15:38→21:40)
--- NOTE | 2022-10-02 17:59 | P.HP ---
Certification for Inpatient Patient admitted to: Inpatient With expected LOS: >2 Midnights Practitioner: I am a practitioner with admitting privileges, knowledge of patient current condition, hospital course, and medical plan of care. Services: Services provided to patient in accordance with Admission requirements found in Title 42 Section 412.3 of the Code of Federal Regulations Patient History Date of Service: 10/02/22 Reason for admission: passed out and staye confused after History of Present Illness: Kat is patient with following issues who comes with passing out followed by somnolence and confusion. Dr. Covington called and we discussed. I asked him to start on Keppra as this may be absence seizure. MRI is to be done today but department has back log and not done yet. She is somewhat confused and is having difficulty following commands. Her family did not want Xarelto during recent visits at office. 2021 Afib [I48.91 (427.31) 0.3] chronic. controlled on carvedilol 12.5mg BID. margaret said afib 12% of the time. pt feels much better off xarelto and wants to stop it. counseled that stop Xarelto will increase risk of stroke. Pt understands risks and says something has got to take her out and she has already had 2 strokes on xarelto, she understands the risk and does not want to take the medication chronic. controlled on carvedilol 12.5mg BID. margaret said afib 12% of the time. pt feels much better off xarelto and wants to stop it. counseled that stop Xarelto will increase risk of stroke. Pt understands risks and says something has got to take her out and she has already had 2 strokes on xarelto, she understands the risk and does not want to take the medication Hide 2021 Hypertension [I10 (401.9)] chronic. controlled w amlodipine 5mg, carvedilol 12.5mg BID chronic. controlled w amlodipine 5mg, carvedilol 12.5mg BID 2021 CVA (cerebral vascular accident) [I63.9 (434.91) 0.2] 2014 and 2020 on atrovastatin 40mg 2014 and 2020 on atrovastatin 40mg 2021 Constipated [K59.00 (564.00)] advise increasing veggies and decreasing breads advise increasing veggies and decreasing breads 2021 Preventative health care [Z00.00 (V70.0)] Well woman: declined Mammo: declined Colon: declined Vaccines: advised 2ndpna if not done, covid booster, TDAP Dexa: 2022, started meds 2022 Well woman: declined Mammo: declined Colon: declined Vaccines: advised 2ndpna if not done, covid booster, TDAP Dexa: 2022, started meds 2022 2022 Orthostatic hypotension [I95.1 (458.0)] improved on pyridostigmine improved on pyridostigmine 2022 Syncopal episodes [R55 (780.2)] 2022 Osteoporosis [M81.0 (733.00)] start alendronate start alendronate Allergies No Known Drug Allergies Allergy (Verified 10/02/22 11:59) Unknown Home Medications: Carvedilol 12.5 tab PO BID 01/19/15 Folic Acid 1 mg PO DAILY #30 tablet 01/20/15 Atorvastatin Calcium [Lipitor*] 40 mg PO BEDTIME tab 06/17/20 Amlodipine [Norvasc*] 5 mg PO DAILY 02/03/22 pyRIDostigmine bromide [Mestinon*] 30 mg PO TID #90 07/21/22 Alendronate Sodium See Rx Instructions .ROUTE .COMPLEX 10/02/22 Calcium Carbonate/Vitamin D3 [Caltrate 600 + D Tablet] 1 each PO DAILY 10/02/22 Cholecalciferol (Vitamin D3) [Vitamin D3] 1,000 unit PO DAILY 10/02/22 Multivit-Min/Iron/Folic/Lutein [Centrum Silver Women Tablet] 1 each PO DAILY 10/02/22 - Past Medical/Surgical History Diabetic: No -: HTN -: hyperlipidemia -: h/o shingles right side of face -: Osteoporosis -: history of CVA -: AFIB -: left wrist sx -: varicose vein surgery bilateral legs -: hernia repair - Family History Mother -: Cancer Notes: stomach cancer Father -: Stroke - Social History Smoking Status: Unknown if ever smoked Alcohol use: No CD- Drugs: No Caffeine use: Yes Place of Residence: Home Review of Systems 10-point ROS is otherwise unremarkable General: Weakness Physical Examination - Vital Signs Temperature: 98.3 F Blood Pressure: 170/72 Pulse: 64 Respirations: 16 Pulse Ox (%): 96 - Physical Exam General: Oriented x2 (communication- language barrier. No family at bedside. ), Mild distress HEENT: Atraumatic, PERRLA, Mucous membr. moist/pink, EOMI, Sclerae nonicteric Neck: Supple, 2+ carotid pulse no bruit, No LAD, Without JVD or thyroid abnormality Respiratory: Clear to auscultation bilaterally, Normal air movement Cardiovascular: Regular rate/rhythm, Normal S1 S2 Gastrointestinal: Normal bowel sounds, No tenderness Musculoskeletal: No tenderness Integumentary: No rashes Neurological: Abnormal speech (some dysarthria. ), Abnormal strength Lymphatics: No axilla or inguinal lymphadenopathy - Studies Laboratory Data (last 24 hrs) 10/01/22 19:18: PT 11.8, INR 1.07, APTT 33.9 10/01/22 19:18: WBC 4.50, Hgb 11.9 L, Hct 35.8 L, Plt Count 214 10/01/22 19:18: Sodium 134 L, Potassium 4.4, BUN 23 H, Creatinine 1.52 H, Glucose 81 Assessment and Plan - Problems (Diagnosis) (1) Atypical seizure Current Visit: Yes Status: Acute Plan: as below. Start trial of Keppra as many times that works well. (2) Confusion Onset Date: 01/20/15 Current Visit: No Status: Acute Plan: She may have this from postictal stage ALso she may have strokes as family does not want Xarelto I will call them after MRI is done. - Advance Directives Does patient have a Living Will: No Does patient have a Durable POA for Healthcare: No
[2022-10-02] MEDS ORDERED: carvediloL 25 MG TAB PO SCH (21:00)
--- NOTE | 2022-10-02 21:33 | RAD REPORT ---
EXAM DESCRIPTION: MRI - Brain Wo Cont - 10/02/2022 8:55 pm CLINICAL HISTORY: cva COMPARISON: Head CT and CT angiogram of the brain of 10/01/2022 TECHNIQUE: Multiplanar multisequence MRI of the brain performed without IV contrast. FINDINGS: New infarct involving the left posterior frontal, parietal, and insular region, pain the p osterior left MCA territory. Days corresponding T2/FLAIR hyperintensity with mild sulcal effacement. Remote infarct involving the left frontal region superiorly extending to the operculum with adjacent gliosis, stable. A small exophytic mass arising from the posterior aspect of the medulla, projecting against the midli ne fourth ventricle outlet, measuring 1.2 x 0.9 centimeter is probably stable allowing for difference s in technique. No abnormal extra-axial fluid collections. Gradient sequence demonstrates numerous bilateral basal ga nglia as well as right more than left peripheral/juxta cortical supratentorial foci of susceptibility signal abnormality, suggestive of remote micro hemorrhages, may represent a combination of hypertens celia and chronic amyloid angiopathy sequelae. Mild diffuse parenchymal volume loss. Ventricular caliber is stable. Midline structures are unremarka ble. Other confluent subcortical and deep white matter T2/FLAIR hyperintensities, nonspecific, but suggest celia of chronic small vessel ischemic changes. No worsening mass effect or midline shift. Major vascular flow voids are preserved. Mastoid air cells and paranasal sinuses are clear. IMPRESSION: New acute to subacute infarcts involving the insula and posterior left MCA territory. 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 Other stable chronic findings as above. The acute findings were communicated to Richy Canas on 10/02/2022 at 21:23 hours.
[2022-10-02] MEDS: levETIRAcetam 500 MG TAB PO SCH (21:41)
[2022-10-02] MEDS: ATORVASTATIN 40 MG TAB PO SCH (21:41)
[2022-10-02] MEDS: RIVAROXABAN 20 MG TABLET PO SCH (22:23)
[2022-10-03] MEDS ORDERED: AMLODIPINE 5 MG TAB PO SCH (09:00)
[2022-10-03] MEDS: levETIRAcetam 500 MG TAB PO SCH ×2 (09:08→20:08)
[2022-10-03] MEDS: carvediloL 12.5 MG TAB PO SCH ×2 (09:08→20:09)
[2022-10-03] MEDS: AMLODIPINE 5 MG TAB PO SCH (09:09)
[2022-10-03] MEDS: PYRIDOSTIGMINE 60 MG TABLET PO SCH ×3 (09:09→20:07)
--- NOTE | 2022-10-03 13:19 | EKG ---
Test Date: 2022-10-02 Test Time: 17:40:22 Machine Filler Shredder: DARWIN Soto MEASUREMENT RESULTS: Intervals: Rate: 69 WA: 210 QRSD: 70 QT: 420 QTc: 450 [place]: P: 61 WA: 210 QRS: 8 T: 18 INTERPRETIVE STATEMENTS: Sinus rhythm with 1st degree AV block Septal infarct, age undetermined Abnormal ECG Compared to ECG 10/01/2022 19:23:30 First degree AV block now present Myocardial infarct finding still present Electronically Signed On 10-03-22 13:19:01 CDT by Franck Salas
[2022-10-03] MEDS: RIVAROXABAN 20 MG TABLET PO SCH (16:37)
[2022-10-03] MEDS: ATORVASTATIN 40 MG TAB PO SCH (20:08)
[2022-10-03 20:43] VITALS: O2SAT 97
--- NOTE | 2022-10-03 21:16 | CON ---
Reason For Consultation: Consultation called because of stroke. History Of Present Illness: Benedicto is an 82-year-old right-handed patient with multiple pr ior strokes, atrial fibrillation, hypertension, who also has some memory loss, comes to [facility] with worsening inability to communicate and right face, arm and leg weakness and numbness. Th e patient actually arrived to [facility] within an hour of onset of symptoms and had a CT sc an that did not show any acute changes, but chronic changes consistent with prior stroke. The patien t and family refused TNKs. She was because of atrial fibrillation on Xarelto, but stopped the medica tion due to risk of worsening stroke or bleeding. Subsequent MRI done today showed subacute infarct involving insula and posterior left MCA territory. 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 In addition, the re are numerous bilateral basal ganglia as well as right more than left peripheral juxtacortical supr atentorial foci of suspected signal abnormalities suggestive of remote microhemorrhages. Radiologist indicates potential for a combination of hypertensive and chronic amyloid angiopathy sequelae. The patient was ambulated by Physical Therapy earlier today. She did walk a few steps with a rolling wal ker and then did not ambulate further. She did transfer and this was all done with a moderate to max assistance. She was evaluated by Speech Therapy and noted to be alert, but lethargic, able to respo nd to simple questions occasionally. She did have soft bite size foods and thin liquids. She had mi nimal intake of solids. She did not exhibit obvious signs of aspiration while taking in liquids. Past Medical History: Atrial fibrillation, hypertension, dyslipidemia, multiple strokes. Allergies: NO KNOWN DRUG ALLERGIES. Social History: No alcohol, tobacco, or IV drug use. Lives with family. Medications: Norvasc 5 mg daily, Lipitor 40 mg at bedtime, Coreg 12.5 mg twice daily, Catapres 0.2 m g every 7 days, Tylenol 500 mg every 6 hours, Keppra 250 mg twice daily, Mestinon 30 mg 3 times daily , Xarelto 20 mg daily. Review of Systems: Per family; no recent fevers, chills, nausea, vomiting, myalgias, arthralgias, rash, headache, weight change. She was ambulatory, taking care of some of her activities of daily living, and moving thing s around the house independently and is communicating effectively prior to onset of her event. Physical Examination: Vital Signs: Blood pressure 164/63, pulse 55, respiratory rate 16, temperature 97.2, oxygen saturati on 96% to 98% on room air. General: Ms. Diane is sitting in a chair beside bed. She just completed a short therapy session w ith the physical therapist. HEENT: She is normocephalic, atraumatic. Sclerae anicteric. Oropharynx pink and moist. Neck: Supple. Chest: Clear. Heart: Irregularly irregular. Abdomen: Soft. Extremities: Show no clubbing, cyanosis, or edema. Neurological: She has a significant droop to the right nasolabial fold with mild excursion on smilin g and appears to have decreased sensation in the left. She has some difficulty following commands. For instance, she did not lift the left arm until she had to see it and try to mimic moving the left hand, which is a stronger side. She eventually did that and then did lift the right arm up after enc ouragement and was able to be shown a thumbs up sign, therefore she attempted to do it. Otherwise, c ranial nerves, apparent decreased sensation on the right, very difficult to assess. Motor; right upp er extremity proximally and distally around 3/5 on the left, at least 4/5 in the right lower extremit y, difficult to fully assess, but the therapist was able to ambulate on that leg at least 3+/5, on th e left at least 4/5. Cannot fully assess sensation and coordination. Laboratory Studies: Complete blood count with differential is completely normal. Coagulation panel is normal. Chemistries; sodium 138, potassium 4.0, chloride 112, carbon dioxide 26, BUN 21, creatini ne 1.15, glucose 104, calcium 9.0. Troponin 114.9. CT angiogram of the head and neck did not show s ignificant occlusions. There was moderate hard plaque in the left carotid bulb resulting less than 5 0% stenosis. Assessment: Ms. Diane is an 82-year-old patient with multiple strokes involving bilateral hemisphe res and apparent sequelae of hemorrhagic conversion and she has a new left hemispheric stroke with si gnificant expressive and receptive aphasia and right face, arm and leg weakness, numbness. She has a trial fibrillation, hypertension, dyslipidemia. She did not receive TNKs as the patient and the fami ly did not want to accept the risks despite being told by the emergency physician that she may benefi t significantly. Plan: 1.We will attempt to admit the patient to the inpatient rehabilitation unit for aggressive physical, occupational, and speech therapy. 2.She is on Xarelto full dose 20 mg daily and Norvasc 5 mg daily, Lipitor 40 mg at bedtime, Coreg 12 .5 mg twice daily, Keppra 250 mg twice daily, and Extra Strength Tylenol 500 mg every 6 hours. Again , the patient will be a possible brought up to the inpatient rehabilitation unit to continue with phy sical, occupational, and speech therapy. 3.We will continue with Mestinon at this point. VITOR/PERLA Voice ID: [id number] Report ID: [id number]
--- NOTE | 2022-10-03 21:47 | P.PN ---
Subjective Date of Service: 10/03/22 Chief Complaint: passed out and staye confused after Subjective: No new changes SHE STILL HAS COMMUNICATION ISSUES, DOES NOT FOLLOW COMMANDS. Review of Systems 10-point ROS is otherwise unremarkable Physical Examination - Vital Signs Temperature: 98.1 F Blood Pressure: 134/69 Pulse: 104 Respirations: 16 Pulse Ox (%): 96 - Physical Exam General: Mild distress, Confused (FOLLOWS COMMANDS PARTIALLY. I ASKED HER TO LIFT LIMBS AND SHE DID BUT OTHERWISE SHE SEEMS TO HAVE MODERATE GLOBAL APHASIA.) HEENT: Atraumatic, PERRLA, EOMI Neck: Supple, JVD not distended Respiratory: Clear to auscultation bilaterally, Normal air movement Cardiovascular: Regular rate/rhythm, Normal S1 S2 Gastrointestinal: Normal bowel sounds, No tenderness Musculoskeletal: No tenderness Integumentary: No rashes Neurological: Abnormal speech, Abnormal strength (GEN WEAK. ABLE TO MOVE ALL FOUR LIMBS) Lymphatics: No axilla or inguinal lymphadenopathy - Studies Medications List Reviewed: Yes Assessment And Plan - Current Problems (Diagnosis) (1) Atypical seizure Current Visit: Yes Status: Acute Plan: as below. Start trial of Keppra as many times that works well. (2) Confusion Onset Date: 01/20/15 Current Visit: No Status: Acute Plan: She may have this from postictal stage ALso she may have strokes as family does not want Xarelto I will call them after MRI is done. (3) Acute ischemic left MCA stroke Current Visit: Yes Status: Acute Plan: THIS MAY BE EMBOLIC FROM A FIB . CONTINUE XARELTO. ADD SOTALOL FOR RATE CONTROL STOP COREG SHE IS ACCEPTED TO REHAB FOR AM.
[2022-10-03] MEDS: SOTALOL HCL 80 MG TAB PO SCH (22:52)
[2022-10-04 04:36] VITALS: TEMP 97
[2022-10-04] MEDS: SOTALOL HCL 80 MG TAB PO SCH (05:42)
[2022-10-04] MEDS: AMLODIPINE 5 MG TAB PO SCH (07:52)
[2022-10-04] MEDS: levETIRAcetam 500 MG TAB PO SCH (07:52)
[2022-10-04] MEDS: PYRIDOSTIGMINE 60 MG TABLET PO SCH (07:52)
[2022-10-04 07:53] VITALS: BP 162/86
--- NOTE | 2022-10-04 15:30 | P.DS ---
Admission Date: 10/03/22 Discharge Date: 10/04/22 Disposition: TRANSFER TO INPATIENT REHAB Discharge Condition: SERIOUS Reason for Admission: passed out and staye confused after - Problems (1) Atypical seizure Status: Acute (2) Confusion Onset Date: 01/20/15 Status: Acute (3) Acute ischemic left MCA stroke Status: Acute Brief History of Present Illness: Kat is patient with following issues who comes with passing out followed by somnolence and confusion. Dr. Covington called and we discussed. I asked him to start on Keppra as this may be absence seizure. MRI is to be done today but department has back log and not done yet. She is somewhat confused and is having difficulty following commands. Her family did not want Xarelto during recent visits at office. 2021 Afib [I48.91 (427.31) 0.3] chronic. controlled on carvedilol 12.5mg BID. margaret said afib 12% of the time. pt feels much better off xarelto and wants to stop it. counseled that stop Xarelto will increase risk of stroke. Pt understands risks and says something has got to take her out and she has already had 2 strokes on xarelto, she understands the risk and does not want to take the medication chronic. controlled on carvedilol 12.5mg BID. margaret said afib 12% of the time. pt feels much better off xarelto and wants to stop it. counseled that stop Xarelto will increase risk of stroke. Pt understands risks and says something has got to take her out and she has already had 2 strokes on xarelto, she understands the risk and does not want to take the medication Hide 2021 Hypertension [I10 (401.9)] chronic. controlled w amlodipine 5mg, carvedilol 12.5mg BID chronic. controlled w amlodipine 5mg, carvedilol 12.5mg BID 2021 CVA (cerebral vascular accident) [I63.9 (434.91) 0.2] 2014 and 2020 on atrovastatin 40mg 2014 and 2020 on atrovastatin 40mg 2021 Constipated [K59.00 (564.00)] advise increasing veggies and decreasing breads advise increasing veggies and decreasing breads 2021 Preventative health care [Z00.00 (V70.0)] Well woman: declined Mammo: declined Colon: declined Vaccines: advised 2ndpna if not done, covid booster, TDAP Dexa: 2022, started meds 2022 Well woman: declined Mammo: declined Colon: declined Vaccines: advised 2ndpna if not done, covid booster, TDAP Dexa: 2022, started meds 2022 2022 Orthostatic hypotension [I95.1 (458.0)] improved on pyridostigmine improved on pyridostigmine 2022 Syncopal episodes [R55 (780.2)] 2022 Osteoporosis [M81.0 (733.00)] start alendronate start alendronate Hospital Course: KAT HAS HAD STROKE WITH R FACIAL DROOP AND APHASIA. SHE IS STABLE TO GO TO REHAB TODAY. SHE IS NOW ON SOTALOL AND XARELTO IN ADDITION TO KEPPRA. Vital Signs/Physical Exam: Temp Pulse Resp BP Pulse Ox 97.0 F 83 16 162/86 H 97 10/04/22 08:00 10/04/22 08:00 10/04/22 08:00 10/04/22 08:00 10/04/22 08:00 Laboratory Data at Discharge: WBC 5.30 thou/uL (4.3-10.9) 10/02/22 02:48 Hgb 12.4 g/dL (12.0-15.0) 10/02/22 02:48 Hct 36.7 % (36.0-45.0) 10/02/22 02:48 Plt Count 219 thou/uL (152-406) 10/02/22 02:48 PT 11.8 SECONDS (9.5-12.5) 10/01/22 19:18 INR 1.07 10/01/22 19:18 APTT 33.9 SECONDS (24.3-36.9) 10/01/22 19:18 Sodium 138 mEq/L (136-145) 10/02/22 02:48 Potassium 4.0 mEq/L (3.5-5.1) 10/02/22 02:48 BUN 21 mg/dL (7-18) H 10/02/22 02:48 Creatinine 1.15 mg/dL (0.55-1.02) H 10/02/22 02:48 Glucose 104 mg/dL (74-106) 10/02/22 02:48 Home Medications: Folic Acid 1 mg PO DAILY #30 tablet 01/20/15 Atorvastatin Calcium [Lipitor*] 40 mg PO BEDTIME tab 06/17/20 pyRIDostigmine bromide [Mestinon*] 30 mg PO TID #90 07/21/22 Calcium Carbonate/Vitamin D3 [Caltrate 600 Plus D3 Tablet] 1 each PO DAILY 10/02/22 Cholecalciferol (Vitamin D3) [Vitamin D3] 1,000 unit PO DAILY 10/02/22 Multivit-Min/Iron/Folic/Lutein [Centrum Silver Women Tablet] 1 each PO DAILY 10/02/22 Amlodipine [Norvasc*] 5 mg PO DAILY tab 10/04/22 Sotalol HCl [Betapace*] 80 mg PO BID 6AM 6PM tab 10/04/22 levETIRAcetam [Keppra*] 250 mg PO BID tab 10/04/22
== END 2022-10-04 08:59 | DRG 65 ==
LOC: ER 19:04 → ERHOLD 20:15 → 2ND 21:43 → OBSVTOIN 10-03 08:40
PROVIDERS: ADMIT Internal Medicine; ATTEND Internal Medicine
DX: I63.412 Cerebral infarction due to embolism of left middle cerebral artery (principal); G40.89 Other seizures; G81.91 Hemiplegia, unspecified affecting right dominant side; I48.91 Unspecified atrial fibrillation; I10 Essential (primary) hypertension; E78.5 Hyperlipidemia, unspecified; R53.1 Weakness; R47.01 Aphasia; R29.810 Facial weakness; R29.702 NIHSS score 2; Z86.73 Personal history of transient ischemic attack (TIA), and cerebral infarction without residual deficits; Z79.01 Long term (current) use of anticoagulants; Z79.899 Other long term (current) drug therapy
CPT/HCPCS: 36415; 51702; 70450; 70496; 70498; 70551; 71045; 80048; 84484; 85025; 85610; 85730; 92523; 92526; 92610; 93005; 96374; 97110; 97112; 97116; 97161; 97530; 99285; G0378; J1953; J7030; J7050; Q9967

== ENCOUNTER 2022-10-04 08:17 | Inpatient (IN) | payer OTHER ==
--- OUTSIDE RECORDS SUMMARY | 2022-10-04 09:13 | XMS REPORT | Continuity of Care Document ---
:1940 Author Organization [facility] t Address [address] [place] [address] Care Team Providers Name Role Phone Franck [...] Department ID 2022-05-10 Inpatient ASHLY Capone CARD [id number] [facility] 09:30:00 Franck 63 [facility] 2022-08-15 2022-08-15 Outpatient GUILLE Pedraza [id number] [facility] 12:00:00 12:00:00 Richy 53 [facility] Results This patient has no known results.
[2022-10-04] MEDS ORDERED: DOCUSATE NA/SENNA CONC 1 TAB PO PRN (10:38)
[2022-10-04] MEDS ORDERED: ACETAMINOPHEN 500 MG TAB PO PRN (10:40)
[2022-10-04] MEDS ORDERED: ONDANSETRON 4 MG (ODT) TAB PO PRN (10:41)
[2022-10-04] MEDS: PYRIDOSTIGMINE 60 MG TABLET PO SCH ×2 (13:32→21:13)
[2022-10-04 15:22] LABS: Specific Gravity 1.017 (1.005-1.030); Urine Bacteria 20-50 /HPF (<20); Urine Bilirubin NEGATIVE (Negative); Urine Blood Trace (Negative); Urine Clarity Turbid (Clear); Urine Color Yellow (Yellow); Urine Crystals Unidentified Few /HPF (None Seen); Urine Glucose NEGATIVE (Negative); Urine Mucus Slight /HPF (None Seen); Urine Protein 1+ (Negative); Urine Urobilinogen Normal (Normal); Urine WBC Clump Rare /HPF (None Seen)
[2022-10-04] MEDS: RIVAROXABAN 20 MG TABLET PO SCH (16:41)
[2022-10-04] MEDS: SOTALOL HCL 80 MG TAB PO SCH (16:41)
--- NOTE | 2022-10-04 20:10 | HP ---
Date of Admission: 10/04/2022 [facility] Admission History And Physical Time Of Service: 10 a.m. Chief Complaint: Stroke. History Of Present Illness: Ms. Diane is an 82-year-old patient with prior history of str lazaro and possible seizures who came to [facility] with worsening difficulty with expressing c omprehension and right face, arm, and leg numbness and weakness. She did come within an hour of onse t of symptoms. She was taking Xarelto for atrial fibrillation, but had stopped the medication prior to onset of the episode. At [facility], we know she was within an hour of onset of symptoms . The patient's family refused TNKs. Head CT scan was negative and CT angiogram did reveal moderate hard plaque in left carotid bulb resulting in mild stenosis less than 50% and she was managed medical ly. By the following day, MRI showed new infarcts in the insular and posterior region of the left MC A territory. There were numerous bilateral basal ganglia areas involved as well and there was right more than left peripheral juxtacortical supratentorial foci of suspected signal abnormality. Those w ere felt to be a sequelae of remote microhemorrhages. In addition, radiologist did suggest a potenti al of hypertension as the etiology and chronic amyloid angiopathy sequelae. Given the patient is not a candidate for intra-arterial procedures and she is well out of 24 hour range, she is managed medic ally. However, she has significant deficits that include cognitive deficits, difficulty with compreh ension and expression, significant weakness of her right upper and lower extremity and significant in capacity to perform any of her activities of daily living. She was determined to be an appropriate c andidate for inpatient rehabilitation, which may be the best aggressive course to help her to return towards a baseline level of functioning where she was more independent with mobilization including am bulation with comprehension, expression, and performing activities of daily living. She is therefore admitted to the inpatient rehabilitation unit. Past Medical History: Atrial fibrillation; multiple strokes, at least 3; hypertension; dyslipidemia; vitamin D deficiency; chronically treated disease. Family History: Mother with cancer of stomach. Father had stroke. Social History: No alcohol, tobacco, or IV drug use. Allergies: NO KNOWN DRUG ALLERGIES. Medications: Tylenol 500 mg every 6 hours as needed, Norvasc 5 mg daily, Lipitor 40 mg at bedtime, O s-Anthony plus D 500-200 daily and additional vitamin D 1000 units daily, folic acid 1 mg daily, Keppra 2 50 mg twice daily, melatonin 3 at bedtime, Centrum Silver 1 daily, Mestinon 30 mg 3 times daily for p resumed myasthenia gravis, Zofran 4 mg every 6 hours for nausea, Xarelto 20 mg daily for her atrial f ibrillation, Senokot-S 2 at bedtime for constipation, and Betapace 80 mg twice daily for heart rate a nd blood pressure control. Laboratory Studies: Complete blood count with differential is completely normal. Coagulation panel, INR 1.07. Chemistries: Sodium 138, potassium 4.0, chloride 112, BUN 21, creatinine 1.15, glucose r anged from 81 to 104, calcium 9.0, albumin 3.2, and prealbumin 17.7. COVID-19 test on the Jul ch is negative. X-ray/imaging: As noted above and described above. Review of Systems: The patient had significant difficulty with expression and comprehension and movement of the right up per and lower extremity, and decreased sensation in right upper and lower extremity. Otherwise, no f jessica or chills. Mild myalgias and arthralgias. No rash or headache. No psychiatric complaints. N o active gastrointestinal or genitourinary complaints. Physical Examination: Vital Signs: Blood pressure 141/76, pulse 75, respiratory rate 16, temperature 97.6, and oxygen satu ration 97% on room air. General: Ms. Diane is in her hospital bed, in no acute distress. HEENT: She appears normocephalic, atraumatic. Sclerae anicteric. Oropharynx actually is pink and m oist. Neck: Supple. Chest: Clear. Heart: Regular. Extremities: No significant cyanosis or edema. Neurologic: She does have significant right-sided upper and lower extremity weakness with face invol seth as well with decreased nasolabial fold, mild excursion on smiling. She has expressive and recept celia aphasia. In terms of sensation, right upper and lower extremity decreased to light touch and tem perature. Strength in the right upper and lower extremity around 2 to 3/5, left side 5/5. Gait, she will be ambulated with physical therapist. Reflexes asymmetric and depressed. Current Level Of Functioning: She was found intermittently following commands. She did work with wade mathews to do exercises for bilateral upper and lower extremities to improve her range of motion. Supi ne-to-sit transfer was with moderate assistance. Sitting and changing positions to standing standby to contact guard assistance. She required moderate assistance to ambulate with a rolling walker, she covered about 25 feet. She did require moderate assistance for toilet transfer and again to go from sitting to the side of bed with moderate assistance and also from rolling left to right with moderat e assistance. Rehabilitation And Medical Assessment And Plan: She is admitted to the rehabilitation unit with a re habilitation impairment category of 01 stroke. Her impairment group code is 01.2 right body involvem ent with left brain. Her etiologic diagnosis is an acute infarct involving the insula and posterior left middle cerebral artery territory. Active comorbids are dyslipidemia, hypertension, osteoporosis , and atrial fibrillation. She also has history of seizures, history of deep vein thrombosis, bleedi ng, and myocardial infarction along with additional strokes and headache. Plan: 1.She will have 3.5 hours of physical, occupational, and speech therapy for 5 of 7 days. 2.Continue Senokot-S 2 at night for constipation. 3.Xarelto 20 mg daily for atrial fibrillation. 4.Mestinon 30 mg 3 times daily for presumed myasthenia gravis. 5.Sotalol 80 mg twice daily for heart rate control for atrial fibrillation and blood pressure contro l. 6.Melatonin 3 mg at bedtime for insomnia. 7.Keppra 250 mg twice a day for presumed seizures. 8.Lipitor 40 mg at bedtime for dyslipidemia. 9.Norvasc 5 mg daily to control blood pressure. 10.Tylenol 500 mg every 6 hours for pain control. Impact Of Comorbids: She has atrial fibrillation and is at risk of additional strokes and myocardial infarction. As a result she is on Xarelto, which puts her at increased risk of bleeding therefore f all precautions will be adhered to at all times. She has Mestinon, which is presumed for myasthenia gravis. She does have diffuse weakness with myasthenia gravis. There is fatigue and weakness and e will be evaluated for that. There is also a possibility of respiratory compromise as shortness of breath can develop very quickly with myasthenia gravis and she will be observed carefully for that. Rehab Specific Plan: 1.She will have 3.5 hours, 5 of 7 days for physical, occupational, and speech therapy to improve her ability to dress upper and lower body and to transfer from bed, to toilet, to shower. 2.She will have physical therapy to improve her ability to ambulate back to where she was, which is 250 feet with modified independence. 3.Up and down 10 steps with modified independence. 4.She will be able to comprehend and express herself with independence. 5.She will have fci to address all of her medical needs as outlined above. 6.She has a good understanding of the admission process to the inpatient rehabilitation unit. She h as a great potential to improve and will need all 3 disciplines. If need be, she will have help from the Nutritional Service, Respiratory Service, Cardiology Service to assist with her care. Given her complex medical condition and risk of further complications, rehabilitation cannot be safely or effe ctively provided at a lower level of care such as fci. Barriers To Discharge: At this point, her atrial fibrillation and risk of falling and bleeding given the anticoagulation is a significant risk. Also risk of fatigable weakness is there. She will be g ain carefully watched for that. There is risk of aspiration pneumonia and she will be watched for th at. Estimated Length Of Stay: At least 14 days, perhaps longer. Disposition: Home with family. Prognosis: Good. Rehabilitation Goals: 1.Become independent with upper and lower body dressing. 2.Independent with ambulating 250 feet. 3.Independent up and down 10 steps. 4.Independent with cognitive functioning. 5.Independent swallowing. 6.Medical conditions managed properly. I acknowledge I have personally performed a full physical examination on Ms. Diane, no later than 2 4 hours after her admission to the inpatient rehabilitation facility and determined that she is able to tolerate the above course of treatment at an intensive level for a reasonable period of time. A d etailed individualized plan of care for her will be completed by hospital day 4 based on the preadmis sandra screen history and physical and therapy evaluations. [facility] Voice ID: [id number]
[2022-10-04] MEDS: ATORVASTATIN 40 MG TAB PO SCH (21:13)
[2022-10-04] MEDS: levETIRAcetam 500 MG TAB PO SCH (21:14)
[2022-10-04] MEDS: DOCUSATE NA/SENNA CONC 1 TAB PO SCH (21:14)
[2022-10-04] MEDS: CRANBERRY FRUIT EXTRACT 200 MG CAP PO SCH (21:16)
[2022-10-05] MEDS: SOTALOL HCL 80 MG TAB PO SCH ×2 (05:05→16:51)
[2022-10-05] MEDS: AMLODIPINE 5 MG TAB PO SCH (06:38)
[2022-10-05 06:42] LABS: Absolute Lymphocytes (CBC) 1.6 K/uL (0.7-4.9); Hematocrit 37.3 % (36.0-45.0); Lymphocytes % 29.2 % (15.3-44.8); MCV 92.1 fL (80-100); MPV 7.6 fL (7.6-11.3); RBC Red Blood Cell Count 4.05 M/uL (3.86-4.86)
[2022-10-05 07:01] LABS: Magnesium 2.3 mg/dL (1.6-2.4); Potassium 3.4 mEq/L (3.5-5.1); Prealbumin 15.9 mg/dL (20-40)
[2022-10-05] MEDS: MULTIVIT W/ MINERAL TAB PO SCH (07:43)
[2022-10-05] MEDS: CRANBERRY FRUIT EXTRACT 200 MG CAP PO SCH ×2 (07:43→20:03)
[2022-10-05] MEDS: VITAMIN D 1000 UNIT TAB PO SCH (07:43)
[2022-10-05] MEDS: levETIRAcetam 500 MG TAB PO SCH ×2 (07:43→20:04)
[2022-10-05] MEDS: CALCIUM CARB 500MG/VIT D 200 IU TAB PO SCH (07:44)
[2022-10-05] MEDS: FOLIC ACID 1 MG TABLET PO SCH (07:44)
[2022-10-05] MEDS: PYRIDOSTIGMINE 60 MG TABLET PO SCH ×3 (07:44→20:03)
--- NOTE | 2022-10-05 11:15 | P.PN ---
Subjective Date of Service: 10/05/22 Chief Complaint: STALBLE. GEN WEAK, NOT ABLE TO COMMUNICATE WELL Subjective: No new changes PER NURSE THERE ARE NO CHANGES. NO CHEST PAIN. UA WAS COLLECTED FROM LYLE. I TOLD THAT LYLE SPECIMENS ARE USELESS. COLONIZATION HAPPENS. DC LYLE ADN RECOLLECT SAMPLES. BUT DO NOT TREAT IF THERE ARE NO SYMPTOMS. Physical Examination - Vital Signs Temperature: 96.9 F Blood Pressure: 120/60 Pulse: 54 Respirations: 15 Pulse Ox (%): 97 - Physical Exam General: Alert, In no apparent distress HEENT: Atraumatic, PERRLA, EOMI Neck: Supple, JVD not distended Respiratory: Clear to auscultation bilaterally, Normal air movement Cardiovascular: Regular rate/rhythm, Normal S1 S2 Gastrointestinal: Normal bowel sounds, No tenderness Musculoskeletal: No tenderness Integumentary: No rashes Neurological: Abnormal speech (GLOBAL APHASIA. R SIDE FACIAL WEAKNESS FROM DAY ONE.) Lymphatics: No axilla or inguinal lymphadenopathy - Studies Laboratory Data (last 24 hrs) 10/05/22 06:16: Sodium 141, Potassium 3.4 L, BUN 26 H, Creatinine 1.23 H, Glucose 106, Magnesium 2.3 10/05/22 06:16: WBC 5.40, Hgb 12.5, Hct 37.3, Plt Count 242 Medications List Reviewed: Yes Assessment And Plan - Current Problems (Diagnosis) (1) Arterial ischemic stroke, MCA (middle cerebral artery), left, acute Current Visit: Yes Status: Acute Plan: CONT PT, OT ST. STABLE. CONT XARLETO. IN THE PAST PATIENT REFUSED TO TAKE IT BUT I BELIEVE SHE MUST LONG NO MAJOR SE. (2) A-fib Current Visit: Yes Status: Chronic Plan: RATE CONTROLLED SOTALOL REDUCED HR IS LOW. (3) Atrial fibrillation with RVR Current Visit: No Status: Acute (4) Orthostatic hypotension Current Visit: No Status: Acute Plan: WATCH BP DAILY. ORTHO. (5) Hypokalemia Current Visit: Yes Status: Acute Plan: MAY HAVE HYPERALDOSTERONISM START LOW DOSE SPIRONOLACTONE
[2022-10-05 15:22] LABS: Specific Gravity 1.021 (1.005-1.030); Urine Bacteria <20 /HPF (<20); Urine Bilirubin NEGATIVE (Negative); Urine Blood Negative (Negative); Urine Clarity Turbid (Clear); Urine Color Yellow (Yellow); Urine Glucose NEGATIVE (Negative); Urine Granular Casts >20 /LPF (None Seen); Urine Mucus Slight /HPF (None Seen); Urine Protein TRACE (Negative); Urine RBC <5 /HPF (None Seen); Urine Urobilinogen Normal (Normal); Urine WBC Clump Few /HPF (None Seen); Urine pH 5.5 (5.0-7.0)
[2022-10-05] MEDS: POLYETHYL GLY 3350 17 GM/DOSE PO PRN (16:44)
[2022-10-05] MEDS: RIVAROXABAN 20 MG TABLET PO SCH (16:51)
[2022-10-05] MEDS: TAMSULOSIN 0.4 MG SR CAP PO SCH (17:05)
[2022-10-05] MEDS: ATORVASTATIN 40 MG TAB PO SCH (20:04)
[2022-10-05] MEDS: DOCUSATE NA/SENNA CONC 1 TAB PO SCH (20:05)
[2022-10-06] MEDS: SOTALOL HCL 80 MG TAB PO SCH ×2 (05:12→17:17)
[2022-10-06] MEDS: CRANBERRY FRUIT EXTRACT 200 MG CAP PO SCH ×2 (08:33→20:11)
[2022-10-06] MEDS: SPIRONOLACTONE 25 MG TABLET PO SCH (08:33)
[2022-10-06] MEDS: FOLIC ACID 1 MG TABLET PO SCH (08:38)
[2022-10-06] MEDS: VITAMIN D 1000 UNIT TAB PO SCH (08:39)
[2022-10-06] MEDS: CALCIUM CARB 500MG/VIT D 200 IU TAB PO SCH (08:39)
[2022-10-06] MEDS: PYRIDOSTIGMINE 60 MG TABLET PO SCH ×3 (08:39→20:09)
[2022-10-06] MEDS: TAMSULOSIN 0.4 MG SR CAP PO SCH (08:39)
[2022-10-06] MEDS: levETIRAcetam 500 MG TAB PO SCH ×2 (08:40→20:11)
--- NOTE | 2022-10-06 09:02 | PN ---
Date of Progress Note: 10/05/2022 Time Of Service: 8 p.m. Subjective: Ms. Diane is doing much better. She is smiling, more interactive. She extended her r ight hand to shake my hand when I entered the room. She has no complaints of pain. Review of Systems: No fevers or chills. No myalgias, arthralgias. No rash. No headache. No diarrhea. No constipatio n. No other positives on a 10 point systems review such as shortness of breath and gastric issues. Physical Examination: Vital Signs: Blood pressure 150/63, pulse 54, respiratory rate 16, temperature 97.4, oxygen saturati on 98%. Weight 157 pounds, height 5 feet, BMI 30.7. General: Ms. Diane is resting in bed. HEENT: She is normocephalic, atraumatic. Sclerae anicteric. Oropharynx is pink and moist. Neck: Supple. Chest: Clear. Abdomen: Soft. Extremities: No significant clubbing, cyanosis, or edema. Neurological: She has decreased of the right nasolabial fold, but more improved excursions and smili ng. She has some weakness in the right upper extremity, but at least a 3+ out of 5. She is able to reach my hand to shake my right hand. There is some weakness in the right lower extremity. She has decreased sensation on the right compared to the left. She also has some expressive aphasia more serjio n receptive aphasia. Laboratory Studies: Her complete blood count with differential is completely normal including white blood cell, hemoglobin, hematocrit, platelets. Chemistry: Sodium 141, potassium 3.4, chloride 112, carbon dioxide 28, BUN 26, creatinine 1.26, prealbumin 15.9. Urinalysis is turbid, 2+ nitrite, 500 e sterase, greater than 50 white blood cells with clumps of white blood cells, bacteria less than 20, g ranular casts greater than 20, hyaline casts 5 to 10. X-ray/imaging: None. Medications: Tylenol Extra Strength 500 mg every 6 hours as needed, Norvasc 5 mg daily, Lipitor 40 m g at bedtime, vitamin D 1000 units daily, folic acid 1 mg daily, Keppra 250 mg twice daily, melatonin 3 mg at bedtime, Centrum Silver 1 tablet daily, Zofran 4 mg every 4 hours as needed, Mestinon 30 mg 3 times a day, Cymbalta 20 mg daily, Betapace 40 mg twice daily, Aldactone 25 mg daily, Flomax 0.4 mg daily. Current Functional Status: Ms. Diane performed supine to sit transfers with minimum assistance for trunk and lower extremity. She performed stand and pivot transfers with maximum to moderate assista nce using a rolling walker and a kaylyn walker. She has struggled to maintain good strength on the rol ling walker with the right upper extremity. Uses a kaylyn walker. She had greater trunk instability. She ambulated 25 feet and 50 feet with a rolling walker and 10 feet with a kaylyn walker. She did req uire maximal assistance during ambulation due to gait instability. She had difficulty maintaining gr ip on the rolling walker with the right hand. She is evaluated by Speech Therapy with long-term goal s of improving on receptive and expressive aphasia with 50% accuracy with moderate assistance, with m aximum assistance currently. Plan also to improve her oral motor strength for safe swallowing and sp eech intelligibility with 50% accuracy and moderate assistance. Progress Towards Rehabilitation Goals: Ms. Diane is making fair progress thus far with both physic al and occupational therapy and also she is making some progress with her Speech Therapy. Assessment And Plan: Ms. Diane is admitted to the rehabilitation unit with a stroke affecting her left brain and right body. She has expressive and receptive aphasia. She has right upper and lower extremity weakness, dysarthria, and subtle dysphagia and she is working with both Physical and Occupa tional Therapy along with Speech Therapy to improve her functional status. She has comorbids of seiz ures, on antiepileptic medications. She has atrial fibrillation on high dose of Xarelto. She also h as a history of deep vein thrombosis and is on Xarelto for that. She is on Mestinon 30 mg 3 times da milo for presumed myasthenic symptoms. Plan: 1.As noted, we will continue physical, occupational, and speech therapy 3.5 hours, 5 of 7 days. 2.Mestinon for presumed myasthenia. 3.Xarelto for risk of DVT and atrial fibrillation to reduce risk of stroke. 4.Senokot S for constipation. 5.Melatonin for insomnia. 6.Aldactone for fluid management. 7.Flomax for urinary retention. It should be noted that urinalysis does suggest possibility of a urinary tract infection. Dr. Canas is managing the patient. Her cultures did grow between 10,000 and 100,000 colony-forming units with 2+ gram-negative rods. However, the remaining sensitivity is pending. Comorbids That Are Continuing To Impact Rehabilitation Process: 1.The potential for a urinary tract infection is there. Her urine cultures will be evaluated to det ermine if antibiotics are needed, and additionally that will be correlated with her symptoms. She wi ll be put on cranberry pills 200 mg twice daily. 2.The risk of deep vein thrombosis is present. She is on full anticoagulation, however, that comes with the risk of bleeding, GI bleeds and bleeding if there is a fall for especially the noncompressib le sites, so fall precautions will be adhered to at all times. VITOR/PERLA Voice ID: [id number] Report ID: [id number]
[2022-10-06] MEDS: MULTIVIT W/ MINERAL TAB PO SCH (09:38)
[2022-10-06] MEDS: AMLODIPINE 5 MG TAB PO SCH (09:38)
[2022-10-06] MEDS: RIVAROXABAN 20 MG TABLET PO SCH (17:17)
[2022-10-06] MEDS: DOCUSATE NA/SENNA CONC 1 TAB PO SCH (20:09)
[2022-10-06] MEDS: ATORVASTATIN 40 MG TAB PO SCH (20:09)
[2022-10-06] MEDS ORDERED: POTASSIUM 25 MEQ EFFERV TAB PO ONE (21:00)
--- NOTE | 2022-10-06 21:30 | P.PN ---
Subjective Date of Service: 10/06/22 Chief Complaint: STALBLE. GEN WEAK, NOT ABLE TO COMMUNICATE WELL Subjective: Improving SHE IS LOT BETTER MUCH MORE AWAKE. SHE HAS NO FEVER, CHLLS, PAIN, BURNING AT URINATION OR NAUSEA. Review of Systems 10-point ROS is otherwise unremarkable General: Weakness Physical Examination - Vital Signs Temperature: 97 F Blood Pressure: 187/79 Pulse: 55 Respirations: 17 Pulse Ox (%): 96 - Physical Exam General: Alert, In no apparent distress HEENT: Atraumatic, PERRLA, EOMI Neck: Supple, JVD not distended Respiratory: Clear to auscultation bilaterally, Normal air movement Cardiovascular: Regular rate/rhythm, Normal S1 S2 Gastrointestinal: Normal bowel sounds, No tenderness Musculoskeletal: No tenderness Integumentary: No rashes Neurological: Normal speech, Normal tone, Normal affect, Abnormal strength (R FACIAL DROOP IS BETTER. WEAKNESS IS GENERAL MILD. ) Lymphatics: No axilla or inguinal lymphadenopathy - Studies Microbiology Data (last 24 hrs): 10/04/22 14:20 Catheterized Urine [place] Count - Final BETWEEN 10,000 & 100,000 CFU/ML 10/04/22 14:20 Catheterized Urine - Final Escherichia Coli Esbl Medications List Reviewed: Yes Assessment And Plan - Current Problems (Diagnosis) (1) Arterial ischemic stroke, MCA (middle cerebral artery), left, acute Current Visit: Yes Status: Acute Plan: CONT PT, OT ST. STABLE. CONT XARLETO. IN THE PAST PATIENT REFUSED TO TAKE IT BUT I BELIEVE SHE MUST LONG NO MAJOR SE. (2) A-fib Current Visit: Yes Status: Chronic Plan: RATE CONTROLLED SOTALOL REDUCED HR IS LOW. (3) Atrial fibrillation with RVR Current Visit: No Status: Acute (4) Orthostatic hypotension Current Visit: No Status: Acute Plan: WATCH BP DAILY. ORTHO. (5) Hypokalemia Current Visit: Yes Status: Acute Plan: MAY HAVE HYPERALDOSTERONISM START LOW DOSE SPIRONOLACTONE
[2022-10-06] MEDS ORDERED: cloNIDine HCL 0.1 MG TAB PO PRN (21:31)
[2022-10-07] MEDS: SOTALOL HCL 80 MG TAB PO SCH ×2 (05:38→16:53)
[2022-10-07] MEDS ORDERED: BISACODYL 10 MG RECTAL SUPP PR PRN (06:06)
[2022-10-07 06:44] LABS: Potassium 3.9 mEq/L (3.5-5.1)
[2022-10-07] MEDS: levETIRAcetam 500 MG TAB PO SCH ×2 (07:31→20:09)
[2022-10-07] MEDS: CALCIUM CARB 500MG/VIT D 200 IU TAB PO SCH (07:31)
[2022-10-07] MEDS: VITAMIN D 1000 UNIT TAB PO SCH (07:32)
[2022-10-07] MEDS: CRANBERRY FRUIT EXTRACT 200 MG CAP PO SCH ×2 (07:32→20:09)
[2022-10-07] MEDS: FOLIC ACID 1 MG TABLET PO SCH (07:32)
[2022-10-07] MEDS: MULTIVIT W/ MINERAL TAB PO SCH (07:32)
[2022-10-07] MEDS: TAMSULOSIN 0.4 MG SR CAP PO SCH (07:32)
[2022-10-07] MEDS: AMLODIPINE 5 MG TAB PO SCH ×2 (08:00→16:53)
[2022-10-07] MEDS ORDERED: POTASSIUM 25 MEQ EFFERV TAB PO SCH (08:00)
[2022-10-07] MEDS: SPIRONOLACTONE 25 MG TABLET PO SCH (08:31)
[2022-10-07 16:30] LABS: Specific Gravity 1.017 (1.005-1.030); Urine Bacteria <20 /HPF (<20); Urine Bilirubin NEGATIVE (Negative); Urine Blood 3+ (Negative); Urine Clarity Turbid (Clear); Urine Color Yellow (Yellow); Urine Glucose NEGATIVE (Negative); Urine Mucus 2+ /HPF (None Seen); Urine Protein 1+ (Negative); Urine RBC >50 /HPF (None Seen); Urine Urobilinogen Normal (Normal); Urine WBC Clump Occasional /HPF (None Seen)
[2022-10-07] MEDS: RIVAROXABAN 20 MG TABLET PO SCH (16:52)
[2022-10-07] MEDS: DOCUSATE NA/SENNA CONC 1 TAB PO SCH (20:09)
[2022-10-07] MEDS: ATORVASTATIN 40 MG TAB PO SCH (20:09)
[2022-10-07] MEDS: MELATONIN 3 MG TABLET PO PRN (20:09)
--- NOTE | 2022-10-07 20:26 | PN ---
Date of Progress Note: 10/07/2022 [facility] Progress Note Visit Time Of Service: 1 p.m. Subjective: Ms. Diane is resting in bed. Speech therapist is at the bedside. She is smiling with much more symmetry to her face. She is happy. She is able to use the right hand much better. Her speech is more expressive and she denied any significant new complaints. Review of Systems: No fevers, chills, myalgias, arthralgias, or rash. No psychiatric issues. No active gastrointestina l or genitourinary issues. Physical Examination: Vital Signs: Blood pressure 170/75, pulse 57, respiratory rate 16, temperature 97.2, and oxygen satu ration 95%. Neurologic: Ms. Diane does have slight decrease of the right nasal fold, but has much more excursi ons and smiling. Her right upper extremity strength is improving. Her sensation also improved in th e right upper extremity. No new findings in terms of examination. Abdomen: Soft. Extremities: No significant edema or cyanosis. Laboratory Studies: No new laboratory studies. X-ray/imaging: No new x-rays or imaging. Medications: Medications have been reviewed and remain unchanged. Current Functional Status: Currently, she ambulated 105 feet with minimum assistance using a rolling walker. She ascended and descended 15 steps with bilateral handrails and minimum assistance. With her occupational therapy, the supervision required for bathing, lower body dressing, and upper body d ressing. With her speech, she answers simple questions, yes and no questions and with 100% accuracy. She was unable to complete automatic speech sequences and demonstrated jargon when she attempted to use spontaneous speech. Progress Towards Rehabilitation Goals: She is making much improved progress in terms of physical and occupational therapy. With speech therapy, making progress, but not as significant as occupational and physical therapy. Assessment: Ms. Diane is an 82-year-old patient in the rehabilitation unit with a left hemispheric stroke with much improved right facial strength and right upper extremity strength. She is making a lso improvement in her ability to communicate effectively with speech pathology. She has a very much improved attitude, good smiling and very interactive. Ms. Diane is admitted again with the left brain, right sided stroke. She has dysarthria, dysphagia , atrial fibrillation, and history of deep vein thrombus. She is on Mestinon for presumed myasthenia gravis. Plan: 1.Continue with physical, occupational, and speech therapy 3.5 hours, 5 of 7 days. 2.Continue with her list of medications as noted above. 3.Continue with Xarelto for DVT risk reduction, melatonin for insomnia, and Aldactone for fluid earl gement. 4.Dr. Canas is following the patient for the medical management. Comorbids That Continue To Impact Her Rehabilitation Process: At this point, she is actually doing v carlo well. She is on Xarelto for DVT prophylaxis. She should be watched carefully for possibility of GI bleeding and it will be on an ongoing basis. VITOR/PERLA Voice ID: [id number] Report ID: [id number]
[2022-10-08] MEDS: SOTALOL HCL 80 MG TAB PO SCH ×2 (05:19→17:09)
[2022-10-08] MEDS: CALCIUM CARB 500MG/VIT D 200 IU TAB PO SCH (07:27)
[2022-10-08] MEDS: VITAMIN D 1000 UNIT TAB PO SCH (07:27)
[2022-10-08] MEDS: CRANBERRY FRUIT EXTRACT 200 MG CAP PO SCH ×2 (07:28→19:50)
[2022-10-08] MEDS: TAMSULOSIN 0.4 MG SR CAP PO SCH (07:28)
[2022-10-08] MEDS: levETIRAcetam 500 MG TAB PO SCH ×2 (07:28→19:50)
[2022-10-08] MEDS: MULTIVIT W/ MINERAL TAB PO SCH (07:28)
[2022-10-08] MEDS: SPIRONOLACTONE 25 MG TABLET PO SCH (07:28)
[2022-10-08] MEDS: AMLODIPINE 5 MG TAB PO SCH (07:29)
[2022-10-08] MEDS: FOLIC ACID 1 MG TABLET PO SCH (07:29)
[2022-10-08] MEDS: RIVAROXABAN 20 MG TABLET PO SCH (17:09)
[2022-10-08] MEDS: MELATONIN 3 MG TABLET PO PRN (19:50)
[2022-10-08] MEDS: DOCUSATE NA/SENNA CONC 1 TAB PO SCH (19:50)
[2022-10-08] MEDS: ATORVASTATIN 40 MG TAB PO SCH (19:50)
--- NOTE | 2022-10-08 21:59 | P.PN ---
Subjective Date of Service: 10/08/22 Chief Complaint: LOT BETTER, HAS NO COMPLAINTS Subjective: Improving SHE IS LOT BETTER MUCH MORE AWAKE. SHE HAS NO FEVER, CHLLS, PAIN, BURNING AT URINATION OR NAUSEA. SHE HAS NO SYMPTOMS OF ANY INFECTION. Physical Examination - Vital Signs Temperature: 97.8 F Blood Pressure: 144/73 Pulse: 62 Respirations: 18 Pulse Ox (%): 99 - Physical Exam General: Oriented x3, Mild distress HEENT: Atraumatic, PERRLA, EOMI Neck: Supple, JVD not distended Respiratory: Clear to auscultation bilaterally, Normal air movement Cardiovascular: Regular rate/rhythm, Normal S1 S2 Gastrointestinal: Normal bowel sounds, No tenderness Musculoskeletal: No tenderness Integumentary: No rashes Neurological: Abnormal strength (R FACIAL MILD WEAKNESS. GEN WEAK BUT NO FOCAL ARM OR LEG WEAKNESS.) Lymphatics: No axilla or inguinal lymphadenopathy - Studies Medications List Reviewed: Yes Assessment And Plan - Current Problems (Diagnosis) (1) Arterial ischemic stroke, MCA (middle cerebral artery), left, acute Current Visit: Yes Status: Acute Plan: CONT PT, OT ST. STABLE. CONT XARLETO. IN THE PAST PATIENT REFUSED TO TAKE IT BUT I BELIEVE SHE MUST LONG NO MAJOR SE. (2) A-fib Current Visit: Yes Status: Chronic Plan: RATE CONTROLLED SOTALOL REDUCED HR IS LOW. (3) Atrial fibrillation with RVR Current Visit: No Status: Acute (4) Orthostatic hypotension Current Visit: No Status: Acute Plan: WATCH BP DAILY. ORTHO. (5) Hypokalemia Current Visit: Yes Status: Acute Plan: MAY HAVE HYPERALDOSTERONISM START LOW DOSE SPIRONOLACTONE (6) Asymptomatic bacteriuria Current Visit: Yes Status: Acute Plan: HER URINE SHOWS COLONIZED BACTERIA SHE HAD LYLE SO FAR SHE HAS NO SYMPTOMS SO NO ANTIBIOTICS ARE NEEDED. I WILL WATCH HER.
--- NOTE | 2022-10-08 22:11 | PN ---
Date of Progress Note: 10/08/2022 Time Of Service: 1:00 p.m. Subjective: Ms. Diane is resting in bed. Speech pathologist is coming in to work with her. She i s smiling. Her face is symmetric. She appears very happy. She extended her hands for a handshake, and she appears very grateful for the opportunity to be in the rehabilitation unit. Review of Systems: No fevers, chills, nausea, vomiting, myalgias, arthralgias, rash, or psychiatric issues. Physical Examination: Vital Signs: Blood pressure 149/71, pulse 62, respiratory rate of 16, temperature 97.2, oxygen satur ation 98%. General: Ms. Diane is resting in bed. Again, in no acute distress. She has great excursions now on the right face where the stroke impacted her and otherwise some expressive aphasia seen, so recept celia aphasia. In terms of strength, the right hand has recovered very well, at least 4+/5 strength an d the left side is very strong. Lower extremity has at least 4/5 strength. Laboratory Studies: No new laboratory studies. X-ray/imaging: No new x-ray imaging. Medications: Medications have been reviewed and remained unchanged. Current Functional Status: Today, she ambulated 250 feet twice with a rolling walker and contact gua rd assistance and self propelled a wheelchair 100 feet with standby assistance and verbal cues. With speech pathology, she worked on answering yes/no questions. With oral motor exercises, orientation, repetition, recalled names, and monosyllabic words. She required moderate assistance when performin g these tasks. Progress Towards Rehabilitation Goals: Ms. Diane is making great progress towards her goals of bec oming independent with upper and lower body dressing, transferring, toileting, ambulating 250 feet in dependently and performing cognitive functioning with some help, perhaps modified independence if pos sible. Assessment: Ms. Diane is an 82-year-old patient in the rehabilitation unit with left hemispheric s trokes and right upper and lower extremity weakness with expressive and receptive aphasia. She is im proving very well with her strength that is on the right side along with her expressive and receptive aphasia. She has comorbid atrial fibrillation, history of deep vein thrombosis, and presumed myasth enia gravis. Plan: 1.Continue with physical, occupational, speech therapy. 2.Continue Norvasc for hypertension. 3.Continue Lipitor for dyslipidemia. 4.Continue vitamin D for supplementation for low vitamin D level. 5.Keppra for possible seizures and Xarelto for deep vein thrombosis and stroke risk reduction. 6.Betapace for heart rate control. 7.Aldactone for fluid management. 8.Flomax for urinary retention. Comorbids That Continue To Impact Her Rehabilitation: She is on Xarelto for DVT prophylaxis and stro ke risk reduction that puts her at risk of internal bleed and she will be ambulating with fall precau tions at all times, keep the belt in place. She is followed by her primary care physician, Dr. Canas , who is managing her comorbid conditions. VITOR/PERLA Voice ID: [id number] Report ID: [id number]
[2022-10-09] MEDS: SOTALOL HCL 80 MG TAB PO SCH ×2 (05:15→16:47)
[2022-10-09] MEDS: levETIRAcetam 500 MG TAB PO SCH ×2 (07:39→19:28)
[2022-10-09] MEDS: SPIRONOLACTONE 25 MG TABLET PO SCH (07:40)
[2022-10-09] MEDS: CALCIUM CARB 500MG/VIT D 200 IU TAB PO SCH (07:40)
[2022-10-09] MEDS: TAMSULOSIN 0.4 MG SR CAP PO SCH (07:40)
[2022-10-09] MEDS: FOLIC ACID 1 MG TABLET PO SCH (07:40)
[2022-10-09] MEDS: CRANBERRY FRUIT EXTRACT 200 MG CAP PO SCH ×2 (07:40→19:29)
[2022-10-09] MEDS: AMLODIPINE 5 MG TAB PO SCH (07:41)
[2022-10-09] MEDS: VITAMIN D 1000 UNIT TAB PO SCH (07:41)
[2022-10-09] MEDS: MULTIVIT W/ MINERAL TAB PO SCH (07:41)
[2022-10-09] MEDS ORDERED: NA CHLORIDE 0.9% 500 ML IV ONE (10:20)
[2022-10-09] MEDS ORDERED: NA CHLORIDE 0.9% 1,000 ML IV SCH ×2 (10:25→12:19)
--- NOTE | 2022-10-09 11:18 | RAD REPORT ---
EXAM DESCRIPTION: CT - Head Brain Wo Cont - 10/09/2022 10:55 am CLINICAL HISTORY: R/O Stroke COMPARISON: Head angio dated 10/01/2022; Ct Stroke Brain Wo Cont dated 10/01/2022; Brain Wo Cont dated 10/02/2022 TECHNIQUE: Noncontrast head CT images ad were obtained without IV contrast. Multiplanar reformats we re generated and reviewed. All CT scans are performed using dose optimization technique as appropriate and may include automated exposure control or mA/KV adjustment according to patient size. FINDINGS: No intracranial hemorrhage, mass, or edema. Midline structures are unremarkable. Normal ventricular caliber for age. Progressive areas of hypoattenuation and loss of lynn-white matter differentiation in the left pariet al lobe and operculum extending to the posterior aspect of the insula, similar in extent to the poste rior left MCA territory infarct seen on the most recent MRI. More anterior and superior left operculu m region of encephalomalacia is stable mild mass effect upon the sulci in the left MCA territory post eriorly. Findings are stable. No abnormal extra-axial fluid collections. Mastoid air cells and visualized portions of the paranasal sinuses are clear. No acute bony findings. IMPRESSION: Expected time interval changes of evolving left posterior MCA territory infarct. No other acute intracranial process.
[2022-10-09] MEDS: RIVAROXABAN 20 MG TABLET PO SCH (16:47)
[2022-10-09] MEDS: ATORVASTATIN 40 MG TAB PO SCH (19:28)
[2022-10-09] MEDS: DOCUSATE NA/SENNA CONC 1 TAB PO SCH (19:29)
[2022-10-09] MEDS: Meropenem 1,000 MG in NA CHLORIDE 0.9% 100 ML IV SCH (19:29)
--- NOTE | 2022-10-09 21:07 | PN ---
Date of Progress Note: 10/09/2022 Time Of Service: 1:00 p.m. Subjective: Ms. Diane is resting in bed. The patient denies any current complaints. Earlier toda y, she had very low blood pressures with systolic down to the high 50s. Patient was put in Trendelen jossie position, given a 500 cc bolus of normal saline and another 1 L at 125 cc an hour. She had a he ad CT scan done, which showed no unexpected findings. The study did show expected evolution of her l eft posterior middle cerebral artery territory stroke. There was no hemorrhagic conversion and no ne w stroke. Review of Systems: No fevers, chills, nausea, vomiting, myalgias, arthralgias, rash, headache, weight change. No active psychiatric issues. Physical Examination: Vital Signs: Blood pressure 153/79, pulse of 76, respiratory rate of 15, temperature 97. She is hav ing orthostatic blood pressure changes around 150 today, lying blood pressure 144/86, pulse 106; sitt ing blood pressure 117/68, pulse of 91; and standing blood pressure 67/43, pulse of 88. Her medicati on regimen, which does include a diuretic Aldactone will be adjusted. General: Unremarkable. Neurological: She does have right nasolabial fold droop, which is improving significantly. Trace ed jeannine in the lower extremities and strength in the right upper extremity around 4+/5, on the left 5/5. Same in the lower extremity, on the right 4/5 and on the left 5/5. Laboratory Data: Today, blood sugars were 137. CT scan is as noted. Medications: She does have the Betapace 40 mg twice daily and spironolactone 25 mg daily along with Flomax 0.4 mg daily. It is noted that Dr. Canas, her primary care physician is adjusting her medicat ions to help manage blood pressure and fluid levels. Current Functional Status: Today, she did require maximum assistance for stand and pivot transfer, s it-to-stand transfers done with maximum assistance, supine to sit transfers with maximum assistance. She was unable to complete all therapy in the morning due to very low blood pressure of 57/28 and sh e was then put back to bed. With occupational therapy this afternoon, she was able to initiate and p erform transfers with her hand being held for assistance to pull her up with moderate assistance due to the low blood pressure. Progress Towards Rehabilitation Goals: Over the last day, she has made less significant progress serjio n she had done previously where she was able to ambulate up to 250 feet. Currently, maximum assistan ce required because of the significant drop in blood pressure and she is given a fluid bolus and we w ill see how it does. The biggest limitation currently is the orthostatic changes with drop in blood pressure, which make it difficult for her to maintain an upright position. Assessment: Ms. Diane is an 82-year-old patient with left hemispheric stroke and right upper and l ower extremity weakness and numbness along with expressive and receptive aphasias, which are improvin g. She did have a setback with significant drop in blood pressure with standing and was unable to re ally perform well today with therapy. Repeat head CT scan without contrast showed expected changes i n the left middle cerebral artery stroke and no hemorrhagic conversion or no new stroke. She is rece iving some fluids. She does have atrial fibrillation and has rate control and anticoagulation on boa rd. Plan: 1.Continue with physical, occupational, speech therapy. 2.Continue all medications with the help of Dr. Canas, her primary care physician. Medications have been noted. Comorbids That Continue To Impact Her Rehabilitation Process: At this point, significant drops in bl ood pressure without orthostatic changes are slowing her progress and she did receive a fluid bolus a nd her EKG actually was done, which did not show a rapid response, but she was still in atrial fibril lation and she is on Xarelto. LB/MODL Voice ID: [id number] Report ID: [id number]
--- NOTE | 2022-10-09 23:13 | PN ---
Ms. Diane was doing well this morning when I saw her. She was able to cooperate, starting to talk a little bit. Chest is clear. Heart regular. Abdomen with no guarding, no rebound, and no rigidity. Blood pressure standing up is down to 20 systolic, which is where her problem is with orthostatic hyp otension for which she was on pyridostigmine as she has supine hypertension and cannot use medication like Florinef and ProAmatine, which will raise the hypertension in supine condition. After I saw he r this morning, after lunch time, nurse called me that she was pale and they have done a CT scan of b rain. She still has no signs of any infection. No signs of burning in the urine, pain in abdomen, n ausea, or vomiting. So the patient was not given antibiotics, but I presume at this point, giving her the benefit of doubt, we will give her antibiotic for few days. She has gram positive culture in th e urine, but has no UTI symptoms. She still belongs to a category of asymptomatic bacteriuria and th ere is no recommendation for treatment in this condition of asymptomatic bacteriuria. Otherwise, CT scan of brain shows no signs of any new infarct and to me, I think her pallor or lethargic condition was because of orthostatic hypotension. I still do not see any signs of acute changes in her conditi on for any reason. I will start her back on pyridostigmine to see if it is effective, it is partiall y effective in some patients, and unfortunately this is one of those problems, which has no cure. RVD/MODL Voice ID: [id number] Report ID: [id number]
[2022-10-10] MEDS: SOTALOL HCL 80 MG TAB PO SCH ×2 (05:06→17:12)
--- NOTE | 2022-10-10 05:34 | EKG ---
Test Date: 2022-10-09 Test Time: 14:25:20 Nanotechnician: ARAMIS MEASUREMENT RESULTS: Intervals: Rate: 83 ME: QRSD: 76 QT: 390 QTc: 458 Dafter: P: ME: QRS: 19 T: 88 INTERPRETIVE STATEMENTS: Atrial fibrillation Cannot rule out Anterior infarct, age undetermined Abnormal ECG Compared to ECG 10/02/2022 17:40:22 Sinus rhythm no longer present First degree AV block no longer present Myocardial infarct finding still present Electronically Signed On 10-10-22 05:33:23 CDT by Jc Marks
[2022-10-10] MEDS: Meropenem 1,000 MG in NA CHLORIDE 0.9% 100 ML IV SCH ×2 (07:23→19:54)
[2022-10-10] MEDS: AMLODIPINE 5 MG TAB PO SCH (07:29)
[2022-10-10] MEDS: SPIRONOLACTONE 25 MG TABLET PO SCH (08:00)
[2022-10-10] MEDS: VITAMIN D 1000 UNIT TAB PO SCH (08:19)
[2022-10-10] MEDS: CALCIUM CARB 500MG/VIT D 200 IU TAB PO SCH (08:19)
[2022-10-10] MEDS: TAMSULOSIN 0.4 MG SR CAP PO SCH (08:19)
[2022-10-10] MEDS: CRANBERRY FRUIT EXTRACT 200 MG CAP PO SCH ×2 (08:19→19:53)
[2022-10-10] MEDS: MULTIVIT W/ MINERAL TAB PO SCH (08:20)
[2022-10-10] MEDS: levETIRAcetam 500 MG TAB PO SCH ×2 (08:20→19:53)
[2022-10-10] MEDS: PYRIDOSTIGMINE 60 MG TABLET PO SCH ×2 (08:20→19:53)
[2022-10-10] MEDS: FOLIC ACID 1 MG TABLET PO SCH (08:20)
[2022-10-10 08:47] LABS: Absolute Lymphocytes (CBC) 1.5 K/uL (0.7-4.9); Hematocrit 41.5 % (36.0-45.0); Lymphocytes % 23.5 % (15.3-44.8); MCV 92.1 fL (80-100); MPV 8.6 fL (7.6-11.3)
[2022-10-10 09:04] LABS: Potassium 3.7 mEq/L (3.5-5.1)
[2022-10-10] MEDS: RIVAROXABAN 20 MG TABLET PO SCH (17:12)
[2022-10-10] MEDS: DOCUSATE NA/SENNA CONC 1 TAB PO SCH (19:53)
[2022-10-10] MEDS: ATORVASTATIN 40 MG TAB PO SCH (19:53)
--- NOTE | 2022-10-10 21:17 | P.PN ---
Subjective Date of Service: 10/10/22 Chief Complaint: LOT BETTER, HAS NO COMPLAINTS Subjective: Improving SHE IS LOT BETTER MUCH MORE AWAKE. SHE HAS NO FEVER, CHLLS, PAIN, BURNING AT URINATION OR NAUSEA. SHE HAS NO SYMPTOMS OF ANY INFECTION. SHE HAS IMPROVED. I PUT HER MERREM THERE WAS A REMOTE CHANCE OF SEPSIS. URINE SEEMS TO BE COLONIZATION SO FAR. Physical Examination - Vital Signs Temperature: 97.7 F Blood Pressure: 150/74 Pulse: 61 Respirations: 18 Pulse Ox (%): 98 - Physical Exam General: Mild distress HEENT: Atraumatic, PERRLA, EOMI Neck: Supple, JVD not distended Respiratory: Clear to auscultation bilaterally, Normal air movement Cardiovascular: Regular rate/rhythm, Normal S1 S2 Gastrointestinal: Normal bowel sounds, No tenderness Musculoskeletal: No tenderness Integumentary: No rashes Neurological: Normal speech, Normal tone, Normal affect Lymphatics: No axilla or inguinal lymphadenopathy - Studies Laboratory Data (last 24 hrs) 10/10/22 08:21: Sodium 143, Potassium 3.7, BUN 25 H, Creatinine 1.07 H, Glucose 104, Magnesium 2.0 10/10/22 08:21: WBC 6.30, Hgb 13.9, Hct 41.5, Plt Count 228 Microbiology Data (last 24 hrs): 10/07/22 15:30 Catheterized Urine [place] Count - Final >100,000 CFU/ML. 10/07/22 15:30 Catheterized Urine - Final Escherichia Coli Gram Neg Freddy Medications List Reviewed: Yes Assessment And Plan - Current Problems (Diagnosis) (1) Arterial ischemic stroke, MCA (middle cerebral artery), left, acute Current Visit: Yes Status: Acute Plan: CONT PT, OT ST. STABLE. CONT XARLETO. IN THE PAST PATIENT REFUSED TO TAKE IT BUT I BELIEVE SHE MUST LONG NO MAJOR SE. (2) A-fib Current Visit: Yes Status: Chronic Plan: RATE CONTROLLED SOTALOL REDUCED HR IS LOW. (3) Atrial fibrillation with RVR Current Visit: No Status: Acute (4) Orthostatic hypotension Current Visit: No Status: Acute Plan: WATCH BP DAILY. ORTHO. (5) Hypokalemia Current Visit: Yes Status: Acute Plan: MAY HAVE HYPERALDOSTERONISM START LOW DOSE SPIRONOLACTONE (6) Asymptomatic bacteriuria Current Visit: Yes Status: Acute Plan: HER URINE SHOWS COLONIZED BACTERIA SHE HAD LYLE SO FAR SHE HAS NO SYMPTOMS SO NO ANTIBIOTICS ARE NEEDED. I WILL WATCH HER. MERREM IS STARTED BP DROPPED I SUSPECT THIS NOT FROM SEPSIS BUT HER CHRONIC ISSUE OF ORTHOSTASIS.
--- NOTE | 2022-10-10 23:41 | PN ---
Date of Progress Note: 10/10/2022 Ymke-Yq-Wtog Progress Note Visit Time Of Service: 1:30 p.m. Subjective: Ms. Diane is resting in the bed. She is doing well. She has speech pathologist in [facility] room. She is smiling and very happy. She has no new complaints. Review of Systems: No fevers, chills, nausea, vomiting, myalgias, arthralgias, or rash. She still has some lightheadedn ess on standing and that is associated with orthostatic blood pressures. She does have abdominal bin ders and SHAYY hose to above the knee. Physical Examination: Vital Signs: Blood pressure 150/74, pulse 61, respiratory rate 18, temperature 97.7, and oxygen satu ration 98%. General: Ms. Diane is resting well. Neurologic: She has very good excursions on the right face where she has a stroke. She has very goo d strength return in the right upper extremity and right lower extremity and her speech and her compr ehension expression have improved very well. Laboratory Studies: Complete blood count with differential is completely normal. Her basic metaboli c panel shows chloride is slightly elevated at 112, BUN elevated to 25, creatinine elevated to 1.07, glucose 104, calcium 9.7, and magnesium 2.0. X-ray/imaging: No new x-ray or imaging. Medications: Medications have been reviewed and are managed with help of Dr. Canas her primary care physician. Current Functional Status: Today she ambulated 250 feet once, 100 feet once, and 500 feet once using a rolling walker with contact guard assistance. With speech, she completed oral motor exercises, 10 repetitions each with improved oral control and demonstrated some difficulty with lingual coordinati on. She did take thin liquids via cup and bottle with mild labial spillage on the right side. With occupational therapy, she completed 3 sets of 20 hand stretching exercises with hand gripper, grasped balls and placed them in a basket. Able to hold all fingers of the thumb on the right side and reac h across midline to grasp large pegs and place them in the hole with better precision today than she did yesterday. Progress Towards Rehabilitation Goals: Ms. Diane is making excellent progress with her physical, o ccupational, and speech therapy to improve her ability to transfer, to ambulate 250 feet with modifie d independence. She is going up and down 10 steps with modified independence and perform cognitive f unctioning including speech and swallow with independence. Assessment: Ms. Diane is an 82-year-old patient in the rehabilitation unit with left hemispheric s troke. She has significant improvement in her right upper and lower extremity weakness and her expre ssive and receptive aphasias. Her comorbid condition of atrial fibrillation is controlled. She has orthostatic hypotension. She did receive 500 cc bolus and 1 L of fluid IV that is helping. She is a lso having abdominal binder placed and SHAYY hose when ambulating. Plan: 1.Continue physical, occupational, and speech therapy for 3.5 hours, 5 of 7 days. 2.Continue with her multiple medications to address her stroke risk reduction, for DVT prophylaxis, for anticoagulation for atrial fibrillation. In addition, Lipitor for dyslipidemia, Norvasc for hype rtension, Keppra for seizure risk reduction, Mestinon for presumed myasthenia gravis, and Flomax for urinary retention. Comorbids That Continue To Impact Rehabilitation Process: Her orthostatic changes with drop in blood pressures have impacted her somewhat; however, after receiving a bolus of normal saline, she is doin g much better and ambulating much better. She is on Xarelto for atrial fibrillation and is therefore at increased risk of bleeding and fall precautions will be adher ed to at all times. LB/MODL Voice ID: [id number] Report ID: [id number]
[2022-10-11] MEDS: SOTALOL HCL 80 MG TAB PO SCH ×2 (05:00→16:56)
[2022-10-11] MEDS: Meropenem 1,000 MG in NA CHLORIDE 0.9% 100 ML IV SCH ×2 (07:07→19:08)
[2022-10-11] MEDS: CALCIUM CARB 500MG/VIT D 200 IU TAB PO SCH (07:59)
[2022-10-11] MEDS: CRANBERRY FRUIT EXTRACT 200 MG CAP PO SCH ×2 (07:59→19:07)
[2022-10-11] MEDS: FOLIC ACID 1 MG TABLET PO SCH (07:59)
[2022-10-11] MEDS: MULTIVIT W/ MINERAL TAB PO SCH (08:00)
[2022-10-11] MEDS: AMLODIPINE 5 MG TAB PO SCH (08:00)
[2022-10-11] MEDS: VITAMIN D 1000 UNIT TAB PO SCH (08:00)
[2022-10-11] MEDS: levETIRAcetam 500 MG TAB PO SCH ×2 (08:00→19:07)
[2022-10-11] MEDS: TAMSULOSIN 0.4 MG SR CAP PO SCH (08:00)
[2022-10-11] MEDS: SPIRONOLACTONE 25 MG TABLET PO SCH ×2 (08:00→16:21)
[2022-10-11] MEDS: PYRIDOSTIGMINE 60 MG TABLET PO SCH ×2 (08:00→19:08)
--- NOTE | 2022-10-11 08:23 | P.RH.PN ---
Estimated Length of Stay: 18 Expected Discharge Date: 10/22/22 Discharge Disposition Plan: Home Family Support: Yes Custodial Goal: Mobility, Transfers, Self Care Vital Signs: Last Vital Signs Temp 97.9 F 10/11/22 06:57 Pulse 52 10/11/22 06:57 Resp 17 10/11/22 06:57 BP 159/75 H 10/11/22 06:57 Pulse Ox 97 10/11/22 06:57 Laboratory: Laboratory Last Values WBC 6.30 thou/uL (4.3-10.9) 10/10/22 08:21 RBC 4.50 M/uL (3.86-4.86) 10/10/22 08:21 Hgb 13.9 g/dL (12.0-15.0) 10/10/22 08:21 Hct 41.5 % (36.0-45.0) 10/10/22 08:21 MCV 92.1 fL (80-100) 10/10/22 08:21 MCH 30.9 pg (27.0-35.0) 10/10/22 08:21 MCHC 33.5 g/dL (32.0-36.0) 10/10/22 08:21 RDW 13.0 % (12.1-15.2) 10/10/22 08:21 Plt Count 228 thou/uL (152-406) 10/10/22 08:21 MPV 8.6 fL (7.6-11.3) 10/10/22 08:21 Neutrophils % 65.8 % (41.7-73.7) 10/10/22 08:21 Lymphocytes % 23.5 % (15.3-44.8) 10/10/22 08:21 Monocytes % 8.0 % (3.3-12.3) 10/10/22 08:21 Eosinophils % 1.8 % (0-4.4) 10/10/22 08:21 Basophils % 0.9 % (0-1.3) 10/10/22 08:21 Absolute Neutrophils 4.2 K/uL (1.8-8.0) 10/10/22 08:21 Absolute Lymphocytes 1.5 K/uL (0.7-4.9) 10/10/22 08:21 Absolute Monocytes 0.5 K/uL (0.1-1.3) 10/10/22 08:21 Absolute Eosinophils 0.1 K/uL (0-0.5) 10/10/22 08:21 Absolute Basophils 0.1 K/uL (0-0.5) 10/10/22 08:21 Sodium 143 mEq/L (136-145) 10/10/22 08:21 Potassium 3.7 mEq/L (3.5-5.1) 10/10/22 08:21 Chloride 112 mEq/L (98-107) H 10/10/22 08:21 Carbon Dioxide 26 mEq/L (21-32) 10/10/22 08:21 Anion Gap 8.7 mEq/L (5.0-15.0) 10/10/22 08:21 BUN 25 mg/dL (7-18) H 10/10/22 08:21 Creatinine 1.07 mg/dL (0.55-1.02) H 10/10/22 08:21 Est GFR (CKD-EPI) 52 ml/min (=/>90) L 10/10/22 08:21 Glucose 104 mg/dL (74-106) 10/10/22 08:21 POC Glucose 127 mg/dL (65-120) H 10/09/22 10:22 Calcium 9.7 mg/dL (8.5-10.1) 10/10/22 08:21 Magnesium 2.0 mg/dL (1.6-2.4) 10/10/22 08:21 Albumin 3.0 g/dL (3.4-5.0) L 10/05/22 06:16 Prealbumin 15.9 mg/dL (20-40) L 10/05/22 06:16 Urine Color Yellow (Yellow) 10/07/22 15:30 Urine Clarity Turbid (Clear) H 10/07/22 15:30 Urine pH 7.0 (5.0-7.0) 10/07/22 15:30 Ur Specific Webb 1.017 (1.005-1.030) 10/07/22 15:30 Glucose (UA)(Auto) Negative (Negative) 10/07/22 15:30 Urine Ketones Negative (Negative) 10/07/22 15:30 Urine Blood 3+ (Negative) H 10/07/22 15:30 Urine Nitrite Negative (Negative) 10/07/22 15:30 Urine Bilirubin Negative (Negative) 10/07/22 15:30 Urine Urobilinogen Normal (Normal) 10/07/22 15:30 Ur Leukocyte Esterase 500 Fredis/uL (Negative) H 10/07/22 15:30 Urine RBC >50 /HPF (None Seen) H 10/07/22 15:30 Urine Red Cell Clumps Cancelled 10/04/22 10:47 Urine WBC >50 /HPF (<5) H 10/07/22 15:30 Urine WBC Clumps Occasional /HPF (None Seen) H 10/07/22 15:30 Ur Squamous Epith Cells <5 /HPF (None Seen) 10/07/22 15:30 U Non-Squamous Epi Cells <5 /HPF (None Seen) 10/07/22 15:30 Ur Transition Epith Cell Cancelled 10/04/22 10:47 Ur Renal Epithelial Cell Cancelled 10/04/22 10:47 Calcium Carbonate Cryst Cancelled 10/04/22 10:47 Calcium Oxalate Crystal Cancelled 10/04/22 10:47 Leucine Crystals Cancelled 10/04/22 10:47 Cystine Crystals Cancelled 10/04/22 10:47 Uric Acid Crystals Cancelled 10/04/22 10:47 Triple Phos Crystals Cancelled 10/04/22 10:47 Tyrosine Crystals Cancelled 10/04/22 10:47 Unidentified Crystals Few /HPF (None Seen) 10/04/22 14:20 Amorphous Crystals Cancelled 10/04/22 10:47 Urine Bacteria <20 /HPF (<20) 10/07/22 15:30 Hyaline Casts 10-20 /LPF (None Seen) H 10/07/22 15:30 Granular Casts >20 /LPF (None Seen) H 10/05/22 14:45 Waxy Casts Cancelled 10/04/22 10:47 RBC Casts Cancelled 10/04/22 10:47 WBC Casts Cancelled 10/04/22 10:47 Urine Mucus 2+ /HPF (None Seen) 10/07/22 15:30 Urine Trichomonas Cancelled 10/04/22 10:47 Ur Yeast w Hyphae Cancelled 10/04/22 10:47 Urine Yeast (Budding) Cancelled 10/04/22 10:47 Urine Sperm Cancelled 10/04/22 10:47 Ur Oval Fat Bodies Cancelled 10/04/22 10:47 Urine Culture Reflexed Reflexed 10/07/22 15:30 Urine Total Protein 1+ (Negative) H 10/07/22 15:30 Urine Ascorbic Acid Cancelled 10/04/22 10:47 Urine Fat Cancelled 10/04/22 10:47 Weight: 157 lb Wound Present: No Closed Surgical Incision Present: No Negative Pressure Wound Therapy Present: No Physician Update: Making fair overall progress with all therapy. She has intermittent urinary incontinence which may be related to her stroke. Her orthostatic hypotention has improved mildly with SHAYY hose and abdominal binder. Improved with speech therapy. More spontanous speech. Still drools from the right corner of her mouth. Working on oral motor movements. SBA with bed mobility. 250' with CGA and up and down 10 steps with CGA. Now doing more fine motor activity with her right hand. Will start timed voiding for bladder training. Comment: No skin breakdown Summary: Patient's care plan and retirement goals have been reviewed and revised as necessary. Please see the Rehabilitation Signature page for all necessary signatures.
--- NOTE | 2022-10-11 14:07 | P.PN ---
Subjective Date of Service: 10/11/22 Chief Complaint: LOT BETTER, HAS NO COMPLAINTS SHE IS LOT BETTER MUCH MORE AWAKE. SHE HAS NO FEVER, CHLLS, PAIN, BURNING AT URINATION OR NAUSEA. SHE HAS NO SYMPTOMS OF ANY INFECTION. SHE HAS IMPROVED. I PUT HER MERREM THERE WAS A REMOTE CHANCE OF SEPSIS. URINE SEEMS TO BE COLONIZATION SO FAR. NO CHANGES SHE IS BETTER WITH PT. Review of Systems 10-point ROS is otherwise unremarkable General: Weakness Physical Examination - Vital Signs Temperature: 97.9 F Blood Pressure: 90/61 Pulse: 74 Respirations: 17 Pulse Ox (%): 97 - Physical Exam General: Alert, In no apparent distress HEENT: Atraumatic, PERRLA, EOMI Neck: Supple, JVD not distended Respiratory: Clear to auscultation bilaterally, Normal air movement Cardiovascular: Regular rate/rhythm, Normal S1 S2 Gastrointestinal: Normal bowel sounds, No tenderness Musculoskeletal: No tenderness Integumentary: No rashes Neurological: Normal speech, Normal tone, Normal affect Lymphatics: No axilla or inguinal lymphadenopathy - Studies Medications List Reviewed: Yes Assessment And Plan - Current Problems (Diagnosis) (1) Arterial ischemic stroke, MCA (middle cerebral artery), left, acute Current Visit: Yes Status: Acute Plan: CONT PT, OT ST. STABLE. CONT XARLETO. IN THE PAST PATIENT REFUSED TO TAKE IT BUT I BELIEVE SHE MUST LONG NO MAJOR SE. (2) A-fib Current Visit: Yes Status: Chronic Plan: RATE CONTROLLED SOTALOL REDUCED HR IS LOW. (3) Atrial fibrillation with RVR Current Visit: No Status: Acute (4) Orthostatic hypotension Current Visit: No Status: Acute Plan: WATCH BP DAILY. ORTHO. (5) Hypokalemia Current Visit: Yes Status: Acute Plan: MAY HAVE HYPERALDOSTERONISM START LOW DOSE SPIRONOLACTONE (6) Asymptomatic bacteriuria Current Visit: Yes Status: Acute Plan: HER URINE SHOWS COLONIZED BACTERIA SHE HAD YLLE SO FAR SHE HAS NO SYMPTOMS SO NO ANTIBIOTICS ARE NEEDED. I WILL WATCH HER. MERREM IS STARTED BP DROPPED I SUSPECT THIS NOT FROM SEPSIS BUT HER CHRONIC ISSUE OF ORTHOSTASIS. WILL GIVE ABOUT 5 DAYS ABX THERE IS NO CLEAR INDICATION OF IT.
[2022-10-11] MEDS: RIVAROXABAN 20 MG TABLET PO SCH (16:22)
[2022-10-11] MEDS: ENSURE ENLIVE 237 ML CAN PO SCH (19:07)
[2022-10-11] MEDS: ATORVASTATIN 40 MG TAB PO SCH (19:09)
[2022-10-11] MEDS: DOCUSATE NA/SENNA CONC 1 TAB PO SCH (19:09)
[2022-10-12] MEDS: SOTALOL HCL 80 MG TAB PO SCH ×2 (05:21→17:08)
[2022-10-12] MEDS: Meropenem 1,000 MG in NA CHLORIDE 0.9% 100 ML IV SCH ×2 (06:59→19:17)
[2022-10-12] MEDS: FOLIC ACID 1 MG TABLET PO SCH (08:23)
[2022-10-12] MEDS: levETIRAcetam 500 MG TAB PO SCH ×2 (08:24→20:23)
[2022-10-12] MEDS: CRANBERRY FRUIT EXTRACT 200 MG CAP PO SCH ×2 (08:24→20:24)
[2022-10-12] MEDS: TAMSULOSIN 0.4 MG SR CAP PO SCH (08:24)
[2022-10-12] MEDS: PYRIDOSTIGMINE 60 MG TABLET PO SCH ×2 (08:24→20:24)
[2022-10-12] MEDS: CALCIUM CARB 500MG/VIT D 200 IU TAB PO SCH (08:24)
[2022-10-12] MEDS: MULTIVIT W/ MINERAL TAB PO SCH (08:25)
[2022-10-12] MEDS: SPIRONOLACTONE 25 MG TABLET PO SCH (08:25)
[2022-10-12] MEDS: VITAMIN D 1000 UNIT TAB PO SCH (08:25)
[2022-10-12] MEDS: AMLODIPINE 5 MG TAB PO SCH (09:49)
[2022-10-12] MEDS: ENSURE ENLIVE 237 ML CAN PO SCH ×2 (10:28→20:25)
--- NOTE | 2022-10-12 15:52 | P.PN ---
Subjective Date of Service: 10/12/22 Chief Complaint: LOT BETTER, HAS NO COMPLAINTS Subjective: Improving HER STANDING BP IS 100 SYSTOLIC NOW. SHE IS ON MESTINON AND STOCKINGS. NO SIGNS OF FEVER OR PAIN. Review of Systems 10-point ROS is otherwise unremarkable General: Weakness Physical Examination - Vital Signs Temperature: 98.0 F Blood Pressure: 168/80 Pulse: 65 Respirations: 16 Pulse Ox (%): 97 - Physical Exam General: Oriented x3, Mild distress HEENT: Atraumatic, PERRLA, EOMI Neck: Supple, JVD not distended Respiratory: Clear to auscultation bilaterally, Normal air movement Cardiovascular: Regular rate/rhythm, Normal S1 S2 Gastrointestinal: Normal bowel sounds, No tenderness Musculoskeletal: No tenderness Integumentary: No rashes Neurological: Normal speech, Normal tone, Normal affect Lymphatics: No axilla or inguinal lymphadenopathy - Studies Medications List Reviewed: Yes Assessment And Plan - Current Problems (Diagnosis) (1) Arterial ischemic stroke, MCA (middle cerebral artery), left, acute Current Visit: Yes Status: Acute Plan: ABLE TO MOVE ALL FOUR LIMBS. POWER IS UPTO 5/5 NOW. CONTINUE PT. NO FACIAL DROOP (2) A-fib Current Visit: Yes Status: Chronic Plan: RATE CONTROLLED SOTALOL REDUCED HR IS LOW. (3) Atrial fibrillation with RVR Current Visit: No Status: Acute (4) Orthostatic hypotension Current Visit: No Status: Acute Plan: WATCH BP DAILY. ORTHO. (5) Hypokalemia Current Visit: Yes Status: Acute Plan: MAY HAVE HYPERALDOSTERONISM START LOW DOSE SPIRONOLACTONE (6) Asymptomatic bacteriuria Current Visit: Yes Status: Acute Plan: MERREM IS STARTED BP DROPPED I SUSPECT THIS NOT FROM SEPSIS BUT HER CHRONIC ISSUE OF ORTHOSTASIS. WILL GIVE ABOUT 5 DAYS ABX THERE IS NO CLEAR INDICATION OF IT.
[2022-10-12] MEDS: RIVAROXABAN 20 MG TABLET PO SCH (17:08)
[2022-10-12] MEDS ORDERED: NA CHLORIDE 0.9% 250 ML ONE (19:18)
[2022-10-12] MEDS: DOCUSATE NA/SENNA CONC 1 TAB PO SCH (20:23)
[2022-10-12] MEDS: ATORVASTATIN 40 MG TAB PO SCH (20:24)
--- NOTE | 2022-10-12 20:57 | PN ---
Date of Progress Note: 10/12/2022 [facility] Visit Time Of Service: 6:30 p.m. Subjective: Ms. Diane is resting in bed. She is in no acute distress. She has no complaints. Review of Systems: No fevers, chills, nausea, vomiting, or myalgias. Physical Examination: Vital Signs: Blood pressure 168/80, pulse 65, respiratory rate 16, temperature 98, and oxygen satura tion 97%. General: Ms. Diane is resting comfortably. Neurologic: She has significant improvement as noted previously in her right nasolabial fold droopin g from her stroke. Her face appears now to be very close to symmetric. Right upper extremity streng th has improved very well. Good coordination and dexterity in the right hand and the lower extremity and the right leg is also improving very well. Laboratory Studies: No new laboratory studies. X-ray/imaging: No new x-ray or imaging. Medications: Have been reviewed and remain unchanged. Regarding her physical therapy, she ambulated 250 feet once, another 500 feet twice using a rolling w alker, and up and down 15 steps with bilateral handrails. Supine tot done independently. She worked and is improving in terms of her speech, answering simple yes/no questions more appropriately. Progress Towards Rehabilitation Goals: Ms. Diane is making excellent progress towards her goals of becoming independent with upper and lower body dressing, transferring, toileting, showering, ambulat ing 500 feet with independence, up and down 10 steps with independence, and performing cognitive func tioning independently. Also to communicate effectively, she is approaching that, but the goal will b e to become modified independent to independent with communication. Assessment: Ms. Diane is an 82-year-old patient in the rehabilitation unit with left middle cerebr al artery stroke and right face, arm, and leg weakness and numbness from which she is improving very well. She also has expressive and receptive aphasia and that too is improving. She has atrial fibri llation, orthostatic hypotension, dyslipidemia, and urinary retention. Plan: 1.Continue physical, occupational, and speech therapy 3.5 hours, 5 of 7 days. 2.Continue Norvasc 5 mg daily for hypertension. 3.Keppra 250 mg daily for presumed seizures. 4.Tylenol 500 mg every 6 hours for pain. 5.She is completing meropenem. Comorbids That Continue To Impact The Rehabilitation Process: Currently her comorbid conditions are stably managed and Dr. Canas, her primary care physician is seeing the patient on a daily basis and t he comorbids are not negatively impacting her rehabilitation. VITOR/PERLA Voice ID: [id number] Report ID: [id number]
[2022-10-13] MEDS: SOTALOL HCL 80 MG TAB PO SCH ×2 (05:14→16:52)
[2022-10-13] MEDS: Meropenem 1,000 MG in NA CHLORIDE 0.9% 100 ML IV SCH ×2 (07:15→19:37)
[2022-10-13] MEDS: levETIRAcetam 500 MG TAB PO SCH ×2 (07:36→19:38)
[2022-10-13] MEDS: CALCIUM CARB 500MG/VIT D 200 IU TAB PO SCH (07:36)
[2022-10-13] MEDS: CRANBERRY FRUIT EXTRACT 200 MG CAP PO SCH ×2 (07:37→19:39)
[2022-10-13] MEDS: MULTIVIT W/ MINERAL TAB PO SCH (07:37)
[2022-10-13] MEDS: FOLIC ACID 1 MG TABLET PO SCH (07:37)
[2022-10-13] MEDS: SPIRONOLACTONE 25 MG TABLET PO SCH (07:37)
[2022-10-13] MEDS: PYRIDOSTIGMINE 60 MG TABLET PO SCH ×2 (07:37→19:38)
[2022-10-13] MEDS: TAMSULOSIN 0.4 MG SR CAP PO SCH (07:38)
[2022-10-13] MEDS: VITAMIN D 1000 UNIT TAB PO SCH (07:38)
[2022-10-13] MEDS: ENSURE ENLIVE 237 ML CAN PO SCH ×2 (07:39→19:39)
[2022-10-13] MEDS: AMLODIPINE 5 MG TAB PO SCH (08:00)
--- NOTE | 2022-10-13 15:39 | P.PN ---
Subjective Date of Service: 10/13/22 Chief Complaint: LOT BETTER, HAS NO COMPLAINTS Subjective: Improving HER STANDING BP IS 100 SYSTOLIC NOW. SHE IS ON MESTINON AND STOCKINGS. NO SIGNS OF FEVER OR PAIN. SHE HAS NO NEW COMPLAINTS SHE FEELS WELL. Physical Examination - Vital Signs Temperature: 97.6 F Blood Pressure: 137/65 Pulse: 64 Respirations: 18 Pulse Ox (%): 97 - Physical Exam General: Oriented x2 HEENT: Atraumatic, PERRLA, EOMI Neck: Supple, JVD not distended Respiratory: Clear to auscultation bilaterally, Normal air movement Cardiovascular: Regular rate/rhythm, Normal S1 S2 Gastrointestinal: Normal bowel sounds, No tenderness Musculoskeletal: No tenderness Integumentary: No rashes Neurological: Normal speech, Normal tone, Normal affect Lymphatics: No axilla or inguinal lymphadenopathy - Studies Medications List Reviewed: Yes Assessment And Plan - Current Problems (Diagnosis) (1) Arterial ischemic stroke, MCA (middle cerebral artery), left, acute Current Visit: Yes Status: Acute Plan: ABLE TO MOVE ALL FOUR LIMBS. POWER IS UPTO 5/5 NOW. CONTINUE PT. NO FACIAL DROOP (2) A-fib Current Visit: Yes Status: Chronic Plan: RATE CONTROLLED SOTALOL REDUCED HR IS LOW. (3) Atrial fibrillation with RVR Current Visit: No Status: Acute (4) Orthostatic hypotension Current Visit: No Status: Acute Plan: WATCH BP DAILY. ORTHO. (5) Hypokalemia Current Visit: Yes Status: Acute Plan: MAY HAVE HYPERALDOSTERONISM START LOW DOSE SPIRONOLACTONE (6) Asymptomatic bacteriuria Current Visit: Yes Status: Acute Plan: MERREM IS STARTED BP DROPPED I SUSPECT THIS NOT FROM SEPSIS BUT HER CHRONIC ISSUE OF ORTHOSTASIS. WILL GIVE ABOUT 5 DAYS ABX THERE IS NO CLEAR INDICATION OF IT. NO CHANGES. SHE IS GROWING TWO DIFF BACTERIAL FROM URINE WITH TWO CULTURES. THIS EXPLAINS COLONIZATION.
[2022-10-13] MEDS: RIVAROXABAN 20 MG TABLET PO SCH (16:51)
[2022-10-13] MEDS: DOCUSATE NA/SENNA CONC 1 TAB PO SCH (19:39)
[2022-10-13] MEDS: ATORVASTATIN 40 MG TAB PO SCH (19:39)
[2022-10-14] MEDS: SOTALOL HCL 80 MG TAB PO SCH ×2 (05:18→16:55)
[2022-10-14] MEDS: levETIRAcetam 500 MG TAB PO SCH ×2 (07:02→19:30)
[2022-10-14] MEDS: Meropenem 1,000 MG in NA CHLORIDE 0.9% 100 ML IV SCH (07:02)
[2022-10-14] MEDS: TAMSULOSIN 0.4 MG SR CAP PO SCH (07:03)
[2022-10-14] MEDS: VITAMIN D 1000 UNIT TAB PO SCH (07:03)
[2022-10-14] MEDS: FOLIC ACID 1 MG TABLET PO SCH (07:03)
[2022-10-14] MEDS: CALCIUM CARB 500MG/VIT D 200 IU TAB PO SCH (07:03)
[2022-10-14] MEDS: PYRIDOSTIGMINE 60 MG TABLET PO SCH ×2 (07:03→19:30)
[2022-10-14] MEDS: MULTIVIT W/ MINERAL TAB PO SCH (07:04)
[2022-10-14] MEDS: CRANBERRY FRUIT EXTRACT 200 MG CAP PO SCH ×2 (07:04→19:30)
[2022-10-14] MEDS: SPIRONOLACTONE 25 MG TABLET PO SCH (07:05)
[2022-10-14] MEDS: ENSURE ENLIVE 237 ML CAN PO SCH ×2 (07:05→19:31)
[2022-10-14] MEDS: AMLODIPINE 5 MG TAB PO SCH (07:06)
[2022-10-14 08:34] LABS: Absolute Lymphocytes (CBC) 1.7 K/uL (0.7-4.9); Hematocrit 41.1 % (36.0-45.0); Lymphocytes % 34.5 % (15.3-44.8); MCV 91.8 fL (80-100); MPV 8.2 fL (7.6-11.3); RBC Red Blood Cell Count 4.48 M/uL (3.86-4.86)
[2022-10-14 08:52] LABS: Potassium 3.6 mEq/L (3.5-5.1)
[2022-10-14] MEDS: RIVAROXABAN 20 MG TABLET PO SCH (16:55)
--- NOTE | 2022-10-14 17:10 | P.PN ---
Subjective Date of Service: 10/14/22 Chief Complaint: ORTHOSTASIS THIS AM. Subjective: New changes HER STANDING BP IS 100 SYSTOLIC NOW. SHE IS ON MESTINON AND STOCKINGS. NO SIGNS OF FEVER OR PAIN. SHE HAS NO NEW COMPLAINTS SHE FEELS WELL. SHE GETS LOW BP OFF AND ON ON STANDING. MAINLY WHEN SHE HAS NO STOCKINGS ON. Review of Systems 10-point ROS is otherwise unremarkable General: Weakness Physical Examination - Vital Signs Temperature: 97.2 F Blood Pressure: 134/80 (THIS AM WAS DOWN TO 90 SYSTOLIC ON STANDING) Pulse: 90 Respirations: 17 Pulse Ox (%): 97 - Physical Exam General: Acute distress, Mild distress HEENT: Atraumatic, PERRLA, EOMI Neck: Supple, JVD not distended Respiratory: Clear to auscultation bilaterally, Normal air movement Cardiovascular: Regular rate/rhythm, Normal S1 S2 Gastrointestinal: Normal bowel sounds, No tenderness Musculoskeletal: No tenderness Integumentary: No rashes Neurological: Normal speech, Normal tone, Normal affect Lymphatics: No axilla or inguinal lymphadenopathy - Studies Laboratory Data (last 24 hrs) 10/14/22 08:14: Sodium 144, Potassium 3.6, BUN 31 H, Creatinine 1.31 H, Glucose 78 10/14/22 08:14: WBC 5.00, Hgb 13.9, Hct 41.1, Plt Count 253 Medications List Reviewed: Yes Assessment And Plan - Current Problems (Diagnosis) (1) Arterial ischemic stroke, MCA (middle cerebral artery), left, acute Current Visit: Yes Status: Acute Plan: ABLE TO MOVE ALL FOUR LIMBS. POWER IS UPTO 5/5 NOW. CONTINUE PT. NO FACIAL DROOP (2) A-fib Current Visit: Yes Status: Chronic Plan: RATE CONTROLLED SOTALOL REDUCED HR IS LOW. (3) Atrial fibrillation with RVR Current Visit: No Status: Acute (4) Orthostatic hypotension Current Visit: No Status: Acute Plan: WATCH BP DAILY. ORTHO. CONTINUE ABDOMEN BINDER AND STOCKINGS. STOP AMLODIPINE DO NOT LAY HER HEAD DOWN BELOW 45 DEGREES. (5) Hypokalemia Current Visit: Yes Status: Acute Plan: MAY HAVE HYPERALDOSTERONISM START LOW DOSE SPIRONOLACTONE (6) Asymptomatic bacteriuria Current Visit: Yes Status: Acute Plan: MERREM IS STARTED BP DROPPED I SUSPECT THIS NOT FROM SEPSIS BUT HER CHRONIC ISSUE OF ORTHOSTASIS. WILL GIVE ABOUT 5 DAYS ABX THERE IS NO CLEAR INDICATION OF IT. NO CHANGES. SHE IS GROWING TWO DIFF BACTERIAL FROM URINE WITH TWO CULTURES. THIS EXPLAINS COLONIZATION.
[2022-10-14] MEDS: ATORVASTATIN 40 MG TAB PO SCH (19:30)
[2022-10-15] MEDS: SOTALOL HCL 80 MG TAB PO SCH ×2 (05:29→16:42)
[2022-10-15] MEDS: FOLIC ACID 1 MG TABLET PO SCH (07:18)
[2022-10-15] MEDS: CRANBERRY FRUIT EXTRACT 200 MG CAP PO SCH ×2 (07:18→19:19)
[2022-10-15] MEDS: levETIRAcetam 500 MG TAB PO SCH ×2 (07:18→19:19)
[2022-10-15] MEDS: CALCIUM CARB 500MG/VIT D 200 IU TAB PO SCH (07:18)
[2022-10-15] MEDS: MULTIVIT W/ MINERAL TAB PO SCH (07:18)
[2022-10-15] MEDS: VITAMIN D 1000 UNIT TAB PO SCH (07:18)
[2022-10-15] MEDS: PYRIDOSTIGMINE 60 MG TABLET PO SCH ×2 (07:19→19:19)
[2022-10-15] MEDS: TAMSULOSIN 0.4 MG SR CAP PO SCH (07:19)
[2022-10-15] MEDS: ENSURE ENLIVE 237 ML CAN PO SCH ×2 (07:20→19:19)
[2022-10-15] MEDS: SPIRONOLACTONE 25 MG TABLET PO SCH (07:39)
[2022-10-15] MEDS: POLYETHYL GLY 3350 17 GM/DOSE PO PRN (15:22)
[2022-10-15] MEDS: RIVAROXABAN 20 MG TABLET PO SCH (16:42)
[2022-10-15] MEDS: ATORVASTATIN 40 MG TAB PO SCH (19:19)
--- NOTE | 2022-10-15 21:45 | P.PN ---
Subjective Date of Service: 10/15/22 Chief Complaint: ORTHOSTASIS THIS AM. Subjective: Improving SHE IS OKAY AND DOES NOT LIKE BINDERS. SHE DOES WELL WITH BINDER AND LEG STOCKINGS BP DOESNOT DROP. Physical Examination - Vital Signs Temperature: 97.2 F Blood Pressure: 145/67 Pulse: 68 Respirations: 18 Pulse Ox (%): 96 - Physical Exam General: Oriented x3, Mild distress HEENT: Atraumatic, PERRLA, EOMI Neck: Supple, JVD not distended Respiratory: Clear to auscultation bilaterally, Normal air movement Cardiovascular: Regular rate/rhythm, Normal S1 S2 Gastrointestinal: Normal bowel sounds, No tenderness Musculoskeletal: No tenderness Integumentary: No rashes Neurological: Normal speech, Normal tone, Normal affect Lymphatics: No axilla or inguinal lymphadenopathy - Studies Medications List Reviewed: Yes Assessment And Plan - Current Problems (Diagnosis) (1) Arterial ischemic stroke, MCA (middle cerebral artery), left, acute Current Visit: Yes Status: Acute Plan: ABLE TO MOVE ALL FOUR LIMBS. POWER IS UPTO 5/5 NOW. CONTINUE PT. NO FACIAL DROOP (2) A-fib Current Visit: Yes Status: Chronic Plan: RATE CONTROLLED SOTALOL REDUCED HR IS LOW. (3) Atrial fibrillation with RVR Current Visit: No Status: Acute (4) Orthostatic hypotension Current Visit: No Status: Acute Plan: WATCH BP DAILY. ORTHO. CONTINUE ABDOMEN BINDER AND STOCKINGS. STOP AMLODIPINE DO NOT LAY HER HEAD DOWN BELOW 45 DEGREES. (5) Hypokalemia Current Visit: Yes Status: Acute Plan: MAY HAVE HYPERALDOSTERONISM START LOW DOSE SPIRONOLACTONE (6) Asymptomatic bacteriuria Current Visit: Yes Status: Acute Plan: MERREM IS STARTED BP DROPPED I SUSPECT THIS NOT FROM SEPSIS BUT HER CHRONIC ISSUE OF ORTHOSTASIS. WILL GIVE ABOUT 5 DAYS ABX THERE IS NO CLEAR INDICATION OF IT. NO CHANGES. SHE IS GROWING TWO DIFF BACTERIAL FROM URINE WITH TWO CULTURES. THIS EXPLAINS COLONIZATION.
--- NOTE | 2022-10-15 22:04 | PN ---
Date of Progress Note: 10/15/2022 Time Of Service: 9:00 a.m. Subjective: Ms. Diane is resting in bed. She has no new complaints. She is smiling. The speech therapist is at the bedside. No fevers, chills, nausea, vomiting, myalgias, arthralgias, rash, weigh t change, psychiatric issues. Physical Examination: Vital Signs: Blood pressure 145/67, pulse 68, respiratory rate 16, temperature 97.2, ox saturation 9 6%. General: Ms. Diane is resting in bed. She is again smiling. She does have good symmetry of her f estela where there is a stroke affecting on her right face. Extremities: Right arm is also much stronger. She has better dexterity. She has good production grip strength . She has good movement of the right leg where the stroke impacted. No new deficits are identified. Laboratory Studies: Complete blood count with differential is completely normal. Sodium 144, potass ium 3.6, chloride 112, carbon dioxide 29, BUN 6.6, creatinine 1.31 which is highest creatinine she allen s had that indicates dehydration, normal was 0.87 on the 22, and today is 10/14. Calcium 9.6. Gluco se 78. X-ray/imaging: None. Medications: Her medications have been reviewed and remained unchanged. Current Functional Status: Today, she ambulated 350 feet once, another 175 feet once with a rolling walker and standby assistance. She mobilized a wheelchair 250 feet with independence. She did stand and pivot transfer with standby assistance using a rolling walker, supine to sit transfers done inde pendently. With speech pathology, she required moderate assistance with orientation tasks and visual cues were beneficial for the tasks performed with occupational therapy. She did reach across midlin e to grasp and release rings and placed them onto a cone while following rings in her hands with ice to prevent dropping the rings. She did bed mobility and [id number] with a rolling walker with supe rvision. She did just eat 2 or 3 bites of lunch stating she was not very hungry. Progress Towards Rehabilitation Goals: Ms. Diane is making fair progress today. She did make bett er progress last week. However, she appeared to be plateauing in terms of her improvements. Assessment: Ms. Diane is an 82-year-old patient in the rehabilitation unit with a left MCA distrib ution stroke producing right-sided face, arm, and leg numbness and weakness from which she is improvi ng, in addition to expressive and receptive aphasias again improving. She has atrial fibrillation, o rthostatic hypertension, dyslipidemia, urinary retention, and dehydration with increased creatinine. Her primary care physician Dr. Canas is managing medical comorbid conditions. Plan: 1.Continue with physical, occupational, and speech therapy 3.5 hours, 5 to 7 days. 2.Continue with medications as managed by Dr. Canas including Keppra, Tylenol, Norvasc, with care to hold antihypertensive medications if systolic blood pressure is less than 120. Comorbidities That Continue To Impact Rehabilitation Process: She does have dehydration and some barbara al insufficiency. Hydration will be encouraged. The patient was given a pitcher which she should dr ink 2 a day and left at the bedside. She is also encouraged to do incentive spirometry. LB/MODL Voice ID: [id number] Report ID: [id number]
[2022-10-16] MEDS: SOTALOL HCL 80 MG TAB PO SCH ×2 (05:13→17:15)
[2022-10-16 06:47] LABS: Hematocrit 40.8 % (36.0-45.0); Lymphocytes % 33.6 % (15.3-44.8); MCV 92.5 fL (80-100); MPV 8.5 fL (7.6-11.3); RBC Red Blood Cell Count 4.42 M/uL (3.86-4.86)
[2022-10-16 07:04] LABS: Potassium 3.9 mEq/L (3.5-5.1)
[2022-10-16] MEDS: SPIRONOLACTONE 25 MG TABLET PO SCH (08:00)
[2022-10-16] MEDS: MULTIVIT W/ MINERAL TAB PO SCH (08:20)
[2022-10-16] MEDS: CRANBERRY FRUIT EXTRACT 200 MG CAP PO SCH ×2 (08:20→20:08)
[2022-10-16] MEDS: FOLIC ACID 1 MG TABLET PO SCH (08:20)
[2022-10-16] MEDS: CALCIUM CARB 500MG/VIT D 200 IU TAB PO SCH (08:20)
[2022-10-16] MEDS: PYRIDOSTIGMINE 60 MG TABLET PO SCH ×2 (08:21→20:08)
[2022-10-16] MEDS: levETIRAcetam 500 MG TAB PO SCH ×2 (08:21→20:09)
[2022-10-16] MEDS: TAMSULOSIN 0.4 MG SR CAP PO SCH (08:21)
[2022-10-16] MEDS: VITAMIN D 1000 UNIT TAB PO SCH (08:21)
[2022-10-16] MEDS: ENSURE ENLIVE 237 ML CAN PO SCH ×2 (09:30→20:08)
[2022-10-16] MEDS: RIVAROXABAN 20 MG TABLET PO SCH (17:15)
[2022-10-16] MEDS: POLYETHYL GLY 3350 17 GM/DOSE PO PRN (20:08)
[2022-10-16] MEDS: ATORVASTATIN 40 MG TAB PO SCH (20:09)
--- NOTE | 2022-10-16 21:01 | P.PN ---
Subjective Date of Service: 10/16/22 Chief Complaint: ORTHOSTASIS THIS AM. Subjective: No new changes, Improving SHE IS OKAY AND DOES NOT LIKE BINDERS. SHE DOES WELL WITH BINDER AND LEG STOCKINGS BP DOESNOT DROP. Physical Examination - Vital Signs Temperature: 97.4 F Blood Pressure: 160/68 Pulse: 63 Respirations: 17 Pulse Ox (%): 96 - Physical Exam General: Alert, In no apparent distress HEENT: Atraumatic, PERRLA, EOMI Neck: Supple, JVD not distended Respiratory: Clear to auscultation bilaterally, Normal air movement Cardiovascular: Regular rate/rhythm, Normal S1 S2 Gastrointestinal: Normal bowel sounds, No tenderness Musculoskeletal: No tenderness Integumentary: No rashes Neurological: Normal speech, Normal tone, Normal affect Lymphatics: No axilla or inguinal lymphadenopathy - Studies Laboratory Data (last 24 hrs) 10/16/22 06:09: Sodium 139, Potassium 3.9, BUN 34 H, Creatinine 0.86, Glucose 95 10/16/22 06:09: WBC 5.80, Hgb 13.5, Hct 40.8, Plt Count 217 Medications List Reviewed: Yes Assessment And Plan - Current Problems (Diagnosis) (1) Arterial ischemic stroke, MCA (middle cerebral artery), left, acute Current Visit: Yes Status: Acute Plan: ABLE TO MOVE ALL FOUR LIMBS. POWER IS UPTO 5/5 NOW. CONTINUE PT. NO FACIAL DROOP (2) A-fib Current Visit: Yes Status: Chronic Plan: RATE CONTROLLED SOTALOL REDUCED HR IS LOW. (3) Atrial fibrillation with RVR Current Visit: No Status: Acute (4) Orthostatic hypotension Current Visit: No Status: Acute Plan: WATCH BP DAILY. ORTHO. CONTINUE ABDOMEN BINDER AND STOCKINGS. STOP AMLODIPINE DO NOT LAY HER HEAD DOWN BELOW 45 DEGREES. CHRONIC ISSUES. DOES WELL WITH TIGHT STOCKINGS AND ABDOMEN BINDER. (5) Hypokalemia Current Visit: Yes Status: Acute Plan: MAY HAVE HYPERALDOSTERONISM START LOW DOSE SPIRONOLACTONE (6) Asymptomatic bacteriuria Current Visit: Yes Status: Acute Plan: MERREM IS STARTED BP DROPPED I SUSPECT THIS NOT FROM SEPSIS BUT HER CHRONIC ISSUE OF ORTHOSTASIS. WILL GIVE ABOUT 5 DAYS ABX THERE IS NO CLEAR INDICATION OF IT. NO CHANGES. SHE IS GROWING TWO DIFF BACTERIAL FROM URINE WITH TWO CULTURES. THIS EXPLAINS COLONIZATION.
--- NOTE | 2022-10-16 23:13 | PN ---
Date of Progress Note: 10/16/2022 Time Of Service: 1:30 p.m. Subjective: Ms. Diane is resting in bed. She is significantly impacted by expressive and receptiv e aphasias and is unable to repeat a sentence. She eventually gets around to communicate, but it is difficult to easily understand what she is saying and for her to follow commands. Review of Systems: No fevers, chills, nausea, vomiting, myalgias, or arthralgias. No psychiatric issues. No other posi tives on the systems review. Physical Examination: Vital Signs: Blood pressure 160/68, pulse 63, respiratory rate 16, temperature 97.4, and oxygen satu ration 96%. General: Ms. Diane is lying in bed in between therapy sessions. HEENT: She is normocephalic, atraumatic. Sclerae anicteric. Oropharynx pink and moist. Neck: Supple. Chest: Clear. Heart: Regular. Extremities: No significant edema or cyanosis. Neurologic: She has improved right nasolabial fold drooping and face looks almost symmetric. Right upper and lower extremities are showing improved strength 4/5 proximally and distally. Sensation is improving in upper and lower extremities. Laboratory Studies: Complete blood count with differential is completely normal. Sodium 139, potass ium 3.9, chloride 111, carbon dioxide 28, BUN 34, glucose 97, calcium 9.7. X-ray/imaging: No new x-ray or imaging. Medications: Medications have been reviewed and remain unchanged. Current Functional Status: Ms. Diane is able to ambulate 500 feet twice and 600 feet once with a r olling walker and standby assistance. She mobilized a wheelchair 250 feet with independence. She we nt up and down 15 steps using bilateral handrails with standby assistance. With speech therapy, she did have some drooling on the right corner of her mouth during therapy session. She had to swallow f requently. She did appear tired during the cognitive sessions. She did complete tasks with 70% accu racy and moderate assistance using tactile and visual cues. With occupational therapy, she did 3 set s of 20 hand strengthening exercises with hand gripper to improve strength. Progress Towards Rehabilitation Goals: She is making excellent progress towards her goals of upper a nd lower body dressing, transferring, toileting, and ambulating up to 500 feet with modified independ ence to independence and up and down 15 steps with modified independence to independence. Her toilet ing and bathing are also making very good progress. However, with her speech therapy, in terms of he r recovery of cognitive functioning and speech expressive and receptive aphasia, she is making much s lower progress there and it is therefore very difficult for her to communicate effectively and to get her wants and needs directly addressed and easily addressed. Assessment: Ms. Diane is an 82-year-old patient in the rehabilitation unit with a left middle cere bral artery stroke that produced right upper and lower extremity paresis with expressive and receptiv e aphasias, which are still significant. She has atrial fibrillation, orthostatic hypotension, urina ry retention, dehydration, and dyslipidemia. Plan: 1.Continue physical, occupational, and speech therapy 3.5 hours, 5 of 7 days. 2.All of her comorbid conditions are managed by Dr. Canas including Keppra for seizures and Norvasc for hypertension. She has treatment for urinary retention, dyslipidemia as well as for atrial fibril lation. Comorbids That Continue To Impact Rehabilitation Process: At this point, she does have slightly orth ostatic changes. She has SHAYY hose and abdominal binders with blood pressure parameters such that antihypertensives are held, if systolic blood pressure is less than 120. LB/MODL Voice ID: [id number] Report ID: [id number]
[2022-10-17] MEDS: SOTALOL HCL 80 MG TAB PO SCH ×2 (05:24→17:02)
[2022-10-17] MEDS: SPIRONOLACTONE 25 MG TABLET PO SCH (08:00)
[2022-10-17] MEDS: CALCIUM CARB 500MG/VIT D 200 IU TAB PO SCH (08:15)
[2022-10-17] MEDS: VITAMIN D 1000 UNIT TAB PO SCH (08:15)
[2022-10-17] MEDS: MULTIVIT W/ MINERAL TAB PO SCH (08:15)
[2022-10-17] MEDS: TAMSULOSIN 0.4 MG SR CAP PO SCH (08:15)
[2022-10-17] MEDS: CRANBERRY FRUIT EXTRACT 200 MG CAP PO SCH ×2 (08:15→20:54)
[2022-10-17] MEDS: PYRIDOSTIGMINE 60 MG TABLET PO SCH ×2 (08:15→20:54)
[2022-10-17] MEDS: levETIRAcetam 500 MG TAB PO SCH ×2 (08:16→20:54)
[2022-10-17] MEDS: FOLIC ACID 1 MG TABLET PO SCH (08:16)
[2022-10-17] MEDS: ENSURE ENLIVE 237 ML CAN PO SCH ×2 (10:09→20:54)
[2022-10-17] MEDS: BISACODYL 10 MG RECTAL SUPP PR ONE ×2 (14:53→16:02)
[2022-10-17] MEDS: RIVAROXABAN 20 MG TABLET PO SCH (17:02)
[2022-10-17] MEDS: ATORVASTATIN 40 MG TAB PO SCH (20:54)
--- NOTE | 2022-10-17 21:40 | PN ---
Date of Progress Note: 10/17/2022 Time Of Service: 1:00 p.m. Subjective: Ms. Diane is resting in bed. She continues to have significant expressive and recepti ve aphasias, making it very difficult for her to even repeat. She eventually get her point across wi th mimicking and miming and gesturing with hands. She appears to have no new complaints. Review of Systems: No fevers, chills, nausea, vomiting. No myalgias, arthralgias, and no new rash. Physical Examination: Vital Signs: Blood pressure 169/74, pulse 59, respiratory rate of 16, temperature 98, and oxygen sat uration 96%. She did have orthostatics today with lying in bed 193/84, pulse 67; sitting up 143/67, pulse 64; standing blood pressure did go to 183/50, pulse of 70. Those changes are possibly related to stroke, which may have impacted the autonomic system. Neurologic: In terms of neurological findings, she has excellent recovery of the right nasolabial fo ld drooping and it moves well when she smiles. Right hand strength has returned very well. Right le g strength also returned very well. Laboratory Studies: No new laboratory studies except prealbumin improved to 20.7. X-ray/imaging: No new x-ray imaging. Medications: Medications have been reviewed and remained unchanged. Current Functional Status: She did stand and pivot transfers independently with a rolling walker. S he ambulated 500 feet twice and 600 feet once with a rolling walker independently. She mobilized a w heelchair 250 feet independently. She ascended and descended 15 steps with bilateral handrails indep endently. With her speech, she is working on naming, answering yes/no questions and repetitive tasks . She requires moderate assistance with naming or repetitive tasks. She requires moderate to maximu m assistance for answering abstract questions with yes/no responses. Progress Towards Rehabilitation Goals: At this point, Ms. Diane has made excellent progress with h er mobilization, transfers, ambulation, going up and down steps, mobilizing with a wheelchair. She i s making much slower progress with her speech, her comprehension expression, and her ability to be ab le to communicate effectively. She requires much more time for speech and that should be done outpat ient, as she is doing very well physically. However, the family may not be able to take her outpatie nt therapy, and therefore, home health with speech will be critical for her to continue improving. Assessment: Ms. Diane is an 82-year-old patient with a left hemispheric stroke which produced sign ificant expressive and receptive aphasia. She has recovered very well in terms of her physical defic its such as strength deficits in the right upper and lower extremities which is now very much close t o normal. She has atrial fibrillation, orthostatic hypotension, urinary retention, dehydration, dysl ipidemia. Plan: 1.Continue physical, occupational, speech therapy 3.5 hours, 5 of 7 days. 2.Continue all comorbid condition medications with the help of Dr. Canas managing her medications. Comorbids That Continue To Impact Rehabilitation Process: At this point, orthostatic hypotension donna nges do impact her. However, she is ambulating now close to 1000 feet without significant difficulty . Despite that, chances are the autonomic changes are mitigated fairly quickly as she stands up and she can continue to ambulate without falling or losing her balance. LB/MODL Voice ID: [id number] Report ID: [id number]
--- NOTE | 2022-10-17 22:06 | P.PN ---
Subjective Date of Service: 10/17/22 Chief Complaint: ORTHOSTASIS THIS AM. Subjective: Improving SHE IS OKAY AND DOES NOT LIKE BINDERS. SHE DOES WELL WITH BINDER AND LEG STOCKINGS BP DOESNOT DROP. SHE HAS NO ACUTE ISSUES FOR NOW. Physical Examination - Vital Signs Temperature: 97.2 F Blood Pressure: 144/69 Pulse: 61 Respirations: 18 Pulse Ox (%): 97 - Physical Exam General: Oriented x3, Mild distress HEENT: Atraumatic, PERRLA, EOMI Neck: Supple, JVD not distended Respiratory: Clear to auscultation bilaterally, Normal air movement Cardiovascular: Regular rate/rhythm, Normal S1 S2 Gastrointestinal: Normal bowel sounds, No tenderness Musculoskeletal: No tenderness Integumentary: No rashes Neurological: Normal speech, Normal tone, Normal affect Lymphatics: No axilla or inguinal lymphadenopathy - Studies Medications List Reviewed: Yes Assessment And Plan - Current Problems (Diagnosis) (1) Arterial ischemic stroke, MCA (middle cerebral artery), left, acute Current Visit: Yes Status: Acute Plan: ABLE TO MOVE ALL FOUR LIMBS. POWER IS UPTO 5/5 NOW. CONTINUE PT. NO FACIAL DROOP (2) A-fib Current Visit: Yes Status: Chronic Plan: RATE CONTROLLED SOTALOL REDUCED HR IS LOW. (3) Atrial fibrillation with RVR Current Visit: No Status: Acute (4) Orthostatic hypotension Current Visit: No Status: Acute Plan: WATCH BP DAILY. ORTHO. CONTINUE ABDOMEN BINDER AND STOCKINGS. STOP AMLODIPINE DO NOT LAY HER HEAD DOWN BELOW 45 DEGREES. CHRONIC ISSUES. DOES WELL WITH TIGHT STOCKINGS AND ABDOMEN BINDER. (5) Hypokalemia Current Visit: Yes Status: Acute Plan: MAY HAVE HYPERALDOSTERONISM START LOW DOSE SPIRONOLACTONE (6) Asymptomatic bacteriuria Current Visit: Yes Status: Acute Plan: MERREM IS STARTED BP DROPPED I SUSPECT THIS NOT FROM SEPSIS BUT HER CHRONIC ISSUE OF ORTHOSTASIS. WILL GIVE ABOUT 5 DAYS ABX THERE IS NO CLEAR INDICATION OF IT. NO CHANGES. SHE IS GROWING TWO DIFF BACTERIAL FROM URINE WITH TWO CULTURES. THIS EXPLAINS COLONIZATION.
[2022-10-18] MEDS: SOTALOL HCL 80 MG TAB PO SCH ×2 (05:29→16:59)
[2022-10-18 05:51] LABS: Absolute Lymphocytes (CBC) 1.7 K/uL (0.7-4.9); Hematocrit 37.7 % (36.0-45.0); Lymphocytes % 32.7 % (15.3-44.8); MCV 92.5 fL (80-100); MPV 8.6 fL (7.6-11.3); RBC Red Blood Cell Count 4.08 M/uL (3.86-4.86)
[2022-10-18] MEDS: SPIRONOLACTONE 25 MG TABLET PO SCH ×2 (08:00→16:59)
[2022-10-18] MEDS: PYRIDOSTIGMINE 60 MG TABLET PO SCH ×2 (08:33→20:44)
[2022-10-18] MEDS: VITAMIN D 1000 UNIT TAB PO SCH (08:33)
[2022-10-18] MEDS: FOLIC ACID 1 MG TABLET PO SCH (08:34)
[2022-10-18] MEDS: CRANBERRY FRUIT EXTRACT 200 MG CAP PO SCH ×2 (08:34→20:43)
[2022-10-18] MEDS: MULTIVIT W/ MINERAL TAB PO SCH (08:34)
[2022-10-18] MEDS: CALCIUM CARB 500MG/VIT D 200 IU TAB PO SCH (08:34)
[2022-10-18] MEDS: TAMSULOSIN 0.4 MG SR CAP PO SCH (08:34)
[2022-10-18] MEDS: levETIRAcetam 500 MG TAB PO SCH ×2 (08:35→20:43)
[2022-10-18] MEDS: ENSURE ENLIVE 237 ML CAN PO SCH ×2 (08:35→20:43)
--- NOTE | 2022-10-18 08:41 | P.RH.PN ---
Estimated Length of Stay: 23 Expected Discharge Date: 10/22/22 Discharge Disposition Plan: Home Family Support: Yes Halfway Goal: Mobility, Transfers, Self Care Vital Signs: Last Vital Signs Temp 97.7 F 10/18/22 07:15 Pulse 67 10/18/22 07:15 Resp 17 10/18/22 07:15 BP 138/70 10/18/22 07:15 Pulse Ox 95 10/18/22 07:15 Laboratory: Laboratory Last Values WBC 5.30 thou/uL (4.3-10.9) 10/18/22 05:09 RBC 4.08 M/uL (3.86-4.86) 10/18/22 05:09 Hgb 12.6 g/dL (12.0-15.0) 10/18/22 05:09 Hct 37.7 % (36.0-45.0) 10/18/22 05:09 MCV 92.5 fL (80-100) 10/18/22 05:09 MCH 30.8 pg (27.0-35.0) 10/18/22 05:09 MCHC 33.3 g/dL (32.0-36.0) 10/18/22 05:09 RDW 12.8 % (12.1-15.2) 10/18/22 05:09 Plt Count 202 thou/uL (152-406) 10/18/22 05:09 MPV 8.6 fL (7.6-11.3) 10/18/22 05:09 Neutrophils % 51.3 % (41.7-73.7) 10/18/22 05:09 Lymphocytes % 32.7 % (15.3-44.8) 10/18/22 05:09 Monocytes % 12.5 % (3.3-12.3) H 10/18/22 05:09 Eosinophils % 2.4 % (0-4.4) 10/18/22 05:09 Basophils % 1.1 % (0-1.3) 10/18/22 05:09 Absolute Neutrophils 2.7 K/uL (1.8-8.0) 10/18/22 05:09 Absolute Lymphocytes 1.7 K/uL (0.7-4.9) 10/18/22 05:09 Absolute Monocytes 0.7 K/uL (0.1-1.3) 10/18/22 05:09 Absolute Eosinophils 0.1 K/uL (0-0.5) 10/18/22 05:09 Absolute Basophils 0.1 K/uL (0-0.5) 10/18/22 05:09 Sodium 139 mEq/L (136-145) 10/18/22 05:09 Potassium 4.0 mEq/L (3.5-5.1) 10/18/22 05:09 Chloride 111 mEq/L (98-107) H 10/18/22 05:09 Carbon Dioxide 28 mEq/L (21-32) 10/18/22 05:09 Anion Gap 4.0 mEq/L (5.0-15.0) L 10/18/22 05:09 BUN 37 mg/dL (7-18) H 10/18/22 05:09 Creatinine 0.98 mg/dL (0.55-1.02) 10/18/22 05:09 Est GFR (CKD-EPI) 58 ml/min (=/>90) L 10/18/22 05:09 Glucose 94 mg/dL (74-106) 10/18/22 05:09 POC Glucose 127 mg/dL (65-120) H 10/09/22 10:22 Calcium 9.6 mg/dL (8.5-10.1) 10/18/22 05:09 Magnesium 2.0 mg/dL (1.6-2.4) 10/10/22 08:21 Albumin 3.0 g/dL (3.4-5.0) L 10/05/22 06:16 Prealbumin 20.7 mg/dL (20-40) 10/17/22 18:34 Urine Color Yellow (Yellow) 10/07/22 15:30 Urine Clarity Turbid (Clear) H 10/07/22 15:30 Urine pH 7.0 (5.0-7.0) 10/07/22 15:30 Ur Specific [place] 1.017 (1.005-1.030) 10/07/22 15:30 Glucose (UA)(Auto) Negative (Negative) 10/07/22 15:30 Urine Ketones Negative (Negative) 10/07/22 15:30 Urine Blood 3+ (Negative) H 10/07/22 15:30 Urine Nitrite Negative (Negative) 10/07/22 15:30 Urine Bilirubin Negative (Negative) 10/07/22 15:30 Urine Urobilinogen Normal (Normal) 10/07/22 15:30 Ur Leukocyte Esterase 500 Fredis/uL (Negative) H 10/07/22 15:30 Urine RBC >50 /HPF (None Seen) H 10/07/22 15:30 Urine Red Cell Clumps Cancelled 10/04/22 10:47 Urine WBC >50 /HPF (<5) H 10/07/22 15:30 Urine WBC Clumps Occasional /HPF (None Seen) H 10/07/22 15:30 Ur Squamous Epith Cells <5 /HPF (None Seen) 10/07/22 15:30 U Non-Squamous Epi Cells <5 /HPF (None Seen) 10/07/22 15:30 Ur Transition Epith Cell Cancelled 10/04/22 10:47 Ur Renal Epithelial Cell Cancelled 10/04/22 10:47 Calcium Carbonate Cryst Cancelled 10/04/22 10:47 Calcium Oxalate Crystal Cancelled 10/04/22 10:47 Leucine Crystals Cancelled 10/04/22 10:47 Cystine Crystals Cancelled 10/04/22 10:47 Uric Acid Crystals Cancelled 10/04/22 10:47 Triple Phos Crystals Cancelled 10/04/22 10:47 Tyrosine Crystals Cancelled 10/04/22 10:47 Unidentified Crystals Few /HPF (None Seen) 10/04/22 14:20 Amorphous Crystals Cancelled 10/04/22 10:47 Urine Bacteria <20 /HPF (<20) 10/07/22 15:30 Hyaline Casts 10-20 /LPF (None Seen) H 10/07/22 15:30 Granular Casts >20 /LPF (None Seen) H 10/05/22 14:45 Waxy Casts Cancelled 10/04/22 10:47 RBC Casts Cancelled 10/04/22 10:47 WBC Casts Cancelled 10/04/22 10:47 Urine Mucus 2+ /HPF (None Seen) 10/07/22 15:30 Urine Trichomonas Cancelled 10/04/22 10:47 Ur Yeast w Hyphae Cancelled 10/04/22 10:47 Urine Yeast (Budding) Cancelled 10/04/22 10:47 Urine Sperm Cancelled 10/04/22 10:47 Ur Oval Fat Bodies Cancelled 10/04/22 10:47 Urine Culture Reflexed Reflexed 10/07/22 15:30 Urine Total Protein 1+ (Negative) H 10/07/22 15:30 Urine Ascorbic Acid Cancelled 10/04/22 10:47 Urine Fat Cancelled 10/04/22 10:47 Weight: 152 lb Wound Present: No Closed Surgical Incision Present: No Negative Pressure Wound Therapy Present: No Physician Update: 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 Still having urine incontinence. She is working 60 minutes with speech. Labial weakness with drooling. Improved oral apraxia. Simple yes and no answers are improving. Walking 500 feet independent, up and down 15 feet independent. Met goals of transfers and ADLs. Working on fine motor skills. Comment: No skin breakdown Summary: Patient's care plan and terminal system operator goals have been reviewed and revised as necessary. Please see the Rehabilitation Signature page for all necessary signatures.
--- NOTE | 2022-10-18 16:49 | P.PN ---
Subjective Date of Service: 10/18/22 Chief Complaint: STABLE TODAY. Subjective: Improving SHE IS OKAY AND DOES NOT LIKE BINDERS. SHE DOES WELL WITH BINDER AND LEG STOCKINGS BP DOESNOT DROP. SHE HAS NO ACUTE ISSUES FOR NOW. SHE GETS WEAK WHEN BP DROPS WHEN SHE DOES NOT WEAR TIGHT STOCKINGS. FAMILY IS AWARE. Physical Examination - Vital Signs Temperature: 97.7 F Blood Pressure: 160/68 Pulse: 65 Respirations: 17 Pulse Ox (%): 95 - Studies Laboratory Data (last 24 hrs) 10/18/22 05:09: Sodium 139, Potassium 4.0, BUN 37 H, Creatinine 0.98, Glucose 94 10/18/22 05:09: WBC 5.30, Hgb 12.6, Hct 37.7, Plt Count 202 Medications List Reviewed: Yes Assessment And Plan - Current Problems (Diagnosis) (1) Arterial ischemic stroke, MCA (middle cerebral artery), left, acute Current Visit: Yes Status: Acute Plan: ABLE TO MOVE ALL FOUR LIMBS. POWER IS UPTO 5/5 NOW. CONTINUE PT. NO FACIAL DROOP (2) A-fib Current Visit: Yes Status: Chronic Plan: RATE CONTROLLED SOTALOL REDUCED HR IS LOW. (3) Atrial fibrillation with RVR Current Visit: No Status: Acute (4) Orthostatic hypotension Current Visit: No Status: Acute Plan: WATCH BP DAILY. ORTHO. CONTINUE ABDOMEN BINDER AND STOCKINGS. STOP AMLODIPINE DO NOT LAY HER HEAD DOWN BELOW 45 DEGREES. CHRONIC ISSUES. DOES WELL WITH TIGHT STOCKINGS AND ABDOMEN BINDER. (5) Hypokalemia Current Visit: Yes Status: Acute Plan: MAY HAVE HYPERALDOSTERONISM START LOW DOSE SPIRONOLACTONE (6) Asymptomatic bacteriuria Current Visit: Yes Status: Acute Plan: MERREM IS STARTED BP DROPPED I SUSPECT THIS NOT FROM SEPSIS BUT HER CHRONIC ISSUE OF ORTHOSTASIS. WILL GIVE ABOUT 5 DAYS ABX THERE IS NO CLEAR INDICATION OF IT. NO CHANGES. SHE IS GROWING TWO DIFF BACTERIAL FROM URINE WITH TWO CULTURES. THIS EXPLAINS COLONIZATION.
[2022-10-18] MEDS: RIVAROXABAN 20 MG TABLET PO SCH (16:59)
[2022-10-18] MEDS: ATORVASTATIN 40 MG TAB PO SCH (20:45)
[2022-10-19] MEDS: SOTALOL HCL 80 MG TAB PO SCH ×2 (05:26→17:21)
[2022-10-19 05:31] VITALS: BMI 29.8
[2022-10-19] MEDS: levETIRAcetam 500 MG TAB PO SCH ×2 (08:59→19:39)
[2022-10-19] MEDS: FOLIC ACID 1 MG TABLET PO SCH (08:59)
[2022-10-19] MEDS: CRANBERRY FRUIT EXTRACT 200 MG CAP PO SCH ×2 (08:59→19:39)
[2022-10-19] MEDS: CALCIUM CARB 500MG/VIT D 200 IU TAB PO SCH (08:59)
[2022-10-19] MEDS: VITAMIN D 1000 UNIT TAB PO SCH (09:00)
[2022-10-19] MEDS: MULTIVIT W/ MINERAL TAB PO SCH (09:00)
[2022-10-19] MEDS: TAMSULOSIN 0.4 MG SR CAP PO SCH (09:00)
[2022-10-19] MEDS: PYRIDOSTIGMINE 60 MG TABLET PO SCH ×2 (09:00→19:40)
[2022-10-19] MEDS: ENSURE ENLIVE 237 ML CAN PO SCH ×2 (10:58→19:40)
[2022-10-19] MEDS: SPIRONOLACTONE 25 MG TABLET PO SCH (17:21)
[2022-10-19] MEDS: RIVAROXABAN 20 MG TABLET PO SCH (17:21)
[2022-10-19] MEDS: ATORVASTATIN 40 MG TAB PO SCH (19:39)
--- NOTE | 2022-10-19 21:13 | P.PN ---
Subjective Date of Service: 10/19/22 Chief Complaint: STABLE TODAY. Subjective: Improving IMPROVED AND STRONGER, NOT HAVING MUCH SPELLS ANY LONGER. Physical Examination - Vital Signs Temperature: 97.6 F Blood Pressure: 179/77 Pulse: 55 Respirations: 18 Pulse Ox (%): 98 - Studies Medications List Reviewed: Yes Assessment And Plan - Current Problems (Diagnosis) (1) Arterial ischemic stroke, MCA (middle cerebral artery), left, acute Current Visit: Yes Status: Acute Plan: ABLE TO MOVE ALL FOUR LIMBS. POWER IS UPTO 5/5 NOW. CONTINUE PT. NO FACIAL DROOP (2) A-fib Current Visit: Yes Status: Chronic Plan: RATE CONTROLLED SOTALOL REDUCED HR IS LOW. (3) Atrial fibrillation with RVR Current Visit: No Status: Acute (4) Orthostatic hypotension Current Visit: No Status: Acute Plan: WATCH BP DAILY. ORTHO. CONTINUE ABDOMEN BINDER AND STOCKINGS. STOP AMLODIPINE DO NOT LAY HER HEAD DOWN BELOW 45 DEGREES. CHRONIC ISSUES. DOES WELL WITH TIGHT STOCKINGS AND ABDOMEN BINDER. (5) Hypokalemia Current Visit: Yes Status: Acute Plan: MAY HAVE HYPERALDOSTERONISM START LOW DOSE SPIRONOLACTONE (6) Asymptomatic bacteriuria Current Visit: Yes Status: Acute Plan: MERREM IS STARTED BP DROPPED I SUSPECT THIS NOT FROM SEPSIS BUT HER CHRONIC ISSUE OF ORTHOSTASIS. WILL GIVE ABOUT 5 DAYS ABX THERE IS NO CLEAR INDICATION OF IT. NO CHANGES. SHE IS GROWING TWO DIFF BACTERIAL FROM URINE WITH TWO CULTURES. THIS EXPLAINS COLONIZATION.
[2022-10-20] MEDS: SOTALOL HCL 80 MG TAB PO SCH ×2 (05:00→16:46)
[2022-10-20] MEDS: ENSURE ENLIVE 237 ML CAN PO SCH ×2 (07:52→20:33)
[2022-10-20] MEDS: CALCIUM CARB 500MG/VIT D 200 IU TAB PO SCH (07:53)
[2022-10-20] MEDS: CRANBERRY FRUIT EXTRACT 200 MG CAP PO SCH ×2 (07:53→20:28)
[2022-10-20] MEDS: MULTIVIT W/ MINERAL TAB PO SCH (07:53)
[2022-10-20] MEDS: levETIRAcetam 500 MG TAB PO SCH ×2 (07:53→20:28)
[2022-10-20] MEDS: PYRIDOSTIGMINE 60 MG TABLET PO SCH ×2 (07:53→20:28)
[2022-10-20] MEDS: FOLIC ACID 1 MG TABLET PO SCH (07:54)
[2022-10-20] MEDS: VITAMIN D 1000 UNIT TAB PO SCH (07:54)
[2022-10-20] MEDS: TAMSULOSIN 0.4 MG SR CAP PO SCH (07:54)
--- NOTE | 2022-10-20 12:10 | P.PN ---
Subjective Date of Service: 10/20/22 Chief Complaint: STABLE TODAY. Subjective: Improving IMPROVED AND STRONGER, NOT HAVING MUCH SPELLS ANY LONGER. TALKED TO DAUGHTER TODAY WITH HER BEING IN THE ROOM. HER SPEECH WAS NORMAL BEFORE STROKE. SHE DOES NOT SPEAK MUCH ANY LONGER. A FEW WORDS ONLY. SHE IS NOT ABLE TO LIVE ALONE. FAMILY IS WORKING ON HALF-WAY PLACEMENT. I TALKED TO NURSE TO INFORM THE MANUFACTURING SHIFT SUPERVISOR. Review of Systems 10-point ROS is otherwise unremarkable General: Weakness Physical Examination - Vital Signs Temperature: 97.2 F Blood Pressure: 179/77 Pulse: 55 Respirations: 18 Pulse Ox (%): 97 - Physical Exam General: Alert, In no apparent distress HEENT: Atraumatic, PERRLA, EOMI Neck: Supple, JVD not distended Respiratory: Clear to auscultation bilaterally, Normal air movement Cardiovascular: Regular rate/rhythm, Normal S1 S2 Gastrointestinal: Normal bowel sounds, No tenderness Musculoskeletal: No tenderness Integumentary: No rashes Neurological: Normal tone, Normal affect, Abnormal speech (GLOBAL MILD TO MODERAT APHASIA. ), Abnormal strength Lymphatics: No axilla or inguinal lymphadenopathy - Studies Medications List Reviewed: Yes Assessment And Plan - Current Problems (Diagnosis) (1) Arterial ischemic stroke, MCA (middle cerebral artery), left, acute Current Visit: Yes Status: Acute Plan: ABLE TO MOVE ALL FOUR LIMBS. POWER IS UPTO 5/5 NOW. CONTINUE PT. NO FACIAL DROOP ABOVE. GLOBAL APHASIA. HAS TO CRUSH MEDS PER DAUGHTER WILL NEE [place] DAUGHTER HAS TO WORK. (2) A-fib Current Visit: Yes Status: Chronic Plan: RATE CONTROLLED SOTALOL REDUCED HR IS LOW. (3) Atrial fibrillation with RVR Current Visit: No Status: Acute (4) Orthostatic hypotension Current Visit: No Status: Acute Plan: WATCH BP DAILY. ORTHO. CONTINUE ABDOMEN BINDER AND STOCKINGS. STOP AMLODIPINE DO NOT LAY HER HEAD DOWN BELOW 45 DEGREES. CHRONIC ISSUES. DOES WELL WITH TIGHT STOCKINGS AND ABDOMEN BINDER. (5) Hypokalemia Current Visit: Yes Status: Acute Plan: MAY HAVE HYPERALDOSTERONISM START LOW DOSE SPIRONOLACTONE (6) Asymptomatic bacteriuria Current Visit: Yes Status: Acute Plan: MERREM IS STARTED BP DROPPED I SUSPECT THIS NOT FROM SEPSIS BUT HER CHRONIC ISSUE OF ORTHOSTASIS. WILL GIVE ABOUT 5 DAYS ABX THERE IS NO CLEAR INDICATION OF IT. NO CHANGES. SHE IS GROWING TWO DIFF BACTERIAL FROM URINE WITH TWO CULTURES. THIS EXPLAINS COLONIZATION.
[2022-10-20] MEDS: POLYETHYL GLY 3350 17 GM/DOSE PO PRN (14:52)
[2022-10-20] MEDS: RIVAROXABAN 20 MG TABLET PO SCH (16:46)
[2022-10-20] MEDS: SPIRONOLACTONE 25 MG TABLET PO SCH (16:46)
[2022-10-20] MEDS: ATORVASTATIN 40 MG TAB PO SCH (20:28)
[2022-10-21] MEDS: SOTALOL HCL 80 MG TAB PO SCH ×2 (05:00→16:58)
[2022-10-21] MEDS: CRANBERRY FRUIT EXTRACT 200 MG CAP PO SCH ×2 (07:15→20:19)
[2022-10-21] MEDS: PYRIDOSTIGMINE 60 MG TABLET PO SCH ×2 (07:15→20:19)
[2022-10-21] MEDS: CALCIUM CARB 500MG/VIT D 200 IU TAB PO SCH (07:15)
[2022-10-21] MEDS: FOLIC ACID 1 MG TABLET PO SCH (07:15)
[2022-10-21] MEDS: levETIRAcetam 500 MG TAB PO SCH ×2 (07:16→20:19)
[2022-10-21] MEDS: VITAMIN D 1000 UNIT TAB PO SCH (07:16)
[2022-10-21] MEDS: MULTIVIT W/ MINERAL TAB PO SCH (07:17)
[2022-10-21] MEDS: TAMSULOSIN 0.4 MG SR CAP PO SCH (07:17)
[2022-10-21] MEDS: ENSURE ENLIVE 237 ML CAN PO SCH ×2 (07:17→20:19)
[2022-10-21] MEDS: AMLODIPINE 2.5 MG TAB PO SCH (08:00)
--- NOTE | 2022-10-21 13:13 | P.PN ---
Subjective Date of Service: 10/21/22 Chief Complaint: STABLE TODAY. Subjective: Improving IMPROVED AND STRONGER, NOT HAVING MUCH SPELLS ANY LONGER. TALKED TO DAUGHTER TODAY WITH HER BEING IN THE ROOM. HER SPEECH WAS NORMAL BEFORE STROKE. SHE DOES NOT SPEAK MUCH ANY LONGER. A FEW WORDS ONLY. SHE IS NOT ABLE TO LIVE ALONE. FAMILY IS WORKING ON ALF PLACEMENT. I TALKED TO NURSE TO INFORM THE CHECK CLERK. SHE IS STABLE. NO NEW ISSUES. Physical Examination - Vital Signs Temperature: 97.1 F Blood Pressure: 136/69 Pulse: 51 Respirations: 17 Pulse Ox (%): 96 - Studies Medications List Reviewed: Yes Assessment And Plan - Current Problems (Diagnosis) (1) Arterial ischemic stroke, MCA (middle cerebral artery), left, acute Current Visit: Yes Status: Acute Plan: ABLE TO MOVE ALL FOUR LIMBS. POWER IS UPTO 5/5 NOW. CONTINUE PT. NO FACIAL DROOP ABOVE. GLOBAL APHASIA. HAS TO CRUSH MEDS PER DAUGHTER WILL NEE [place] DAUGHTER HAS TO WORK. (2) A-fib Current Visit: Yes Status: Chronic Plan: RATE CONTROLLED SOTALOL REDUCED HR IS LOW. (3) Atrial fibrillation with RVR Current Visit: No Status: Acute (4) Orthostatic hypotension Current Visit: No Status: Acute Plan: WATCH BP DAILY. ORTHO. CONTINUE ABDOMEN BINDER AND STOCKINGS. STOP AMLODIPINE DO NOT LAY HER HEAD DOWN BELOW 45 DEGREES. CHRONIC ISSUES. DOES WELL WITH TIGHT STOCKINGS AND ABDOMEN BINDER. (5) Hypokalemia Current Visit: Yes Status: Acute Plan: MAY HAVE HYPERALDOSTERONISM START LOW DOSE SPIRONOLACTONE (6) Asymptomatic bacteriuria Current Visit: Yes Status: Acute Plan: MERREM IS STARTED BP DROPPED I SUSPECT THIS NOT FROM SEPSIS BUT HER CHRONIC ISSUE OF ORTHOSTASIS. WILL GIVE ABOUT 5 DAYS ABX THERE IS NO CLEAR INDICATION OF IT. NO CHANGES. SHE IS GROWING TWO DIFF BACTERIAL FROM URINE WITH TWO CULTURES. THIS EXPLAINS COLONIZATION.
[2022-10-21] MEDS: POLYETHYL GLY 3350 17 GM/DOSE PO PRN (14:55)
[2022-10-21] MEDS: RIVAROXABAN 20 MG TABLET PO SCH (16:58)
[2022-10-21] MEDS: SPIRONOLACTONE 25 MG TABLET PO SCH (16:58)
[2022-10-21] MEDS: ATORVASTATIN 40 MG TAB PO SCH (20:19)
--- NOTE | 2022-10-21 23:43 | PN ---
Date of Progress Note: 10/21/2022 Time Of Service: 1 p.m. Subjective: Ms. Diane is resting in bed. She is very happy about her progress with physical thera py. She has, however, a significant time expressing herself due to the stroke producing a significan t expressive and receptive aphasia. Review of Systems: No fevers, chills, nausea, vomiting, myalgias, or arthralgias. Physical Examination: Vital Signs: Blood pressure 159/74, pulse 63, respiratory rate 16, and temperature 97.1. General: Ms. Diane is resting in bed. Neurologic: In terms of her deficit, she does have some decrease in the right nasolabial fold at chaka es with drooling, but she does have great excursions and smiling. Right upper extremity has recovere d very well. Her biggest factor is her inability to express herself well and to comprehend what is s aid. Her strength again is doing very well in terms of arms, legs, upper and lower extremities. X-ray/imaging: No new x-rays and imaging. Laboratory Studies: No new laboratory studies. Medications: Medications have been reviewed and remain unchanged. Current Functional Status: Today she did stand and pivot transfers independently with a rolling walk er. Supine to sit transfers done independently. Bed mobility was independent. She ambulated 250 fe et, 500 feet twice, and 600 feet with a rolling walker independently. She did up and down 15 steps t wice with independence. With speech therapy, she worked on improving her confrontational naming, wri ting skills, and oral motor activity. She did improve her phonemic placement skills with 90% accurac y and minimum assistance. Her confrontational naming skills completed when given whole word orthogra phic cues with 40% accuracy. Progress Towards Rehabilitation Goals: Ms. Diane is making excellent progress with her occupationa l and physical therapy in terms of her upper and lower body dressing, transferring, toileting, ambula ting 600 feet with independence, and up and down 15 steps with independence. However, she is making much slower progress with recovery of her cognition and speech and her comprehension and expression. She will need much more time to begin to improve there. Assessment: Ms. Diane is an 82-year-old patient with a left middle cerebral artery stroke and sign ificant expressive and receptive aphasias. She has significant improvement in her upper and lower kylah dy strength, coordination, balance, and gait and is doing very well from that standpoint. She does h ave atrial fibrillation, orthostatic hypotension, urinary retention, dehydration, and dyslipidemia. Plan: 1.Continue with physical, occupational, and speech therapy 3.5 hours, 5 of 7 days. 2.She has multiple comorbid conditions as listed, which are managed by primary care physician, Dr. Mayra evans. Comorbids That Continue To Impact Rehabilitation Process: At this point, significant expressive and receptive aphasias are the most impactful comorbids and she requires much more work there. She is do ing very well otherwise with all other disciplines. VITOR/PERLA Voice ID: [id number] Report ID: [id number]
[2022-10-22] MEDS: SOTALOL HCL 80 MG TAB PO SCH ×2 (04:59→17:22)
[2022-10-22] MEDS: POLYETHYL GLY 3350 17 GM/DOSE PO PRN (05:02)
[2022-10-22] MEDS: CALCIUM CARB 500MG/VIT D 200 IU TAB PO SCH (07:09)
[2022-10-22] MEDS: ENSURE ENLIVE 237 ML CAN PO SCH ×2 (07:09→20:00)
[2022-10-22] MEDS: FOLIC ACID 1 MG TABLET PO SCH (07:09)
[2022-10-22] MEDS: levETIRAcetam 500 MG TAB PO SCH ×2 (07:09→20:01)
[2022-10-22] MEDS: TAMSULOSIN 0.4 MG SR CAP PO SCH (07:10)
[2022-10-22] MEDS: CRANBERRY FRUIT EXTRACT 200 MG CAP PO SCH ×2 (07:10→20:00)
[2022-10-22] MEDS: PYRIDOSTIGMINE 60 MG TABLET PO SCH ×2 (07:10→20:00)
[2022-10-22] MEDS: MULTIVIT W/ MINERAL TAB PO SCH (07:10)
[2022-10-22] MEDS: VITAMIN D 1000 UNIT TAB PO SCH (07:10)
[2022-10-22] MEDS: AMLODIPINE 2.5 MG TAB PO SCH (08:00)
[2022-10-22] MEDS: RIVAROXABAN 20 MG TABLET PO SCH (17:22)
[2022-10-22] MEDS: SPIRONOLACTONE 25 MG TABLET PO SCH (17:23)
[2022-10-22] MEDS: ATORVASTATIN 40 MG TAB PO SCH (20:01)
--- NOTE | 2022-10-22 21:54 | P.PN ---
Subjective Date of Service: 10/22/22 Chief Complaint: STABLE TODAY. Subjective: Improving DOING PT, WALKED ABOUT 800 FEET TODAY FAMILY WANTS NH SHE IS ALONE AT HOME. Physical Examination - Vital Signs Temperature: 98.4 F Blood Pressure: 136/86 Pulse: 70 Respirations: 18 Pulse Ox (%): 97 - Physical Exam General: Oriented x2, Acute distress HEENT: Atraumatic, PERRLA, EOMI Neck: Supple, JVD not distended Respiratory: Clear to auscultation bilaterally, Normal air movement Cardiovascular: Regular rate/rhythm, Normal S1 S2 Gastrointestinal: Normal bowel sounds, No tenderness Musculoskeletal: No tenderness Integumentary: No rashes Neurological: Normal speech, Normal tone, Normal affect Lymphatics: No axilla or inguinal lymphadenopathy - Studies Medications List Reviewed: Yes Assessment And Plan - Current Problems (Diagnosis) (1) Arterial ischemic stroke, MCA (middle cerebral artery), left, acute Current Visit: Yes Status: Acute Plan: ABOVE. GLOBAL APHASIA. HAS TO CRUSH MEDS PER DAUGHTER WILL NEE [place] DAUGHTER HAS TO WORK. GLOBAL APHASIA CONTINUES GEN WEAKNESS ALSO BETTER BUTSTILL VERY DEPENDENT. (2) A-fib Current Visit: Yes Status: Chronic Plan: RATE CONTROLLED SOTALOL REDUCED HR IS LOW. (3) Atrial fibrillation with RVR Current Visit: No Status: Acute (4) Orthostatic hypotension Current Visit: No Status: Acute Plan: WATCH BP DAILY. ORTHO. CONTINUE ABDOMEN BINDER AND STOCKINGS. STOP AMLODIPINE DO NOT LAY HER HEAD DOWN BELOW 45 DEGREES. CHRONIC ISSUES. DOES WELL WITH TIGHT STOCKINGS AND ABDOMEN BINDER. (5) Hypokalemia Current Visit: Yes Status: Acute Plan: MAY HAVE HYPERALDOSTERONISM START LOW DOSE SPIRONOLACTONE (6) Asymptomatic bacteriuria Current Visit: Yes Status: Acute Plan: MERREM IS STARTED BP DROPPED I SUSPECT THIS NOT FROM SEPSIS BUT HER CHRONIC ISSUE OF ORTHOSTASIS. WILL GIVE ABOUT 5 DAYS ABX THERE IS NO CLEAR INDICATION OF IT. NO CHANGES. SHE IS GROWING TWO DIFF BACTERIAL FROM URINE WITH TWO CULTURES. THIS EXPLAINS COLONIZATION.
--- NOTE | 2022-10-22 23:17 | PN ---
Date of Progress Note: 10/22/2022 Time Of Service: 1:30 p.m. Subjective: Ms. Diane is ambulating with the physical therapist down the albert. She is smiling and doing much better. Face shows good symmetry and spontaneous speech is better. Review of Systems: No fevers or chills. No significant myalgias, arthralgias, or rash. Physical Examination: Vital Signs: Blood pressure 136/86, pulse 70, respiratory rate 18, temperature 98.4, and oxygen satu ration 97. Earlier this morning around 8:30, her orthostatics while out of bed showed blood pressure 155/75 and pulse of 86 while lying, while sitting blood pressure 135/72 and pulse 67, and while radha ding blood pressure 84/48 and pulse of 68. However, as the day wore on, she did much better in terms of standing blood pressures and was able to ambulate well with physical therapist. Neurologic: She does have improving strength in the right upper and lower extremities, but still may have a decrease of the right nasolabial fold and some drooling. Otherwise, no other changes on her examination. Laboratory Studies: No new laboratory studies. X-ray/imaging: No new x-ray or imaging. Medications: Medications have been reviewed and remain unchanged. Current Functional Status: Today she ambulated 500 feet twice and 600 feet twice with a rolling walk er independently. She ascended and descended 15 steps with bilateral handrails twice independently. With her speech pathology therapy, she worked on confrontational naming, responsive naming, writing, and oral motor exercises. She required minimum assistance with those activities and maximum assista nce for responsive naming though. With her occupational therapy, she utilizes right hand to cut circ les and draw lines on paper plate to improve her hand strength and dexterity skills. Progress Towards Rehabilitation Goals: Ms. Diane has made excellent progress towards her goals of independent transfers from bed, toilet, and shower; ambulating 600 feet independently; up and down 10 steps independently. She is making slow progress with cognitive functioning as that is the most imp acted part by her stroke. She has significant difficulty with expressive and receptive language. Assessment: Ms. Diane is an 82-year-old patient in the rehabilitation unit with a left hemispheric stroke that produced more expressive and receptive aphasias than the weakness. She has atrial fibri llation, orthostatic hypotension, urinary retention, dehydration, and dyslipidemia. Plan: 1.Continue with physical, occupational, and speech therapy for 3.5 hours for 5 of 7 days. 2.She has some multiple comorbid conditions as listed above that are managed by continuing her medic ations and Dr. Canas her primary care physician is assisting. Comorbids That Continue To Impact Rehabilitation: She has multiple comorbids that are stably managed and do not negatively impact her rehabilitation. Her aphasia is the biggest factor that is limiting her from thriving very well and makes it risky for her to be home alone and therefore the recommenda tion is for her to continue with a facility that can provide 24 hour care and supervision despite how well she is doing with her physical and occupational therapy. VITOR/PERLA Voice ID: [id number] Report ID: [id number]
[2022-10-23] MEDS: SOTALOL HCL 80 MG TAB PO SCH (05:32)
[2022-10-23 05:33] VITALS: BP 103/62
[2022-10-23] MEDS: FOLIC ACID 1 MG TABLET PO SCH (07:45)
[2022-10-23] MEDS: POLYETHYL GLY 3350 17 GM/DOSE PO SCH ×2 (07:45→08:00)
[2022-10-23] MEDS: CRANBERRY FRUIT EXTRACT 200 MG CAP PO SCH (07:45)
[2022-10-23] MEDS: PYRIDOSTIGMINE 60 MG TABLET PO SCH (07:45)
[2022-10-23] MEDS: levETIRAcetam 500 MG TAB PO SCH (07:46)
[2022-10-23] MEDS: VITAMIN D 1000 UNIT TAB PO SCH (07:46)
[2022-10-23] MEDS: ENSURE ENLIVE 237 ML CAN PO SCH (07:46)
[2022-10-23] MEDS: MULTIVIT W/ MINERAL TAB PO SCH (07:47)
[2022-10-23] MEDS: TAMSULOSIN 0.4 MG SR CAP PO SCH (07:47)
[2022-10-23] MEDS: CALCIUM CARB 500MG/VIT D 200 IU TAB PO SCH (07:47)
[2022-10-23] MEDS: AMLODIPINE 2.5 MG TAB PO SCH (08:00)
[2022-10-23 09:25] VITALS: TEMP 97.1
--- NOTE | 2022-10-24 21:29 | P.PN ---
Subjective Date of Service: 10/24/22 Chief Complaint: STABLE TODAY. Subjective: Improving DOING PT, WALKED ABOUT 800 FEET TODAY FAMILY WANTS NH SHE IS ALONE AT HOME. SEVERO IS STABLE. 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 Physical Examination - Vital Signs Temperature: 97.1 F Blood Pressure: 103/62 Pulse: 67 Respirations: 18 Pulse Ox (%): 94 - Studies Medications List Reviewed: Yes Assessment And Plan - Current Problems (Diagnosis) (1) Arterial ischemic stroke, MCA (middle cerebral artery), left, acute Status: Acute Plan: ABOVE. GLOBAL APHASIA. HAS TO CRUSH MEDS PER DAUGHTER WILL NEE [place] DAUGHTER HAS TO WORK. GLOBAL APHASIA CONTINUES GEN WEAKNESS ALSO BETTER BUTSTILL VERY DEPENDENT. (2) A-fib Status: Chronic Plan: RATE CONTROLLED SOTALOL REDUCED HR IS LOW. (3) Atrial fibrillation with RVR Status: Acute (4) Orthostatic hypotension Status: Acute Plan: WATCH BP DAILY. ORTHO. CONTINUE ABDOMEN BINDER AND STOCKINGS. STOP AMLODIPINE DO NOT LAY HER HEAD DOWN BELOW 45 DEGREES. CHRONIC ISSUES. DOES WELL WITH TIGHT STOCKINGS AND ABDOMEN BINDER. (5) Hypokalemia Status: Acute Plan: MAY HAVE HYPERALDOSTERONISM START LOW DOSE SPIRONOLACTONE (6) Asymptomatic bacteriuria Status: Acute Plan: MERREM IS STARTED BP DROPPED I SUSPECT THIS NOT FROM SEPSIS BUT HER CHRONIC ISSUE OF ORTHOSTASIS. WILL GIVE ABOUT 5 DAYS ABX THERE IS NO CLEAR INDICATION OF IT. NO CHANGES. SHE IS GROWING TWO DIFF BACTERIAL FROM URINE WITH TWO CULTURES. THIS EXPLAINS COLONIZATION.
== END 2022-10-23 14:25 | DRG 57 ==
LOC: 5TH 09:00
PROVIDERS: ADMIT Psychiatry & Neurology Neurology with Special Qualifications in Child Neurology; ATTEND Psychiatry & Neurology Neurology with Special Qualifications in Child Neurology
DX: I69.351 Hemiplegia and hemiparesis following cerebral infarction affecting right dominant side (principal); I69.318 Other symptoms and signs involving cognitive functions following cerebral infarction; I69.320 Aphasia following cerebral infarction; I69.322 Dysarthria following cerebral infarction; I69.391 Dysphagia following cerebral infarction; R13.10 Dysphagia, unspecified; E55.9 Vitamin D deficiency, unspecified; I95.1 Orthostatic hypotension; E87.6 Hypokalemia; G70.00 Myasthenia gravis without (acute) exacerbation; R33.9 Retention of urine, unspecified; R82.71 Bacteriuria; N39.498 Other specified urinary incontinence; E86.0 Dehydration; I48.91 Unspecified atrial fibrillation; I10 Essential (primary) hypertension; E78.5 Hyperlipidemia, unspecified; M81.0 Age-related osteoporosis without current pathological fracture
CPT/HCPCS: 36415; 70450; 80048; 81001; 82040; 82947; 83735; 84134; 85025; 87077; 87086; 87088; 87186; 92507; 92523; 92526; 92610; 93005; 94010; 97110; 97112; 97116; 97129; 97161; 97165; 97530; 97542; J2185; J7030; J7050

== ENCOUNTER 2022-11-14 12:50 | Inpatient (IN) | payer OTHER ==
--- OUTSIDE RECORDS SUMMARY | 2022-11-14 12:53 | XMS REPORT | Continuity of Care Document ---
:1940 Author Organization [facility] t Address [address] [facility] [address] [place] [address] Care Team Providers Name Role Phone ZACHARY BELLO Attending Clinician Unavailable Franck Salas Attending Clinician Unavailable ALBERTO GAMING Attending Clinician Unavailable KAIA AYERS Attending Clinician Unavailable YENNI YOUNG Attending Clinician Unavailable PIETER PRETTY Attending Clinician Unavailable Richy Canas V Attending Clinician Unavailable KAIA AYERS Admitting Clinician Unavailable Franck Salas Admitting Clinician Unavailable Richy Canas V Admitting Clinician Unavailable Payers Payer Name Policy Type Policy Number Effective Date Expiration Date S ource MEDICARE A B [id number] 1999 00:00:00 Problems This patient has no known problems. Allergies, Adverse Reactions, Alerts Allergy Allergy Status Severity Reaction(s) Onset Inactive Treating Comm ents Source Name Type Date Date Clinician LACTOSE Allergy Active Low Other [facility] 10-23 00:00: 00 NO KNOWN Allergy Active [facility] Medications This patient has no known medications. Vital Signs Vital Name Observation Time Observation Value Comments Source HEIGHT 2022-10-31 17:12:00 160 cm WEIGHT 2022-10-31 17:12:00 60 kg HEIGHT 2022-10-28 17:07:00 160 cm WEIGHT 2022-10-28 17:07:00 60 kg HEIGHT 2022-10-31 17:12:00 160 cm WEIGHT 2022-10-31 17:12:00 60 kg HEIGHT 2022-10-28 17:07:00 160 cm WEIGHT 2022-10-28 17:07:00 60 kg Procedures This patient has no known procedures. Encounters Start End Encounter Admission Attending Care Care Encounter Source Date/Time Date/Time Type Type Clinicians Facility Department ID 2022-10-31 Inpatient ER EUGENIA, [facility] [id number] [facility] 17:51:43 ILYAS 2022-05-10 Inpatient ROSCOE Salas [facility] [id number] [facility] 09:30:00 Franck 62 [facility] 2022-10-28 2022-11-02 Inpatient ER ARMEN, [facility] Surgery [id number] [facility] 16:53:00 17:40:00 KAIA 2022-10-30 2022-10-30 Outpatient ER DIEL, [facility] [id number] [facility] 11:16:56 11:16:56 YENNI 2022-10-29 2022-10-29 Outpatient ER PRETTY, [facility] [id number] [facility] 07:33:27 07:33:27 PIETER 2022-10-28 2022-10-28 [facility] [id number] [facility] 20:48:52 20:48:52 ALBERTO 2022-10-28 2022-10-28 [facility] [id number] [facility] 18:16:02 18:16:02 ALBERTO 2022-10-28 2022-10-28 Emergency ER SHUMAKE, [facility] [id number] [facility] 17:23:10 17:23:10 ALBERTO 2022-08-15 2022-08-15 Outpatient ROSCOE Canas [facility] [id number] [facility] 12:00:00 12:00:[address] [place] [address] Results Test Description Test Time Test Comments Results Result Comments Source BLOOD CULTURE 2022-11-02 19:00:56 Test Item Value Reference Range Interpretation Comme nts CULTURE (BEAKER) (test code = 1095) No growth in 5 days BLOOD [id number] 19:00:56 Test Item Value Reference Range Interpretation Comments CULTURE (BEAKER) (test No growth in 5 days code = 1095) HEPATIC FUNCTION [id number] 09:42:43 Test Item Value Reference Range Interpretation Comments TOTAL PROTEIN (BEAKER) (test code = 6.2 gm/dL 6.0-8.5 770) ALBUMIN (BEAKER) (test code = 1145) 3.1 g/dL 3.5-5.0 L BILIRUBIN TOTAL (BEAKER) (test code 1.6 mg/dL 0.1-1.3 H = 377) BILIRUBIN DIRECT (BEAKER) (test 1.0 mg/dL 0.0-0.5 H code = 706) ALKALINE PHOSPHATASE (BEAKER) (test 259 U/L 30-115 H code = 346) AST (SGOT) (BEAKER) (test code = 173 U/L 5-40 H 353) ALT (SGPT) (BEAKER) (test code = 239 U/L 6-50 H 347) Principal Data Architect ID - [id number]-GLUCOSE [id number] 06:01:36 Test Item Value Reference Range Interpretation Comments POC-GLUCOSE METER 99 mg/dL 70-110 : TESTED A T [facility] [address] (BEAKER) (test code = [facility], 1538) [place] [id number] 384: Principal Data Architect/Techni chago ID = [id number] for A ntwi, Gena POCT-GLUCOSE [id number] 20:38:28 Test Item Value Reference Range Interpretation Comments POC-GLUCOSE METER 109 mg/dL 70-110 : TESTED A T [facility] [address] (BEAKER) (test code [facility], = 1538) [place] [address] 384: Principal Data Architect/Techni chago ID = [id number] for A ntwi, Gena HEPATIC FUNCTION [id number] 05:30:41 Test Item Value Reference Range Interpretation Comments TOTAL PROTEIN (BEAKER) (test code = 6.4 gm/dL 6.0-8.5 770) ALBUMIN (BEAKER) (test code = 1145) 3.3 g/dL 3.5-5.0 L BILIRUBIN TOTAL (BEAKER) (test code 2.4 mg/dL 0.1-1.3 H = 377) BILIRUBIN DIRECT (BEAKER) (test 1.8 mg/dL 0.0-0.5 H code = 706) ALKALINE PHOSPHATASE (BEAKER) (test 286 U/L 30-115 H code = 346) AST (SGOT) (BEAKER) (test code = 193 U/L 5-40 H 353) ALT (SGPT) (BEAKER) (test code = 237 U/L 6-50 H 347) Principal Data Architect ID - [id number] FUNCTION [id number] 06:09:40 Test Item Value Reference Range Interpretation Comments TOTAL PROTEIN (BEAKER) (test code = 5.9 gm/dL 6.0-8.5 L 770) ALBUMIN (BEAKER) (test code = 1145) 3.1 g/dL 3.5-5.0 L BILIRUBIN TOTAL (BEAKER) (test code 1.3 mg/dL 0.1-1.3 = 377) BILIRUBIN DIRECT (BEAKER) (test 0.9 mg/dL 0.0-0.5 H code = 706) ALKALINE PHOSPHATASE (BEAKER) (test 168 U/L 30-115 H code = 346) AST (SGOT) (BEAKER) (test code = 142 U/L 5-40 H 353) ALT (SGPT) (BEAKER) (test code = 214 U/L 6-50 H 347) Principal Data Architect ID - [id number] 05:39:25 Test Item Value Reference Range Interpretation Comments PROTIME (BEAKER) (test code = 16.0 seconds 11.8-14.4 H 759) INR (BEAKER) (test code = 370) 1.26 1.20-1.50 PARTIAL THROMBOPLASTIN TIME 44.8 seconds 23.2-36.1 H (BEAKER) (test code = 760) RECOMMENDED COUMADIN/WARFARIN INR THERAPY RANGESSTANDARD DOSE: 2.0 - 3.0 Includes: PROPHYLAXIS for venous thrombosis, systemic embolization; TREATMENT for venous thrombosis and/or pulmonary embolus.HIGH RISK: Target INR is 2.5-3.5 for patients with mechanical heart valves.MR ABDOMEN WITHOUT IV CONTRAST MRCP 2022-10-30 16:50:25 [facility] 1940 Sex: FTECHNIQUE: MRI of the abdomen and MRCP WITHOUT intravenous contrast. 3-Dvolume reconstructions were obtained to evaluate the biliary ductalsystem.INDICATION: Unlisted Reason for Examcholedochlithiasis.COMPARISON: CT from 10/28/2022. Ultrasound from 10/28/2022. HIDA scan from10/28/2022FINDINGS:ABSENCE OF INTRAVENOUS CONTRAST DECREASES SENSITIVITY FOR DETECTION OFFOCAL LESIONS AND VASCULAR PATHOLOGY.Evaluation is suboptimal due to respiratory motion artifact.LOWER THORAX: Small right pleural effusion. Trace left pleural effusion.LIVER: Mild loss of signal in the liver on out of phase imaging. A fewcysts in the liver measure up to 4.7 cm for this largest cyst has asingle thin internal septation. There is a fluid/fluid level within oneof the likely cysts in segment which measures 1.8 cm.BILIARY: The gallbladder is distended, contains stones, and has athickened wall with restricted diffusion. Motion artifact makesevaluation of the common bile duct is suboptimal, but the common bileduct is dilated at 1.2 cm indiameter with some images which appear tohave some layering sludge and/or stones as best seen on series 4 image21 and series 11 image 49.SPLEEN: No splenomegaly.PANCREAS: No focal masses or ductal dilatation. A cystic lesion in thepancreatic body measures 0.7 cm.ADRENALS: No adrenal nodules.KIDNEYS/URETERS: No hydronephrosis or solid mass lesions. A few simpleleft renal cysts measure up to 1.4 cm. PERITONEUM/RETROPERITONEUM: No free fluid.LYMPH NODES: No lymphadenopathy.VESSELS: Unremarkable.GI TRACT: No distention or wall thickening. Moderate diverticulosis ofthe sigmoid colon.BONES AND SOFT TISSUES: Unremarkable.IMPRESSION:1. The common bile duct is dilated at 1.2 cm in diameter with layeringsludge and/or stones in the distal common bile duct.2. The findings in the gallbladder are concerning for acute calculuscholecystitis.3. Diffuse fatty infiltration of the liver4. Small right pleural effusion5. A cystic lesion pancreatic body measures 0.7 cm and isindeterminate. A one-year follow-up with a MR of the abdomen with andwithout intravenous contrast with MRCP is recommended.Electronically Signed By: Garland Joseph10/30/2022 16:52 CDTWorkstation Name: [id number] FUNCTION [id number] 11:26:26 Test Item Value Reference Range Interpretation Comments TOTAL PROTEIN (BEAKER) (test code = 5.5 gm/dL 6.0-8.5 L 770) ALBUMIN (BEAKER) (test code = 1145) 2.9 g/dL 3.5-5.0 L BILIRUBIN TOTAL (BEAKER) (test code 2.6 mg/dL 0.1-1.3 H = 377) BILIRUBIN DIRECT (BEAKER) (test 2.0 mg/dL 0.0-0.5 H code = 706) ALKALINE PHOSPHATASE (BEAKER) (test 148 U/L 30-115 H code = 346) AST (SGOT) (BEAKER) (test code = 203 U/L 5-40 H 353) ALT (SGPT) (BEAKER) (test code = 242 U/L 6-50 H 347) Principal Data Architect ID - [id number] slightly ictericBASIC METABOLIC [id number] 03:52:57 Test Item Value Reference Range Interpretation Comments SODIUM (BEAKER) 141 meq/L 135-148 (test code = 381) POTASSIUM 3.6 meq/L 3.5-5.5 (BEAKER) (test code = 379) CHLORIDE (BEAKER) 109 meq/L 98-106 H (test code = 382) CO2 (BEAKER) 22 meq/L 20-31 (test code = 355) BLOOD UREA 17 mg/dL 10-26 NITROGEN (BEAKER) (test code = 354) CREATININE 1.11 mg/dL 0.50-1.20 (BEAKER) (test code = 358) GLUCOSE RANDOM 80 mg/dL 70-110 (BEAKER) (test code = 652) CALCIUM (ANGEL) 8.3 mg/dL 8.5-10.5 L (test code = 697) EGFR (ANGEL) 50 Interpretatio n of eGFR (test code = mL/min/1.73 values Stage De scription 1092) sq m Result G1 Norm al or high >=90 G2 Mildly decreased 60-89 G3a Mildl y to moderately 45-5 9 G3b Moderately to s everely 30-44 G4 Severl y decreased 15-29 G5 Kidney failure <15Reported eGF R is based on the CKD-EPI 2020 equation that d oes not use a race coefficientEsti mated GFR is not as accur ate as Creatinine Jodi hussain in predicting glom erular filtration rate . Estimated GFR is not appl icable for dialysis patien ts Principal Data Architect ID - [id number] slightly ictericPOCT-GLUCOSE [id number] 17:24:12 Test Item Value Reference Range Interpretation Comments POC-GLUCOSE METER 71 mg/dL 70-110 : TESTED A T [facility] [address] (ANGEL) (test code = [facility], 1538) [place] [address] 384: Principal Data Architect/Techni chago ID = [id number] for W umanglaniRita HEPATOBILIARY (HIDA) [id number] 16:51:50 [facility] 1940 Sex: FPROCEDURE: HEPATOBILIARY SCAN (unstimulated)CPT CODE: [id number]: Abdominal painPROTOCOL: 4.5 mCi of Tc-99m mebrofenin was injected intravenously.Images of the upper abdomen were obtained for approximately 75 minutesafter tracer injection and at four hours after injection.FINDINGS: Initial tracer uptake into the liver is uniform butdelayed. Subsequent tracer clearance from the liver is markedly delayed.Atone hour after injection, the extrahepatic biliary system is notvisualized. Limited small bowel activity is present at four hours. IMPRESSION:1. Diffuse hepatocellular dysfunction with cholestasis. This pattern maybe seen with intrinsic hepatic parenchymal disease alone, but partialobstruction of the distal common bile duct cannot be excluded.2. Cholecystitis.BASIC METABOLIC [id number] 06:31:34 Test Item Value Reference Range Interpretation Comments SODIUM (BEAKER) 142 meq/L 135-148 (test code = 381) POTASSIUM 3.7 meq/L 3.5-5.5 (BEAKER) (test code = 379) CHLORIDE (BEAKER) 111 meq/L 98-106 H (test code = 382) CO2 (BEAKER) 19 meq/L 20-31 L (test code = 355) BLOOD UREA 17 mg/dL 10-26 NITROGEN (BEAKER) (test code = 354) CREATININE 1.05 mg/dL 0.50-1.20 (BEAKER) (test code = 358) GLUCOSE RANDOM 92 mg/dL 70-110 (BEAKER) (test code = 652) CALCIUM (BEAKER) 8.8 mg/dL 8.5-10.5 (test code = 697) EGFR (BEAKER) 53 Interpretati on of eGFR (test code = mL/min/1.73 values Stage De scription 1092) sq m Result G1 Patrizia l or high >=90 G2 Mildly decreased 60-89 G3a Mildl y to moderately 45-5 9 G3b Moderately to s everely 30-44 G4 Severl y decreased 15-29 G5 Kidney failure <15Reported eGF R is based on the CKD-EPI 2021 equation that d oes not use a race coefficientEsti mated GFR is not as accur ate as Creatinine Jodi nixon in predicting glom erular filtration rate . Estimated GFR is not appl icable for dialysis patien ts Principal Data Architect ID - VATSpecimen slightly ictericCBC W/PLT COUNT & AUTO [id number] 06:02:09 Test Item Value Reference Range Interpretation Comments WHITE BLOOD CELL COUNT (BEAKER) 10.5 K/ L 4.0-10.0 H (test code = 775) RED BLOOD CELL COUNT (BEAKER) 4.26 M/ L 4.00-5.00 (test code = 761) HEMOGLOBIN (BEAKER) (test code = 13.0 GM/DL 12.0-15.5 410) HEMATOCRIT (BEAKER) (test code = 39.1 % 36.0-46.0 411) MEAN CORPUSCULAR VOLUME (BEAKER) 92 fL 82-99 (test code = 753) MEAN CORPUSCULAR HEMOGLOBIN 30.5 pg 27.0-33.0 (BEAKER) (test code = 751) MEAN CORPUSCULAR HEMOGLOBIN CONC 33.2 GM/DL 32.0-36.0 (BEAKER) (test code = 752) RED CELL DISTRIBUTION WIDTH 12.7 % 12.0-15.0 (BEAKER) (test code = 412) PLATELET COUNT (BEAKER) (test 163 K/CU MM 150-430 code = 756) MEAN PLATELET VOLUME (BEAKER) 10.0 fL 6.0-11.5 (test code = 754) NUCLEATED RED BLOOD CELLS 0 /100 WBC 0-0 (BEAKER) (test code = 413) NEUTROPHILS RELATIVE PERCENT 83 % (BEAKER) (test code = 429) LYMPHOCYTES RELATIVE PERCENT 8 % (BEAKER) (test code = 430) MONOCYTES RELATIVE PERCENT 9 % (BEAKER) (test code = 431) EOSINOPHILS RELATIVE PERCENT 0 % (BEAKER) (test code = 432) BASOPHILS RELATIVE PERCENT 0 % (BEAKER) (test code = 437) NEUTROPHILS ABSOLUTE COUNT 8.72 K/ L 1.80-8.00 H (BEAKER) (test code = 670) LYMPHOCYTES ABSOLUTE COUNT 0.82 K/ L 1.48-4.50 L (BEAKER) (test code = 414) MONOCYTES ABSOLUTE COUNT (BEAKER) 0.93 K/ L 0.00-1.30 (test code = 415) EOSINOPHILS ABSOLUTE COUNT 0.00 K/ L 0.00-0.50 (BEAKER) (test code = 416) BASOPHILS ABSOLUTE COUNT (BEAKER) 0.02 K/ L 0.00-0.20 (test code = 417) IMMATURE GRANULOCYTES-RELATIVE 0.20 % 0.00-0.00 H PERCENT (BEAKER) (test code = 2801) [id number] 00:26:10 Test Item Value Reference Range Interpretation Comments D-DIMER QUANTITATIVE (BEAKER) 0.76 MG/L FEU <0.50 HH (test code = 671) Intended Use: The D-Dimer Assay can be used to aid in the diagnosis of Deep Vein Thrombosis (DVT) and Pulmonary Embolism Disease (PED).In patients with low pre- test probability, various studies concerning STA Liatest D-dimer test have reported that with a cutoff value of 0.50 MG/L FEU, the Negative Predictive Value (NPV) regarding the exclusion of thrombosis is within 95-100% range.US ABDOMEN [id number] 22:30:09 [facility] 1940 Sex: FTECHNIQUE: Grayscale ultrasound of the right abdomen.INDICATION: ABDOMINAL PAIN.COMPARISON: Correlation with CT examination of the abdomen and pelvis10/28/2022.FINDINGS:MIDLINE VASCULATURE: The visualized inferior vena cava is unremarkable.The maximum visualized aortic diameter is 1.9 cm.LIVER: Smooth liver contour. Hepatic cirrhosis, dominant cyst measures4.4 x 3.1 x 2.8 cm within the left lobe of the liver with some internalseptation, as on CT. Additional smaller hepatic cysts. Within thesuperior aspect of the right lobe of liver is a 1.9 x 1.4 x 1.4 cmindeterminate hepatic lesion. The main portal vein is patent andmeasures 0.9 cm in diameter.BILIARY:Gallbladder: Gallbladder sludge. Distended gallbladder measuring 4.3 cmin transverse dimension with gallbladder wall thickening measuring up to5.9 mm in thickness. Sccm Administrator reports a negative sonographicMurphy's. No pericholecystic fluid.Common bile duct measures cm, within normal limits. No intrahepaticbiliary ductal dilatation.PANCREAS: Incompletely visualized due to overlying bowel gas.PERITONEUM: No free fluid. Small right pleural effusion.RIGHT KIDNEY: Right kidney measures 9.5 x 3.6 x 4.8 cm. Nohydronephrosis. No sonographically evident solid mass lesion.IMPRESSION:1. Distended gallbladder containing sludge and demonstrating wallthickening. Sccm Administrator reports a negative sonographic Duong's. Dilatedcommon bile duct measuring 0.8 cm; correlation with laboratory values isrecommended.2. Small right pleural effusion.3. Hepatic cysts. Additional 1.9 x 1.4 x 1.4 cm indeterminate hepaticlesion. Further characterization would require dedicated liverMRI withand without intravenous contrast.CT ABDOMEN/PELVIS WITH IV [id number] 19:21:32 [facility] : 1940 Sex: FEXAM: CT abdomen and pelvisTECHNIQUE: Helical images of the abdomen and pelvis were obtained afterIV contrast administrationDOSE REDUCTION: The exams was performed according to the departmentaldose-optimization program which includes automated exposure control,adjustment of the mA and/or kV according to patientsize and/or use ofiterative reconstruction technique.FINDINGS: Mild bilateral pleural effusions are noted, right greater thanleft. The cardiac size is within normal limits.Multiple hypodense lesions are noted throughout the liver with thelargest one in the left lobe measuring 3 cm. These are most compatiblewith cysts. The spleen, pancreas, adrenal glands, and right kidney areunremarkable. A 1.9 cm hyp odense lesion is noted in the left kidney mostcompatible with a cyst. The gallbladder is mildly dilated with possibletrace pericholecystic fluid. In addition, the common bile duct isprominent measuring1.2 cm in diameter.The small and large bowels are normal in caliber without evidence ofobstruction.The bladder, uterus, and ovaries are unremarkable.There is no evidence of lymphadenopathy or free fluid. The aorta and IVCare normal in caliber. Atherosclerotic calcification of the aorta isnoted.IMPRESSION:1. Mildly prominent gallbladder with possible trace pericholecysticfluid. Clinical correlation recommended to rule out acute inflammatorydisease of the gallbladder.2. Mildly prominent common hepaticduct measuring 1.2 cm. Correlationwith LFT recommended.3. Multiple hepatic cysts.PROTHROMBIN TIME/INR 2022-10-28 18:11:42 Test Item Value Reference Range Interpretation Comments PROTIME (BEAKER) (test code = 21.4 seconds 11.8-14.4 H 759) INR (BEAKER) (test code = 370) 1.83 1.20-1.50 H RECOMMENDED COUMADIN/WARFARIN INR THERAPY RANGESSTANDARD DOSE: 2.0 - 3.0 Includes: PROPHYLAXIS for venous thrombosis, systemic embolization; TREATMENT for venous thrombosis and/or pulmonary embolus.HIGH RISK: Target INR is 2.5-3.5 for patients with mechanical heart valves.COMPREHENSIVE METABOLIC PANEL 2022-10-28 18:08:18 Test Item Value Reference Range Interpretation Comments TOTAL PROTEIN 6.9 gm/dL 6.0-8.5 (BEAKER) (test code = 770) ALBUMIN (BEAKER) 3.7 g/dL 3.5-5.0 (test code = 1145) ALKALINE 108 U/L 30-115 PHOSPHATASE (BEAKER) (test code = 346) BILIRUBIN TOTAL 1.5 mg/dL 0.1-1.3 H (BEAKER) (test code = 377) SODIUM (BEAKER) 144 meq/L 135-148 (test code = 381) POTASSIUM (BEAKER) 4.5 meq/L 3.5-5.5 (test code = 379) CHLORIDE (BEAKER) 110 meq/L 98-106 H (test code = 382) CO2 (BEAKER) (test 22 meq/L 20-31 code = 355) BLOOD UREA 27 mg/dL 10-26 H NITROGEN (BEAKER) (test code = 354) CREATININE 1.48 mg/dL 0.50-1.20 H (BEAKER) (test code = 358) GLUCOSE RANDOM 98 mg/dL 70-110 (BEAKER) (test code = 652) CALCIUM (BEAKER) 9.5 mg/dL 8.5-10.5 (test code = 697) AST (SGOT) 62 U/L 5-40 H (BEAKER) (test code = 353) ALT (SGPT) 37 U/L 6-50 (BEAKER) (test code = 347) EGFR (BEAKER) 35 Interpretatio n of eGFR (test code = 1092) mL/min/1.[address] age Description sq m Result G1 Patrizia l or high >=90 G2 Mildly decreased 60-89 G3a Mildl y to moderately 45-5 9 G3b Moderately to s everely 30-44 G4 Sever ly decreased 15-29 G5 Kidney failure <15Repo rted eGFR is based on the CKD-EPI 2020 equation t hat does not use a race coefficientEsti mated GFR is not as accur ate as Creatinine Jodi hussain in predicting glom erular filtration rate . Estimated GFR is not appl icable for dialysis patien ts Principal Data Architect ID - [id number] ID - [id number] 18:05:15 Test Item Value Reference Range Interpretation Comments PARTIAL THROMBOPLASTIN TIME 37.8 seconds 23.2-36.1 H (BEAKER) (test code = 760) [id number] 18:00:47 Test Item Value Reference Range Interpretation Comments LIPASE (BEAKER) (test code = 749) 80 U/L 8-78 H Principal Data Architect ID - [id number] ACID, [id number] 17:56:23 Test Item Value Reference Range Interpretation Comments LACTATE BLOOD VENOUS (2) (BEAKER) 0.92 mmol/L 0.50-2.20 (test code = 2872) Principal Data Architect ID - [id number] W/ REFLEX URINE [id number] 17:46:28 Test Item Value Reference Range Interpretation Comments COLOR (BEAKER) (test code = 470) Yellow CLARITY (BEAKER) (test code = 469) Clear SPECIFIC GRAVITY UA (BEAKER) (test 1.017 1.001-1.035 code = 468) PH UA (BEAKER) (test code = 467) 6.0 5.0-8.0 PROTEIN UA (BEAKER) (test code = Negative Negative 464) GLUCOSE UA (BEAKER) (test code = Negative Negative 365) KETONES UA (BEAKER) (test code = 5 mg/dL Negative A 371) BILIRUBIN UA (BEAKER) (test code = Negative Negative 462) BLOOD UA (BEAKER) (test code = 461) Negative Negative NITRITE UA (BEAKER) (test code = Negative Negative 465) LEUKOCYTE ESTERASE UA (BEAKER) (test Negative Negative code = 466) UROBILINOGEN UA (BEAKER) (test code < = 463) RBC UA (BEAKER) (test code = 519) 3 /HPF WBC UA (BEAKER) (test code = 520) 2 /HPF MUCUS (BEAKER) (test code = 1574) Rare HYALINE CASTS (BEAKER) (test code = 1 /LPF 514) SOURCE(BEAKER) (test code = 2795) Principal Data Architect ID - [auto]Principal Data Architect ID - techXR CHEST 1 VIEW PORTABLE / BEDSIDE 2022-10-28 17:44:34 [facility] 1940 Sex: FTECHNIQUE: Frontal view of the chest.INDICATION: ABDOMINAL PAIN.COMPARISON: None.FINDINGS:LINES/TUBES: None.HEART AND MEDIASTINUM: Cardiomediastinal contour is within normallimits. LUNGS: Linear atelectasis or scarring within the lung bases. Noconsolidation or pulmonary edema.PLEURA: No pneumothorax. No signific ant pleural effusion.SOFT TISSUES AND BONES: Unremarkable.IMPRESSION:No acute cardiopulmonary process.CBC W/PLT COUNT & AUTO [id number] 17:37:32 Test Item Value Reference Range Interpretation Comments WHITE BLOOD CELL COUNT (BEAKER) 7.5 K/ L 4.0-10.0 (test code = 775) RED BLOOD CELL COUNT (BEAKER) 4.19 M/ L 4.00-5.00 (test code = 761) HEMOGLOBIN (BEAKER) (test code = 12.8 GM/DL 12.0-15.5 410) HEMATOCRIT (BEAKER) (test code = 39.5 % 36.0-46.0 411) MEAN CORPUSCULAR VOLUME (BEAKER) 94 fL 82-99 (test code = 753) MEAN CORPUSCULAR HEMOGLOBIN 30.5 pg 27.0-33.0 (BEAKER) (test code = 751) MEAN CORPUSCULAR HEMOGLOBIN CONC 32.4 GM/DL 32.0-36.0 (BEAKER) (test code = 752) RED CELL DISTRIBUTION WIDTH 12.6 % 12.0-15.0 (BEAKER) (test code = 412) PLATELET COUNT (BEAKER) (test 192 K/CU MM 150-430 code = 756) MEAN PLATELET VOLUME (BEAKER) 10.7 fL 6.0-11.5 (test code = 754) NUCLEATED RED BLOOD CELLS 0 /100 WBC 0-0 (BEAKER) (test code = 413) NEUTROPHILS RELATIVE PERCENT 79 % (BEAKER) (test code = 429) LYMPHOCYTES RELATIVE PERCENT 15 % (BEAKER) (test code = 430) MONOCYTES RELATIVE PERCENT 5 % (BEAKER) (test code = 431) EOSINOPHILS RELATIVE PERCENT 1 % (BEAKER) (test code = 432) BASOPHILS RELATIVE PERCENT 0 % (BEAKER) (test code = 437) NEUTROPHILS ABSOLUTE COUNT 5.88 K/ L 1.80-8.00 (BEAKER) (test code = 670) LYMPHOCYTES ABSOLUTE COUNT 1.15 K/ L 1.48-4.50 L (BEAKER) (test code = 414) MONOCYTES ABSOLUTE COUNT (BEAKER) 0.37 K/ L 0.00-1.30 (test code = 415) EOSINOPHILS ABSOLUTE COUNT 0.04 K/ L 0.00-0.50 (BEAKER) (test code = 416) BASOPHILS ABSOLUTE COUNT (BEAKER) 0.03 K/ L 0.00-0.20 (test code = 417) IMMATURE GRANULOCYTES-RELATIVE 0.30 % 0.00-0.00 H PERCENT (BEAKER) (test code = 5784)
[2022-11-14 13:06] LABS: Absolute Lymphocytes (CBC) 1.5 K/uL (0.7-4.9); Hematocrit 36.1 % (36.0-45.0); Lymphocytes % 38.8 % (15.3-44.8); MCV 91.6 fL (80-100); MPV 8.1 fL (7.6-11.3); RBC Red Blood Cell Count 3.94 M/uL (3.86-4.86)
--- NOTE | 2022-11-14 13:17 | RAD REPORT ---
EXAM DESCRIPTION: RADChest Single View11/14/2022 1:01 pm CLINICAL HISTORY: AMS COMPARISON: Chest Single View dated 10/01/2022; Chest Single View dated 02/03/2022; Chest Single View dated 06/12/2020; Chest Pa And Lat (2 Views) dated 11/04/2017 TECHNIQUE: Portable AP view of the chest. FINDINGS: Central interstitial prominence, and vascular congestion, stable. Decreased inspiratory ef fort which limits evaluation. No new focal airspace opacities. No pneumothorax or effusion. The card iomediastinal contours are unremarkable. IMPRESSION: Stable central interstitial prominence which may relate to mild congestion/CHF. No other acute cardiopulmonary process.
[2022-11-14 13:28] LABS: SARS-CoV-2 Antigen Rapid Res Negative (Negative)
[2022-11-14 13:35] LABS: Protime INR 1.97
--- NOTE | 2022-11-14 13:50 | RAD REPORT ---
EXAM DESCRIPTION: CT - Head Brain Wo Cont - 11/14/2022 1:11 pm CLINICAL HISTORY: AMS COMPARISON: Head Brain Wo Cont dated 10/09/2022; Head angio dated 10/01/2022; Brain Wo Cont dated 10/02 TECHNIQUE: Noncontrast head CT images were obtained without IV contrast. Multiplanar reformats were generated and reviewed. All CT scans are performed using dose optimization technique as appropriate and may include automated exposure control or mA/KV adjustment according to patient size. FINDINGS: No intracranial hemorrhage, mass, or edema. Midline structures are unremarkable. Normal ventricular caliber for age. Time interval changes involving the left parietotemporal and frontal operculum and subinsular region, in similar distribution to region of known infarct. Small regions of encephalomalacia involving the left high frontal operculum and left superior cerebellar region, stable. Agosto-white matter differenti ation elsewhere is preserved, without evidence of acute infarct. No abnormal extra-axial fluid collec tions. Other stable periventricular and deep white matter patchy hypodensities, stable and nonspecific, most suggestive of chronic small vessel ischemic changes. Mastoid air cells and visualized portions of the paranasal sinuses are clear. No acute bony findings. IMPRESSION: Time interval changes of left MCA territory subacute infarct. No other acute findings.
[2022-11-14] MEDS ORDERED: NA CHLORIDE 0.9% 500 ML ONE (13:54)
--- NOTE | 2022-11-14 14:09 | RAD REPORT ---
EXAM DESCRIPTION: MRI - Brain Wo Cont - 11/14/2022 1:35 pm CLINICAL HISTORY: CONFUSED COMPARISON: Noncontrast head CT of the same day and 10/09/2022. MRI brain 10/02/2022 TECHNIQUE: Multiplanar multisequence MRI of the brain performed without IV contrast. FINDINGS: Expected time interval changes of the known left MCA territory infarct, with developing en cephalomalacia. Other regions of more remote appearing encephalomalacia involving the high left front al operculum and left superior cerebellar hemisphere are stable. Multiple scattered foci of susceptib ility related signal loss throughout the peripheral supratentorial cortex bilaterally are stable, exc ept for a new focus in the left parietal subcortical region (series 8, image 13). No other evidence of acute infarct or other diffusion signal abnormality. No evidence of acute intracranial hemorrhage or abnormal extra-axial fluid collections. Mild diffuse parenchymal volume loss. Ventricular caliber stable. Midline structures are unremarkable . Other stable near confluent deep white matter T2/FLAIR hyperintensities, nonspecific, but suggestive of chronic small vessel ischemic changes. No mass effect or midline shift. Major vascular flow voids are preserved. Mastoid air cells and paranasal sinuses are clear. IMPRESSION: Expected time interval changes of known left MCA territory infarct. New focus of microhe morrhage in the left parietal subcortical region, may relate to the evolving infarct. No other acute intracranial process. No evidence of ventriculomegaly or mass effect.
[2022-11-14 14:12] LABS: Albumin 2.8 g/dL (3.4-5.0); Bilirubin Direct 0.3 mg/dL (0-0.2); Bilirubin Indirect, Calculated 0.3 mg/dL (0.2-0.8); Bilirubin Total 0.6 mg/dL (0.2-1.0); Protein, Total 6.5 g/dL (6.4-8.2); Troponin High Sensitivity 22.7 pg/mL (<58.9)
[2022-11-14 14:26] LABS: Specific Gravity 1.015 (1.005-1.030); Transitional Epithelial <5 /HPF (None Seen); Urine Bacteria None Seen /HPF (<20); Urine Bilirubin NEGATIVE (Negative); Urine Blood Negative (Negative); Urine Clarity Turbid (Clear); Urine Color Yellow (Yellow); Urine Glucose NEGATIVE (Negative); Urine Mucus Slight /HPF (None Seen); Urine Protein TRACE (Negative); Urine RBC <5 /HPF (None Seen); Urine Urobilinogen Normal (Normal)
--- NOTE | 2022-11-14 15:13 | ER ---
Nurse's Notes [facility] Name: Kat Diane Age: 82 yrs Sex: Female : 1940 Arrival Date: 11/14/2022 Time: 12:50 Bed 4 Private MD: Diagnosis: Altered mental status, unspecified;Syncope Near;Hypotension, unspecified;Nontraumatic intracerebral hemorrhage, multiple localized-Microhemorrhage Presentation: 11/14 12:51 Chief complaint: Patient states: Weak and AMS EMS states: Family called EMS for near ll1 syncope. 76 systolic BP, bradycardia rate 56. Fingerstick 132, end tital 30. 20 G L AC, NS 400 ML bolus given. Coronavirus screen: Client denies travel out of the [place] in the last 14 days. fatigue, Client presents with at least one sign or symptom that may indicate coronavirus-19. Standard/surgical mask placed on the client. Ebola Screen: Patient denies travel to an Ebola-affected area in the 21 days before illness onset. Initial Sepsis Screen: Does the patient meet any 2 criteria? No. Patient's initial sepsis screen is negative. Does the patient have a suspected source of infection? No. Patient's initial sepsis screen is negative. Risk Assessment: Do you want to hurt yourself or someone else? Patient reports no desire to harm self or others. Onset of symptoms was November 14, 2022. 12:51 Method Of Arrival: EMS: [facility] 12:51 Acuity: UMBERTO 2 ll1 Triage Assessment: 12:56 General: Appears uncomfortable, ill, Behavior is cooperative, appropriate for age, ll1 listless. General: Reports feeling ill for fatigue for. Pain: Denies pain. Neuro: Reports a syncopal episode weakness. Historical: - Allergies: 12:51 No Known Drug Allergies; ll1 - Home Meds: 15:18 Fosamax 70 mg Oral tablet every week [Active]; amlodipine 5 mg tab daily [Active]; iw Xarelto 20 mg Oral tab daily [Active]; folic acid 1 mg Oral tab daily [Active]; carvedilol 12.5 mg Oral tab 2 times per day [Active]; levetiracetam 250 mg oral tablet 2 times per day [Active]; tamsulosin 0.4 mg oral capsule daily [Active]; pyridostigmine bromide 30 mg oral tablet 3 times per day [Active]; Sotalol 40 mg Oral 2 times per day [Active]; Centrum Silver Oral daily [Active]; - PMHx: 12:51 Hyperlipidemia; CVA; Hypertension; Atrial fibrillation; ll1 - Immunization history:: Adult Immunizations up to date. - Social history:: Smoking status: Patient denies any tobacco usage or history of. - Family history:: not pertinent. - Hospitalizations: : No recent hospitalization is reported. Screenin:06 Abuse screen: Denies threats or abuse. Denies injuries from another. Nutritional iw screening: No deficits noted. Tuberculosis screening: No symptoms or risk factors identified. 17:48 [facility] ED Fall Risk Assessment (Adult) Confusion or Disorientation Yes (5 pts) iw Intoxicated or Sedated No (0 pts) Score/Fall Risk Level 3 or more points = High Risk Oriented to surroundings, Maintained a safe environment. Assessment: 14:05 General: Appears uncomfortable, ill, Behavior is quiet. Pain: Denies pain. Neuro: Level iw of Consciousness is confused, Oriented to person, Moves all extremities. Cardiovascular: Respiratory: Respiratory effort is even, unlabored, Respiratory pattern is regular, symmetrical. GI: Abdomen is flat, non-distended. Derm: Skin is fragile, Skin is pale. Musculoskeletal: Range of motion: intact in all extremities. 15:11 Reassessment: Patient appears in no apparent distress at this time. Patient and/or iw family updated on plan of care and expected duration. Pain level reassessed. pt appears to be sleeping, respirations even and unlabored , awakens easily to verbal stimuli, daughter st bedside. 17:50 Reassessment: Patient appears in no apparent distress at this time. Patient and/or iw family updated on plan of care and expected duration. Pain level reassessed. Patient is alert, oriented x 3, equal unlabored respirations, skin warm/dry/pink. Patient states feeling better. Patient states symptoms have improved. Vital Signs: 12:51 BP 131 / 59; Pulse 58; Resp 16; Temp 97.3; Pulse Ox 97% on R/A; Pain 0/10; ll1 14:09 BP 136 / 71; Pulse 74; Resp 16; Pulse Ox 97% on R/A; Pain 0/10; iw 14:33 BP 133 / 65; Pulse 70; Resp 14; Pulse Ox 97% on R/A; Pain 0/10; iw 15:11 BP 128 / 67; Pulse 68; Resp 16; Pulse Ox 96% on R/A; Pain 0/10; iw 17:50 BP 136 / 72; Pulse 53; Resp 16; Pulse Ox 98% on R/A; Pain 0/10; iw 12:51 Pain Scale: Adult ll1 14:09 Pain Scale: Adult iw 14:33 Pain Scale: Adult iw 15:11 Pain Scale: Adult iw 17:50 Pain Scale: Adult iw ED Course: 12:51 Patient arrived in ED. ll1 12:51 Arm band placed on Patient placed in an exam room, on a stretcher. ll1 12:52 Konrad Cabrera MD is Attending Physician. rn 12:55 Triage completed. ll1 12:56 Maintain EMS IV. Dressing intact. Good blood return noted. Site clean \T\ dry. Gauge \T\ ll 1 site: 20 L AC. 13:00 Patient has correct armband on for positive identification. Placed in gown. Bed in low iw position. Call light in reach. Side rails up X2. 13:01 Flu Sent. ls5 13:01 SARS RAPID Sent. ls5 13:03 Chest Single View XRAY In Process Unspecified. EDMS 13:03 Initial lab(s) drawn, by me, sent to lab. ls5 13:03 EKG done, by ED staff, reviewed by Konrad Cabrera MD. ls5 13:08 Talisha Luna, RN is Primary Nurse. iw 13:13 CT Head Brain wo Cont In Process Unspecified. EDMS 13:37 Brain Wo Cont MRI In Process Unspecified. EDMS 13:50 Lab(s) recollected, by me, sent to lab. ls5 14:04 Talisha Luna, RN is Primary Nurse. iw 14:04 Urinalysis w/ reflexes Sent. iw 14:29 CT Abd/Pelvis - IV Contrast Only In Process Unspecified. EDMS 15:11 Richy Canas MD is Hospitalizing Provider. rn 17:48 No provider procedures requiring assistance completed. Patient transferred, IV remains iw in place. Administered Medications: 14:04 Drug: NS 0.9% IV 500 ml Route: IV; Rate: bolus; Site: left forearm; iw 15:00 Follow up: IV Status: Completed infusion iw Medication: 14:10 VIS not applicable for this client. iw Outcome: 15:12 Decision to Hospitalize by Provider. rn 18:11 Patient left the ED. iw Signatures: Dispatcher [employer] Talisha Giron RN RN iw Nieto, Roman, MD MD rn Lewis, Lynsay, RN RN [facility] Jorge Luis Chan 5
--- NOTE | 2022-11-14 15:13 | EDPHYS ---
Physician Documentation [facility] Name: Kat Diane Age: 82 yrs Sex: Female : 1940 Arrival Date: 11/14/2022 Time: 12:50 Bed 4 Private MD: ED Physician Konrad Cabrera HPI: 11/14 12:55 This 82 yrs old Female presents to ER via Unassigned with complaints of Near rn Syncope. 12:55 The patient has experienced near-syncope. Onset: The symptoms/episode began/occurred at rn an unknown time. Duration: This was a single episode. Associated injury: The patient did not suffer any apparent associated injury. Current symptoms: confusion, decreased level of consciousness. The patient has experienced similar episodes in the past. Pt brought in by EMS for near syncope vs syncope vs seizure. Family called 911 for confusion after episode. Has had several episodes of AMS and syncope in past. Pt awake and responsive but confused, doesn't know where she is or year. Denies pain. EMS reports scene vitals showed sinus bradycardia and hypotension, given fluids and BP improved now. . Historical: - Allergies: 12:51 No Known Drug Allergies; ll1 - Home Meds: 15:18 Fosamax 70 mg Oral tablet every week [Active]; amlodipine 5 mg tab daily [Active]; iw Xarelto 20 mg Oral tab daily [Active]; folic acid 1 mg Oral tab daily [Active]; carvedilol 12.5 mg Oral tab 2 times per day [Active]; levetiracetam 250 mg oral tablet 2 times per day [Active]; tamsulosin 0.4 mg oral capsule daily [Active]; pyridostigmine bromide 30 mg oral tablet 3 times per day [Active]; Sotalol 40 mg Oral 2 times per day [Active]; Centrum Silver Oral daily [Active]; - PMHx: 12:51 Hyperlipidemia; CVA; Hypertension; Atrial fibrillation; ll1 - Immunization history:: Adult Immunizations up to date. - Social history:: Smoking status: Patient denies any tobacco usage or history of. - Family history:: not pertinent. - Hospitalizations: : No recent hospitalization is reported. ROS: 12:55 Constitutional: Negative for fever, chills, and weight loss, Cardiovascular: Negative rn for chest pain, palpitations, and edema, Respiratory: Negative for shortness of breath, cough, wheezing, and pleuritic chest pain, Abdomen/GI: Negative for abdominal pain, nausea, vomiting, diarrhea, and constipation, : Negative for injury, bleeding, discharge, and swelling, MS/Extremity: Negative for injury and deformity, Skin: Negative for injury, rash, and discoloration, Neuro: Negative for headache, weakness, numbness, tingling, and seizure. Exam: 12:55 Constitutional: This is a well developed, well nourished patient who is awake, slow to rn respond Head/Face: Normocephalic, atraumatic. ENT: dry MM Cardiovascular: Bradycardic, regular. No pulse deficits. Respiratory: No increased work of breathing, no retractions or nasal flaring. Abdomen/GI: Soft, non-tender Skin: Warm, dry MS/ Extremity: Pulses equal, no cyanosis. Neuro: Awake and alert, GCS 15, oriented to person, place, time, and situation. Slightly slurred speech. Motor strength 4/5 in all extremities. Sensory grossly intact. 14:00 ECG was reviewed by the Attending Physician. rn Vital Signs: 12:51 BP 131 / 59; Pulse 58; Resp 16; Temp 97.3; Pulse Ox 97% on R/A; Pain 0/10; ll1 14:09 BP 136 / 71; Pulse 74; Resp 16; Pulse Ox 97% on R/A; Pain 0/10; iw 14:33 BP 133 / 65; Pulse 70; Resp 14; Pulse Ox 97% on R/A; Pain 0/10; iw 15:11 BP 128 / 67; Pulse 68; Resp 16; Pulse Ox 96% on R/A; Pain 0/10; iw 17:50 BP 136 / 72; Pulse 53; Resp 16; Pulse Ox 98% on R/A; Pain 0/10; iw 12:51 Pain Scale: Adult ll1 14:09 Pain Scale: Adult iw 14:33 Pain Scale: Adult iw 15:11 Pain Scale: Adult iw 17:50 Pain Scale: Adult iw MDM: 12:52 Patient medically screened. rn 12:55 ED course: Family not here yet, but told EMS diagnosed with stroke last month, which rn would be contraindication for TNKase. . 13:07 ED course: Daughter here, reports since stroke has had trouble with slurred speech and rn slight weakness on RUE. Pt improving with only 500cc fluids and now BP normalizing. Daughter states episode today happened shortly after trying to stand from seated position with family member came over to visit. . 15:10 Differential Diagnosis: cardiac arrhythmia, cerebrovascular accident, idiopathic rn syncope, vasovagal episode, cerebral hemorrhage, dehydration, UTI. Data reviewed: vital signs, nurses notes, lab test result(s), EKG, radiologic studies, CT scan, MRI, and as a result, I will admit patient. Consideration of Admission/Observation Patient was admitted/placed on observation. Escalation of care including admission/observation considered. Management of patient was discussed with the following: Building Construction Professor: Dr. Matos, states no need to transfer, medical management, could be normal progression of CVA, plan would be to reconcile her anticoagulants and minimize risk of further bleeding.. Counseling: I had a detailed discussion with the patient and/or guardian regarding: the historical points, exam findings, and any diagnostic results supporting the discharge/admit diagnosis, lab results, radiology results, the need for further work-up and treatment in the hospital. Response to treatment: the patient's symptoms have markedly improved after treatment, and as a result, I will admit patient. 11/14 12:54 Order name: Basic Metabolic Panel; Complete Time: 14:11/14 12:54 Order name: CBC with Diff; Complete Time: :11/14 12:54 Order name: Hepatic Function; Complete Time: 14:11/14 12:54 Order name: Magnesium; Complete Time: 14:11/14 12:54 Order name: Protime (+inr); Complete Time: 13:58 11/14 12:54 Order name: Ptt, Activated; Complete Time: 13:58 11/14 12:54 Order name: Troponin High Sensitivity; Complete Time: 14:11/14 12:54 Order name: Urinalysis w/ reflexes; Complete Time: 14:11/14 12:55 Order name: Flu; Complete Time: 13:58 11/14 12:55 Order name: SARS RAPID; Complete Time: 13:58 11/14 12:54 Order name: CT Head Brain wo Cont; Complete Time: 13:58 11/14 12:54 Order name: Chest Single View XRAY; Complete Time: 13:58 11/14 12:55 Order name: Brain Wo Cont MRI; Complete Time: 14:31 rn 11/14 14:00 Order name: CT Abd/Pelvis - IV Contrast Only; Complete Time: 15:33 rn 11/14 12:54 Order name: EKG; Complete Time: 12:55 rn 11/14 12:54 Order name: Cardiac monitoring; Complete Time: 13:08 rn 11/14 12:54 Order name: EKG - Nurse/Tech; Complete Time: 13:02 rn 11/14 12:54 Order name: IV Saline Lock; Complete Time: 13: rn 11/14 12:54 Order name: Labs collected and sent; Complete Time: 13: rn 11/14 12:54 Order name: O2 Per Protocol; Complete Time: 13: rn 11/14 12:54 Order name: O2 Sat Monitoring; Complete Time: 13:08 rn EC:00 Rate is 60 beats/min. Rhythm is regular. QRS [place] is Normal. [place] interval is normal. QRS rn interval is normal. QT interval is prolonged at 494 msec. No Q waves. T waves are Normal. No ST changes noted. Clinical impression: NSR w/ Non-specific ST/T Changes. Interpreted by me. Reviewed by me. Administered Medications: 14:04 Drug: NS 0.9% IV 500 ml Route: IV; Rate: bolus; Site: left forearm; iw 15:00 Follow up: IV Status: Completed infusion iw Disposition Summary: 11/14/22 15:12 Hospitalization Ordered Hospitalization Status: Observation rn Provider: Richy Canas [facility]n [facility]n Condition: Stable rn Problem: new rn Symptoms: have improved rn Bed/Room Type: Standard rn Room Assignment: 202(11/14/22 17:14) dw Diagnosis - Altered mental status, unspecified rn - Syncope Near rn - Hypotension, unspecified rn - Nontraumatic intracerebral hemorrhage, multiple localized - Microhemorrhage rn Forms: - Medication Reconciliation Form rn - SBAR form rn Signatures: Dispatcher [employer] Linda Hernandez RN RN dw Williams, Irene, RN RN iw Konrad Cabrera MD MD rn Lewis, Lynsay RN RN ll1 Corrections: (The following items were deleted from the chart) 17:14 15:12 rn dw
--- NOTE | 2022-11-14 15:26 | RAD REPORT ---
EXAM DESCRIPTION: CT - Abdomen Pelvis W Contrast - 11/14/2022 2:27 pm CLINICAL HISTORY: recent gallbladder procedure, vomiting COMPARISON: Abdomen Pelvis W Contrast dated 10/26/2017; Chest Single View dated 11/14/2022 TECHNIQUE: Thin cut axial CT imaging of the abdomen and pelvis was performed following intravenous a dministration of 100 mL Isovue 300. Multiplanar reformats were generated and reviewed. All CT scans are performed using dose optimization technique as appropriate and may include automated exposure control or mA/KV adjustment according to patient size. FINDINGS: Partial improvement of small bilateral pleural effusions and underlying subsegmental atele ctasis, with mild residual effusions larger on the right. Mild cardiomegaly again seen. Multiple hepatic cysts, with waxing and waning size is, the largest straddling segments 4B and 3 ante riorly, measuring 4.4 x 2.8 centimeter, increased in size from 3.4 x 2.1 centimeter on the prior exam . The posteriorly situated subcapsular right lobe cyst measuring 2 centimeter has decreased in size f rom 2.5 centimeter on the prior exam. Adrenal glands, spleen, and pancreas show no suspicious findings. Gallbladder is suboptimally distend ed, limiting evaluation, with some apparent wall hyperenhancement. Mildly prominent common bile duct, measuring 8 millimeter in caliber, stable. Symmetric renal function is seen with no hydronephrosis or suspicious renal mass. The small benign-ap pearing left renal cyst, stable. Right superior pole cyst is no longer visualized. No dilated bowel loops or bowel wall thickening. Moderate stool burden throughout the colon and in th e rectum. Moderate-sized duodenal diverticulum containing fluid and air. No free air, free fluid or i nflammatory stranding. No hernia, mass or bulky lymphadenopathy. The urinary bladder is without signi ficant finding. No suspicious bony findings. IMPRESSION: Suboptimally distended gallbladder limiting evaluation. Some apparent wall hyperenhancem ent, which could relate to nondistention, postprocedural change, or chronic cholecystitis. Please cor relate with recent procedural history. Improving bilateral pleural effusions with underlying subsegmental atelectasis. Moderate stool burden throughout the colon and in the rectum. No other acute intra-abdominal process. Waxing and waning liver cysts. Stable nonspecific common bile duct caliber prominence, please correla te with bilirubin profile.
[2022-11-14] MEDS ORDERED: NA CHLORIDE 0.9% 1,000 ML IV SCH (19:01)
[2022-11-14] MEDS ORDERED: ONDANSETRON 4 MG/2 ML VIAL IV PRN (19:01)
[2022-11-14 20:18] VITALS: BMI 29.0
[2022-11-15] MEDS: SOTALOL HCL 80 MG TAB PO SCH ×2 (05:49→17:10)
[2022-11-15 06:40] LABS: Absolute Lymphocytes (CBC) 1.4 K/uL (0.7-4.9); Hematocrit 34.5 % (36.0-45.0); Lymphocytes % 32.7 % (15.3-44.8); MCV 90.7 fL (80-100); MPV 8.2 fL (7.6-11.3)
[2022-11-15 07:08] LABS: Potassium 4.2 mEq/L (3.5-5.1)
[2022-11-15] MEDS: TAMSULOSIN 0.4 MG SR CAP PO SCH (08:42)
[2022-11-15] MEDS: levETIRAcetam 500 MG TAB PO SCH ×2 (08:43→21:17)
[2022-11-15] MEDS: PYRIDOSTIGMINE 60 MG TABLET PO SCH ×3 (08:43→21:17)
--- NOTE | 2022-11-15 08:50 | EKG ---
Test Date: 2022-11-14 Test Time: 13:01:12 Head Charrer: OMKAR MEASUREMENT RESULTS: Intervals: Rate: 60 [place]: 182 QRSD: 74 QT: 494 QTc: 494 [place]: P: 72 [place]: 182 QRS: 36 T: 56 INTERPRETIVE STATEMENTS: Normal sinus rhythm Nonspecific T wave abnormality Prolonged QT Abnormal ECG Compared to ECG 10/09/2022 14:25:20 T-wave abnormality now present Prolonged QT interval now present Atrial fibrillation no longer present Myocardial infarct finding no longer present Electronically Signed On 11-15-22 08:48:01 CDT by Franck Salas
[2022-11-15 11:23] VITALS: O2SAT 96
--- NOTE | 2022-11-15 21:07 | CON ---
Reason For Consultation: Consultation called because of new punctate hemorrhages in patient with alt ered mental status. History Of Present Illness: Ms. Diane is an 82-year-old patient who was discharged from the [facility] ent rehabilitation unit just over a month ago with a stroke involving the right hemisphere producing more aphasia and right upper and lower extremity weakness. She did very well actually and had residu al aphasia more than weakness. The patient was discharged to long term. She did report that s he travelled to [place] and she came back and was doing fairly well. However, yesterday on , orquidea torres developed more weakness, confusion, and her family called EMS after she had a near syncopal ep isode. Her systolic blood pressure was found to be 76, heart rate 56 glucose 132, and she was given a bolus of 400 cc normal saline and then she was seen in the emergency room and had a head CT scan, w hich was negative for any acute ischemic or hemorrhagic findings. The study did demonstrate interval expected changes in the left MCA subacute infarct. However, an MRI of the brain done shortly after identified new focus of microhemorrhage in the left parietal subcortical region felt to be related to the evolving infarct in the left MCA territory. There is no evidence of ventriculomegaly, mass effe ct, or other acute intracranial processes. There was air of encephalomalacia in the left frontal ope rculum and left superior cerebellar hemispheres, likely from chronic infarcts. In addition, there we re scattered foci of susceptibility related signal loss throughout the peripheral supratentorial mansoor ex bilaterally and felt to be chronic. Despite these findings, patient actually was doing very well with worsening weakness in the upper and lower extremities, just some confusion and difficulty to get her thoughts and words together and the hypotension. Past Medical History: As noted, multiple strokes, hypertension, reported seizures, urinary retention , atrial fibrillation, dyslipidemia. Allergies: NO KNOWN DRUG ALLERGIES. Home Medications: Fosamax 70 mg daily, amlodipine 5 mg daily, Xarelto 20 mg daily, folic acid 1 mg d aily, carvedilol 12.5 mg twice daily, levetiracetam 250 mg daily, Flomax 0.4 mg daily. Pyridostigmin e bromide 30 mg 3 times daily, sotalol 40 mg twice daily, Centrum Silver daily. Social History: No alcohol, tobacco, or IV drug use. Family History: Not contributory. Review of Systems: Difficult to get an accurate review of systems as the patient does have some significant expressive a phasia. She tends to perseverate and appears to say that she did leave the country to [place], but re view of the chart suggested that that is not the case. Physical Examination: Vital Signs: Blood pressure 141/66, pulse 55, respiratory rate 16, temperature 97.7, oxygen saturati on 96%. General: Ms. Diane is resting in bed. She immediately recognized me as I walked to the room and s he had spent several weeks in ICU just over a month ago. She extended her hand for handshake, did no t appear to have any significant weakness in the right upper and lower extremity. She had some diffi culty expressing her thoughts and following instructions, but readings were done without d ifficulty. HEENT: She was normocephalic, atraumatic, atraumatic. Sclerae anicteric. Oropharynx moist. Neck: Supple. Chest: Clear. Heart: Irregularly irregular. Abdomen: Soft. Extremities: Show no edema or cyanosis. Neurological: She has expressive and receptive aphasia, but medications can be done by an d mouthing and eventually she does appropriately respond. Cranial nerves show no obvious focal defic its. There was some drooping of the right face, but that was good excursion on smiling. Right upper extremity subtle weakness 4+/5 proximally and distally. Lower extremity 4+/5 on the right, 5/5 on t he left. Difficult to assess sensation and coordination. Reflexes slightly asymmetric increased on the right compared to the left and gait, patient will be ambulated with the physical therapist. Laboratory Studies: Complete blood count with differential shows white blood cell count 4.2, hemoglo bin 11.5, platelets 263. INR 1.97. Sodium 141, potassium 4.2, chloride 115, carbon dioxide 25, BUN 17, creatinine 0.88, calcium 9.1. Liver function studies were normal. Urinalysis turbid, but otherw ise negative. COVID-19 testing is negative. Assessment: Ms. Diane is an 82-year-old patient who has multiple strokes in the past and multiple stroke risk factors including atrial fibrillation, hypertension, dyslipidemia, and prior strokes. Sh e does have a possibility of seizures and is on Keppra. She has urinary retention. Plan: 1.She may be evaluated by the physical, occupational, and speech therapist to determine her level of need to see if she is a candidate for returning to inpatient rehabilitation unit. 2.She does have multiple comorbidities, which are addressed above and her medication should be maribel nued including the Xarelto 20 mg daily, although at this point, given the bleeding, it may be held an d have interval CT scan done and if there is no change or improvement, then maybe a resumed. Until t hen perhaps aspirin 81 mg daily. However, it should be noted, given her atrial fibrillation, full an ticoagulation is still the recommendation. Continue antihypertensive medications. Continue levetira cetam for possible seizures and continue Flomax for urinary retention. If possible, the patient may be admitted to the inpatient rehabilitation unit. VITOR/PERLA Voice ID: [id number] Report ID: [id number]
[2022-11-16] MEDS: SOTALOL HCL 80 MG TAB PO SCH (06:00)
[2022-11-16] MEDS: TAMSULOSIN 0.4 MG SR CAP PO SCH (08:10)
[2022-11-16] MEDS: levETIRAcetam 500 MG TAB PO SCH (08:10)
[2022-11-16] MEDS: PYRIDOSTIGMINE 60 MG TABLET PO SCH ×2 (08:10→14:35)
--- NOTE | 2022-11-16 10:25 | P.SSS ---
Patient History Date of Service: 11/16/22 Reason for admission: WEAKNESS, NEAR SYNCOPE History of Present Illness: SEVERO BENITES HAS A CONDITION OF SEVERE ORTHOSTASIS. SHE DOES NOT WANT TO WEAR ABDOMEN BINDER AND LEG STOCKINGS. SHE DID WELL WHEN WE HAD HER WEAR THEM ON REHAB FLOOR. SHE WAS ABLE TO WALK WITHOUT FALLING OR PASSING OUT. SHE ONCE AGAIN GOT DIZZY ,WEAK AND GOT ON THE FLOOR. NEPHEW CALLED EMT. SHE GOT UP AND OPENED THE DOOR FOR THEM. SHE ALSO DOES NOT DRINK ENOUGH WATER AT HOME. SHE HAD MILD DEHYDRATION AND SHE DID WELL HERE NOW. I HAD LONG TALK WITH FAMILY THAT ER WILL ADMIT ANYONE WHO COMES WITH SLIGHTEST DIZZINESS. THEY NEED TO AVOID HER TO BRING TO ER FOR ANY SYNCOPE EPISODES IF SHE DOES NOT FOLLOW INSTRUCTIONS SHE WILL PASS OUT. Allergies No Known Drug Allergies Allergy (Verified 10/02/22 11:59) Unknown Home medications list reviewed: Yes Home Medications: Sotalol HCl [Betapace*] 40 mg PO BID 6AM 6PM 11/14/22 levETIRAcetam [Keppra*] 250 mg PO BID 11/14/22 pyRIDostigmine bromide [Mestinon*] 30 mg PO TID 11/14/22 Fludrocortisone Acetate 0.1 mg PO DAILY #90 11/16/22 - Past Medical/Surgical History Has patient received pneumonia vaccine in the past: Yes Diabetic: No -: HTN -: hyperlipidemia -: h/o shingles right side of face -: Osteoporosis -: history of CVA -: AFIB -: left wrist sx -: varicose vein surgery bilateral legs -: hernia repair - Family History Mother -: Cancer Notes: stomach cancer Father -: Stroke - Social History Smoking Status: Never smoker Alcohol use: No CD- Drugs: No Caffeine use: No Place of Residence: Home Review of Systems 10-point ROS is otherwise unremarkable Physical Examination - Vital Signs Temperature: 97.3 F Blood Pressure: 122/67 Pulse: 58 Respirations: 16 Pulse Ox (%): 98 - Physical Exam General: Alert, In no apparent distress HEENT: Atraumatic, PERRLA, Mucous membr. moist/pink, EOMI, Sclerae nonicteric Neck: Supple, 2+ carotid pulse no bruit, No LAD, Without JVD or thyroid abnormality Respiratory: Clear to auscultation bilaterally, Normal air movement Cardiovascular: Regular rate/rhythm, Normal S1 S2 Gastrointestinal: Normal bowel sounds, No tenderness Musculoskeletal: No tenderness Integumentary: No rashes Neurological: Normal gait, Normal strength at 5/5 x4 extr, Abnormal speech (GLOBAL APHASIA. CHRONIC. ) Lymphatics: No axilla or inguinal lymphadenopathy - Diagnosis (Problem(s)) (1) Dehydration Current Visit: Yes Status: Acute Plan: HPI SHE MUST DRINK ENOUGH WATER WITH SALT DAILY. 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 SHE IS ON XARELTO AND ANYONE WITH INFARCT CAN HAVE MICROHEMORRHAGES. I TALKED TO FAMILY ABOUT RISK AND BENEFIT OF XARELTO. I TOLD THEM THAT WE CAN'T PREVENT EMBOLIC STROKE WITHOUT XARELTO AND SHE IS ALREADY BLEEDING IN BRAIN SO WE WILL HAVE TO AVOID XARELTO. THEY UNDERSTAND. SHE IS A CANDIDATE FOR [employer] BUT THAT WILL HAVE A LONG WAITING LIST WITH DR. WILKINS AND SHE WILL NEED TO BE ON XARELTO FOR 6 WEEKS AFTER. SHE IS HIGH RSK FOR IT. SHE SHOULD NOT LIVE ALONE AND DAUGHTER IS AWARE. (3) Orthostatic hypotension Current Visit: No Status: Chronic Plan: DETAILS IN HPI I ADDED FLUDROCORTISONE I STOPPED FLOMAX - Disposition Disposition: ROUTINE DISCHARGE Condition: SERIOUS
[2022-11-16 12:45] VITALS: BP 143/63; TEMP 97.6
== END 2022-11-16 14:56 | disposition home or self-care (01) | DRG 66 ==
LOC: ER 12:50 → 2ND 17:03
PROVIDERS: ADMIT Internal Medicine; ATTEND Internal Medicine
DX: I61.9 Nontraumatic intracerebral hemorrhage, unspecified (principal); E86.0 Dehydration; I10 Essential (primary) hypertension; E78.5 Hyperlipidemia, unspecified; I95.1 Orthostatic hypotension; I48.91 Unspecified atrial fibrillation; I69.320 Aphasia following cerebral infarction; R33.9 Retention of urine, unspecified; Z79.01 Long term (current) use of anticoagulants; Z79.899 Other long term (current) drug therapy
CPT/HCPCS: 36415; 70450; 70551; 71045; 74177; 80048; 80076; 81001; 83735; 84484; 85025; 85610; 85730; 87804; 87811; 93005; 96360; 97116; 97162; 97530; 99284; J7030; J7040; Q9967